=== PATIENT | male | born 1940 | race Caucasian/White ===

== ENCOUNTER 2020-06-14 06:24 | Outpatient (REF) | payer MEDICARE, SELFPAY ==
[2020-06-14 07:34] LABS: Estimated Average Glucose 85 mg/dL; Hemoglobin A1c % 4.6 %
== END 2020-06-14 06:25 | disposition home or self-care (01) ==
LOC: HO.MMNH2L 06:24
PROVIDERS: Visit Provider Family Medicine
DX: E11.29 Type 2 diabetes mellitus with other diabetic kidney complication (principal)
CPT/HCPCS: 83036

== ENCOUNTER 2020-07-28 07:11 | Outpatient (REF) | payer MEDICARE, SELFPAY ==
[2020-07-28 07:23] LABS: Hemoglobin 9.7 g/dl (14.0-18.0); Mean Corpuscular HGB Conc 33.4 g/dl (31.0-36.0); Mean Corpuscular Hemoglobin 31.8 pg (27.0-33.0); Mean Corpuscular Volume 95.1 fL (80-98); Mean Platelet Volume 9.5 fL (9.4-12.4); Platelet Count 220 X10*3/uL (160-400); Red Blood Count 3.05 X10*6/uL (4.60-5.80); Red Cell Distribution Width 13.2 % (11.0-16.0); White Blood Count 7.6 X10*3/uL (4.8-10.8)
[2020-07-28 07:23] LABS: Appearance Urine CLOUDY; Color Urine YELLOW; Glucose Urine UA NEG (NEG); Leukocyte Esterase Urine 3+ (NEG); Nitrite Urine NEG (NEG); Specific Gravity - Urine 1.015 (1.005-1.025); Urine Blood 3+ (NEG); Urine Ketones NEG (NEG); Urine Protein 2+ MG/DL (NEG-TRACE)
[2020-07-28 07:57] LABS: Bacteria Urine TRACE /LPF; WBC Urine 30-49 /HPF (0-4)
== END 2020-07-28 07:12 | disposition home or self-care (01) ==
LOC: HO.MMNH3L 07:11
PROVIDERS: Visit Provider Family Medicine
DX: N13.9 Obstructive and reflux uropathy, unspecified (principal)
CPT/HCPCS: 36415; 81001; 85027; 87086

== ENCOUNTER 2020-11-16 06:41 | Outpatient (REF) | payer SELFPAY ==
[2020-11-16 07:45] LABS: Glucose Urine UA 100 MG/DL (NEG); Leukocyte Esterase Urine 2+ (NEG); Nitrite Urine NEG (NEG); PH 8.5 (5.0-8.0); Specific Gravity - Urine 1.015 (1.005-1.025); Urine Blood 2+ (NEG); Urine Ketones NEG (NEG)
[2020-11-16 08:29] LABS: Appearance Urine HAZY; Color Urine YELLOW; Urine Protein 2+ MG/DL (NEG-TRACE)
[2020-11-16 08:43] LABS: Amorphous Sediment Urine 1+ /LPF; Bacteria Urine 1+ /LPF; Mucus Urine 1+ /LPF; WBC Urine 50-75 /HPF (0-4)
== END 2020-11-16 06:42 | disposition home or self-care (01) ==
LOC: HO.MMNH3L 06:41
PROVIDERS: Visit Provider Family Medicine
DX: N39.0 Urinary tract infection, site not specified (principal)
CPT/HCPCS: 81001; 81003; 87086

== ENCOUNTER 2020-11-18 12:45 | Outpatient (REF) | payer MEDICARE, SELFPAY ==
[2020-11-18 12:53] LABS: Basophils Percent Auto 0.3 % (0-2); Eosinophils Absolute Auto 0.1 X10*3/uL (0.0-0.4); Eosinophils Percent Auto 0.7 % (0-4); Hemoglobin 8.4 g/dl (14.0-18.0); Imm Gran Pct Auto 2.1 % (0.0-0.4); Lymphocytes Percent Auto 10.1 % (20-40); MANUAL DIFF FLAG NO; Mean Corpuscular HGB Conc 32.3 g/dl (31.0-36.0); Mean Corpuscular Hemoglobin 31.6 pg (27.0-33.0); Mean Corpuscular Volume 97.7 fL (80-98); Mean Platelet Volume 9.6 fL (9.4-12.4); Monocytes Percent Auto 10.1 % (2-11); Neutrophils Absolute Auto 7.3 X10*3/uL (2.0-8.3); Neutrophils Percent Auto 76.7 % (45-73); Platelet Count 216 X10*3/uL (160-400); Red Blood Count 2.66 X10*6/uL (4.60-5.80); Red Cell Distribution Width 13.1 % (11.0-16.0); White Blood Count 9.5 X10*3/uL (4.8-10.8)
== END 2020-11-18 12:46 | disposition home or self-care (01) ==
LOC: HO.MMNH3L 12:45
PROVIDERS: Visit Provider Family Medicine
DX: R31.9 Hematuria, unspecified (principal)
CPT/HCPCS: 36415; 85025

== ENCOUNTER 2021-01-01 21:00 | Outpatient (REF) | payer SELFPAY ==
[2021-01-02 09:09] LABS: Nitrite Urine POS (NEG); PH 7.5 (5.0-8.0); Specific Gravity - Urine 1.015 (1.005-1.025); Urine Blood 3+ (NEG)
[2021-01-02 09:12] LABS: Appearance Urine TURBID; Color Urine BROWN
[2021-01-02 09:13] LABS: Leukocyte Esterase Urine 3+ (NEG)
[2021-01-02 09:15] LABS: Amorphous Sediment Urine 2+ /LPF; Bacteria Urine 4+ /LPF; WBC Urine TNTC /HPF (0-4)
== END 2021-01-01 21:01 | disposition home or self-care (01) ==
LOC: HO.MMNH3L 21:00
PROVIDERS: Visit Provider Family Medicine
DX: R31.9 Hematuria, unspecified (principal)
CPT/HCPCS: 81001; 81003; 87086

== ENCOUNTER 2021-01-03 22:00 | Outpatient (REF) | payer MEDICARE, SELFPAY ==
[2021-01-04 05:58] LABS: Glucose Urine UA NEG (NEG); Leukocyte Esterase Urine 3+ (NEG); Nitrite Urine POS (NEG); PH 7.5 (5.0-8.0); Urine Blood 3+ (NEG); Urine Ketones NEG (NEG); Urine Protein 3+ MG/DL (NEG-TRACE)
[2021-01-04 06:01] LABS: Appearance Urine CLOUDY; Color Urine PINK
[2021-01-04 06:13] LABS: Bacteria Urine 2+ /LPF; Mucus Urine 2+ /LPF; RBC Urine 50-75 /HPF (0); Squamous Epithelial Cell Urine 1+ /LPF; WBC Urine 50-75 /HPF (0-4)
== END 2021-01-03 22:01 | disposition home or self-care (01) ==
LOC: HO.MMNH3L 22:00
PROVIDERS: Visit Provider Family Medicine
DX: R31.9 Hematuria, unspecified (principal)
CPT/HCPCS: 81001; 81003; 87086

== ENCOUNTER 2021-01-04 05:29 | Outpatient (REF) | payer MEDICARE, SELFPAY | END 2021-01-04 05:30 | disposition home or self-care (01) | LOC: HO.MMNH3L 05:29 | PROVIDERS: Visit Provider Family Medicine | DX: Z13.89 Encounter for screening for other disorder (principal) ==

== ENCOUNTER 2021-01-31 06:31 | Outpatient (REF) | payer MEDICARE, SELFPAY ==
[2021-01-31 06:41] LABS: MANUAL DIFF FLAG NO
[2021-01-31 06:46] LABS: Basophils Percent Auto 0.5 % (0-2); Eosinophils Absolute Auto 0.2 X10*3/uL (0.0-0.4); Eosinophils Percent Auto 5.5 % (0-4); Hematocrit 26.6 % (42-52); Hemoglobin 8.5 g/dl (14.0-18.0); Imm Gran Abs Auto 0.02 X10*3/uL (0.00-0.03); Imm Gran Pct Auto 0.5 % (0.0-0.4); Lymphocytes Absolute Auto 1.1 X10*3/uL (1.2-4.9); Lymphocytes Percent Auto 28.9 % (20-40); Mean Corpuscular Hemoglobin 30.5 pg (27.0-33.0); Mean Corpuscular Volume 95.3 fL (80-98); Mean Platelet Volume 9.7 fL (9.4-12.4); Monocytes Absolute Auto 0.5 X10*3/uL (0.1-1.2); Monocytes Percent Auto 13.9 % (2-11); Neutrophils Absolute Auto 1.9 X10*3/uL (2.0-8.3); Neutrophils Percent Auto 50.7 % (45-73); Platelet Count 149 X10*3/uL (160-400); Red Blood Count 2.79 X10*6/uL (4.60-5.80); Red Cell Distribution Width 15.2 % (11.0-16.0); White Blood Count 3.8 X10*3/uL (4.8-10.8)
== END 2021-01-31 06:32 | disposition home or self-care (01) ==
LOC: HO.MMNH3L 06:31
PROVIDERS: Visit Provider Family Medicine
DX: I69.811 Memory deficit following other cerebrovascular disease (principal); I12.0 Hypertensive chronic kidney disease with stage 5 chronic kidney disease or end stage renal disease; N18.6 End stage renal disease; Z99.2 Dependence on renal dialysis
CPT/HCPCS: 36415; 85025

== ENCOUNTER 2021-05-05 06:01 | Emergency (ER) | payer MEDICARE, SELFPAY ==
--- NOTE | ~2021-05-05 | CT_ITS ---
EXAMINATION: CT ABDOMEN AND PELVIS WITHOUT CONTRAST CLINICAL INFORMATION: Nausea and vomiting. COMPARISON: CT scan of the abdomen and pelvis dated 10/05/2019. TECHNIQUE: Multidetector volumetric imaging was performed from the superior aspect of the liver through the pubic symphysis. Sagittal and coronal reformatted images were obtained on the technologist workstation. This CT examination was performed using dose optimization techniques as appropriate, variously including the following: *Automated exposure control *Adjustment of mA and/or kV according to patient size (this includes techniques or standardized protocols for targeted exams where dose is matched to indication/reason for exam; i.e. extremities or head) *Use of iterative reconstruction technique DLP: 635 mGy-cm. FINDINGS: LUNG BASES: The heart is enlarged. A central venous line is seen extending into the right atrium. Dense mitral annular calcifications noted. There may be subtle aortic valvular calcifications. Moderate to severe coronary artery calcifications are noted. There is a trace right pleural effusion and a small left pleural effusion, similar to prior exam. There is associated volume loss and consolidation with air bronchograms in the entire visualized left lower lobe, progressive compared to 10/05/2019. Mild dependent atelectasis in the right lower lobe is unchanged. LIVER, GALLBLADDER, AND BILIARY TREE: The liver is normal in size, shape, and attenuation. Small scattered calcified hepatic granulomas seen. No focal hepatic lesion on noncontrast imaging. No biliary ductal dilatation is present. The gallbladder is unremarkable with no evidence of radiopaque gallstones, gallbladder wall thickening, or obvious pericholecystic inflammatory changes. PANCREAS: Difficult to separate from the adjacent bowel loops due to paucity of internal fat planes. Coarse calcifications seen in the pancreatic head. Pancreas otherwise grossly unremarkable to the extent seen on noncontrast imaging. SPLEEN: Multiple splenic calcifications are likely vascular in etiology. The anterior superior margin of the spleen, a 1 cm fluid attenuation mass is again seen, unchanged, consistent with a small splenic cyst. ADRENAL GLANDS: The right adrenal gland is normal. The left adrenal gland is abnormally enlarged and replaced by ill-defined 3 x 1.4 cm mass, similar to prior study from 10/05/2019. This mass is not adequately characterized on single phase exam. KIDNEYS AND URETERS: The kidneys are normal in size, shape, and attenuation. No hydronephrosis, hydroureter seen. Several bilateral renal calcifications are seen, most consistent with vascular calcifications. There are also several bilateral small subcentimeter sized low-attenuation masses in the kidneys, most consistent with benign cysts. No perinephric stranding. BLADDER: Completely decompressed by a Giles catheter and not adequately assessed. Bladder wall may be diffusely thickened. There is mild pericystic fat stranding and edema noted. PELVIC VISCERA: Prostate gland enlarged and heterogeneous and impresses upon the bladder base. GASTROINTESTINAL TRACT: Stomach and small bowel loops are decompressed and unremarkable. There is marked rectal distention with fecal residue seen, similar to the previous study with mild surrounding fat stranding and mild presacral edema, similar to the previous study, raising the suspicion of stercoral colitis. Moderate sigmoid colonic diverticulosis is seen with no evidence of acute diverticulitis. No bowel obstruction noted. Appendix normal. ABDOMINAL WALL: There is a tiny fat-containing umbilical hernia and a small supraumbilical midline ventral wall hernia, containing fat only, similar to prior studies. There is also a small direct fat-containing inguinal hernia seen bilaterally, right greater than left. LYMPH NODES, VASCULAR: Extensive dense atherosclerotic calcifications of the aorta iliac vessels and branch vessels seen. No significant abdominal or pelvic adenopathy is noted. OSSEOUS STRUCTURES: There is a S-shaped thoracolumbar scoliosis, diffuse osteopenia, mild superior endplate compression of the L2 and L3 vertebral bodies, and moderate degenerative disc disease at L3-4 and L5-S1. Moderate facet arthropathy is also seen throughout the mid and lower thoracic spine. CT/CT abdomen pelvis wo con IMPRESSION: 1. 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 2. Bladder poorly assessed due to complete decompression by Giles catheter. There may be diffuse bladder wall thickening and there is some very cystic fat stranding seen, suggesting an acute inflammatory response. Findings may be related to acute cystitis. Clinical correlation is requested. 3. Chronic small left pleural effusion with progressive volume loss and consolidation in the left lung base, either due to progressive atelectasis or pneumonia. 4. No significant change in trace right pleural effusion and associated dependent atelectasis in the right lower lobe. 5. Large left adrenal mass is seen, unchanged from 10/05/2019, but of uncertain etiology. Based on noncontrast imaging alone, the finding cannot be classified as an adenoma. Recommend dedicated assessment with renal CT scan with and without contrast in the nonemergent setting. 6. Extensive atherosclerotic vascular disease.
--- NOTE | ~2021-05-05 | CT_ITS ---
EXAMINATION: CT HEAD AND CT CERVICAL SPINE WITHOUT CONTRAST CLINICAL INFORMATION: Fall, pain. COMPARISON: None TECHNIQUE: 5 mm thin axial and reformatted 2 mm thin sagittal and coronal images of brain were obtained. Axial 3 mm thin and reformatted 2 mm thin sagittal and coronal images of cervical spine were obtained. DLP 1041 FINDINGS: Brain: There is a right posterior parietal lobe watershed area hypodensity consistent old encephalomalacia. There is no acute intra-axial, extra-axial bleed, mass, collection midline shift. The lateral ventricles are symmetrical in size but enlarged. There is diffuse periventricular hypodensity suggestive of chronic small vessel ischemic changes without mass effect. There is a left para midline frontal scalp hematoma. No calvarial fracture seen. The paranasal sinuses and mastoid air cells are well-aerated. Cervical spine: There is mild straightening of cervical lordosis. There is grade 1 anterolisthesis C4-C5 and grade 1 retrolisthesis C5 over C6. Rest the alignment is normal. There is loss of C3-C4, C4-C5, C5-C6 disc heights with moderate ventral spondylosis at the C4-C5 and C5-C6 disc levels. There is minimal posterior spondylosis as well. The craniovertebral junction and the C1-C2 alignment is normal. There is moderate left C2-C3, bilateral C3-C4, C4-C5 facet joint arthropathy and hypertrophy. No visible acute fracture, dislocation or subluxation seen. No visible acute fracture, dislocation or subluxation seen. There is large left pleural effusion. CT/CT cervical spine wo con IMPRESSION: Left frontal midline scalp hematoma without calvarial fracture. Mild cerebral volume loss with chronic small vessel ischemic changes in the cerebral hemispheres. Incidental finding of a large left pleural effusion.
--- NOTE | ~2021-05-05 | XR_ITS ---
EXAMINATION: XR CHEST CLINICAL INFORMATION: SOB. COMPARISON: None TECHNIQUE: Frontal view of the chest was obtained. FINDINGS: There is a left central venous catheter with its tip at the atriocaval junction. The heart size is borderline enlarged. Mild bilateral prominence vascularity is seen suggestive for interstitial edema. The lungs are expanded with left lower lobe retrocardiac complete opacification likely atelectasis, infiltrate or effusion. No gross bony abnormality. XR/XR chest 1V IMPRESSION: Cardiomegaly with bilateral interstitial edema or pneumonitis. Left lower lobe retrocardiac opacification question consolidation/atelectasis versus effusion.
--- NOTE | ~2021-05-05 | CT_ITS ---
EXAMINATION: CT HEAD AND CT CERVICAL SPINE WITHOUT CONTRAST CLINICAL INFORMATION: Fall, pain. COMPARISON: None TECHNIQUE: 5 mm thin axial and reformatted 2 mm thin sagittal and coronal images of brain were obtained. Axial 3 mm thin and reformatted 2 mm thin sagittal and coronal images of cervical spine were obtained. DLP 1041 FINDINGS: Brain: There is a right posterior parietal lobe watershed area hypodensity consistent old encephalomalacia. There is no acute intra-axial, extra-axial bleed, mass, collection midline shift. The lateral ventricles are symmetrical in size but enlarged. There is diffuse periventricular hypodensity suggestive of chronic small vessel ischemic changes without mass effect. There is a left para midline frontal scalp hematoma. No calvarial fracture seen. The paranasal sinuses and mastoid air cells are well-aerated. Cervical spine: There is mild straightening of cervical lordosis. There is grade 1 anterolisthesis C4-C5 and grade 1 retrolisthesis C5 over C6. Rest the alignment is normal. There is loss of C3-C4, C4-C5, C5-C6 disc heights with moderate ventral spondylosis at the C4-C5 and C5-C6 disc levels. There is minimal posterior spondylosis as well. The craniovertebral junction and the C1-C2 alignment is normal. There is moderate left C2-C3, bilateral C3-C4, C4-C5 facet joint arthropathy and hypertrophy. No visible acute fracture, dislocation or subluxation seen. No visible acute fracture, dislocation or subluxation seen. There is large left pleural effusion. CT/CT head/brain wo con IMPRESSION: Left frontal midline scalp hematoma without calvarial fracture. Mild cerebral volume loss with chronic small vessel ischemic changes in the cerebral hemispheres. Incidental finding of a large left pleural effusion.
[2021-05-05 06:08] VITALS: BP 145/67; PULSE 71; RESP 18; O2SAT 96; BMI 20.6
[2021-05-05 06:18] VITALS: TEMP 37
[2021-05-05 06:34] LABS: Glucose, Whole Blood 146 mg/dL (60-115)
--- NOTE | 2021-05-05 06:51 | ECG_ITS ---
Test Reason : FALL Blood Pressure : / mmHG Vent. Rate : 079 BPM Atrial Rate : 079 BPM P-R Int : 198 ms QRS Dur : 162 ms QT Int : 452 ms P-R-T Axes : 038 -32 -11 degrees QTc Int : 518 ms Normal sinus rhythm Left axis deviation Right bundle branch block Abnormal ECG No previous ECGs available Referred By: Meme Sheppard Electronically Signed By:VIK NICHOLS
--- NOTE | 2021-05-05 06:51 | ED_ITS ---
HPI - Fall General Chief Complaint: Fall Stated Complaint: FALL W/HEAD STRIKE,PAIN ON MOVEMENT Time Seen by Provider: 05/05/21 06:50 History of Present Illness HPI Narrative: 80-year-old male status post fall accidental in nature hit the front of his head. No loss of consciousness. No nausea no vomiting. No focal weakness. Patient was sitting in his wheelchair that time. There is a mechanical fall. Related Data Allergies Allergy/AdvReac Type Severity Reaction Status Date / Time No Known Allergies Allergy Unverified 04/27/20 19:41 [No Known Allergies*] Review of Systems Review of Systems: No fever no chills no chest pain or shortness breath no diaphoresis. No focal weakness Yes all other systems are reviewed and are negative [facility] Past Medical History Attestation statement: The following information was validated with the patient. Social History Social History Advance Directives: No Advance Directives Information Provided: No Physical Exam Vital Signs: Vital Signs: Last Vital Signs Temp 98.6 F 05/05/21 06:18 Pulse 67 05/05/21 07:55 Resp 17 05/05/21 07:55 BP 154/70 H 05/05/21 07:55 Pulse Ox 96 05/05/21 07:55 Body Mass Index 20.6 Appearance: Alert. Oriented X3. No acute distress. Eyes: Pupils equal, round and reactive to light. ENT: Pharynx normal. Positive contusion to the forehead positive small abrasion noted in the left frontal area there is no hemotympanum there is no CSF rhinorrhea. There is no midface tenderness there is no malocclusion noted Neck: Normal inspection. No lymph nodes noted. No crepitus CVS: Normal heart rate and rhythm. Pulses normal. Normal S1 and S2 Respiratory: No respiratory distress. Breath sounds normal. No Wheezing. No rales Abdomen: Soft and nontender. No rigidity. No distention. good BS x4 Skin: Skin warm and dry. Normal skin color. Normal skin turgor. Extremities: No lower extremity edema. Neurovascular intact to all extremities. No Lacerations. No Rash Neuro: Oriented X 3. No motor deficit. No sensory deficit. Moving all extermities. No slurred speech MDM - Fall MDM Narrative Medical decision making narrative: Patient 80-year-old male status post accidental fall at the dialysis center on a wheelchair. CT scan of the head and C-spine were both negative for fracture. Labs are ordered as patient has a hi story of end-stage renal disease is due for dialysis and did not receive his dialysis today. Patient's creatinine is 6 which is baseline. Potassium is 4.7 which is also acceptable. Patient had nausea vomiting earlier. CT scan of the abdomen showed no evidence of obstruction, abscess, perforation. It did show an adrenal mass which will require follow-up on an outpatient basis. Patient's case discussed with Nephrology. Will arrange for patient to get dialysis on Friday. As there is no emergent need for dialysis. Patient is lying flat O2 sat is normal. No distress. Patient's chest x-ray showed no acute focal infiltrate mild pleural effusion noted. Question age. Will have patient fo llow-up on an outpatient basis. Currently in stable condition. Will discharge patient back to [facility] same memory. Lab Data Attestation: I reviewed the patient's lab results. Result diagrams: 05/05/21 07:36 05/05/21 07:36 Labs: Lab Results 05/05/21 05/05/21 05/05/21 Range/Units 06:30 07:36 07:36 WBC 13.1 H (4.8-10.8) X10*3/uL RBC 2.80 L (4.60-5.80) X10*6/uL Hgb 8.7 L (14.0-18.0) g/dl Hct 26.1 L (42-52) % MCV 93.2 (80-98) fL MCH 31.1 (27.0-33.0) pg MCHC 33.3 (31.0-36.0) g/dl RDW 14.8 (11.0-16.0) % Plt Count 139 L (160-400) X10*3/uL MPV 9.5 (9.4-12.4) fL Immature Gran % (Auto) 0.6 H (0.0-0.4) % Neut % (Auto) 87.7 H (45-73) % Lymph % (Auto) 4.1 L (20-40) % [place] % (Auto) 7.5 (2-11) % Eos % (Auto) 0.0 (0-4) % Baso % (Auto) 0.1 (0-2) % Lymph # (Auto) 0.5 L (1.2-4.9) X10*3/uL [place] # (Auto) 1.0 (0.1-1.2) X10*3/uL Eos # (Auto) 0.0 (0.0-0.4) X10*3/uL Baso # (Auto) 0.0 (0.0-0.2) X10*3/uL Abs Immat Gran (auto) 0.08 H (0.00-0.03) X10*3/uL Absolute Neuts (auto) 11.5 H (2.0-8.3) X10*3/uL Absolute Nucleated RBC 0.000 (0.0-0.012) X10*3/uL Nucleated RBC % (auto) 0.0 (0.0-0.2) /100WBC Sodium 138 (135-145) mmol/L Potassium 4.7 (3.3-5.1) mmol/L Chloride 99 (96-108) mmol/L Carbon Dioxide 28 (22-29) mmol/L Anion Gap 16 (12-20) BUN 62 H (9-16) mg/dL Creatinine 6.19 H* (0.5-1.4) mg/dL Estim Creat Clear Calc 7.9 Estimated GFR 9 POC Glucose 146 H (60-115) mg/dL Random Glucose 133 H (60-115) mg/dL Calcium 9.9 (8.4-10.2) mg/dL Discharge Plan Discharge Clinical Impression: Head injury, Nausea & vomiting Patient Disposition: Home, Self-Care Instructions: Head Injury (ED), Acute Abdominal Pain (ED) Additional Instructions: A mass was found in your adrenal gland. This is very similar to the adrenal gland mass noted in 2020. The size is not changed. Close follow-up is still advised. Risk of malignancy exists. Please get dialysis on Friday. Your case was discussed with Renal. Referrals: Physician,Unknown [Primary Care Provider] - 2 days (Please get dialysis on Friday. Worsening condition return. Nausea vomiting change in condition return. Head injury precautions.)
[2021-05-05 07:41] LABS: MANUAL DIFF FLAG NO
[2021-05-05 07:50] LABS: Basophils Percent Auto 0.1 % (0-2); Hematocrit 26.1 % (42-52); Hemoglobin 8.7 g/dl (14.0-18.0); Imm Gran Abs Auto 0.08 X10*3/uL (0.00-0.03); Imm Gran Pct Auto 0.6 % (0.0-0.4); Lymphocytes Absolute Auto 0.5 X10*3/uL (1.2-4.9); Lymphocytes Percent Auto 4.1 % (20-40); Mean Corpuscular HGB Conc 33.3 g/dl (31.0-36.0); Mean Corpuscular Hemoglobin 31.1 pg (27.0-33.0); Mean Corpuscular Volume 93.2 fL (80-98); Mean Platelet Volume 9.5 fL (9.4-12.4); Monocytes Percent Auto 7.5 % (2-11); Neutrophils Absolute Auto 11.5 X10*3/uL (2.0-8.3); Neutrophils Percent Auto 87.7 % (45-73); Platelet Count 139 X10*3/uL (160-400); Red Cell Distribution Width 14.8 % (11.0-16.0); White Blood Count 13.1 X10*3/uL (4.8-10.8)
[2021-05-05 07:55] VITALS: BP 154/70; PULSE 67; RESP 17; O2SAT 96
--- NOTE | 2021-05-05 07:59 | PC.NURSE ---
Pt is groaning telling staff to take off o2 sat probe. Pt A+O x2 able to state his name and that he is in the hospital. He is otherwise not appropriate.
[2021-05-05] MEDS: Diphth,Pertus(ACell),Tet Adult 0.5 ML SYRINGE IM (08:01)
[2021-05-05 08:12] LABS: Anion Gap 16 (12-20); Blood Urea Nitrogen 62 mg/dL (9-16); Calcium 9.9 mg/dL (8.4-10.2); Carbon Dioxide 28 mmol/L (22-29); Chloride 99 mmol/L (96-108); Creatinine Clr Calc Pharmacy 7.9; Estimated Glomerular Filt Rate 9; Glucose Random 133 mg/dL (60-115); Potassium 4.7 mmol/L (3.3-5.1); Sodium 138 mmol/L (135-145)
--- NOTE | 2021-05-05 10:28 | PC.NURSE ---
Pt resisting care and fighting staff in attempt to place IV. aware. Plan to order CT w/o contrast.
--- NOTE | 2021-05-05 12:23 | PC.NURSE ---
Report called to nurse at [facility]. Pt to be discharged back with dialysis on Friday.
== END 2021-05-05 14:53 | disposition home or self-care (01) ==
PROVIDERS: Emergency Provider Emergency Medicine Emergency Medical Services
DX: S00.81XA Abrasion of other part of head, initial encounter (principal); M54.2 Cervicalgia; R10.9 Unspecified abdominal pain; N18.6 End stage renal disease; Z99.2 Dependence on renal dialysis; W01.0XXA Fall on same level from slipping, tripping and stumbling without subsequent striking against object, initial encounter; Y93.9 Activity, unspecified; Y92.9 Unspecified place or not applicable; Y99.9 Unspecified external cause status
CPT/HCPCS: 36415; 70450; 71045; 72125; 74176; 80048; 82947; 85025; 90471; 90715; 93005; 99284

== ENCOUNTER 2021-06-16 05:39 | Inpatient (IN) | payer MEDICARE, SELFPAY ==
[2021-06-16] VITALS (10 sets, daily range): BP systolic 133–184; BP diastolic 61–89; PULSE 71–113; RESP 16–20; TEMP 36.6–38.1; O2SAT 85–100; BMI 20.7
--- NOTE | ~2021-06-16 | CT_ITS ---
EXAMINATION: CT HEAD/BRAIN WITHOUT CONTRAST CLINICAL INFORMATION: AMS COMPARISON: May 05, 2021 TECHNIQUE: CT scanning from base of skull to vertex performed without IV contrast administration. This CT examination was performed using dose optimization techniques as appropriate, variously including the following: *Automated exposure control *Adjustment of mA and/or kV according to patient size (this includes techniques or standardized protocols for targeted exams where dose is matched to indication/reason for exam; i.e. extremities or head) *Use of iterative reconstruction technique DLP: 775 mGy-cm. FINDINGS: The ventricles, sulci, and cisterns appear symmetrically prominent consistent with generalized atrophy. No abnormal extra-axial fluid collection or intracranial hemorrhage is seen. No significant mass effect or midline structure shift is evident. There is again noted to be stable region of diminished density with loss of brain white matter interface about the right posterior parietal/occipital watershed region. There is a large amount of periventricular white matter low density consistent with microangiopathy. Paranasal sinuses and mastoid air cells are aerated. CT/CT cervical spine wo con IMPRESSION: No acute intracranial abnormality. 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 Findings consistent with diffuse atrophy and microangiopathy. EXAMINATION: CT OF THE CERVICAL SPINE CLINICAL INFORMATION: Neck pain COMPARISON: May 05, 2021. TECHNIQUE: Thin helical images with sagittal and coronal reformats. This CT examination was performed using dose optimization techniques as appropriate, variously including the following: *Automated exposure control *Adjustment of mA and/or kV according to patient size (this includes techniques or standardized protocols for targeted exams where dose is matched to indication/reason for exam; i.e. extremities or head) *Use of iterative reconstruction technique DOSE: DLP 356 mGy-cm FINDINGS: No abnormal prevertebral soft tissue swelling is seen. Paraspinal muscle fat planes are maintained. Carotid artery calcifications present. There is degenerative change with loss of joint space involving the left temporomandibular joint. No acute cervical spine fracture is seen. There is loss of cervical spine lordosis. There is mild anterior subluxation of C4 on C5. There is loss of disc spaces C3-T1 with prominent sclerosis and spurring seen about C5-C6 disc space level with some irregularity of adjacent end plates. There is anterior neural foraminal encroachment seen C3-C7 related to spurring of the joints of Luschka. There is facet arthropathy noted on the left C2-C5 and on the right C3-C5. IMPRESSION: No acute cervical spine fracture. Diffuse multilevel cervical spondylosis as described.
--- NOTE | ~2021-06-16 | XR_ITS ---
EXAMINATION: XR CHEST CLINICAL INFORMATION: Status post permacath COMPARISON: 06/16/2021 TECHNIQUE: Frontal view of the chest was obtained. FINDINGS: Left subclavian central venous catheter terminates near the cavoatrial junction. The lungs are well expanded. Moderate left pleural effusion persists with basilar opacity. Minimal right basilar atelectasis. No pneumothorax. The cardiomediastinal silhouette is unchanged, with a calcified aorta. XR/XR chest 1V IMPRESSION: Left-sided central venous catheter terminates near the cavoatrial junction. No pneumothorax. Similar moderate left pleural effusion with basilar airspace opacity.
--- NOTE | ~2021-06-16 | IR_ITS ---
EXAMINATION: IR TUNNELED CATHETER REMOVAL CLINICAL INFORMATION: MRSA bacteremia. Question infected permacath. COMPARISON: None TECHNIQUE/FINDINGS: Procedure and risks and benefits including bleeding and infection were discussed the patient's healthcare proxy by telephone and informed consent was obtained. The left chest permacath was prepped and draped in the usual sterile fashion. The skin and soft tissues surrounding the permacath exit site in the chest wall were anesthetized with 1% lidocaine plain. Using blunt dissection, attempt at dissecting the catheter from the surrounding soft tissues was made, however, the catheter could not be removed. Subsequently, a small incision over the catheter where the fibrous cuff could be felt was anesthetized with 1% lidocaine plain. A small incision was made. Using blunt dissection, the permacath was dissected from the soft tissues. The permacath was removed. The catheter tip was sent for culture. The incision was closed using one 3-0 absorbable interrupted suture followed by a 4-0 subcuticular suture. The patient received Versed 1 mg and fentanyl 50 mcg intravenously during the procedure. Total sedation time was 28 minutes. 1 saved fluoroscopic image. Fluoroscopy time: 0 minutes. DAP: 4 cGy-cm2. IR/IR cvc remov tunnel wo prt/truer pinion and wheel IMPRESSION: Left jugular permacath removal.
--- NOTE | ~2021-06-16 | XR_ITS ---
EXAMINATION: PORTABLE CHEST 1 VIEW CLINICAL INFORMATION: hypoxic . COMPARISON: 05/05/2021 chest x-ray and CT scan from earlier today. TECHNIQUE: Portable frontal view of the chest was obtained. FINDINGS: Lungs are hypoexpanded. There is a moderate-sized layering left pleural effusion with associated left basilar consolidation/atelectasis, grossly similar to the prior study. There is mild central vascular prominence but no overt edema. No pneumothorax. Cardiac silhouette within normal limits for size with vascular calcification in aorta. Left IJ dialysis catheter tip overlying the proximal right atrium. Degenerative changes in the shoulders. XR/XR chest 1V IMPRESSION: Stable moderate left-sided pleural effusion with associated basilar consolidation/atelectasis. Overall this appearance is similar to the prior chest x-ray and seen on the CT scan from today.
--- NOTE | ~2021-06-16 | CT_ITS ---
EXAMINATION: CT CHEST, ABDOMEN AND PELVIS WITHOUT CONTRAST CLINICAL INFORMATION: AMS. Nausea vomiting and abdominal pain. Diarrhea. COMPARISON: CT abdomen of May 05, 2021 TECHNIQUE: Multidetector volumetric imaging was performed from the thoracic inlet through the pubic symphysis without oral or IV contrast. Sagittal and coronal reformatted images were obtained on the technologist workstation. DLP: 942 mGy-cm. FINDINGS: CHEST: Lungs: There are a few sub-4 mm densities present. There is again noted to be left lower lobe consolidation with moderate-sized stable partially loculated left pleural effusion. There is some stable right base atelectasis/scarring. Mediastinum: The heart is enlarged. Left internal jugular tunneled central venous catheter is present with tip at the cavoatrial junction. No pericardial effusion. There are prominent coronary artery calcifications present. There are some aortic valve and mitral annular calcifications present. There is aortic arch calcification with question hemodynamically significant left subclavian artery origin stenosis. Evaluation of mediastinal and hilar lymph nodes is limited. There does appear to be 1.1 cm precarinal lymph node and 1 cm aortopulmonic window lymph node. Prominent arterial vascular calcified plaque is seen throughout. Pleura: Moderate partially loculated left pleural effusion. Chest Wall/Axilla: No axillary lymphadenopathy. ABDOMEN/PELVIS: Liver, Gallbladder, Biliary Tree: There are a few scattered calcified granulomas present. No focal suspicious mass or intrahepatic bile duct dilatation is seen. The gallbladder is unremarkable with no evidence of radiopaque gallstones, gallbladder wall thickening, or pericholecystic inflammatory changes. Pancreas: Unremarkable to extent seen. No definite focal mass or peripancreatic inflammatory change. Spleen: Vascular calcifications present. There are a few scattered calcified granulomas seen. Adrenal Glands: Right adrenal gland unremarkable. Left adrenal gland not well evaluated with approximately 3.5 x 1.4 cm mass density similar to previous study. Kidneys and Ureters: Bilateral calcifications are present some of which appear to be vascular in nature and others which may represent nonobstructive collecting system calculi. No hydronephrosis. Low-density lesions are seen within both kidneys likely representing cysts. Perinephric stranding is present. Bladder: Giles catheter in place. Probably thickened wall. There is some iatrogenic gas seen within the urinary bladder. There is some pericystic fat streaking. Gastrointestinal Tract: No dilated loops of large or small bowel are evident. No free air or free fluid appreciated. The rectum and rectosigmoid are again noted to be distended with stool similar to previous study evaluation of bowel is somewhat limited due to lack of oral and IV contrast and some motion artifact present. No evidence of acute diverticulitis or appendicitis. There is some fat streaking adjacent to the rectosigmoid which is unchanged. No other region of pericolonic inflammatory streaking is identified. Abdominal Wall: Small fat-containing right inguinal hernia. Lymph Nodes: No lymphadenopathy appreciated. Vascular: There is diffuse calcified arterial plaque present throughout the chest, abdomen, and pelvis. There appears to be dense calcification about the proximal renal arteries bilaterally and degree of possible stenosis cannot be determined from this study. Pelvic Viscera: Prominent prostate gland. Osseous Structures: No suspicious destructive bony lesions identified. Degenerative change of both shoulders identified. Multilevel degenerative disc disease is seen with facet arthropathy. There is scoliosis of the lumbar spine convex left. CT/CT abdomen pelvis wo con IMPRESSION: Continued left lower lobe consolidation with moderate partially loculated left pleural effusion. Cardiomegaly. Prominent arterial calcified plaque seen throughout the chest, abdomen, and pelvis with probable some degree of hemodynamically significant stenosis involving the left subclavian artery and bilateral renal arteries. No significant change in appearance of left adrenal gland mass. No evidence to suggest obstructive uropathy. No free air or free fluid. Continued marked distention of the rectum and rectosigmoid with stool. Giles catheter in urinary bladder with probable thickened wall.
--- NOTE | ~2021-06-16 | IR_ITS ---
PROCEDURE: IR INSERTION OF TUNNEL CATHETER CLINICAL INFORMATION: Renal failure. COMPARISON: None TECHNIQUE: Procedure risks and benefits including bleeding, infection and pneumothorax were discussed with the patient's healthcare proxy by telephone, his nephew, and informed consent was obtained. All elements of maximal sterile barrier technique followed including use of cap, mask, sterile gown, sterile gloves, a sterile full body drape and hand hygiene. Also followed skin preparation with 2% chlorhexidine for cutaneous antisepsis, and sterile ultrasound preparation with sterile gel and probe cover when applicable. The left neck and chest were prepped and draped in the usual sterile fashion. Using ultrasound guidance, left internal jugular vein was attempted. Ultrasound revealed significant thrombus in the left internal jugular vein. Limited venogram using Omnipaque 300 contrast, approximately 5 mL, was performed which demonstrated occlusion of the left internal jugular vein. Central access into the mediastinum could not be obtained. Subsequently, again using ultrasound guidance, access to a large collateral vein in the left more lateral neck was made. This was accessed multiple times. 0.018 wire could not be advanced centrally into the mediastinum. Finally, using ultrasound guidance and a 5-Libyan micropuncture system, left subclavian vein access was obtained. Over an 0.018 wire, a 5-Libyan dilator was positioned in the left subclavian vein. The skin and soft tissues of the left more inferior chest were anesthetized with 1% lidocaine plain. A small incision was made. A subcutaneous tunnel was made from the skin incision to the incision under the left clavicle. Using a tunneler, a 14.5-Libyan 23 cm in length Palindrome permacath was tunneled from the chest to the incision under the clavicle at the venous access site. An 0.035 guidewire was advanced through the 5-Libyan dilator into the IVC. Following serial dilatation and through a peel-away sheath, permacath was advanced centrally. Catheter tip is in the SVC. Both ports flushed well, had good blood return and were instilled with 2.1 mL heparin 1000 unit per mL solution. The incision under the left clavicle was closed using a 3-0 absorbable subcuticular suture. Chest incision was closed using a 3-0 absorbable mattress suture. Real-time ultrasound guidance was used to document vein patency and for needle entry. A formal ultrasound picture was recorded. Fluoroscopy time 7.3 minutes. DAP 1272 cGy-cm2. Anesthesia was provided by the anesthesia department. The patient received Kefzol 2 g IV during the procedure. FINDINGS: There is a left subclavian permacath with tip projecting over the SVC. IR/IR cvc insert central tunnel IMPRESSION: 14.5-Libyan 28 cm in length left subclavian Palindrome permacath placement.
--- NOTE | 2021-06-16 05:51 | ECG_ITS ---
Test Reason : WEAKNESS Blood Pressure : / mmHG Vent. Rate : 082 BPM Atrial Rate : 082 BPM P-R Int : 178 ms QRS Dur : 162 ms QT Int : 466 ms P-R-T Axes : 103 230 -29 degrees QTc Int : 544 ms Suspect limb lead reversal, interpretation assumes no reversal Sinus rhythm with Premature supraventricular complexes Indeterminate axis Right bundle branch block Abnormal ECG When compared with ECG of 05-MAY-2021 07:02, Premature supraventricular complexes are now Present T wave inversion more evident in Anterior leads Referred By: Serafin Solorzano Electronically Signed By:TANNER MOON MD
--- NOTE | 2021-06-16 05:56 | ED_ITS ---
HPI - General Adult General Chief complaint: Weakness Stated complaint: weakness Time Seen by Provider: 06/16/21 05:51 Source: EMS and old records reviewed Mode of arrival: ambulatory Limitations: no limitations History of Present Illness HPI narrative: 80-year-old male past medical history significant for anemia, d iabetes, cognitive impairment, hypertension, CKD on hemodyalisis presents to the emergency department via EMS from [facility] with concerns of diarrhea, and vomiting X1 day. According to EMS they also wanted him evaluated at the emergency department because he is scheduled to have dialysis today, however they feel as though he is unable to sit upright in a recliner for dialysis. EMS is not sure if this is patient's baseline, however, he is not answering any questions, when asked if something hurts he has no. Patient appears to be altered. No evident signs of trauma upon arrival. Associated symptoms: denies other symptoms Treatments prior to arrival: none Related Data Allergies Allergy/AdvReac Type Severity Reaction Status Date / Time No Known Allergies Allergy Unverified 04/27/20 19:41 [No Known Allergies*] Review of Systems Review of Systems: Unable to obtain review of systems due to patient's mental status. Yes Unobtainable due to mental status PMF Past Medical History Attestation statement: The following information was validated with the patient. Source: old records reviewed and nursing notes reviewed Medical History (Updated 06/16/21 @ 06:46 by TOM Meneses) Benign prostatic hyperplasia 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 Diabetes End stage renal disease Essential (primary) hypertension Metabolic encephalopathy Pneumonia Physical Exam Vital Signs: Vital Signs: Last Vital Signs Temp 100.6 F H 06/16/21 05:50 Pulse 88 06/16/21 05:50 Resp 16 06/16/21 05:50 BP 136/89 06/16/21 05:50 Pulse Ox 96 06/16/21 05:50 Body Mass Index 20.7 Appearance: Alert. Oriented X1 to person. No acute distress. ? No accessory muscle use. Contracted and laying on his left side. Strong urine odor noted on clothes, indwelling siddiqui catheter in place. Patient thin. Head: Normal external exam. Normocephalic. Atraumatic. ? Eyes: PERRLA. EOMI. Conjunctiva and sclera normal. Eyelids normal. + Bulging of left eye when compared to right. ? ENT: Pharynx normal. Uvula midline. Moist mucous membranes. ? No trismus noted.? No drooling noted.? No muffled voice noted. + torn left ear lobe with overlying dry blood Neck: ?Soft full range of motion, no JVD CVS: ?Heart regular rate and rhythm no murmurs and rubs Respiratory: ?Breath sounds are clear to auscultation bilaterally. No wheezing or stridor.? No accessory muscle use noted. Abdomen: ?Soft nontender no rebound or guarding positive bowel sounds Skin: Skin warm and dry.? Normal skin color.? Normal skin turgor. No rashes/lesions/lacerations noted. Extremities: No lower extremity edema. ? Extremities exhibit normal passive range of motion.? Extremities nontender. Neuro: Oriented X 1 to person.? No motor deficit.? No sensory deficit.? Reflexes normal. Patient unable to follow commands Course Reevaluation(s) Reevaluation #1: Sign out was given to . Labs pending, CTs Pending. Repeat trop at 0900 ordered. Time: 06:41 Medical Decision Making MDM Narrative Medical decision making narrative: 550 80 yo male pmhx DM, CKD on hemodyalisis, DM, BPH, cognitive impairment, anemia presents to the ED via EMS from [facility] where they were concerned that he was nauseous, vomiting, and had diarrhea. They also mention to EMS that they were worried because he was scheduled for dialysis today, however he has been unable to sit upright, so they were afraid that he will be able to sit upright on the recliner for dialysis. Patient is unable to answer questions, when asked if he has pain he says no. No evident signs of trauma. Upon physical examination patient is lying on the stretcher, appears to be in no distress. He is thin. His clothes have a strong smell of urine. Head normocephalic, atraumatic, no step offs or deformities. PERRL bilaterally.There is a torn left earlobe with overlying dry blood. Left eye appears to be bulging, when compared to right. Extremities are contracted, and he is laying to the left side of his body. He is alert to person. Unable to follow simple commands. No evident signs of trauma. Lungs are clear to auscultation bilaterally. S1-S2 appreciated free of murmurs. Abdomen soft nontender nondistended. No lower extremity edema. Sensory and motor intact. Full passive range of motion. Upon his arrival his skin felt warm, nurse took a rectal temperature - 100.6? F. At this time infection is suspected (0551) Plan at this time is to do a full workup, basic labs, blood cultures, lactic, COVID, EKG, trop, CK, lipase, mag, UA, CXR, CT of abdomen/pevlis, cervical spine, chest, head/brain. 1gm of Rocephen has been ordered at this time. Lab Data Result diagrams: 06/16/21 06:11 06/16/21 06:11 Labs: Lab Results 06/16/21 06/16/21 06/16/21 Range/Units 06:10 06:10 06:11 WBC 10.5 (4.8-10.8) X10*3/uL RBC 2.88 L (4.60-5.80) X10*6/uL Hgb 9.4 L (14.0-18.0) g/dl Hct 29.0 L (42.0-52.0) % MCV 100.7 H (80.0-98.0) fL MCH 32.6 (27.0-33.0) pg MCHC 32.4 (31.0-36.0) g/dl RDW 15.0 (11.0-16.0) % Plt Count 155 L (160-400) X10*3/uL MPV 9.9 (9.4-12.4) fL Immature Gran % (Auto) 0.4 (0.0-0.4) % Neut % (Auto) 88.3 H (45-73) % Lymph % (Auto) 3.1 L (20-40) % [place] % (Auto) 8.0 (2-11) % Eos % (Auto) 0.0 (0-4) % Baso % (Auto) 0.2 (0-2) % Lymph # (Auto) 0.3 L (1.2-4.9) X10*3/uL [place] # (Auto) 0.8 (0.1-1.2) X10*3/uL Eos # (Auto) 0.0 (0.0-0.4) X10*3/uL Baso # (Auto) 0.0 (0.0-0.2) X10*3/uL Abs Immat Gran (auto) 0.04 H (0.00-0.03) X10*3/uL Absolute Neuts (auto) 9.3 H (2.0-8.3) x10*3/uL Absolute Nucleated RBC 0.000 (0.0-0.012) X10*3/uL Nucleated RBC % (auto) 0.0 (0.0-0.2) /100WBC Sodium (135-145) mmol/L Potassium (3.3-5.1) mmol/L Chloride (96-108) mmol/L Carbon Dioxide (22-29) mmol/L Anion Gap (12-20) BUN (9-16) mg/dL Creatinine (0.5-1.4) mg/dL Estim Creat Clear Calc Estimated GFR POC Glucose (60-115) mg/dL Random Glucose (60-115) mg/dL Lactic Acid 1.0 (0.5-2.0) mmol/L Calcium (8.4-10.2) mg/dL Magnesium (1.6-2.6) mg/dL Total Bilirubin (0.0-1.0) mg/dL AST (5-37) U/L ALT (0-40) U/L Alkaline Phosphatase (39-117) U/L Total Creatine Kinase (38-174) U/L Troponin I High Sens 2101.6 H* (<3.5-35.0) ng/L Total Protein (6.5-8.0) g/dL Albumin (3.5-5.0) g/dL Lipase (8-78) U/L COVID-19 (SALTY) (Negative) COVID-19 Clin Com 06/16/21 06/16/21 06/16/21 Range/Units 06:11 06:11 06:19 WBC (4.8-10.8) X10*3/uL RBC (4.60-5.80) X10*6/uL Hgb (14.0-18.0) g/dl Hct (42.0-52.0) % MCV (80.0-98.0) fL MCH (27.0-33.0) pg MCHC (31.0-36.0) g/dl RDW (11.0-16.0) % Plt Count (160-400) X10*3/uL MPV (9.4-12.4) fL Immature Gran % (Auto) (0.0-0.4) % Neut % (Auto) (45-73) % Lymph % (Auto) (20-40) % [place] % (Auto) (2-11) % Eos % (Auto) (0-4) % Baso % (Auto) (0-2) % Lymph # (Auto) (1.2-4.9) X10*3/uL [place] # (Auto) (0.1-1.2) X10*3/uL Eos # (Auto) (0.0-0.4) X10*3/uL Baso # (Auto) (0.0-0.2) X10*3/uL Abs Immat Gran (auto) (0.00-0.03) X10*3/uL Absolute Neuts (auto) (2.0-8.3) x10*3/uL Absolute Nucleated RBC (0.0-0.012) X10*3/uL Nucleated RBC % (auto) (0.0-0.2) /100WBC Sodium 135 (135-145) mmol/L Potassium 4.1 (3.3-5.1) mmol/L Chloride 97 (96-108) mmol/L Carbon Dioxide 20 L (22-29) mmol/L Anion Gap 22 H (12-20) BUN 48 H (9-16) mg/dL Creatinine 5.99 H* (0.5-1.4) mg/dL Estim Creat Clear Calc 8.6 Estimated GFR 9 POC Glucose 145 H (60-115) mg/dL Random Glucose 155 H (60-115) mg/dL Lactic Acid (0.5-2.0) mmol/L Calcium 8.9 D (8.4-10.2) mg/dL Magnesium 2.2 (1.6-2.6) mg/dL Total Bilirubin 0.6 (0.0-1.0) mg/dL AST 34 (5-37) U/L ALT 14 (0-40) U/L Alkaline Phosphatase 55 (39-117) U/L Total Creatine Kinase 69 (38-174) U/L Troponin I High Sens (<3.5-35.0) ng/L Total Protein 6.8 (6.5-8.0) g/dL Albumin 3.4 L (3.5-5.0) g/dL Lipase 50 (8-78) U/L COVID-19 (SALTY) Negative (Negative) COVID-19 Clin Com See Note ECG Data Attestation: I personally reviewed and interpreted this ECG as follows: Prior ECG tracings: available for review Interpretation: Ventricular rate of 82, WI interval normal, QRS normal QT/QTC prolonged. EKG shows sinus rhythm with PVCs. And right bundle-branch block. It also shows an indeterminate access. No ST elevations or inversions. No acute ischemia. No acute changes when compared to EKG from May 05, 2021. Critical Care Time Critical Care Time Critical Care Time: No Discharge Plan Discharge Clinical Impression: Nausea & vomiting, Diarrhea, Adult failure to thrive, Elevated troponin level
[2021-06-16 06:20] LABS: MANUAL DIFF FLAG NO
[2021-06-16] MEDS: cefTRIAXone sodium 1 GM in 0.9 % Sodium Chloride 50 ML IV (06:21)
[2021-06-16] MEDS: 0.9 % Sodium Chloride 1,000 ML 999 ML IV (06:21)
[2021-06-16 06:22] LABS: Basophils Percent Auto 0.2 % (0-2); Hemoglobin 9.4 g/dl (14.0-18.0); Imm Gran Abs Auto 0.04 X10*3/uL (0.00-0.03); Imm Gran Pct Auto 0.4 % (0.0-0.4); Lymphocytes Absolute Auto 0.3 X10*3/uL (1.2-4.9); Lymphocytes Percent Auto 3.1 % (20-40); Mean Corpuscular HGB Conc 32.4 g/dl (31.0-36.0); Mean Corpuscular Hemoglobin 32.6 pg (27.0-33.0); Mean Corpuscular Volume 100.7 fL (80.0-98.0); Mean Platelet Volume 9.9 fL (9.4-12.4); Monocytes Absolute Auto 0.8 X10*3/uL (0.1-1.2); Neutrophils Absolute Auto 9.3 x10*3/uL (2.0-8.3); Neutrophils Percent Auto 88.3 % (45-73); Platelet Count 155 X10*3/uL (160-400); Red Blood Count 2.88 X10*6/uL (4.60-5.80); White Blood Count 10.5 X10*3/uL (4.8-10.8)
[2021-06-16 06:24] LABS: Glucose, Whole Blood 145 mg/dL (60-115)
--- NOTE | 2021-06-16 06:25 | PC.NURSE ---
Pt arrives by EMS from [facility]. Pt noted to be very unkempt, hair extremely dry, hair matted. Pt noted to have dried blood to left ear/neck with large dressing to left earlobe. This RN and PA removing dressing, pts left earlobe noted to be split. Bleeding controlled. Unknown if new or from fall last week. Left eye red and swollen, unknown if also r/t fall. Dialysis port to left chest poorly secured, dressing noted to be soiled and only constitution party attached to pt. This RN to change dressing. +Giles however no UO noted in drainage bag at this time. IV established, all labs including Covid swab and BCX x 2 obtained and sent. Pt off to CT at this time.
[2021-06-16 06:39] LABS: COVID-19 Test Negative (Negative)
--- NOTE | 2021-06-16 06:43 | PC.NURSE ---
EKG obtained by office technician with this nurse at bedside. EKG interpretation showing suspected arm reversal. 3 staff members at bedside confirmed correct placement of all leads. PA aware.
[2021-06-16 06:44] LABS: Alanine Aminotransferase 14 U/L (0-40); Albumin Level 3.4 g/dL (3.5-5.0); Alkaline Phosphatase 55 U/L (39-117); Anion Gap 22 (12-20); Aspartate Amino Transferase 34 U/L (5-37); Bilirubin Total 0.6 mg/dL (0.0-1.0); Blood Urea Nitrogen 48 mg/dL (9-16); Calcium 8.9 mg/dL (8.4-10.2); Carbon Dioxide 20 mmol/L (22-29); Chloride 97 mmol/L (96-108); Creatinine Clr Calc Pharmacy 8.6; Estimated Glomerular Filt Rate 9; Glucose Random 155 mg/dL (60-115); Lipase 50 U/L (8-78); Magnesium 2.2 mg/dL (1.6-2.6); Potassium 4.1 mmol/L (3.3-5.1); Sodium 135 mmol/L (135-145); Total Protein 6.8 g/dL (6.5-8.0)
[2021-06-16 07:49] LABS: Troponin-I High Sensitivity 2431.7 ng/L (<3.5-35.0)
--- NOTE | 2021-06-16 07:58 | PC.NURSE ---
Patient sleeping, awakens easily to verbal stimuli. patient oriented to self and able to state that he is in the hospital but unsure of where. Patient denies pain. Strong urine odor noted, urine sample needed. Skin pwd, resp even and non labored. dressing to left chest dialysis cath CDI.
--- NOTE | 2021-06-16 08:35 | ECG_ITS ---
Test Reason : REPEAT Blood Pressure : / mmHG Vent. Rate : 085 BPM Atrial Rate : 085 BPM P-R Int : 000 ms QRS Dur : 162 ms QT Int : 458 ms P-R-T Axes : 000 096 -16 degrees QTc Int : 545 ms Normal sinus rhythm with frequent Premature atrial complexes Nonspecific T wave abnormality Right bundle branch block Abnormal ECG When compared with ECG of 16-JUN-2021 06:03, Premature atrial complexes are now more frequent Referred By: Meme Sheppard Electronically Signed By:TANNER MOON MD
--- NOTE | 2021-06-16 08:47 | PHA.MEDREC ---
Pharmacy Consult ? Medication Reconciliation Pharmacy has completed the medication reconciliation. Per Tejas mayer. Thanks Phoebe Yen Pharm D
[2021-06-16] MEDS: 0.9 % Sodium Chloride 1,000 ML 100 ML IVCONT ×2 (13:23→23:27)
--- NOTE | 2021-06-16 13:29 | PM.IMHP ---
History of Present Illness Date of Service: 06/16/21 80-year-old male past medical history significant for anemia, diabetes, cognitive impairment, hypertension, CKD on hemodyalisis presents to the emergency department via EMS from [facility] with concerns of diarrhea, and vomiting X1 day.?Also noted lethargy. ER Course Urine with active sediment consistent with likely UTI. Given 1 g ceftriaxone for same. Troponin drawn in ER and found to be greater than 2000; discussed with cardiology... No intervention if needed trend troponin. Admitted for same Review of Systems Review of Systems: Per chart denies chest pain Denies shortness of breath Denies nausea vomiting diarrhea PMFSH 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 Diabetes End stage renal disease Essential (primary) hypertension Metabolic encephalopathy Pneumonia Social History Advance Directives: Yes Advance Directives on File: Yes Advance Directives Date on File: 06/16/21 Meds Allergies Allergy/AdvReac Type Severity Reaction Status Date / Time No Known Allergies Allergy Unverified 04/27/20 19:41 [No Known Allergies*] Active Medications: Current Medications Acetaminophen (Acetaminophen 325 Mg Tablet) 650 mg PO Q6H PRN PRN Reason: Pain, Mild (Pain Scale 1-3) Aspirin (Aspirin 81 Mg Tab.Chew) 81 mg PO DAILY [facility]A Atorvastatin Calcium (Atorvastatin Calcium 10 Mg Tablet) 10 mg PO DAILY [facility] Enoxaparin Sodium (Enoxaparin Sodium 40 Mg/0.4 Ml Syringe) 40 mg SUBCUT Q24H MARTHA Furosemide (Furosemide 40 Mg Tablet) 80 mg PO BID MARTHA; Protocol Hydralazine HCl (Hydralazine Hcl 50 Mg Tablet) 50 mg PO TID MARTHA; Protocol Sodium Chloride (Ns) 1,000 mls @ 100 mls/hr IVCONT .Q10H MARTHA Last Admin: 06/16/21 13:23 Dose: 100 mls/hr Documented by: Sodium Chloride () 1,000 mls @ 100 mls/hr IVCONT .Q10H MARTHA Ceftriaxone Sodium 1 gm/ (Sodium Chloride) 50 mls @ 100 mls/hr IV ONCE ONE Stop: 06/16/21 13:56 Insulin Human Lispro (Insulin Lispro 100 Unit/Ml 3 Ml Vial) 0 unit SUBCUT .COMPLEX [facility] Multivitamins/Vitamin C (Multivitamin Tablet) 1 tab PO DAILY [facility] Non-Formulary Medication (Ferrous Sulfate) 325 mg PO TID [facility] Pharmacy Consult (Consult Rx Perform Med Rec) 1 each MISCELLANE ONCE PRN PRN Reason: Consult order Senna (Sennosides 8.6 Mg Tablet) 8.6 mg PO DAILY [facility] Sevelamer Carbonate (Sevelamer Carbonate Tablet 800 Mg Tablet) 800 mg PO TID [facility] Sodium Chloride (0.9 % Sodium Chloride Flush 3 Ml Syringe) 3 ml IVFLUSH QSHIFT [facility] Tamsulosin HCl (Tamsulosin Hcl 0.4 Mg Capsule) 0.4 mg PO DAILY [facility] Vitamin D (Cholecalciferol (Vitamin D3) 25 Mcg Tablet) 50 mcg PO DAILY [facility] Home Medications Medication Instructions Recorded Confirmed Last Taken Type aspirin 81 mg chewable tablet 81 mg PO DAILY 06/16/21 06/16/21 Unknown History atorvastatin 10 mg tablet 1 tab PO DAILY 06/16/21 06/16/21 Unknown History cholecalciferol (vitamin D3) 25 50 mcg PO DAILY 06/16/21 06/16/21 Unknown History mcg (1,000 unit) tablet ferrous sulfate 325 mg (65 mg 325 mg PO TID 06/16/21 06/16/21 Unknown History iron) tablet furosemide 80 mg tablet 1 tab PO BID 06/16/21 06/16/21 Unknown History hydralazine 50 mg tablet 1 tab PO TID 06/16/21 06/16/21 Unknown History insulin lispro 100 unit/mL See Rx Instructions .ROUTE .COMPLEX 06/16/21 06/16/21 Unknown History subcutaneous pen (Admelog SoloStar U-100 Insulin lispro) sennosides 8.6 mg tablet (senna) 8.6 mg PO DAILY 06/16/21 06/16/21 Unknown History sevelamer carbonate 800 mg tablet 1 tab PO TID 06/16/21 06/16/21 Unknown History tamsulosin 0.4 mg capsule 1 cap PO DAILY 06/16/21 06/16/21 Unknown History vitamin B complex and vitamin C 1 cap PO DAILY 06/16/21 06/16/21 Unknown History no.20-folic acid 1 mg capsule Physical Exam Vital Signs and Narrative: Vital Signs: Last Vital Signs Temp 100.1 F 06/16/21 13:20 Pulse 81 06/16/21 13:20 Resp 16 06/16/21 13:20 BP 150/67 H 06/16/21 13:20 Pulse Ox 97 06/16/21 13:20 Body Mass Index 20.7 Const: Other: Essentially nonverbal; no acute distress HENMT: Other: Membranes dry Resp: Other: Clear to auscultation bilaterally no rales rhonchi or wheezes Cardio: Other: No S4; positive S1-S2; no S3 a singe winder gallops GI: Other: Soft nontender nondistended with normoactive bowel sounds Extrem: Other: No edema bilaterally Results Labs CBC and Chem 7: 06/16/21 06:11 06/16/21 06:11 Labs: Laboratory Results - last 24 hr 06/16/21 06/16/21 06/16/21 06:10 06:10 06:11 MCV 100.7 H MCH 32.6 MCHC 32.4 RDW 15.0 Plt Count 155 L MPV 9.9 Immature Gran % (Auto) 0.4 Neut % (Auto) 88.3 H Lymph % (Auto) 3.1 L [place] % (Auto) 8.0 Eos % (Auto) 0.0 Baso % (Auto) 0.2 Lymph # (Auto) 0.3 L [place] # (Auto) 0.8 Eos # (Auto) 0.0 Baso # (Auto) 0.0 Abs Immat Gran (auto) 0.04 H Absolute Neuts (auto) 9.3 H Absolute Nucleated RBC 0.000 Nucleated RBC % (auto) 0.0 Anion Gap Estim Creat Clear Calc Estimated GFR POC Glucose Random Glucose Lactic Acid 1.0 Calcium Magnesium Total Bilirubin AST ALT Alkaline Phosphatase Total Creatine Kinase Troponin I High Sens 2101.6 H* Total Protein Albumin Lipase COVID-19 (SALTY) COVID-19 Clin Com 06/16/21 06/16/21 06/16/21 06:11 06:11 06:19 MCV MCH MCHC RDW Plt Count MPV Immature Gran % (Auto) Neut % (Auto) Lymph % (Auto) [place] % (Auto) Eos % (Auto) Baso % (Auto) Lymph # (Auto) [place] # (Auto) Eos # (Auto) Baso # (Auto) Abs Immat Gran (auto) Absolute Neuts (auto) Absolute Nucleated RBC Nucleated RBC % (auto) Anion Gap 22 H Estim Creat Clear Calc 8.6 Estimated GFR 9 POC Glucose 145 H Random Glucose 155 H Lactic Acid Calcium 8.9 D Magnesium 2.2 Total Bilirubin 0.6 AST 34 ALT 14 Alkaline Phosphatase 55 Total Creatine Kinase 69 Troponin I High Sens Total Protein 6.8 Albumin 3.4 L Lipase 50 COVID-19 (SALTY) Negative COVID-19 Clin Com See Note 06/16/21 06/16/21 07:08 07:08 MCV MCH MCHC RDW Plt Count MPV Immature Gran % (Auto) Neut % (Auto) Lymph % (Auto) [place] % (Auto) Eos % (Auto) Baso % (Auto) Lymph # (Auto) [place] # (Auto) Eos # (Auto) Baso # (Auto) Abs Immat Gran (auto) Absolute Neuts (auto) Absolute Nucleated RBC Nucleated RBC % (auto) Anion Gap Estim Creat Clear Calc Estimated GFR POC Glucose Random Glucose Lactic Acid Calcium Magnesium Total Bilirubin AST ALT Alkaline Phosphatase Total Creatine Kinase Troponin I High Sens 2431.7 H* Cancelled Total Protein Albumin Lipase COVID-19 (SALTY) COVID-19 Clin Com Imaging Radiologist's Impressions: Impressions Abdomen/Pelvis CT 06/16/21 05:55 IMPRESSION: Continued left lower lobe consolidation with moderate partially loculated left pleural effusion. Cardiomegaly. Prominent arterial calcified plaque seen throughout the chest, abdomen, and pelvis with probable some degree of hemodynamically significant stenosis involving the left subclavian artery and bilateral renal arteries. No significant change in appearance of left adrenal gland mass. No evidence to suggest obstructive uropathy. No free air or free fluid. Continued marked distention of the rectum and rectosigmoid with stool. Giles catheter in urinary bladder with probable thickened wall. Cervical Spine CT 06/16/21 05:55 IMPRESSION: No acute intracranial abnormality. 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 Findings consistent with diffuse atrophy and microangiopathy. EXAMINATION: CT OF THE CERVICAL SPINE CLINICAL INFORMATION: Neck pain COMPARISON: May 05, 2021. TECHNIQUE: Thin helical images with sagittal and coronal reformats. This CT examination was performed using dose optimization techniques as appropriate, variously including the following: *Automated exposure control *Adjustment of mA and/or kV according to patient size (this includes techniques or standardized protocols for targeted exams where dose is matched to indication/reason for exam; i.e. extremities or head) *Use of iterative reconstruction technique DOSE: DLP 356 mGy-cm FINDINGS: No abnormal prevertebral soft tissue swelling is seen. Paraspinal muscle fat planes are maintained. Carotid artery calcifications present. There is degenerative change with loss of joint space involving the left temporomandibular joint. No acute cervical spine fracture is seen. There is loss of cervical spine lordosis. There is mild anterior subluxation of C4 on C5. There is loss of disc spaces C3-T1 with prominent sclerosis and spurring seen about C5-C6 disc space level with some irregularity of adjacent end plates. There is anterior neural foraminal encroachment seen C3-C7 related to spurring of the joints of Luschka. There is facet arthropathy noted on the left C2-C5 and on the right C3-C5. IMPRESSION: No acute cervical spine fracture. Diffuse multilevel cervical spondylosis as described. Head CT 06/16/21 05:55 IMPRESSION: No acute intracranial abnormality. 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 Findings consistent with diffuse atrophy and microangiopathy. EXAMINATION: CT OF THE CERVICAL SPINE CLINICAL INFORMATION: Neck pain COMPARISON: May 05, 2021. TECHNIQUE: Thin helical images with sagittal and coronal reformats. This CT examination was performed using dose optimization techniques as appropriate, variously including the following: *Automated exposure control *Adjustment of mA and/or kV according to patient size (this includes techniques or standardized protocols for targeted exams where dose is matched to indication/reason for exam; i.e. extremities or head) *Use of iterative reconstruction technique DOSE: DLP 356 mGy-cm FINDINGS: No abnormal prevertebral soft tissue swelling is seen. Paraspinal muscle fat planes are maintained. Carotid artery calcifications present. There is degenerative change with loss of joint space involving the left temporomandibular joint. No acute cervical spine fracture is seen. There is loss of cervical spine lordosis. There is mild anterior subluxation of C4 on C5. There is loss of disc spaces C3-T1 with prominent sclerosis and spurring seen about C5-C6 disc space level with some irregularity of adjacent end plates. There is anterior neural foraminal encroachment seen C3-C7 related to spurring of the joints of L[place]chka. There is facet arthropathy noted on the left C2-C5 and on the right C3-C5. IMPRESSION: No acute cervical spine fracture. Diffuse multilevel cervical spondylosis as described. Chest CT 06/16/21 06:08 IMPRESSION: Continued left lower lobe consolidation with moderate partially loculated left pleural effusion. Cardiomegaly. Prominent arterial calcified plaque seen throughout the chest, abdomen, and pelvis with probable some degree of hemodynamically significant stenosis involving the left subclavian artery and bilateral renal arteries. No significant change in appearance of left adrenal gland mass. No evidence to suggest obstructive uropathy. No free air or free fluid. Continued marked distention of the rectum and rectosigmoid with stool. Giles catheter in urinary bladder with probable thickened wall. Assessment and Plan (1) Left lower lobe pulmonary infiltrate: Status: Acute 80-year-old male from local SNF who is DNR DNI presents to ER with fatigue and mental status changes. CT scans done in the ER include; brain, cervical spine, chest, abdomen and pelvis. No acute findings stay of persistent left lower lobe infiltrate with effusion. Urine did show active sediment however this is a hemodialysis patient and is unclear to the significance of same. High sensitivity troponins were drawn and found to be greater than 2000 on 2 separate occasions. Discussed with Cardiology; will trend, however no intervention is indicated after talking with proxy (nephjuliane Wong). Inform proxy that I will discuss this case with Nephrology, and if they feel patient needs dialysis will dialyze and giving antibiotic after dialysis. Cardiology is not needed as there will be no intervention despite elevated troponins. 1. Persistent left lower lobe infiltrate Given dose of ceftriaxone at 06/15 in the ER. Ordered additional ceftriaxone dose after hemodialysis if indicated. If hemodialysis is not indicated, patient will be return to SNF on oral therapies. Patient's oxygen saturation remained stable on room air 2. Hypertension Will continue patient's Lasix, hydralazine as per outpatient dosing Avoid titration unless absolutely necessary 3. Elevated troponin After discussion with nephew (proxy) no intervention is indicated. Will not trend troponins as they will likely stay elevated in the backdrop of ESRD 4. Hyperlipidemia Will continue statin and outpatient dosing 5. Disposition Discussed with proxy. Goal is to return patient to his normal living setting where he is accustomed to the faces and the surroundings. Hopefully return in a.m. DNR DNI/Lovenox Quality Stroke Does the patient have a stroke diagnosis?: No VTE Prior VTE?: No VTE Risk Level:: Medical - moderate - high VTE Device Contraindication: Treatment Not Indicated VTE Drug Contraindication: N/A - Med Ordered
[2021-06-16 13:42] LABS: Appearance Urine CLOUDY; Color Urine YELLOW; Glucose Urine UA NEG (NEG); Leukocyte Esterase Urine 3+ (NEG); Nitrite Urine POS (NEG); PH 8.5 (5.0-8.0); Specific Gravity - Urine 1.015 (1.005-1.025); UACC Culture Trigger YES; Urine Blood 2+ (NEG); Urine Ketones NEG (NEG)
[2021-06-16 13:44] LABS: Urine Protein 2+ MG/DL (NEG-TRACE)
--- NOTE | 2021-06-16 13:44 | PM.CNNEP ---
History of Present Illness Reason for Consult Consult date: 06/16/21 Chief Complaint Chief complaint: weakness PMFSH Past Medical History 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 Diabetes End stage renal disease Essential (primary) hypertension Metabolic encephalopathy Pneumonia Social History Social History Advance Directives: Yes Advance Directives on File: Yes Advance Directives Date on File: 06/16/21 Meds Allergies Allergy/AdvReac Type Severity Reaction Status Date / Time No Known Allergies Allergy Unverified 04/27/20 19:41 [No Known Allergies*] Active Medications: Current Medications Acetaminophen (Acetaminophen 325 Mg Tablet) 650 mg PO Q6H PRN PRN Reason: Pain, Mild (Pain Scale 1-3) Aspirin (Aspirin 81 Mg Tab.Chew) 81 mg PO DAILY [facility] Atorvastatin Calcium (Atorvastatin Calcium 10 Mg Tablet) 10 mg PO DAILY [facility] Enoxaparin Sodium (Enoxaparin Sodium 40 Mg/0.4 Ml Syringe) 40 mg SUBCUT Q24H [facility] Furosemide (Furosemide 40 Mg Tablet) 80 mg PO BID MARTHA; Protocol Hydralazine HCl (Hydralazine Hcl 50 Mg Tablet) 50 mg PO TID MARTHA; Protocol Sodium Chloride (Ns) 1,000 mls @ 100 mls/hr IVCONT .Q10H [facility] Last Admin: 06/16/21 13:23 Dose: 100 mls/hr Documented by: Ceftriaxone Sodium 1 gm/ (Sodium Chloride) 50 mls @ 100 mls/hr IV ONCE ONE Stop: 06/16/21 13:56 Insulin Human Lispro (Insulin Lispro 100 Unit/Ml 3 Ml Vial) 0 unit SUBCUT .COMPLEX [facility] Multivitamins/Vitamin C (Multivitamin Tablet) 1 tab PO DAILY [facility] Non-Formulary Medication (Ferrous Sulfate) 325 mg PO TID [facility] Pharmacy Consult (Consult Rx Perform Med Rec) 1 each MISCELLANE ONCE PRN PRN Reason: Consult order Senna (Sennosides 8.6 Mg Tablet) 8.6 mg PO DAILY [facility] Sevelamer Carbonate (Sevelamer Carbonate Tablet 800 Mg Tablet) 800 mg PO TID [facility] Sodium Chloride (0.9 % Sodium Chloride Flush 3 Ml Syringe) 3 ml IVFLUSH QSHIFT [facility] Tamsulosin HCl (Tamsulosin Hcl 0.4 Mg Capsule) 0.4 mg PO DAILY [facility] Vitamin D (Cholecalciferol (Vitamin D3) 25 Mcg Tablet) 50 mcg PO DAILY [facility] Home Medications Medication Instructions Recorded Confirmed Last Taken Type aspirin 81 mg chewable tablet 81 mg PO DAILY 06/16/21 06/16/21 Unknown History atorvastatin 10 mg tablet 1 tab PO DAILY 06/16/21 06/16/21 Unknown History cholecalciferol (vitamin D3) 25 50 mcg PO DAILY 06/16/21 06/16/21 Unknown History mcg (1,000 unit) tablet ferrous sulfate 325 mg (65 mg 325 mg PO TID 06/16/21 06/16/21 Unknown History iron) tablet furosemide 80 mg tablet 1 tab PO BID 06/16/21 06/16/21 Unknown History hydralazine 50 mg tablet 1 tab PO TID 06/16/21 06/16/21 Unknown History insulin lispro 100 unit/mL See Rx Instructions .ROUTE .COMPLEX 06/16/21 06/16/21 Unknown [facility] Insulin lispro) sennosides 8.6 mg tablet (senna) 8.6 mg PO DAILY 06/16/21 06/16/21 Unknown History sevelamer carbonate 800 mg tablet 1 tab PO TID 06/16/21 06/16/21 Unknown History tamsulosin 0.4 mg capsule 1 cap PO DAILY 06/16/21 06/16/21 Unknown History vitamin B complex and vitamin C 1 cap PO DAILY 06/16/21 06/16/21 Unknown History no.20-folic acid 1 mg capsule Physical Exam Vital Signs: Last Vital Signs Temp 100.1 F 06/16/21 13:20 Pulse 81 06/16/21 13:20 Resp 16 06/16/21 13:20 BP 150/67 H 06/16/21 13:20 Pulse Ox 97 06/16/21 13:20 Body Mass Index 20.7 oral moist mcuosa lungs decreased BSs both bases s1s2 distant left chest permcath abd soft +BSs ext no edema Results Lab Results Result Diagrams: 06/16/21 06:11 06/16/21 06:11 Lab results: Chemistry 06/16/21 06:11 Sodium 135 Potassium 4.1 Carbon Dioxide 20 L BUN 48 H Creatinine 5.99 H* Calcium 8.9 D Hematology 06/16/21 06:11 WBC 10.5 Hgb 9.4 L Plt Count 155 L Assessment and Plan (1) 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
[2021-06-16 13:51] LABS: Amorphous Sediment Urine 2+ /LPF; Bacteria Urine 3+ /LPF; Mucus Urine 4+ /LPF; Squamous Epithelial Cell Urine 1+ /LPF; Triple Phosphate Crystal Urine 3+ /LPF; UACC CULT YES; WBC Urine TNTC /HPF (0-4)
[2021-06-16] MEDS: Atorvastatin Calcium 10 MG TABLET PO (14:23)
[2021-06-16] MEDS: Sennosides 8.6 MG TABLET PO (14:23)
[2021-06-16] MEDS: Furosemide 40 MG TABLET 80 MG PO ×2 (14:23→20:46)
[2021-06-16] MEDS: Multivitamin TABLET 1 TAB PO (14:23)
[2021-06-16] MEDS: Cholecalciferol (Vitamin D3) 25 MCG TABLET 50 MCG PO (14:23)
[2021-06-16] MEDS: Tamsulosin HCL 0.4 MG CAPSULE PO (14:23)
[2021-06-16] MEDS: Aspirin 81 MG TAB.CHEW PO (14:23)
--- NOTE | 2021-06-16 19:10 | PM.EVENT ---
Event Note Date of Service: 06/16/21 Event Note: pt blood cultures grew gram positive cocci. added one dose vanc. pt on dilaysis.
[2021-06-16] MEDS: Sevelamer Carbonate Tablet 800 MG TABLET PO (20:45)
[2021-06-16] MEDS: hydrALAZINE HCl 50 MG TABLET PO (20:45)
[2021-06-16] MEDS: ondansetron HCL 4 MG/2 ML VIAL IVPUSH (20:46)
[2021-06-16] MEDS: Ferrous Sulfate 324 MG TABLET.DR PO (21:26)
[2021-06-16] MEDS: vancomycin HCL 1,000 MG in 0.9 % Sodium Chloride 250 ML 270 MG IV (21:27)
[2021-06-16 21:36] LABS: Glucose, Whole Blood 163 mg/dL (60-115)
[2021-06-16] MEDS: 0.9 % Sodium Chloride Flush 3 ML SYRINGE IVFLUSH (23:27)
[2021-06-17] VITALS (7 sets, daily range): BP systolic 118–160; BP diastolic 56–84; PULSE 66–91; RESP 16–18; TEMP 36–37; O2SAT 92–100
--- NOTE | 2021-06-17 01:32 | CONS_ITS ---
DATE OF SERVICE: REASON FOR CONSULTATION: Evaluation of weakness. The patient has history of ESRD. HISTORY OF PRESENT ILLNESS: Mr. Rivera is a very pleasant 80-year-old gentleman who has a longstanding history of ESRD secondary to hypertensive nephropathy and ischemic nephropathy who is on intermittent hemodialysis at the [facility]. He was brought in this morning after an episode of increased vomiting. According to the staff and the records, he was having diarrhea overnight. He was due for his dialysis treatment this morning, however, he was unable to sit upright in a recliner for dialysis, was sent to the emergency room, EMS brought him in, the patient was altered, at that time, his rectal temperature was 100.6. An EKG showed a ventricular rate of 82 per minute as well as sinus rhythm with PVCs. The COVID test in the Emergency Room was negative. His potassium was 4.1, lactate of 1.0, [place] [address], and an elevated troponin level, hence the reason for further evaluation and admission. PAST MEDICAL HISTORY: ESRD as mentioned above. Hypertensive disease. Type 2 diabetes mellitus. Hyperphosphatemia. Benign prostatic hypertrophy on chronic Giles catheter and tamsulosin. OUTPATIENT MEDICATIONS: Aspirin, atorvastatin, B complex, vitamin D, iron, hydralazine, insulin, sevelamer, tamsulosin, and furosemide. ALLERGIES: NO KNOWN DRUG ALLERGIES. SOCIAL HISTORY: [facility] resident. No history of smoking cigarettes. No alcohol intake. No illicit drugs. FAMILY HISTORY: Noncontributory. REVIEW OF SYSTEMS: The patient denies any symptoms at the present time of my interview. Denies chest pain or shortness of breath. Denies headache, visual changes, hallucinations, cough, hemoptysis, hematemesis, or bright red blood per rectum. Rest of the 10-point review of systems negative. LABORATORY DATA: As mentioned above, potassium of 4.1, albumin of 3.4, bicarbonate of 20, and glucose 155 mg/dL. Lactate 1.0. Troponin 2100 followed by 2400 on the 2nd troponin. Normal LFTs. White count 59224 and hemoglobin 9.4. Rest of the labs as above. IMPRESSION: Mr. Rivera is a very pleasant 80-year-old gentleman with known medical history of end-stage renal disease who has been admitted to the hospital for evaluation of failure to thrive, weakness, fatigue, diarrhea, and elevated troponins with evidence of trend up. Several imaging studies performed today including CT of the chest, abdomen, and pelvis shows a left lower lobe consolidation with loculated left pleural effusion, cardiomegaly, calcified plaque throughout the arterial tree, chest, abdomen, and pelvis, significant stenosis involving the left subclavian artery as well as bilateral renal arteries. The left adrenal gland mass unchanged. No evidence to suggest obstructive uropathy. No evidence of free air. Giles catheter with decompressed thickened wall urinary bladder is noted. Mr. Rivera is a pleasant 80-year-old gentleman who at the present time is admitted to the hospital for evaluation of end-stage renal disease in association with nausea, vomiting, diarrhea, elevated cardiac parameters, and CT findings consistent with pneumonia. The patient will be receiving antibiotics as per protocol. His potassium is well controlled. Presently, he is able to maintain oxygen saturation on room air. Able to speak in full sentences. Fortunately, no evidence of volume overload or CHF at the present time. However, he does have pneumonia based on the imaging. ESRD, we will plan for dialysis treatment today via left-sided chest PermCath. We will gently remove fluids, do a 3-hour treatment as per his protocol. Follow Medicine recommendations regarding antibiotics, intermittent hemo, renally dosed. Continue with his outpatient medications as long as his vital signs are stable and able to take p.o. With the permission, we will follow during hospital stay. Best regards, MD AMAYA Crook/DANNI / [phone]
[2021-06-17] MEDS: cefTRIAXone sodium 1 GM in 0.9 % Sodium Chloride 50 ML IV (05:28)
[2021-06-17] MEDS: Heparin Sodium,Porcine 5,000 UNIT/ML VIAL 5000 UNIT SUBCUT ×2 (05:28→16:20)
[2021-06-17 05:40] LABS: MANUAL DIFF FLAG NO
[2021-06-17 05:50] LABS: Basophils Percent Auto 0.3 % (0-2); Hematocrit 26.4 % (42.0-52.0); Hemoglobin 8.3 g/dl (14.0-18.0); Imm Gran Abs Auto 0.03 X10*3/uL (0.00-0.03); Imm Gran Pct Auto 0.4 % (0.0-0.4); Lymphocytes Absolute Auto 0.5 X10*3/uL (1.2-4.9); Mean Corpuscular HGB Conc 31.4 g/dl (31.0-36.0); Mean Corpuscular Hemoglobin 32.2 pg (27.0-33.0); Mean Corpuscular Volume 102.3 fL (80.0-98.0); Mean Platelet Volume 10.5 fL (9.4-12.4); Monocytes Absolute Auto 0.7 X10*3/uL (0.1-1.2); Neutrophils Absolute Auto 5.8 x10*3/uL (2.0-8.3); Neutrophils Percent Auto 82.3 % (45-73); Platelet Count 129 X10*3/uL (160-400); Red Blood Count 2.58 X10*6/uL (4.60-5.80); Red Cell Distribution Width 14.9 % (11.0-16.0)
[2021-06-17 06:21] LABS: Alanine Aminotransferase 13 U/L (0-40); Albumin Level 2.9 g/dL (3.5-5.0); Alkaline Phosphatase 45 U/L (39-117); Anion Gap 14 (12-20); Aspartate Amino Transferase 29 U/L (5-37); Bilirubin Total 0.5 mg/dL (0.0-1.0); Blood Urea Nitrogen 26 mg/dL (9-16); Calcium 7.4 mg/dL (8.4-10.2); Carbon Dioxide 23 mmol/L (22-29); Chloride 105 mmol/L (96-108); Creatinine Clr Calc Pharmacy 14.1; Estimated Glomerular Filt Rate 16; Glucose Fasting 111 mg/dL (60-99); Potassium 3.5 mmol/L (3.3-5.1); Sodium 138 mmol/L (135-145); Total Protein 5.7 g/dL (6.5-8.0)
[2021-06-17 07:28] LABS: Glucose, Whole Blood 105 mg/dL (60-115)
[2021-06-17] MEDS: Cholecalciferol (Vitamin D3) 25 MCG TABLET 50 MCG PO (08:59)
[2021-06-17] MEDS: Sennosides 8.6 MG TABLET PO (09:00)
[2021-06-17] MEDS: Sevelamer Carbonate Tablet 800 MG TABLET PO ×3 (09:00→21:05)
[2021-06-17] MEDS: Multivitamin TABLET 1 TAB PO (09:00)
[2021-06-17] MEDS: Ferrous Sulfate 324 MG TABLET.DR PO ×3 (09:00→21:05)
[2021-06-17] MEDS: Atorvastatin Calcium 10 MG TABLET PO (09:00)
[2021-06-17] MEDS: Tamsulosin HCL 0.4 MG CAPSULE PO (09:00)
[2021-06-17] MEDS: Furosemide 40 MG TABLET 80 MG PO ×2 (09:00→21:05)
[2021-06-17] MEDS: Aspirin 81 MG TAB.CHEW PO (09:00)
[2021-06-17] MEDS: 0.9 % Sodium Chloride 1,000 ML 100 ML IVCONT ×2 (09:01→21:01)
[2021-06-17 12:05] LABS: Glucose, Whole Blood 135 mg/dL (60-115)
--- NOTE | 2021-06-17 13:20 | MHC.CM.PN ---
John Wong; patient is a LT resident of [facility], HCP requesting that patient return when ready for D/C. CM to follow.
--- NOTE | 2021-06-17 13:47 | MHC.CM.PN ---
Received notification that MD intends for patient to return to today. Called Marvin to update him on plan; Marvin in agreement.
--- NOTE | 2021-06-17 14:09 | PM.DS ---
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: Status: Acute (2) Left lower lobe pulmonary infiltrate: Status: Acute DS: Summary Time Spent with Patient Time attestation: Total time spent providing and/or coordinating discharge services: Physical Exam Vital Signs: Vital Signs: Last Vital Signs Temp 97.1 F 06/17/21 11:44 Pulse 75 06/17/21 11:44 Resp 18 06/17/21 11:44 BP 126/58 L 06/17/21 11:44 Pulse Ox 95 06/17/21 11:44 Body Mass Index 20.7 DS: Data Data Completed and Pending Labs on day of discharge: Laboratory Results - last 24 hr 06/16/21 06/17/21 06/17/21 21:31 05:32 05:32 WBC 7.0 RBC 2.58 L Hgb 8.3 L Hct 26.4 L MCV 102.3 H MCH 32.2 MCHC 31.4 RDW 14.9 Plt Count 129 L MPV 10.5 Immature Gran % (Auto) 0.4 Neut % (Auto) 82.3 H Lymph % (Auto) 7.0 L [place] % (Auto) 10.0 Eos % (Auto) 0.0 Baso % (Auto) 0.3 Lymph # (Auto) 0.5 L [place] # (Auto) 0.7 Eos # (Auto) 0.0 Baso # (Auto) 0.0 Abs Immat Gran (auto) 0.03 Absolute Neuts (auto) 5.8 Absolute Nucleated RBC 0.000 Nucleated RBC % (auto) 0.0 Sodium 138 Potassium 3.5 Chloride 105 Carbon Dioxide 23 Anion Gap 14 BUN 26 H Creatinine 3.69 H Estim Creat Clear Calc 14.1 Estimated GFR 16 POC Glucose 163 H Fasting Glucose 111 H Calcium 7.4 L D Total Bilirubin 0.5 AST 29 ALT 13 Alkaline Phosphatase 45 Total Protein 5.7 L Albumin 2.9 L 06/17/21 06/17/21 07:24 11:47 WBC RBC Hgb Hct MCV MCH MCHC RDW Plt Count MPV Immature Gran % (Auto) Neut % (Auto) Lymph % (Auto) [place] % (Auto) Eos % (Auto) Baso % (Auto) Lymph # (Auto) [place] # (Auto) Eos # (Auto) Baso # (Auto) Abs Immat Gran (auto) Absolute Neuts (auto) Absolute Nucleated RBC Nucleated RBC % (auto) Sodium Potassium Chloride Carbon Dioxide Anion Gap BUN Creatinine Estim Creat Clear Calc Estimated GFR POC Glucose 105 135 H Fasting Glucose Calcium Total Bilirubin AST ALT Alkaline Phosphatase Total Protein Albumin Preliminary micro results at discharge 06/16/21 06:10 Blood Culture - Preliminary Blood - Venous Staphylococcus aureus 06/16/21 06:10 Blood Culture - Preliminary Blood - Venous Staphylococcus aureus Discharge Plan Discharge Patient Disposition: Xfer Inpatient Rehab Fac Discharge Diagnosis: Left lower lobe infiltrate Referrals: Ruy Casey MD [Primary Care Provider] - 1 Week Discharge Medications: New doxycycline hyclate 100 mg capsule 100 mg PO BID 7 Days Qty: 14 RF: 0 Continued atorvastatin 10 mg tablet 1 tab PO DAILY RF: 0 tamsulosin 0.4 mg capsule 1 cap PO DAILY RF: 0 furosemide 80 mg tablet 1 tab PO BID RF: 0 hydralazine 50 mg tablet 1 tab PO TID RF: 0 insulin lispro [Admelog SoloStar U-100 Insulin] 100 unit/mL insulin pen See Rx Instructions .ROUTE .COMPLEX RF: 0 sevelamer carbonate 800 mg tablet 1 tab PO TID RF: 0 sennosides [senna] 8.6 mg Tablet 8.6 mg PO DAILY RF: 0 ferrous sulfate 325 mg (65 mg iron) Tablet 325 mg PO TID RF: 0 aspirin 81 mg Tablet,Chewable 81 mg PO DAILY RF: 0 B complex with C 20-folic acid 1 mg Capsule 1 cap PO DAILY RF: 0 cholecalciferol (vitamin D3) 25 mcg (1,000 unit) Tablet 50 mcg PO DAILY RF: 0 Discharge Orders: Discharge Order (Routine); Ordered 06/17/21 Ordered By: Neptali Aguilar Diet: advance to usual diet Activity on Discharge: As tolerated Stand Alone Forms: Patient Portal Discharge page Care Plan Goals: As ordered Health Concerns: Follow-up with HD as per Renal Plan of Treatment: As per SNF Assessment: Stable
--- NOTE | 2021-06-17 14:15 | HO.PM.IMPN ---
Subjective Subjective Date of Service: 06/17/21 Interval History: Minimal verbalization. No acute events overnight Review of Systems This through staff denies chest pain Denies shortness of breath Denies nausea vomiting diarrhea Physical Exam Vital Signs: Vital Signs: Last Vital Signs Temp 97.1 F 06/17/21 11:44 Pulse 75 06/17/21 11:44 Resp 18 06/17/21 11:44 BP 126/58 L 06/17/21 11:44 Pulse Ox 95 06/17/21 11:44 Body Mass Index 20.7 Const: Other: No acute distress HENMT: Other: Membranes moist Resp: Other: Clear to auscultation bilaterally no rales rhonchi or wheezes Cardio: Other: No S4; positive S1-S2; no S3 murmur shoulder gallops GI: Other: Soft nontender nondistended normoactive bowel sounds Extrem: Other: No edema bilaterally Objective Data Active Medications Acetaminophen (Acetaminophen 325 Mg Tablet) 650 mg PO Q6H PRN PRN Reason: Pain, Mild (Pain Scale 1-3) Aspirin (Aspirin 81 Mg Tab.Chew) 81 mg PO DAILY [facility] Last Admin: 06/17/21 09:00 Dose: 81 mg Documented by: SHERMAN Atorvastatin Calcium (Atorvastatin Calcium 10 Mg Tablet) 10 mg PO DAILY [facility] Last Admin: 06/17/21 09:00 Dose: 10 mg Documented by: SHERMAN Ferrous Sulfate (Ferrous Sulfate 324 Mg Tablet.Dr) 324 mg PO TID [facility] Last Admin: 06/17/21 09:00 Dose: 324 mg Documented by: SHERMAN Furosemide (Furosemide 40 Mg Tablet) 80 mg PO BID [facility]; Protocol Last Admin: 06/17/21 09:00 Dose: 80 mg Documented by: SHERMAN Heparin Sodium (Porcine) (Heparin Sodium,Porcine 5,000 Unit/Ml Vial) 5,000 unit SUBCUT Q12H [facility] Last Admin: 06/17/21 05:28 Dose: 5,000 unit Documented by: DONYA Hydralazine HCl (Hydralazine Hcl 50 Mg Tablet) 50 mg PO TID [facility]; Protocol Last Admin: 06/17/21 09:05 Dose: Not Given Documented by: SHERMAN Non-Admin Reason: Decreased Blood Pressure Sodium Chloride (Ns) 1,000 mls @ 100 mls/hr IVCONT .Q10H [facility] Last Admin: 06/17/21 09:01 Dose: 100 mls/hr Documented by: SHERMAN Insulin Human Lispro (Insulin Lispro 100 Unit/Ml 3 Ml Vial) 0 unit SUBCUT QIDACHS [facility]; Protocol Last Admin: 06/17/21 12:22 Dose: Not Given Documented by: SHERMAN Non-Admin Reason: No Insulin Coverage Multivitamins/Vitamin C (Multivitamin Tablet) 1 tab PO DAILY [facility] Last Admin: 06/17/21 09:00 Dose: 1 tab Documented by: SHERMAN Ondansetron HCl (Ondansetron Hcl 4 Mg/2 Ml Vial) 4 mg IVPUSH Q8H PRN PRN Reason: Nausea Last Admin: 06/16/21 20:46 Dose: 4 mg Documented by: DONYA Pharmacy Consult (Consult Rx Perform Med Rec) 1 each MISCELLANE ONCE PRN PRN Reason: Consult order Pharmacy Consult (Consult Rx Vancomycin Dosing) 1 each MISCELLANE DAILY PRN PRN Reason: Consult order Senna (Sennosides 8.6 Mg Tablet) 8.6 mg PO DAILY [facility] Last Admin: 06/17/21 09:00 Dose: 8.6 mg Documented by: SHERMAN Sevelamer Carbonate (Sevelamer Carbonate Tablet 800 Mg Tablet) 800 mg PO TID [facility] Last Admin: 06/17/21 09:00 Dose: 800 mg Documented by: SHERMAN Sodium Chloride (0.9 % Sodium Chloride Flush 3 Ml Syringe) [facility] Last Admin: 06/17/21 09:05 Dose: Not Given Documented by: SHERMAN Non-Admin Reason: IV Running Tamsulosin HCl (Tamsulosin Hcl 0.4 Mg Capsule) 0.4 mg PO DAILY [facility] Last Admin: 06/17/21 09:00 Dose: 0.4 mg Documented by: SHERMAN Vitamin D (Cholecalciferol (Vitamin D3) 25 Mcg Tablet) 50 mcg PO DAILY [facility] Last Admin: 06/17/21 08:59 Dose: 50 mcg Documented by: SHERMAN Labs CBC & Chem 7: 06/17/21 05:32 06/17/21 05:32 Labs: Laboratory Results - last 24 hr 06/16/21 06/17/21 06/17/21 21:31 05:32 05:32 MCV 102.3 H MCH 32.2 MCHC 31.4 RDW 14.9 Plt Count 129 L MPV 10.5 Immature Gran % (Auto) 0.4 Neut % (Auto) 82.3 H Lymph % (Auto) 7.0 L [place] % (Auto) 10.0 Eos % (Auto) 0.0 Baso % (Auto) 0.3 Lymph # (Auto) 0.5 L [place] # (Auto) 0.7 Eos # (Auto) 0.0 Baso # (Auto) 0.0 Abs Immat Gran (auto) 0.03 Absolute Neuts (auto) 5.8 Absolute Nucleated RBC 0.000 Nucleated RBC % (auto) 0.0 Anion Gap 14 Estim Creat Clear Calc 14.1 Estimated GFR 16 POC Glucose 163 H Fasting Glucose 111 H Calcium 7.4 L D Total Bilirubin 0.5 AST 29 ALT 13 Alkaline Phosphatase 45 Total Protein 5.7 L Albumin 2.9 L 06/17/21 06/17/21 07:24 11:47 MCV MCH MCHC RDW Plt Count MPV Immature Gran % (Auto) Neut % (Auto) Lymph % (Auto) [place] % (Auto) Eos % (Auto) Baso % (Auto) Lymph # (Auto) [place] # (Auto) Eos # (Auto) Baso # (Auto) Abs Immat Gran (auto) Absolute Neuts (auto) Absolute Nucleated RBC Nucleated RBC % (auto) Anion Gap Estim Creat Clear Calc Estimated GFR POC Glucose 105 135 H Fasting Glucose Calcium Total Bilirubin AST ALT Alkaline Phosphatase Total Protein Albumin Microbiology Microbiology Results: Microbiology 06/16/21 06:10 Blood Culture - Preliminary Blood - Venous Staphylococcus aureus 06/16/21 Unknown Urine Culture - Final Urine Catheterized - Giles Catheter 06/16/21 06:10 Blood Culture - Preliminary Blood - Venous Staphylococcus aureus Assessment and Plan (1) Staphylococcus aureus bacteremia: Status: Acute Assessment and Plan: 80-year-old male from local SNF who is DNR DNI presents to ER with fatigue and mental status changes. CT scans done in the ER include; brain, cervical spine, chest, abdomen and pelvis. No acute findings stay of persistent left lower lobe infiltrate with effusion. Urine did show active sediment however this is a hemodialysis patient and is unclear to the significance of same. High sensitivity troponins were drawn and found to be greater than 2000 on 2 separate occasions. Discussed with Cardiology; will trend, however no intervention is indicated after talking with proxy (nephew Marvin). Inform proxy that I will discuss this case with Nephrology, and if they feel patient needs dialysis will dialyze and giving antibiotic after dialysis. Cardiology is not needed as there will be no intervention despite elevated troponins. 1. Persistent left lower lobe infiltrate/staph aureus bacteremia by blood culture Given dose of vancomycin overnight; sensitivities pending. Will ask ID to see for duration and antibiotic choice. Once consultation complete and sensitivities are posted is likely patient can be discharged to receive antibiotics post dialysis. Urine culture greater than 100,000 colonies mixed ann. 2. Hypertension Will continue patient's Lasix, hydralazine as per outpatient dosing Avoid titration unless absolutely necessary 3. Elevated troponin After discussion with nephew (proxy) no intervention is indicated. Will not trend troponins as they will likely stay elevated in the backdrop of ESRD 4. Hyperlipidemia Will continue statin and outpatient dosing 5. Disposition Discussed with proxy. Goal is to return patient to his normal living setting where he is accustomed to the faces and the surroundings. DNR DNI/Justine Quality Stroke Does the patient have a stroke diagnosis?: No VTE Prior VTE?: No VTE Risk Level:: Medical - moderate - high VTE Device Contraindication: Treatment Not Indicated VTE Drug Contraindication: N/A - Med Ordered
--- NOTE | 2021-06-17 14:57 | MHC.CM.PN ---
Notified by MD patient will be staying overnight. MD indicated he intends on informing Steven. CALDWELL to follow.
[2021-06-17] MEDS: hydrALAZINE HCl 50 MG TABLET PO ×2 (16:20→21:05)
[2021-06-17 16:29] LABS: Glucose, Whole Blood 129 mg/dL (60-115)
[2021-06-17 20:15] LABS: Glucose, Whole Blood 137 mg/dL (60-115)
[2021-06-17] MEDS: 0.9 % Sodium Chloride Flush 3 ML SYRINGE IVFLUSH (21:05)
[2021-06-18] VITALS (7 sets, daily range): BP systolic 134–195; BP diastolic 65–89; PULSE 79–100; RESP 14–18; TEMP 36.2–36.8; O2SAT 92–95; BMI 20.7
[2021-06-18] MEDS: Heparin Sodium,Porcine 5,000 UNIT/ML VIAL 5000 UNIT SUBCUT ×2 (03:55→16:16)
[2021-06-18] MEDS: 0.9 % Sodium Chloride 1,000 ML 100 ML IVCONT ×2 (05:19→16:12)
[2021-06-18 06:09] LABS: MANUAL DIFF FLAG NO
[2021-06-18 06:14] LABS: Basophils Percent Auto 0.4 % (0-2); Eosinophils Percent Auto 0.8 % (0-4); Hematocrit 24.9 % (42.0-52.0); Hemoglobin 7.7 g/dl (14.0-18.0); Imm Gran Abs Auto 0.02 X10*3/uL (0.00-0.03); Imm Gran Pct Auto 0.4 % (0.0-0.4); Lymphocytes Absolute Auto 0.5 X10*3/uL (1.2-4.9); Lymphocytes Percent Auto 8.7 % (20-40); Mean Corpuscular HGB Conc 30.9 g/dl (31.0-36.0); Mean Corpuscular Volume 103.3 fL (80.0-98.0); Mean Platelet Volume 9.8 fL (9.4-12.4); Monocytes Absolute Auto 0.7 X10*3/uL (0.1-1.2); Monocytes Percent Auto 12.5 % (2-11); Neutrophils Absolute Auto 4.1 x10*3/uL (2.0-8.3); Neutrophils Percent Auto 77.2 % (45-73); Platelet Count 116 X10*3/uL (160-400); Red Blood Count 2.41 X10*6/uL (4.60-5.80); White Blood Count 5.3 X10*3/uL (4.8-10.8)
[2021-06-18 07:26] LABS: Glucose, Whole Blood 122 mg/dL (60-115)
[2021-06-18] MEDS: Ferrous Sulfate 324 MG TABLET.DR PO ×2 (07:51→20:41)
[2021-06-18] MEDS: Multivitamin TABLET 1 TAB PO (07:51)
[2021-06-18] MEDS: hydrALAZINE HCl 50 MG TABLET PO ×3 (07:51→20:41)
[2021-06-18] MEDS: Aspirin 81 MG TAB.CHEW PO (07:51)
[2021-06-18] MEDS: Tamsulosin HCL 0.4 MG CAPSULE PO (07:51)
[2021-06-18] MEDS: Sennosides 8.6 MG TABLET PO (07:51)
[2021-06-18] MEDS: Atorvastatin Calcium 10 MG TABLET PO (07:52)
[2021-06-18] MEDS: Cholecalciferol (Vitamin D3) 25 MCG TABLET 50 MCG PO (07:52)
[2021-06-18] MEDS: Sevelamer Carbonate Tablet 800 MG TABLET PO ×2 (07:52→20:41)
[2021-06-18] MEDS: Furosemide 40 MG TABLET 80 MG PO ×2 (07:54→20:41)
[2021-06-18 08:10] LABS: Alanine Aminotransferase 19 U/L (0-40); Albumin Level 2.6 g/dL (3.5-5.0); Alkaline Phosphatase 44 U/L (39-117); Anion Gap 13 (12-20); Aspartate Amino Transferase 32 U/L (5-37); Bilirubin Total 0.5 mg/dL (0.0-1.0); Blood Urea Nitrogen 40 mg/dL (9-16); Carbon Dioxide 20 mmol/L (22-29); Chloride 111 mmol/L (96-108); Creatinine Clr Calc Pharmacy 11.5; Estimated Glomerular Filt Rate 13; Glucose Fasting 121 mg/dL (60-99); Potassium 3.5 mmol/L (3.3-5.1); Sodium 140 mmol/L (135-145); Total Protein 5.1 g/dL (6.5-8.0)
[2021-06-18 08:42] LABS: Iron 20 mcg/dL (45-160); Percent Iron Saturation 18 % (15-50); Total Iron Binding Capacity 112 mcg/dL (228-428); Unsaturated Iron Binding 92 ug/dL
[2021-06-18 09:15] LABS: Folate > 20.0 ng/mL (> or = 4.0); Vitamin B12 1160 pg/mL (200-900)
[2021-06-18 09:20] LABS: Lactate Dehydrogenase 169 U/L (118-273)
[2021-06-18 09:43] LABS: Ferritin 4357 ng/mL (20-250)
--- NOTE | 2021-06-18 10:01 | MHC.CLN ---
Addendum entered by Penny Morton RD 06/18/21 10:04: CLINICAL NUTRITION ASSESSMENT COMPLETED. PATIENT WITH DX ADULT FAILURE TO THRIVE. CONTINUE TO FOLLOW. Original Note: NUTRITION CONSULT NUTRITION CONSULT FOR CHRONIC LEFT EAR WOUND. LEFT EAR WITH CHRONIC SCABBED AREA. DIET MODIFIED FOR HEMODIALYSIS NEEDS: 2 GRAM SODIUM, LOW PHOSPHOROUS, LOW POTASSIUM. NO ADDITIONAL NUTRITION INTERVENTIONS AT THIS TIME.
--- NOTE | 2021-06-18 10:47 | PC.NURSE ---
Skin/wound assessment completed today. Patient has a laceration to left ear, steri strips in place covered with Woundres gel and bandaid.
--- NOTE | 2021-06-18 11:20 | MHC.CM.PN ---
CURRENT PLAN IS FOR A RETURN TO [facility] THE Friday06/20/21 [facility] AWARE.
[2021-06-18 11:56] LABS: Glucose, Whole Blood 177 mg/dL (60-115)
[2021-06-18 11:57] LABS: Immature Retic Fraction 8.7 % (2.3-13.4); Retic HGB Equivalent 27.6 pg (30.0-35.0)
--- NOTE | 2021-06-18 12:23 | MHC.CM.PN ---
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 plan plan continue po diuretiv bid,, hemo dialysis patient, check final blood culture sensativities. discharge plan return back to [facility] where he lives (LONGTERM RESIDENT) TRANSPORTATION [facility]
--- NOTE | 2021-06-18 13:00 | CA_ITS ---
Transthoracic Echocardiogram Patient (Last, First, Middle): Osmani Rivera, Gender: Male Date of : 1940 Age: 80 Procedure Date: 06/18/2021 Procedure Type: Transthoracic Echocardiogram Location: S3E Height: 175.26 cm Weight: 63.5 kg BSA: 1.78 m2 Heart Rate: bpm BP: 170 / 84 mmHg Service Station Helper: Referring MD: Zoe Atkinson MD Symptoms: mrsa kiko;teremia Study Quality: Fair ECG Rhythm: Sinus Conclusions: - The left ventricular systolic function is moderately decreased. The calculated ejection fraction is 30% by biplane method. - The basal inferior segment is akinetic. - There is mild calcification of the aortic valve. - There is moderate mitral annular calcification. There is mild mitral valve regurgitation. Findings Left Ventricle Normal left ventricular cavity size. There is moderately increased left ventricular wall thickness. The left ventricular systolic function is moderately decreased. The calculated ejection fraction is 30% by biplane method. There is moderate global hypokinesis. E/E prime ratio is between 8 and 15 consistent with indeterminate filling pressures. Evidence suggests grade I (mild) diastolic dysfunction. Wall Motion Rest Echo Findings The basal inferior segment is akinetic. Right Ventricle Mildly increased right ventricular cavity size. There is normal right ventricular systolic function. Atria The left atrium is mildly dilated. The right atrium is normal in size. Aortic Valve There is mild calcification of the aortic valve. There is no aortic valve stenosis. The mean gradient is 4 mmHg. There is no aortic valve regurgitation. Mitral Valve There is moderate mitral annular calcification. There is mild mitral valve regurgitation. There is no mitral valve stenosis. Pulmonic Valve The pulmonic valve was not well visualized. Tricuspid Valve Normal tricuspid valve structure. There is no tricuspid valve regurgitation. Tricuspid regurgitation envelope is inadequate for calculation of right ventricular systolic pressure. Great Vessels The aortic annulus and asc aorta are normal in size. Small plaque is seen in the sino tubular ridge. Venous The inferior vena cava is mildly dilated and collapses less than 50% with inspiration. Pericardium/Pleural There is no evidence of pericardial effusion. There is a moderate left sided pleural effusion. Prior Study Comparison No prior study available for comparison. Measurements 2D Linear Measurements IVSd: 1.88 0.6-0.9/0.6-1.0 cm LVIDd: 4.82 3.9-5.3/4.2-5.9 cm LVIDd Index: 2.71 2.4-3.2/2.2-3.1 cm/m2 LVIDs: 3.57 2.0-3.6 cm LVPWd: 1.59 0.7-1.1 cm Ao Root: 3.50 2.1-3.5 cm LA Diam: 4.50 2.7-3.8/3.0-4.0 cm LAIDs Index: 2.53 1.5-2.3 cm/m2 LV Mass: 476.05 67-162/88-224 g LV Mass Index: 267.45 43-95/49-115 g/m2 LVOT Diam: 2.30 3.0+(-)1.3 cm 2D Systolic Function EF 4C: 36.10 >55% EF 2C: 25.90 >55% EF BiP: 30.40 >55% Mitral Valve MV VTI: 0.27 MV Pk Jaquan: 0.95 MV Mn Jaquan: 0.59 MV Pk Grad: 4.00 MV Mn Grad: 2.00 MV Pk E: 0.62 MV PK A: 0.79 MV Decel Time: 159.00 E/A: 0.80 E'Lateral: 6.09 E'Medial: 4.90 E/E' Med: 12.70 E/E' Lat: 10.20 PHT: 46.00 MVA PHT: 4.78 MVA Continuity: 2.24 Decel [place]: 3.92 Aortic Valve AoV Pk Jaquan: 1.36 AoV Mn Jaquan: 0.89 AoV VTI: 0.30 AoV Pk Grad: 7.00 Aov Mn Grad: 4.00 [place] Cont.VTI: 2.05 LVOT LVOT Pk Jaquan: 0.69 LVOT Mn Jaquan: 0.50 LVOT VTI: 0.15 LVOT Pk Grad: 2.00 LVOT Mn Grad: 1.00 LVOT Diam: 2.30 LVOT Area: 4.15 Diastolic Function MV Pk E: 0.62 MV Pk A: 0.79 E/A: 0.80 E'Medial: 4.90 E/E' Med: 12.70 E' Laterial: 6.09 E/E' Lat: 10.20 Right Ventricle TAPSE (mm): 21.00 TVS' Jaquan: 18.00 Tricuspid Valve RA Press: 15.00 Great Vessels Aorta Ao Root-2D: 3.50 2.0-3.7 cm Ao Asc: 3.70 2.1-3.4 cm Pulmonary Valve PV Pk Jaquan: 0.69 Peak PV Grad: 2.00 Updated in Other Vendor System with Status of Final Christopher Hernandez MD electronically signed on 06/18/2021 4:56:03 PM with status of Final
--- NOTE | 2021-06-18 13:25 | P.CNID_ITS ---
History of Present Illness Data of Consult Service Date: 06/18/21 Requesting physician: Neptali Aguilar Primary Care Provider: Ruy Casey MD HPI Reason for consult: bacteremia,MRSA He presents from local SNF with vomiting and lethargy that day. 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 Diabetes End stage renal disease Essential (primary) hypertension Metabolic encephalopathy Pneumonia Family History Family history: reviewed and not pertinent Social History Social History Currently Displaying Signs/Symptoms of Drug Intoxication Withdrawal: No Advance Directives: Yes Advance Directives on File: Yes Advance Directives Date on File: 06/16/21 Do you have thoughts of harming others: None Do you have a plan to hurt others: No Plan Current occupational status: disabled Meds Allergies Allergy/AdvReac Type Severity Reaction Status Date / Time No Known Allergies Allergy Unverified 04/27/20 19:41 [No Known Allergies*] Active Medications: Current Medications Acetaminophen (Acetaminophen 325 Mg Tablet) 650 mg PO Q6H PRN PRN Reason: Pain, Mild (Pain Scale 1-3) Aspirin (Aspirin 81 Mg Tab.Chew) 81 mg PO DAILY [facility] Last Admin: 06/18/21 07:51 Dose: 81 mg Documented by: Atorvastatin Calcium (Atorvastatin Calcium 10 Mg Tablet) 10 mg PO DAILY [facility] Last Admin: 06/18/21 07:52 Dose: 10 mg Documented by: Ferrous Sulfate (Ferrous Sulfate 324 Mg Tablet.) 324 mg PO TID [facility] Last Admin: 06/18/21 07:51 Dose: 324 mg Documented by: Furosemide (Furosemide 40 Mg Tablet) 80 mg PO BID [facility]; Protocol Last Admin: 06/18/21 07:54 Dose: 80 mg Documented by: Heparin Sodium (Porcine) (Heparin Sodium,Porcine 5,000 Unit/Ml Vial) 5,000 unit SUBCUT Q12H [facility] Last Admin: 06/18/21 03:55 Dose: 5,000 unit Documented by: Hydralazine HCl (Hydralazine Hcl 50 Mg Tablet) 50 mg PO TID [facility]; Protocol Last Admin: 06/18/21 07:51 Dose: 50 mg Documented by: Sodium Chloride (Ns) 1,000 mls @ 100 mls/hr IVCONT .Q10H [facility] Last Admin: 06/18/21 05:19 Dose: 100 mls/hr Documented by: Insulin Human Lispro (Insulin Lispro 100 Unit/Ml 3 Ml Vial) 0 unit SUBCUT QIDACHS [facility]; Protocol Last Admin: 06/18/21 12:11 Dose: Not Given Documented by: Multivitamins/Vitamin C (Multivitamin Tablet) 1 tab PO DAILY [facility] Last Admin: 06/18/21 07:51 Dose: 1 tab Documented by: Ondansetron HCl (Ondansetron Hcl 4 Mg/2 Ml Vial) 4 mg IVPUSH Q8H PRN PRN Reason: Nausea Last Admin: 06/16/21 20:46 Dose: 4 mg Documented by: Pharmacy Consult (Consult Rx Perform Med Rec) 1 each MISCELLANE ONCE PRN PRN Reason: Consult order Pharmacy Consult (Consult Rx Vancomycin Dosing) 1 each MISCELLANE DAILY PRN PRN Reason: Consult order Pharmacy Consult (Consult Rx Vancomycin Dosing) 1 each MISCELLANE DAILY PRN PRN Reason: Consult order Senna (Sennosides 8.6 Mg Tablet) 8.6 mg PO DAILY [facility] Last Admin: 06/18/21 07:51 Dose: 8.6 mg Documented by: Sevelamer Carbonate (Sevelamer Carbonate Tablet 800 Mg Tablet) 800 mg PO TID [facility] Last Admin: 06/18/21 07:52 Dose: 800 mg Documented by: Sodium Chloride (0.9 % Sodium Chloride Flush 3 Ml Syringe) 3 ml IVFLUSH QSHIFT [facility] Last Admin: 06/18/21 07:49 Dose: Not Given Documented by: Tamsulosin HCl (Tamsulosin Hcl 0.4 Mg Capsule) 0.4 mg PO DAILY [facility] Last Admin: 06/18/21 07:51 Dose: 0.4 mg Documented by: Vitamin D (Cholecalciferol (Vitamin D3) 25 Mcg Tablet) 50 mcg PO DAILY [facility] Last Admin: 06/18/21 07:52 Dose: 50 mcg Documented by: Home Medications Medication Instructions Recorded Confirmed Last Taken Type aspirin 81 mg chewable tablet 81 mg PO DAILY 06/16/21 06/16/21 Unknown History atorvastatin 10 mg tablet 1 tab PO DAILY 06/16/21 06/16/21 Unknown History cholecalciferol (vitamin D3) 25 50 mcg PO DAILY 06/16/21 06/16/21 Unknown History mcg (1,000 unit) tablet ferrous sulfate 325 mg (65 mg 325 mg PO TID 06/16/21 06/16/21 Unknown History iron) tablet furosemide 80 mg tablet 1 tab PO BID 06/16/21 06/16/21 Unknown History hydralazine 50 mg tablet 1 tab PO TID 06/16/21 06/16/21 Unknown History insulin lispro 100 unit/mL See Rx Instructions .ROUTE .COMPLEX 06/16/21 06/16/21 Unknown History subcutaneous pen (Admelog SoloStar U-100 Insulin lispro) sennosides 8.6 mg tablet (senna) 8.6 mg PO DAILY 06/16/21 06/16/21 Unknown History sevelamer carbonate 800 mg tablet 1 tab PO TID 06/16/21 06/16/21 Unknown History tamsulosin 0.4 mg capsule 1 cap PO DAILY 06/16/21 06/16/21 Unknown History vitamin B complex and vitamin C 1 cap PO DAILY 06/16/21 06/16/21 Unknown History no.20-folic acid 1 mg capsule Physical Exam Vital Signs: Vital Signs: Last Vital Signs Temp 98.3 F 06/18/21 11:44 Pulse 83 06/18/21 11:44 Resp 18 06/18/21 11:44 BP 170/84 H 06/18/21 11:44 Pulse Ox 94 06/18/21 11:44 Body Mass Index 20.7 Const: General: cooperative Eyes: General: appearance normal, both eyes and all related structures Resp: Effort & Inspection: normal respiratory effort Cardio: Rate: regular rate Rhythm: regular rhythm GI: Palpation (GI): Soft to palpation and nontender : General: Yes no CVA tenderness Back/Spine/Pelvis: Back: no CVA tenderness Thoracic/Lumbar Spine: thoracic and lumbar spine normal to inspection Skin: Other: left chest wall permacath Extrem: General: Yes normal to inspection Results Labs CBC & Chem 7: 06/18/21 05:53 06/18/21 05:53 Labs: Short CBC 06/18/21 Range/Units 05:53 WBC 5.3 (4.8-10.8) X10*3/uL Hgb 7.7 L (14.0-18.0) g/dl Hct 24.9 L (42.0-52.0) % Plt Count 116 L (160-400) X10*3/uL BMP 06/18/21 05:53 Sodium 140 Potassium 3.5 Chloride 111 H Carbon Dioxide 20 L BUN 40 H D Creatinine 4.49 H* Calcium 7.0 L Liver Function 06/18/21 Range/Units 05:53 Total Bilirubin 0.5 (0.0-1.0) mg/dL AST 32 (5-37) U/L ALT 19 (0-40) U/L Alkaline Phosphatase 44 (39-117) U/L Albumin 2.6 L (3.5-5.0) g/dL Microbiology Microbiology Results: Microbiology 06/18/21 08:45 Blood - Venous Blood Culture - Final 06/18/21 08:45 Blood - Venous Blood Culture - Final 06/16/21 06:10 Blood - Venous Blood Culture - Final Methicillin Res Staph Aureus 06/16/21 06:10 Blood - Venous Blood Culture - Final Methicillin Res Staph Aureus 06/16/21 Unknown Urine Catheterized - Giles Catheter Urine Culture - Final Assessment and Plan (1) Staphylococcus aureus bacteremia: Status: Acute He has no obvious sources There could be concern over port infection or endocarditis He has no skin infection seen (2) 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 Remove chest wall catheter if able 4 weeks IV Vancomycin Check nares for MRSA?lung source
--- NOTE | 2021-06-18 14:29 | P.PNIM_ITS ---
Subjective Subjective Date of Service: 06/18/21 Interval History: awake but minimally verbal and as such, unable to obtain a reliable ROS attempted Permacath removal did not succeed today; will need conscious sedation + cutdown Review of Systems Review of Systems: Yes Unobtainable due to mental status Physical Exam Vital Signs: Vital Signs: Last Vital Signs Temp 98.3 F 06/18/21 11:44 Pulse 83 06/18/21 11:44 Resp 18 06/18/21 11:44 BP 170/84 H 06/18/21 11:44 Pulse Ox 94 06/18/21 11:44 Body Mass Index 20.7 Gen: in no acute distress HEENT: sclera anicteric, moist mucus membranes Neck: supple, LIJ Permacath Lungs: clear to auscultation bilaterally Heart: regular rate and rhythm, no murmurs Abd: soft, non-tender, non-distended Ext: no edema Skin: warm/well-perfused Neuro: disoriented Psych: impaired insight Objective Data Active Medications Acetaminophen (Acetaminophen 325 Mg Tablet) 650 mg PO Q6H PRN PRN Reason: Pain, Mild (Pain Scale 1-3) Aspirin (Aspirin 81 Mg Tab.Chew) 81 mg PO DAILY [facility] Last Admin: 06/18/21 07:51 Dose: 81 mg Documented by: CONRADO Atorvastatin Calcium (Atorvastatin Calcium 10 Mg Tablet) 10 mg PO DAILY [facility] Last Admin: 06/18/21 07:52 Dose: 10 mg Documented by: CONRADO Ferrous Sulfate (Ferrous Sulfate 324 Mg Tablet.) 324 mg PO TID [facility] Last Admin: 06/18/21 14:13 Dose: Not Given Documented by: CONRADO Non-Admin Reason: off unit Furosemide (Furosemide 40 Mg Tablet) 80 mg PO BID [facility]; Protocol Last Admin: 06/18/21 07:54 Dose: 80 mg Documented by: CONRADO Heparin Sodium (Porcine) (Heparin Sodium,Porcine 5,000 Unit/Ml Vial) 5,000 unit SUBCUT Q12H [facility] Last Admin: 06/18/21 03:55 Dose: 5,000 unit Documented by: VIKTOR Hydralazine HCl (Hydralazine Hcl 50 Mg Tablet) 50 mg PO TID [facility]; Protocol Last Admin: 06/18/21 07:51 Dose: 50 mg Documented by: CONRADO Sodium Chloride (Ns) 1,000 mls @ 100 mls/hr IVCONT .Q10H [facility] Last Admin: 06/18/21 05:19 Dose: 100 mls/hr Documented by: VIKTOR Insulin Human Lispro (Insulin Lispro 100 Unit/Ml 3 Ml Vial) 0 unit SUBCUT QIDACHS [facility]; Protocol Last Admin: 06/18/21 12:11 Dose: Not Given Documented by: CONRADO Non-Admin Reason: Patient Refused Multivitamins/Vitamin C (Multivitamin Tablet) 1 tab PO DAILY [facility] Last Admin: 06/18/21 07:51 Dose: 1 tab Documented by: CONRADO Ondansetron HCl (Ondansetron Hcl 4 Mg/2 Ml Vial) 4 mg IVPUSH Q8H PRN PRN Reason: Nausea Last Admin: 06/16/21 20:46 Dose: 4 mg Documented by: DONYA Pharmacy Consult (Consult Rx Perform Med Rec) 1 each MISCELLANE ONCE PRN PRN Reason: Consult order Pharmacy Consult (Consult Rx Vancomycin Dosing) 1 each MISCELLANE DAILY PRN PRN Reason: Consult order Pharmacy Consult (Consult Rx Vancomycin Dosing) 1 each MISCELLANE DAILY PRN PRN Reason: Consult order Senna (Sennosides 8.6 Mg Tablet) 8.6 mg PO DAILY [facility] Last Admin: 06/18/21 07:51 Dose: 8.6 mg Documented by: CONRADO Sevelamer Carbonate (Sevelamer Carbonate Tablet 800 Mg Tablet) 800 mg PO TID [facility] Last Admin: 06/18/21 14:14 Dose: Not Given Documented by: CONRADO Non-Admin Reason: off unit Sodium Chloride (0.9 % Sodium Chloride Flush 3 Ml Syringe) 3 ml IVFLUSH QSHIFT [facility] Last Admin: 06/18/21 07:49 Dose: Not Given Documented by: CONRADO Non-Admin Reason: IV Running Tamsulosin HCl (Tamsulosin Hcl 0.4 Mg Capsule) 0.4 mg PO DAILY [facility] Last Admin: 06/18/21 07:51 Dose: 0.4 mg Documented by: CONRADO Vitamin D (Cholecalciferol (Vitamin D3) 25 Mcg Tablet) 50 mcg PO DAILY [facility] Last Admin: 06/18/21 07:52 Dose: 50 mcg Documented by: HO.VENL Labs CBC & Chem 7: 06/18/21 05:53 06/18/21 05:53 Labs: Laboratory Results - last 24 hr 06/17/21 06/17/21 06/18/21 16:25 20:11 05:53 MCV 103.3 H MCH 32.0 MCHC 30.9 L RDW 15.0 Plt Count 116 L MPV 9.8 Immature Gran % (Auto) 0.4 Neut % (Auto) 77.2 H Lymph % (Auto) 8.7 L [place] % (Auto) 12.5 H Eos % (Auto) 0.8 Baso % (Auto) 0.4 Lymph # (Auto) 0.5 L [place] # (Auto) 0.7 Eos # (Auto) 0.0 Baso # (Auto) 0.0 Abs Immat Gran (auto) 0.02 Absolute Neuts (auto) 4.1 Absolute Nucleated RBC 0.000 Nucleated RBC % (auto) 0.0 Absolute Retic 0.050 Percent Retic 2.0 H Immature Retic Fraction 8.7 Retic Hgb Equivalent 27.6 L Anion Gap Estim Creat Clear Calc Estimated GFR POC Glucose 129 H 137 H Fasting Glucose Calcium Iron TIBC % Saturation Unsat Iron Binding Ferritin Total Bilirubin AST ALT Alkaline Phosphatase Lactate Dehydrogenase Total Protein Albumin Vitamin B12 Folate 06/18/21 06/18/21 06/18/21 05:53 05:53 07:21 MCV MCH MCHC RDW Plt Count MPV Immature Gran % (Auto) Neut % (Auto) Lymph % (Auto) [place] % (Auto) Eos % (Auto) Baso % (Auto) Lymph # (Auto) [place] # (Auto) Eos # (Auto) Baso # (Auto) Abs Immat Gran (auto) Absolute Neuts (auto) Absolute Nucleated RBC Nucleated RBC % (auto) Absolute Retic Percent Retic Immature Retic Fraction Retic Hgb Equivalent Anion Gap 13 Estim Creat Clear Calc 11.5 Estimated GFR 13 POC Glucose 122 H Fasting Glucose 121 H Calcium 7.0 L Iron 20 L TIBC 112 L % Saturation 18 Unsat Iron Binding 92 Ferritin 4357 H Total Bilirubin 0.5 AST 32 ALT 19 Alkaline Phosphatase 44 Lactate Dehydrogenase 169 Total Protein 5.1 L Albumin 2.6 L Vitamin B12 1160 H Folate > 20.0 06/18/21 11:50 MCV MCH MCHC RDW Plt Count MPV Immature Gran % (Auto) Neut % (Auto) Lymph % (Auto) [place] % (Auto) Eos % (Auto) Baso % (Auto) Lymph # (Auto) [place] # (Auto) Eos # (Auto) Baso # (Auto) Abs Immat Gran (auto) Absolute Neuts (auto) Absolute Nucleated RBC Nucleated RBC % (auto) Absolute Retic Percent Retic Immature Retic Fraction Retic Hgb Equivalent Anion Gap Estim Creat Clear Calc Estimated GFR POC Glucose 177 H Fasting Glucose Calcium Iron TIBC % Saturation Unsat Iron Binding Ferritin Total Bilirubin AST ALT Alkaline Phosphatase Lactate Dehydrogenase Total Protein Albumin Vitamin B12 Folate Microbiology Microbiology Results: Microbiology 06/18/21 08:45 Blood Culture - Final Blood - Venous 06/18/21 08:45 Blood Culture - Final Blood - Venous 06/16/21 06:10 Blood Culture - Final Blood - Venous Methicillin Res Staph Aureus 06/16/21 06:10 Blood Culture - Final Blood - Venous Methicillin Res Staph Aureus Assessment and Plan (1) Staphylococcus aureus bacteremia: Status: Acute Assessment and Plan: hospital d#3 80yo M SNF resident with cognitive impairment , ESRD on HD presented with fatigue and altered mental status found to have MRSA bacteremia + pneumonia # MRSA bacteremia/PNA - vancomycin d#3 to dose after HD; consult Pharmacology. total duration 28d after clear culture- will check surveillance BCx today - NPO for Permacath removal tomorrow - check nasal MRSA swab # ESRD on HD - will need new Permacath once bloodstream cleared - continue phos binder # troponin elevation - due to ESRD; regardless, no intervention per discussion with HCP by Dr Aguilar # HTN - continue furosemide + hydralazine # anemia of ESRD - epo- discuss with Nephrology # HLD - statin # DM2 - correction-dose lispro # VTE ppx - UFH # dispo - eventual return to [facility] Quality Stroke Does the patient have a stroke diagnosis?: No VTE Prior VTE?: No VTE Risk Level:: Medical - moderate - high VTE Device Contraindication: Treatment Not Indicated VTE Drug Contraindication: N/A - Med Ordered
[2021-06-18 16:01] LABS: Glucose, Whole Blood 162 mg/dL (60-115)
[2021-06-18] MEDS: Insulin Lispro 100 UNIT/ML 3 ML VIAL SUBCUT (17:02)
[2021-06-18 20:27] LABS: Glucose, Whole Blood 79 mg/dL (60-115)
[2021-06-18 20:30] LABS: Vancomycin Random 14.8 mcg/mL (15-20)
[2021-06-19] VITALS (10 sets, daily range): BP systolic 126–168; BP diastolic 31–93; PULSE 60–79; RESP 16–18; TEMP 36.2–37; O2SAT 95–98
[2021-06-19] MEDS: 0.9 % Sodium Chloride 1,000 ML 100 ML IVCONT (01:49)
[2021-06-19] MEDS: Heparin Sodium,Porcine 5,000 UNIT/ML VIAL 5000 UNIT SUBCUT ×2 (05:34→16:20)
[2021-06-19 05:48] LABS: MANUAL DIFF FLAG NO
[2021-06-19 06:04] LABS: Basophils Percent Auto 0.4 % (0-2); Eosinophils Absolute Auto 0.1 X10*3/uL (0.0-0.4); Eosinophils Percent Auto 1.8 % (0-4); Hematocrit 25.3 % (42.0-52.0); Hemoglobin 8.1 g/dl (14.0-18.0); Imm Gran Abs Auto 0.02 X10*3/uL (0.00-0.03); Imm Gran Pct Auto 0.4 % (0.0-0.4); Lymphocytes Absolute Auto 0.6 X10*3/uL (1.2-4.9); Lymphocytes Percent Auto 12.2 % (20-40); Mean Platelet Volume 10.2 fL (9.4-12.4); Monocytes Absolute Auto 0.7 X10*3/uL (0.1-1.2); Monocytes Percent Auto 13.4 % (2-11); Neutrophils Absolute Auto 3.5 x10*3/uL (2.0-8.3); Neutrophils Percent Auto 71.8 % (45-73); Platelet Count 136 X10*3/uL (160-400); Red Blood Count 2.53 X10*6/uL (4.60-5.80); Red Cell Distribution Width 14.9 % (11.0-16.0); White Blood Count 4.9 X10*3/uL (4.8-10.8)
[2021-06-19 06:06] LABS: Prothrombin Time 11.3 SEC (9.9-13.0)
[2021-06-19 06:09] LABS: Partial Thromboplastin Time 33.2 SEC (24.1-38.0)
[2021-06-19 08:24] LABS: Glucose, Whole Blood 86 mg/dL (60-115)
[2021-06-19 08:30] LABS: Vancomycin Random 12.3 mcg/mL (15-20)
[2021-06-19 08:37] LABS: Alanine Aminotransferase 30 U/L (0-40); Albumin Level 2.8 g/dL (3.5-5.0); Alkaline Phosphatase 57 U/L (39-117); Anion Gap 14 (12-20); Aspartate Amino Transferase 37 U/L (5-37); Bilirubin Total 0.4 mg/dL (0.0-1.0); Blood Urea Nitrogen 53 mg/dL (9-16); Calcium 7.5 mg/dL (8.4-10.2); Carbon Dioxide 18 mmol/L (22-29); Chloride 109 mmol/L (96-108); Creatinine Clr Calc Pharmacy 9.3; Estimated Glomerular Filt Rate 10; Glucose Fasting 84 mg/dL (60-99); Potassium 3.9 mmol/L (3.3-5.1); Sodium 137 mmol/L (135-145); Total Protein 5.4 g/dL (6.5-8.0)
[2021-06-19 10:59] LABS: Glucose, Whole Blood 76 mg/dL (60-115)
--- NOTE | 2021-06-19 11:04 | W.PM.DNNEP ---
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 tolerated well. if PC removed, will need daily labs to assess daily need for HD (2) Staphylococcus aureus bacteremia: Status: Acute Assessment and Plan: ?source control to have Permcath removed, TTE not conclusive for vegetation, consider TYRONE, antibx as per ID guidance, will need new temporary line at some point to continue HD Time Spent With Patient Time: Total time spent is greater than 50% in coordination of care (as documented) at patient's floor/unit and/or counseling patient: Procedures Date of Service Date of Service: 06/19/21
--- NOTE | 2021-06-19 11:15 | MHC.CM.PN ---
Port to be removed and replaced Friday06/22/21 Earliest return to [facility] is Friday. Facility updated in [facility]
[2021-06-19 12:46] LABS: MRSA Nasal PCR POSITIVE (Negative); SA Nasal PCR POSITIVE (Negative)
--- NOTE | 2021-06-19 13:07 | HO.RADPN ---
RADIOLOGY Narrative Narrative: Left jugular dialysis catheter removed. Tip sent for culture.
[2021-06-19 14:06] LABS: Glucose, Whole Blood 79 mg/dL (60-115)
[2021-06-19] MEDS: hydrALAZINE HCl 50 MG TABLET PO ×2 (14:15→20:08)
[2021-06-19] MEDS: Ferrous Sulfate 324 MG TABLET.DR PO ×2 (14:16→20:09)
[2021-06-19] MEDS: Sevelamer Carbonate Tablet 800 MG TABLET PO ×2 (14:16→20:08)
--- NOTE | 2021-06-19 14:39 | HO.PM.IMPN ---
Subjective Subjective Date of Service: 06/19/21 Interval History: No complaints. Undergoing HD this am then will get Permacath removed due to MRSA bacteremia. BCx from 06/18/21 positive Review of Systems Review of Systems: Yes Unobtainable due to mental status Physical Exam Vital Signs: Vital Signs: Last Vital Signs Temp 98.6 F 06/19/21 13:59 Pulse 69 06/19/21 13:59 Resp 16 06/19/21 13:59 BP 145/82 H 06/19/21 14:15 Pulse Ox 96 06/19/21 13:59 Body Mass Index 20.7 Gen: in no acute distress HEENT: sclera anicteric, moist mucus membranes Neck: supple, LIJ Permacath Lungs: clear to auscultation bilaterally Heart: regular rate and rhythm, no murmurs Abd: soft, non-tender, non-distended Ext: no edema Skin: warm/well-perfused Neuro: disoriented Psych: impaired insight Objective Data Active Medications Acetaminophen (Acetaminophen 325 Mg Tablet) 650 mg PO Q6H PRN PRN Reason: Pain, Mild (Pain Scale 1-3) Aspirin (Aspirin 81 Mg Tab.Chew) 81 mg PO DAILY [facility] Last Admin: 06/19/21 10:37 Dose: Not Given Documented by: PHU Non-Admin Reason: Off unit: Dialysis Atorvastatin Calcium (Atorvastatin Calcium 10 Mg Tablet) 10 mg PO DAILY [facility] Last Admin: 06/19/21 10:37 Dose: Not Given Documented by: PHU Non-Admin Reason: Off unit: Dialysis Ferrous Sulfate (Ferrous Sulfate 324 Mg Tablet.) 324 mg PO TID [facility] Last Admin: 06/19/21 14:16 Dose: 324 mg Documented by: GASPER Furosemide (Furosemide 40 Mg Tablet) 80 mg PO BID [facility]; Protocol Last Admin: 06/19/21 10:38 Dose: Not Given Documented by: PHU Non-Admin Reason: Off unit: Dialysis Heparin Sodium (Porcine) (Heparin Sodium,Porcine 5,000 Unit/Ml Vial) 5,000 unit SUBCUT Q12H [facility] Last Admin: 06/19/21 05:34 Dose: 5,000 unit Documented by: BUNNY Hydralazine HCl (Hydralazine Hcl 50 Mg Tablet) 50 mg PO TID [facility]; Protocol Last Admin: 06/19/21 14:15 Dose: 50 mg Documented by: GASPER Vancomycin HCl 1,000 mg/ (Sodium Chloride) 270 mls @ 270 mls/hr IV TUTHSA@[id number] [facility] Insulin Human Lispro (Insulin Lispro 100 Unit/Ml 3 Ml Vial) 0 unit SUBCUT QIDACHS [facility]; Protocol Last Admin: 06/19/21 13:58 Dose: Not Given Documented by: PHU Non-Admin Reason: No Insulin Coverage Multivitamins/Vitamin C (Multivitamin Tablet) 1 tab PO DAILY [facility] Last Admin: 06/19/21 10:38 Dose: Not Given Documented by: PHU Non-Admin Reason: Off unit: Dialysis Ondansetron HCl (Ondansetron Hcl 4 Mg/2 Ml Vial) 4 mg IVPUSH Q8H PRN PRN Reason: Nausea Last Admin: 06/16/21 20:46 Dose: 4 mg Documented by: DONYA Pharmacy Consult (Consult Rx Perform Med Rec) 1 each MISCELLANE ONCE PRN PRN Reason: Consult order Pharmacy Consult (Consult Rx Vancomycin Dosing) 1 each MISCELLANE DAILY PRN PRN Reason: Consult order Pharmacy Consult (Consult Rx Vancomycin Dosing) 1 each MISCELLANE DAILY PRN PRN Reason: Consult order Senna (Sennosides 8.6 Mg Tablet) 8.6 mg PO DAILY [facility] Last Admin: 06/19/21 10:38 Dose: Not Given Documented by: PHU Non-Admin Reason: Off unit: Dialysis Sevelamer Carbonate (Sevelamer Carbonate Tablet 800 Mg Tablet) 800 mg PO TID [facility] Last Admin: 06/19/21 14:16 Dose: 800 mg Documented by: GASPER Sodium Chloride (0.9 % Sodium Chloride Flush 3 Ml Syringe) 3 ml IVFLUSH QSHIFT [facility] Last Admin: 06/19/21 14:34 Dose: Not Given Documented by: PHU Non-Admin Reason: IV Running Tamsulosin HCl (Tamsulosin Hcl 0.4 Mg Capsule) 0.4 mg PO DAILY [facility] Last Admin: 06/19/21 10:39 Dose: Not Given Documented by: PHU Non-Admin Reason: Off unit: Dialysis Vitamin D (Cholecalciferol (Vitamin D3) 25 Mcg Tablet) 50 mcg PO DAILY [facility] Last Admin: 06/19/21 10:38 Dose: Not Given Documented by: PHU Non-Admin Reason: Off unit: Dialysis Labs CBC & Chem 7: 06/19/21 05:24 06/19/21 05:24 Labs: Laboratory Results - last 24 hr 06/18/21 06/18/21 06/18/21 15:54 19:49 20:23 MCV MCH MCHC RDW Plt Count MPV Immature Gran % (Auto) Neut % (Auto) Lymph % (Auto) [place] % (Auto) Eos % (Auto) Baso % (Auto) Lymph # (Auto) [place] # (Auto) Eos # (Auto) Baso # (Auto) Abs Immat Gran (auto) Absolute Neuts (auto) Absolute Nucleated RBC Nucleated RBC % (auto) PT INR APTT Anion Gap Estim Creat Clear Calc Estimated GFR POC Glucose 162 H 79 Fasting Glucose Calcium Total Bilirubin AST ALT Alkaline Phosphatase Total Protein Albumin Nasal Screen MRSA (PCR) Nasal S. aureus Screen Nasal MRSA/S.aureus Interp Random Vancomycin 14.8 L 06/19/21 06/19/21 06/19/21 05:24 05:24 05:24 MCV 100.0 H MCH 32.0 MCHC 32.0 RDW 14.9 Plt Count 136 L MPV 10.2 Immature Gran % (Auto) 0.4 Neut % (Auto) 71.8 Lymph % (Auto) 12.2 L [place] % (Auto) 13.4 H Eos % (Auto) 1.8 Baso % (Auto) 0.4 Lymph # (Auto) 0.6 L [place] # (Auto) 0.7 Eos # (Auto) 0.1 Baso # (Auto) 0.0 Abs Immat Gran (auto) 0.02 Absolute Neuts (auto) 3.5 Absolute Nucleated RBC 0.000 Nucleated RBC % (auto) 0.0 PT 11.3 INR 1.0 APTT 33.2 Anion Gap 14 Estim Creat Clear Calc 9.3 Estimated GFR 10 POC Glucose Fasting Glucose 84 Calcium 7.5 L D Total Bilirubin 0.4 AST 37 ALT 30 Alkaline Phosphatase 57 D Total Protein 5.4 L Albumin 2.8 L Nasal Screen MRSA (PCR) Nasal S. aureus Screen Nasal MRSA/S.aureus Interp Random Vancomycin 06/19/21 06/19/21 06/19/21 07:28 08:19 10:29 MCV MCH MCHC RDW Plt Count MPV Immature Gran % (Auto) Neut % (Auto) Lymph % (Auto) [place] % (Auto) Eos % (Auto) Baso % (Auto) Lymph # (Auto) [place] # (Auto) Eos # (Auto) Baso # (Auto) Abs Immat Gran (auto) Absolute Neuts (auto) Absolute Nucleated RBC Nucleated RBC % (auto) PT INR APTT Anion Gap Estim Creat Clear Calc Estimated GFR POC Glucose 86 Fasting Glucose Calcium Total Bilirubin AST ALT Alkaline Phosphatase Total Protein Albumin Nasal Screen MRSA (PCR) POSITIVE A Nasal S. aureus Screen POSITIVE A Nasal MRSA/S.aureus Interp SEE NOTE Random Vancomycin 12.3 L 06/19/21 06/19/21 10:49 13:57 MCV MCH MCHC RDW Plt Count MPV Immature Gran % (Auto) Neut % (Auto) Lymph % (Auto) [place] % (Auto) Eos % (Auto) Baso % (Auto) Lymph # (Auto) [place] # (Auto) Eos # (Auto) Baso # (Auto) Abs Immat Gran (auto) Absolute Neuts (auto) Absolute Nucleated RBC Nucleated RBC % (auto) PT INR APTT Anion Gap Estim Creat Clear Calc Estimated GFR POC Glucose 76 79 Fasting Glucose Calcium Total Bilirubin AST ALT Alkaline Phosphatase Total Protein Albumin Nasal Screen MRSA (PCR) Nasal S. aureus Screen Nasal MRSA/S.aureus Interp Random Vancomycin Microbiology Microbiology Results: Microbiology 06/18/21 08:45 Blood Culture - Preliminary Blood - Central Line Prelim: GPC Gram Stain only 06/18/21 08:30 Blood Culture - Preliminary Blood - Central Line Prelim: GPC Gram Stain only 06/18/21 08:45 Blood Culture - Final Blood - Venous 06/18/21 08:45 Blood Culture - Final Blood - Venous Assessment and Plan (1) Staphylococcus aureus bacteremia: Status: Acute Assessment and Plan: hospital d#4 80yo M SNF resident with cognitive impairment , ESRD on HD presented with fatigue and altered mental status found to have MRSA bacteremia + pneumonia # MRSA bacteremia/PNA - vancomycin d#4 to dose after HD. total duration 28d after clear culture- will check surveillance BCx tomorrow - Permacath removal today # ESRD on HD - will need new Permacath once bloodstream cleared- earliest would be 06/22/21 - continue phos binder # troponin elevation - due to ESRD; regardless, no intervention per discussion with HCP by Dr Aguilar # HTN - continue furosemide + hydralazine # anemia of ESRD - epo- discuss with Nephrology # HLD - statin # DM2 - correction-dose lispro # VTE ppx - UFH # dispo - eventual return to [facility] for LTC; earliest would be 06/25 Quality Stroke Does the patient have a stroke diagnosis?: No VTE Prior VTE?: No VTE Risk Level:: Medical - moderate - high VTE Device Contraindication: Treatment Not Indicated VTE Drug Contraindication: N/A - Med Ordered
[2021-06-19] MEDS: vancomycin HCL 1,000 MG in 0.9 % Sodium Chloride 250 ML 270 MG IV (16:19)
[2021-06-19 17:06] LABS: Glucose, Whole Blood 81 mg/dL (60-115)
[2021-06-19 20:05] LABS: Haptoglobin 190 mg/dL (43-212)
[2021-06-19] MEDS: Furosemide 40 MG TABLET 80 MG PO (20:08)
[2021-06-19] MEDS: 0.9 % Sodium Chloride Flush 3 ML SYRINGE IVFLUSH (20:14)
[2021-06-19 22:15] LABS: Glucose, Whole Blood 93 mg/dL (60-115)
[2021-06-20] MEDS: Heparin Sodium,Porcine 5,000 UNIT/ML VIAL 5000 UNIT SUBCUT ×2 (03:51→15:52)
[2021-06-20 03:53] VITALS: BP 159/85; PULSE 73; RESP 18; TEMP 36.5; O2SAT 92
[2021-06-20 07:27] VITALS: BP 159/80; PULSE 71; RESP 20; TEMP 36.8; O2SAT 99
[2021-06-20 07:33] LABS: Glucose, Whole Blood 79 mg/dL (60-115)
[2021-06-20] MEDS: Atorvastatin Calcium 10 MG TABLET PO (08:01)
[2021-06-20] MEDS: Ferrous Sulfate 324 MG TABLET.DR PO ×3 (08:01→19:58)
[2021-06-20] MEDS: Tamsulosin HCL 0.4 MG CAPSULE PO (08:01)
[2021-06-20] MEDS: Sennosides 8.6 MG TABLET PO (08:01)
[2021-06-20] MEDS: Aspirin 81 MG TAB.CHEW PO (08:01)
[2021-06-20] MEDS: hydrALAZINE HCl 50 MG TABLET PO ×3 (08:01→19:57)
[2021-06-20] MEDS: Furosemide 40 MG TABLET 80 MG PO ×2 (08:01→19:57)
[2021-06-20] MEDS: Sevelamer Carbonate Tablet 800 MG TABLET PO ×3 (08:01→19:57)
[2021-06-20] MEDS: Cholecalciferol (Vitamin D3) 25 MCG TABLET 50 MCG PO (08:01)
[2021-06-20] MEDS: Multivitamin TABLET 1 TAB PO (08:02)
[2021-06-20] MEDS: 0.9 % Sodium Chloride Flush 3 ML SYRINGE IVFLUSH ×3 (08:02→19:58)
[2021-06-20 11:47] LABS: Glucose, Whole Blood 112 mg/dL (60-115)
--- NOTE | 2021-06-20 11:49 | MHC.CLN ---
NUTRITION CONSULT CONSULT DUE TO ERICKA=15 ON 06/19. PRIOR ERICKA ON 06/19=18 AND 19. ERICKA 0N 06/20=18. PATIENT WITH LEFT EAR LACERATION. NO PRESSURE INJURIES. INTAKE PER DOCUMENTATION=50-75%. RECEIVING HEMODIALYSIS. DIET=2 GRAM SODIUM, LOW POTASSIUM, LOW PHOSPHOROUS FOR DIALYSIS NEEDS. POC GLUCOSE WITHIN NORMAL LIMITS 06/18-06/20. RECOMMEND ADDING ENSURE CLEAR BID TO PROVIDE 480 KCALS, 16 GRAMS PROTEIN.
[2021-06-20 12:00] VITALS: BP 126/65; PULSE 73; RESP 16; TEMP 37.3; O2SAT 99
--- NOTE | 2021-06-20 14:29 | HO.PM.IMPN ---
Subjective Subjective Date of Service: 06/20/21 Interval History: Dialyzed yesterday, then catheter removed No complaints Review of Systems Review of Systems: Yes Unobtainable due to mental status Physical Exam Vital Signs: Vital Signs: Last Vital Signs Temp 99.1 F 06/20/21 12:00 Pulse 73 06/20/21 12:00 Resp 16 06/20/21 12:00 BP 126/65 06/20/21 12:00 Pulse Ox 99 06/20/21 12:00 Body Mass Index 20.7 Gen: in no acute distress HEENT: sclera anicteric, moist mucus membranes Neck: supple, LIJ Permacath removal site with dry ressing Lungs: clear to auscultation bilaterally Heart: regular rate and rhythm, no murmurs Abd: soft, non-tender, non-distended Ext: no edema Skin: warm/well-perfused Neuro: disoriented Psych: impaired insight Objective Data Active Medications Acetaminophen (Acetaminophen 325 Mg Tablet) 650 mg PO Q6H PRN PRN Reason: Pain, Mild (Pain Scale 1-3) Aspirin (Aspirin 81 Mg Tab.Chew) 81 mg PO DAILY [facility] Last Admin: 06/20/21 08:01 Dose: 81 mg Documented by: PHU Atorvastatin Calcium (Atorvastatin Calcium 10 Mg Tablet) 10 mg PO DAILY [facility] Last Admin: 06/20/21 08:01 Dose: 10 mg Documented by: PHU Ferrous Sulfate (Ferrous Sulfate 324 Mg Tablet.) 324 mg PO TID [facility] Last Admin: 06/20/21 08:01 Dose: 324 mg Documented by: PHU Furosemide (Furosemide 40 Mg Tablet) 80 mg PO BID [facility]; Protocol Last Admin: 06/20/21 08:01 Dose: 80 mg Documented by: PHU Heparin Sodium (Porcine) (Heparin Sodium,Porcine 5,000 Unit/Ml Vial) 5,000 unit SUBCUT Q12H [facility] Last Admin: 06/20/21 03:51 Dose: 5,000 unit Documented by: ELIGIO Hydralazine HCl (Hydralazine Hcl 50 Mg Tablet) 50 mg PO TID [facility]; Protocol Last Admin: 06/20/21 08:01 Dose: 50 mg Documented by: PHU Vancomycin HCl 1,000 mg/ (Sodium Chloride) 270 mls @ 270 mls/hr IV TUTHSA@1645 [facility] Last Infusion: 06/19/21 17:29 Dose: 0 mls/hr Documented by: PHU Insulin Human Lispro (Insulin Lispro 100 Unit/Ml 3 Ml Vial) 0 unit SUBCUT QIDACHS [facility]; Protocol Last Admin: 06/20/21 12:04 Dose: Not Given Documented by: PHU Non-Admin Reason: No Insulin Coverage Multivitamins/Vitamin C (Multivitamin Tablet) 1 tab PO DAILY [facility] Last Admin: 06/20/21 08:02 Dose: 1 tab Documented by: PHU Ondansetron HCl (Ondansetron Hcl 4 Mg/2 Ml Vial) 4 mg IVPUSH Q8H PRN PRN Reason: Nausea Last Admin: 06/16/21 20:46 Dose: 4 mg Documented by: DONYA Pharmacy Consult (Consult Rx Perform Med Rec) 1 each MISCELLANE ONCE PRN PRN Reason: Consult order Pharmacy Consult (Consult Rx Vancomycin Dosing) 1 each MISCELLANE DAILY PRN PRN Reason: Consult order Pharmacy Consult (Consult Rx Vancomycin Dosing) 1 each MISCELLANE DAILY PRN PRN Reason: Consult order Senna (Sennosides 8.6 Mg Tablet) 8.6 mg PO DAILY [facility] Last Admin: 06/20/21 08:01 Dose: 8.6 mg Documented by: PHU Sevelamer Carbonate (Sevelamer Carbonate Tablet 800 Mg Tablet) 800 mg PO TID [facility] Last Admin: 06/20/21 08:01 Dose: 800 mg Documented by: PHU Sodium Chloride (0.9 % Sodium Chloride Flush 3 Ml Syringe) [facility] Last Admin: 06/20/21 08:02 Dose: 3 ml Documented by: PHU Tamsulosin HCl (Tamsulosin Hcl 0.4 Mg Capsule) 0.4 mg PO DAILY [facility] Last Admin: 06/20/21 08:01 Dose: 0.4 mg Documented by: PHU Vitamin D (Cholecalciferol (Vitamin D3) 25 Mcg Tablet) 50 mcg PO DAILY [facility] Last Admin: 06/20/21 08:01 Dose: 50 mcg Documented by: PHU Labs CBC & Chem 7: 06/19/21 05:24 06/19/21 05:24 Labs: Laboratory Results - last 24 hr 1106/19/21 06/19/21 08:45 16:58 22:10 Haptoglobin 190 POC Glucose 81 93 06/20/21 06/20/21 07:25 11:36 Haptoglobin POC Glucose 79 112 Microbiology Microbiology Results: Microbiology 06/18/21 08:30 Blood Culture - Preliminary Blood - Central Line Staphylococcus aureus 06/18/21 08:45 Blood Culture - Preliminary Blood - Central Line Staphylococcus aureus 06/19/21 12:20 Catheter Tip Culture - Preliminary Catheter Tip - Other Staphylococcus aureus Assessment and Plan (1) Staphylococcus aureus bacteremia: Status: Acute Assessment and Plan: hospital d#5 80yo M SNF resident with cognitive impairment , ESRD on HD presented with fatigue and altered mental status found to have MRSA bacteremia + pneumonia # MRSA bacteremia/PNA - vancomycin d#5 to dose after HD. total duration 28d after clear culture. initial BCx positive 06/16 [venous], 2/2 BCx from Permacath positive 06/18, also cath tip positive 06/19. f/u surveillance culture drawn today # ESRD on HD - will need new Permacath once bloodstream cleared- earliest would be 06/22/21 - continue phos binder [sevelamer] # troponin elevation - due to ESRD; regardless, no intervention per discussion with HCP by Dr Aguilar # HTN - continue furosemide + hydralazine # anemia of ESRD - epo- discuss with Nephrology # HLD - statin # DM2 - correction-dose lispro # VTE ppx - UFH # dispo - eventual return to [facility] for LTC; earliest would be 06/25 Quality Stroke Does the patient have a stroke diagnosis?: No VTE Prior VTE?: No VTE Risk Level:: Medical - moderate - high VTE Device Contraindication: Treatment Not Indicated VTE Drug Contraindication: N/A - Med Ordered
[2021-06-20 15:50] VITALS: BP 149/71; PULSE 77; RESP 16; TEMP 36.6; O2SAT 98
[2021-06-20 16:07] LABS: Glucose, Whole Blood 130 mg/dL (60-115)
[2021-06-20 19:54] VITALS: BP 156/84; PULSE 81; RESP 16; TEMP 36.6; O2SAT 100
[2021-06-20 21:08] LABS: Glucose, Whole Blood 132 mg/dL (60-115)
[2021-06-21] VITALS (9 sets, daily range): BP systolic 151–194; BP diastolic 72–88; PULSE 65–81; RESP 16–18; TEMP 36.1–36.9; O2SAT 95–100
[2021-06-21] MEDS: Heparin Sodium,Porcine 5,000 UNIT/ML VIAL 5000 UNIT SUBCUT ×2 (03:51→14:17)
[2021-06-21 08:08] LABS: Glucose, Whole Blood 106 mg/dL (60-115)
[2021-06-21] MEDS: Sevelamer Carbonate Tablet 800 MG TABLET PO ×3 (09:14→21:56)
[2021-06-21] MEDS: Furosemide 40 MG TABLET 80 MG PO ×2 (09:14→21:56)
[2021-06-21] MEDS: Cholecalciferol (Vitamin D3) 25 MCG TABLET 50 MCG PO (09:14)
[2021-06-21] MEDS: Atorvastatin Calcium 10 MG TABLET PO (09:14)
[2021-06-21] MEDS: Tamsulosin HCL 0.4 MG CAPSULE PO (09:15)
[2021-06-21] MEDS: Aspirin 81 MG TAB.CHEW PO (09:15)
[2021-06-21] MEDS: Sennosides 8.6 MG TABLET PO (09:15)
[2021-06-21] MEDS: Ferrous Sulfate 324 MG TABLET.DR PO ×3 (09:15→21:56)
[2021-06-21] MEDS: Multivitamin TABLET 1 TAB PO (09:15)
[2021-06-21] MEDS: hydrALAZINE HCl 50 MG TABLET PO ×3 (09:16→21:56)
[2021-06-21] MEDS: 0.9 % Sodium Chloride Flush 3 ML SYRINGE IVFLUSH ×2 (09:16→17:03)
--- NOTE | 2021-06-21 11:29 | HO.PM.IMPN ---
Subjective Subjective Date of Service: 06/21/21 Interval History: No new events; awaiting BCx clearance Review of Systems Review of Systems: Yes all other systems are reviewed and are negative Physical Exam Vital Signs: Vital Signs: Last Vital Signs Temp 97.6 F 06/21/21 08:00 Pulse 72 06/21/21 08:00 Resp 18 06/21/21 08:00 BP 167/81 H 06/21/21 08:00 Pulse Ox 100 06/21/21 08:00 Body Mass Index 20.7 Gen: in no acute distress HEENT: sclera anicteric, moist mucus membranes Neck: supple Lungs: clear to auscultation bilaterally Heart: regular rate and rhythm, no murmurs Abd: soft, non-tender, non-distended Ext: no edema Skin: warm/well-perfused Neuro: disoriented Psych: impaired insight Objective Data Active Medications Acetaminophen (Acetaminophen 325 Mg Tablet) 650 mg PO Q6H PRN PRN Reason: Pain, Mild (Pain Scale 1-3) Aspirin (Aspirin 81 Mg Tab.Chew) 81 mg PO DAILY [facility] Last Admin: 06/21/21 09:15 Dose: 81 mg Documented by: GASPER Atorvastatin Calcium (Atorvastatin Calcium 10 Mg Tablet) 10 mg PO DAILY [facility] Last Admin: 06/21/21 09:14 Dose: 10 mg Documented by: GASEPR Ferrous Sulfate (Ferrous Sulfate 324 Mg Tablet.Dr) 324 mg PO TID [facility] Last Admin: 06/21/21 09:15 Dose: 324 mg Documented by: GASPER Furosemide (Furosemide 40 Mg Tablet) 80 mg PO BID [facility]; Protocol Last Admin: 06/21/21 09:14 Dose: 80 mg Documented by: GASPER Heparin Sodium (Porcine) (Heparin Sodium,Porcine 5,000 Unit/Ml Vial) 5,000 unit SUBCUT Q12H [facility] Last Admin: 06/21/21 03:51 Dose: 5,000 unit Documented by: ELIGIO Hydralazine HCl (Hydralazine Hcl 50 Mg Tablet) 50 mg PO TID [facility]; Protocol Last Admin: 06/21/21 09:16 Dose: 50 mg Documented by: GASPER Vancomycin HCl 1,000 mg/ (Sodium Chloride) 270 mls @ 270 mls/hr IV [id number] [facility] Last Infusion: 06/19/21 17:29 Dose: 0 mls/hr Documented by: PHU Insulin Human Lispro (Insulin Lispro 100 Unit/Ml 3 Ml Vial) 0 unit SUBCUT QIDACHS [facility]; Protocol Last Admin: 06/21/21 08:02 Dose: Not Given Documented by: GASPER Non-Admin Reason: No Insulin Coverage Multivitamins/Vitamin C (Multivitamin Tablet) 1 tab PO DAILY [facility] Last Admin: 06/21/21 09:15 Dose: 1 tab Documented by: GASPER Ondansetron HCl (Ondansetron Hcl 4 Mg/2 Ml Vial) 4 mg IVPUSH Q8H PRN PRN Reason: Nausea Last Admin: 06/16/21 20:46 Dose: 4 mg Documented by: DONYA Pharmacy Consult (Consult Rx Perform Med Rec) 1 each MISCELLANE ONCE PRN PRN Reason: Consult order Pharmacy Consult (Consult Rx Vancomycin Dosing) 1 each MISCELLANE DAILY PRN PRN Reason: Consult order Pharmacy Consult (Consult Rx Vancomycin Dosing) 1 each MISCELLANE DAILY PRN PRN Reason: Consult order Senna (Sennosides 8.6 Mg Tablet) 8.6 mg PO DAILY [facility] Last Admin: 06/21/21 09:15 Dose: 8.6 mg Documented by: GASPER Sevelamer Carbonate (Sevelamer Carbonate Tablet 800 Mg Tablet) 800 mg PO TID [facility] Last Admin: 06/21/21 09:14 Dose: 800 mg Documented by: GASPER Sodium Chloride (0.9 % Sodium Chloride Flush 3 Ml Syringe) 3 ml IVFLUSH QSHIFT [facility] Last Admin: 06/21/21 09:16 Dose: 3 ml Documented by: GASPER Tamsulosin HCl (Tamsulosin Hcl 0.4 Mg Capsule) 0.4 mg PO DAILY [facility] Last Admin: 06/21/21 09:15 Dose: 0.4 mg Documented by: GASPER Vitamin D (Cholecalciferol (Vitamin D3) 25 Mcg Tablet) 50 mcg PO DAILY [facility] Last Admin: 06/21/21 09:14 Dose: 50 mcg Documented by: GASPER Labs CBC & Chem 7: 06/19/21 05:24 06/19/21 05:24 Labs: Laboratory Results - last 24 hr 11/05/3106/20/21 06/20/21 11:36 15:49 19:53 POC Glucose 112 130 H 132 H 06/21/21 07:31 POC Glucose 106 Microbiology Microbiology Results: Microbiology 06/20/21 08:25 Blood Culture - Preliminary Blood - Venous No growth after 24 hours. 06/20/21 08:25 Blood Culture - Preliminary Blood - Venous No growth after 24 hours. 06/19/21 12:20 Catheter Tip Culture - Final Catheter Tip - Other Methicillin Res Staph Aureus 06/18/21 08:45 Blood Culture - Final Blood - Central Line Methicillin Res Staph Aureus 06/18/21 08:30 Blood Culture - Final Blood - Central Line Methicillin Res Staph Aureus Assessment and Plan (1) Staphylococcus aureus bacteremia: Status: Acute Assessment and Plan: hospital d#6 80yo M SNF resident with cognitive impairment , ESRD on HD presented with fatigue and altered mental status found to have MRSA bacteremia + pneumonia # MRSA bacteremia/PNA - vancomycin d#6 to dose after HD. total duration 28d after clear culture. initial BCx positive 06/16 [venous], 2/2 BCx from Permacath positive 06/18, also cath tip positive 06/19. f/u surveillance culture drawn 06/20/21 and if clear, place Permacath tomorrow # ESRD on HD - will need new Permacath tomorrow - check BMP given HD on hold until 06/23 - continue phos binder [sevelamer] # troponin elevation - due to ESRD; regardless, no intervention per discussion with HCP by Dr Aguilar # HTN - continue furosemide + hydralazine # anemia of ESRD - epo- discuss with Nephrology # HLD - statin # DM2 - correction-dose lispro # VTE ppx - UFH # dispo - eventual return to [facility] for LTC; earliest would be 06/25 Quality Stroke Does the patient have a stroke diagnosis?: No VTE Prior VTE?: No VTE Risk Level:: Medical - moderate - high VTE Device Contraindication: Treatment Not Indicated VTE Drug Contraindication: N/A - Med Ordered
[2021-06-21 11:30] LABS: Glucose, Whole Blood 140 mg/dL (60-115)
[2021-06-21 13:15] LABS: Anion Gap 14 (12-20); Blood Urea Nitrogen 47 mg/dL (9-16); Carbon Dioxide 22 mmol/L (22-29); Chloride 105 mmol/L (96-108); Creatinine Clr Calc Pharmacy 9.6; Estimated Glomerular Filt Rate 10; Glucose Random 151 mg/dL (60-115); Potassium 5.1 mmol/L (3.3-5.1); Sodium 136 mmol/L (135-145)
--- NOTE | 2021-06-21 13:27 | P.PNNP_ITS ---
Subjective Subjective Date of Service: 06/21/21 Principal diagnosis: no complaints this AM, siddiqui catheter draning clear yellow urine Interval history: No new events; awaiting BCx clearance Physical Exam Vital Signs: Vital Signs: Last Vital Signs Temp 97.6 F 06/21/21 11:45 Pulse 65 06/21/21 11:45 Resp 18 06/21/21 11:45 BP 154/72 H 06/21/21 11:45 Pulse Ox 98 06/21/21 11:45 Body Mass Index 20.7 oral moist mucosa lungs decreased BSs on bases s1s2 abd soft nt +Bss ext no edema Objective Data Labs CBC & Chem 7: 06/19/21 05:24 06/21/21 12:05 Labs: Laboratory Results - last 24 hr 06/20/21 06/20/21 06/21/21 15:49 19:53 07:31 Sodium Potassium Chloride Carbon Dioxide Anion Gap BUN Creatinine Estim Creat Clear Calc Estimated GFR POC Glucose 130 H 132 H 106 Random Glucose Calcium 06/21/21 06/21/21 11:16 12:05 Sodium 136 Potassium 5.1 D Chloride 105 Carbon Dioxide 22 Anion Gap 14 BUN 47 H Creatinine 5.38 H* Estim Creat Clear Calc 9.6 Estimated GFR 10 POC Glucose 140 H Random Glucose 151 H Calcium 8.0 L D Microbiology Microbiology Results: Microbiology 06/20/21 08:25 Blood - Venous Blood Culture - Preliminary No growth after 24 hours. 06/20/21 08:25 Blood - Venous Blood Culture - Preliminary No growth after 24 hours. 06/19/21 12:20 Catheter Tip - Other Catheter Tip Culture - Final Methicillin Res Staph Aureus 06/18/21 08:45 Blood - Central Line Blood Culture - Final Methicillin Res Staph Aureus 06/18/21 08:30 Blood - Central Line Blood Culture - Final Methicillin Res Staph Aureus 06/18/21 08:45 Blood - Venous Blood Culture - Final 06/18/21 08:45 Blood - Venous Blood Culture - Final 06/16/21 06:10 Blood - Venous Blood Culture - Final Methicillin Res Staph Aureus 06/16/21 06:10 Blood - Venous Blood Culture - Final Methicillin Res Staph Aureus 06/16/21 Unknown Urine Catheterized - Siddiqui Catheter Urine Culture - Final Procedures Date of Service Date of Service: 06/21/21 Assessment & Plan Assessment and plan (1) Staphylococcus aureus bacteremia: Status: Acute Assessment and Plan: on 4 week Vancomycin antbx therapy to inform [facility] dialysis center to [facility] until 07/20/21 (2) 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: Status: Acute Assessment and Plan: HD on hold due to no access, as a result of MRSA bacteremia, permcath possibly the source, awaiting neg BCXs from 06/20 if NEG will have new Permcath placed tomorrow friday, and plan for HD on friday, Monitor daily lytes, if K>5.5 may give Lokelma 10 g PO X1 (3) Anemia in chronic kidney disease (CKD): Status: Acute Assessment and Plan: OK to give Procrit [id number] unis SQ today X 1 dose, resume as outpt at [facility] Time Spent With Patient Time: Total time spent is greater than 50% in coordination of care (as documented) at patient's floor/unit and/or counseling patient: Progress Note: Quality Stroke Does the patient have a stroke diagnosis?: No
--- NOTE | 2021-06-21 14:03 | MHC.CM.PN ---
NO DIALYSIS TODAY PERMA CATH FRIDAY. SHAHZAD LARA UPDATED. CURRENT PLAN IS RETURN TO SNF FRIDAY THE [facility]
[2021-06-21 16:44] LABS: Glucose, Whole Blood 146 mg/dL (60-115)
[2021-06-21 20:35] LABS: Glucose, Whole Blood 127 mg/dL (60-115)
[2021-06-22] VITALS (12 sets, daily range): BP systolic 123–169; BP diastolic 56–85; PULSE 65–104; RESP 10–18; TEMP 36.1–36.6; O2SAT 94–100
[2021-06-22] MEDS: 0.9 % Sodium Chloride Flush 3 ML SYRINGE IVFLUSH ×3 (02:15→18:17)
[2021-06-22] MEDS: Heparin Sodium,Porcine 5,000 UNIT/ML VIAL 5000 UNIT SUBCUT ×2 (04:01→18:16)
[2021-06-22 07:43] LABS: Glucose, Whole Blood 79 mg/dL (60-115)
[2021-06-22 11:39] LABS: Glucose, Whole Blood 82 mg/dL (60-115)
--- NOTE | 2021-06-22 11:53 | HO.PM.IMPN ---
Subjective Subjective Date of Service: 06/22/21 Interval History: No new complaints. NPO for tunnel cath placement today; BCx cleared Review of Systems Review of Systems: Yes all other systems are reviewed and are negative Physical Exam Vital Signs: Vital Signs: Last Vital Signs Temp 97.8 F 06/22/21 11:16 Pulse 65 06/22/21 11:16 Resp 18 06/22/21 11:16 BP 139/84 06/22/21 11:16 Pulse Ox 98 06/22/21 11:16 Body Mass Index 20.7 Gen: in no acute distress HEENT: sclera anicteric, moist mucus membranes Neck: supple Lungs: clear to auscultation bilaterally Heart: regular rate and rhythm, no murmurs Abd: soft, non-tender, non-distended Ext: no edema Skin: warm/well-perfused Neuro: disoriented Psych: impaired insight Objective Data Active Medications Acetaminophen (Acetaminophen 325 Mg Tablet) 650 mg PO Q6H PRN PRN Reason: Pain, Mild (Pain Scale 1-3) Aspirin (Aspirin 81 Mg Tab.Chew) 81 mg PO DAILY [facility] Last Admin: 06/22/21 07:26 Dose: Not Given Documented by: CONRADO Non-Admin Reason: NPO Atorvastatin Calcium (Atorvastatin Calcium 10 Mg Tablet) 10 mg PO DAILY [facility] Last Admin: 06/22/21 07:26 Dose: Not Given Documented by: CONRADO Non-Admin Reason: NPO Ferrous Sulfate (Ferrous Sulfate 324 Mg Tablet.Dr) 324 mg PO TID [facility] Last Admin: 06/22/21 07:26 Dose: Not Given Documented by: CONRADO Non-Admin Reason: NPO Furosemide (Furosemide 40 Mg Tablet) 80 mg PO BID [facility]; Protocol Last Admin: 06/22/21 07:26 Dose: Not Given Documented by: CONRADO Non-Admin Reason: NPO Heparin Sodium (Porcine) (Heparin Sodium,Porcine 5,000 Unit/Ml Vial) 5,000 unit SUBCUT Q12H [facility] Last Admin: 06/22/21 04:01 Dose: 5,000 unit Documented by: VIKTOR Hydralazine HCl (Hydralazine Hcl 25 Mg Tablet) 75 mg PO TID [facility]; Protocol Last Admin: 06/22/21 08:59 Dose: Not Given Documented by: CONRADO Non-Admin Reason: NPO Vancomycin HCl 1,000 mg/ (Sodium Chloride) 270 mls @ 270 mls/hr IV TUTHSA@1645 [facility] Last Infusion: 06/19/21 17:29 Dose: 0 mls/hr Documented by: PHU Insulin Human Lispro (Insulin Lispro 100 Unit/Ml 3 Ml Vial) 0 unit SUBCUT QIDACHS [facility]; Protocol Last Admin: 06/22/21 11:28 Dose: Not Given Documented by: CONRADO Non-Admin Reason: No Insulin Coverage Multivitamins/Vitamin C (Multivitamin Tablet) 1 tab PO DAILY [facility] Last Admin: 06/22/21 07:28 Dose: Not Given Documented by: CONRADO Non-Admin Reason: NPO Ondansetron HCl (Ondansetron Hcl 4 Mg/2 Ml Vial) 4 mg IVPUSH Q8H PRN PRN Reason: Nausea Last Admin: 06/16/21 20:46 Dose: 4 mg Documented by: DONYA Pharmacy Consult (Consult Rx Perform Med Rec) 1 each MISCELLANE ONCE PRN PRN Reason: Consult order Pharmacy Consult (Consult Rx Vancomycin Dosing) 1 each MISCELLANE DAILY PRN PRN Reason: Consult order Pharmacy Consult (Consult Rx Vancomycin Dosing) 1 each MISCELLANE DAILY PRN PRN Reason: Consult order Senna (Sennosides 8.6 Mg Tablet) 8.6 mg PO DAILY [facility] Last Admin: 06/22/21 07:28 Dose: Not Given Documented by: CONRADO Non-Admin Reason: NPO Sevelamer Carbonate (Sevelamer Carbonate Tablet 800 Mg Tablet) 800 mg PO TID [facility] Last Admin: 06/22/21 07:28 Dose: Not Given Documented by: CONRADO Non-Admin Reason: NPO Sodium Chloride (0.9 % Sodium Chloride Flush 3 Ml Syringe) 3 ml IVFLUSH QSHIFT [facility] Last Admin: 06/22/21 07:25 Dose: 3 ml Documented by: CONRADO Tamsulosin HCl (Tamsulosin Hcl 0.4 Mg Capsule) 0.4 mg PO DAILY [facility] Last Admin: 06/22/21 07:28 Dose: Not Given Documented by: CONRADO Non-Admin Reason: NPO Vitamin D (Cholecalciferol (Vitamin D3) 25 Mcg Tablet) 50 mcg PO DAILY [facility] Last Admin: 06/22/21 07:26 Dose: Not Given Documented by: CONRADO Non-Admin Reason: NPO Labs CBC & Chem 7: 06/19/21 05:24 06/21/21 12:05 Labs: Laboratory Results - last 24 hr 06/21/21 06/21/21 06/21/21 12:05 15:35 20:15 Anion Gap 14 Estim Creat Clear Calc 9.6 Estimated GFR 10 POC Glucose 146 H 127 H Random Glucose 151 H Calcium 8.0 L D 06/22/21 06/22/21 07:08 11:24 Anion Gap Estim Creat Clear Calc Estimated GFR POC Glucose 79 82 Random Glucose Calcium Microbiology Microbiology Results: Microbiology 06/20/21 08:25 Blood Culture - Preliminary Blood - Venous No growth after 48 hours. 06/20/21 08:25 Blood Culture - Preliminary Blood - Venous No growth after 48 hours. 06/19/21 12:20 Catheter Tip Culture - Final Catheter Tip - Other Methicillin Res Staph Aureus 06/18/21 08:45 Blood Culture - Final Blood - Central Line Methicillin Res Staph Aureus 06/18/21 08:30 Blood Culture - Final Blood - Central Line Methicillin Res Staph Aureus Assessment and Plan (1) Staphylococcus aureus bacteremia: Status: Acute Assessment and Plan: hospital d#7 80yo M long-term SNF resident with cognitive impairment , ESRD on HD presented with fatigue and altered mental status found to have MRSA bacteremia + pneumonia # MRSA bacteremia/PNA - vancomycin after each HD session. initial BCx positive 06/16 [venous], 2/2 BCx from Permacath positive 06/18, also cath tip positive 06/19. BCx from 06/20/21 clear so today is d#11/05 of vancomycin # ESRD on HD - new Permacath today; HD tomorrow - continue phos binder [sevelamer] - check BMP in am # troponin elevation - due to ESRD; regardless, no intervention per discussion with HCP by Dr Aguilar # HTN - continue furosemide + hydralazine # anemia of ESRD - epo- discuss with Nephrology # HLD - statin # DM2 - correction-dose lispro # VTE ppx - UFH # dispo - return to [facility] for LTC tomrrow after HD Quality Stroke Does the patient have a stroke diagnosis?: No VTE Prior VTE?: No VTE Risk Level:: Medical - moderate - high VTE Device Contraindication: Treatment Not Indicated VTE Drug Contraindication: N/A - Med Ordered
--- NOTE | 2021-06-22 13:54 | MHC.CLN ---
F/U PATIENT NPO FOR PERMACATH PLACEMENT TODAY. WILL HAVE HD TOMORROW. RECOMMEND CONTINUE DIET WHEN ABLE: 2 GRAM SODIUM, LOW PHOSPHOROUS, LOW POTASSIUM.
--- NOTE | 2021-06-22 14:26 | HO.ANESPROP2 ---
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 (Acute) Left lower lobe pulmonary infiltrate (Acute) Nausea & vomiting (Acute) Diarrhea (Acute) Adult failure to thrive (Acute) Elevated troponin level (Acute) Past Medical History 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 Diabetes End stage renal disease Essential (primary) hypertension Metabolic encephalopathy Pneumonia Social History Social History Patient Tobacco Use Status: Former Tobacco user Tobacco use type: Cigarette Smoked in Last 30 Days: No Use of substances other than those prescribed or required for medical reasons: No Currently Displaying Signs/Symptoms of Drug Intoxication Withdrawal: No Are you DNR?: Yes Advance Directives: Yes Advance Directives on File: Yes Advance Directives Date on File: 06/16/21 Do you have thoughts of harming others: None Do you have a plan to hurt others: No Plan Current occupational status: disabled Meds Allergies Allergy/AdvReac Type Severity Reaction Status Date / Time No Known Allergies Allergy Verified 06/22/21 14:22 [No Known Allergies*] Active Medications: Current Medications Acetaminophen (Acetaminophen 325 Mg Tablet) 650 mg PO Q6H PRN PRN Reason: Pain, Mild (Pain Scale 1-3) Aspirin (Aspirin 81 Mg Tab.Chew) 81 mg PO DAILY [facility] Last Admin: 06/22/21 07:26 Dose: Not Given Documented by: Atorvastatin Calcium (Atorvastatin Calcium 10 Mg Tablet) 10 mg PO DAILY [facility] Last Admin: 06/22/21 07:26 Dose: Not Given Documented by: Ferrous Sulfate (Ferrous Sulfate 324 Mg Tablet.Dr) 324 mg PO TID [facility] Last Admin: 06/22/21 13:17 Dose: Not Given Documented by: Furosemide (Furosemide 40 Mg Tablet) 80 mg PO BID [facility]; Protocol Last Admin: 06/22/21 07:26 Dose: Not Given Documented by: Heparin Sodium (Porcine) (Heparin Sodium,Porcine 5,000 Unit/Ml Vial) 5,000 unit SUBCUT Q12H [facility] Last Admin: 06/22/21 04:01 Dose: 5,000 unit Documented by: Hydralazine HCl (Hydralazine Hcl 25 Mg Tablet) 75 mg PO TID [facility]; Protocol Last Admin: 06/22/21 13:17 Dose: Not Given Documented by: Vancomycin HCl 1,000 mg/ (Sodium Chloride) 270 mls @ 270 mls/hr IV [id number] [facility] Last Infusion: 06/19/21 17:29 Dose: Infused Documented by: Insulin Human Lispro (Insulin Lispro 100 Unit/Ml 3 Ml Vial) 0 unit SUBCUT QIDACHS [facility]; Protocol Last Admin: 06/22/21 11:28 Dose: Not Given Documented by: Multivitamins/Vitamin C (Multivitamin Tablet) 1 tab PO DAILY [facility] Last Admin: 06/22/21 07:28 Dose: Not Given Documented by: Ondansetron HCl (Ondansetron Hcl 4 Mg/2 Ml Vial) 4 mg IVPUSH Q8H PRN PRN Reason: Nausea Last Admin: 06/16/21 20:46 Dose: 4 mg Documented by: Pharmacy Consult (Consult Rx Perform Med Rec) 1 each MISCELLANE ONCE PRN PRN Reason: Consult order Pharmacy Consult (Consult Rx Vancomycin Dosing) 1 each MISCELLANE DAILY PRN PRN Reason: Consult order Pharmacy Consult (Consult Rx Vancomycin Dosing) 1 each MISCELLANE DAILY PRN PRN Reason: Consult order Senna (Sennosides 8.6 Mg Tablet) 8.6 mg PO DAILY [facility] Last Admin: 06/22/21 07:28 Dose: Not Given Documented by: Sevelamer Carbonate (Sevelamer Carbonate Tablet 800 Mg Tablet) 800 mg PO TID [facility] Last Admin: 06/22/21 13:17 Dose: Not Given Documented by: Sodium Chloride (0.9 % Sodium Chloride Flush 3 Ml Syringe) [facility] Last Admin: 06/22/21 07:25 Dose: 3 ml Documented by: Tamsulosin HCl (Tamsulosin Hcl 0.4 Mg Capsule) 0.4 mg PO DAILY [facility] Last Admin: 06/22/21 07:28 Dose: Not Given Documented by: Vitamin D (Cholecalciferol (Vitamin D3) 25 Mcg Tablet) 50 mcg PO DAILY [facility] Last Admin: 06/22/21 07:26 Dose: Not Given Documented by: Home Medications Medication Instructions Recorded Confirmed Last Taken Type aspirin 81 mg chewable tablet 81 mg PO DAILY 06/16/21 06/16/21 Unknown History atorvastatin 10 mg tablet 1 tab PO DAILY 06/16/21 06/16/21 Unknown History cholecalciferol (vitamin D3) 25 50 mcg PO DAILY 06/16/21 06/16/21 Unknown History mcg (1,000 unit) tablet ferrous sulfate 325 mg (65 mg 325 mg PO TID 06/16/21 06/16/21 Unknown History iron) tablet furosemide 80 mg tablet 1 tab PO BID 06/16/21 06/16/21 Unknown History hydralazine 50 mg tablet 1 tab PO TID 06/16/21 06/16/21 Unknown History insulin lispro 100 unit/mL See Rx Instructions .ROUTE .COMPLEX 06/16/21 06/16/21 Unknown History subcutaneous pen (Admelog SoloStar U-100 Insulin lispro) sennosides 8.6 mg tablet (senna) 8.6 mg PO DAILY 06/16/21 06/16/21 Unknown History sevelamer carbonate 800 mg tablet 1 tab PO TID 06/16/21 06/16/21 Unknown History tamsulosin 0.4 mg capsule 1 cap PO DAILY 06/16/21 06/16/21 Unknown History vitamin B complex and vitamin C 1 cap PO DAILY 06/16/21 06/16/21 Unknown History no.20-folic acid 1 mg capsule Exam Exam Date and Time: June 22, 2021 1426 Height,Weight and Vital Signs: Height 5 ft 9 in Weight 63.503 kg Last Vital Signs Temp 97.8 F 06/22/21 11:16 Pulse 65 06/22/21 11:16 Resp 18 06/22/21 11:16 BP 139/84 06/22/21 11:16 Pulse Ox 98 06/22/21 11:16 Pertinent Lab Results Pertinent Lab Results: Laboratory Tests 06/16/21 06/16/21 06/16/21 06:10 06:10 06:11 WBC 10.5 RBC 2.88 L Hgb 9.4 L Hct 29.0 L MCV 100.7 H MCH 32.6 MCHC 32.4 RDW 15.0 Plt Count 155 L MPV 9.9 Immature Gran % (Auto) 0.4 Neut % (Auto) 88.3 H Lymph % (Auto) 3.1 L [place] % (Auto) 8.0 Eos % (Auto) 0.0 Baso % (Auto) 0.2 Lymph # (Auto) 0.3 L [place] # (Auto) 0.8 Eos # (Auto) 0.0 Baso # (Auto) 0.0 Abs Immat Gran (auto) 0.04 H Absolute Neuts (auto) 9.3 H Absolute Nucleated RBC 0.000 Nucleated RBC % (auto) 0.0 Absolute Retic Percent Retic Immature Retic Fraction Retic Hgb Equivalent Haptoglobin PT INR APTT Sodium Potassium Chloride Carbon Dioxide Anion Gap BUN Creatinine Estim Creat Clear Calc Estimated GFR POC Glucose Random Glucose Fasting Glucose Lactic Acid 1.0 Calcium Magnesium Iron TIBC % Saturation Unsat Iron Binding Ferritin Total Bilirubin AST ALT Alkaline Phosphatase Lactate Dehydrogenase Total Creatine Kinase Troponin I High Sens 2101.6 H* Total Protein Albumin Lipase Vitamin B12 Folate Urine Color Urine Appearance Urine pH Ur Specific [place] Urine Protein Urine Glucose (UA) Urine Ketones Urine Blood Urine Nitrite Ur Leukocyte Esterase Urine RBC Urine WBC Ur Squamous Epith Cells Triple Phos Crystals Amorphous Sediment Urine Bacteria Urine Mucus Nasal Screen MRSA (PCR) Nasal S. aureus Screen Nasal MRSA/S.aureus Interp Random Vancomycin COVID-19 ([facility]) COVID-19 Clin Com 06/16/21 06/16/21 06/16/21 06:11 06:11 06:19 WBC RBC Hgb Hct MCV MCH MCHC RDW Plt Count MPV Immature Gran % (Auto) Neut % (Auto) Lymph % (Auto) [place] % (Auto) Eos % (Auto) Baso % (Auto) Lymph # (Auto) [place] # (Auto) Eos # (Auto) Baso # (Auto) Abs Immat Gran (auto) Absolute Neuts (auto) Absolute Nucleated RBC Nucleated RBC % (auto) Absolute Retic Percent Retic Immature Retic Fraction Retic Hgb Equivalent Haptoglobin PT INR APTT Sodium 135 Potassium 4.1 Chloride 97 Carbon Dioxide 20 L Anion Gap 22 H BUN 48 H Creatinine 5.99 H* Estim Creat Clear Calc 8.6 Estimated GFR 9 POC Glucose 145 H Random Glucose 155 H Fasting Glucose Lactic Acid Calcium 8.9 D Magnesium 2.2 Iron TIBC % Saturation Unsat Iron Binding Ferritin Total Bilirubin 0.6 AST 34 ALT 14 Alkaline Phosphatase 55 Lactate Dehydrogenase Total Creatine Kinase 69 Troponin I High Sens Total Protein 6.8 Albumin 3.4 L Lipase 50 Vitamin B12 Folate Urine Color Urine Appearance Urine pH Ur Specific [place] Urine Protein Urine Glucose (UA) Urine Ketones Urine Blood Urine Nitrite Ur Leukocyte Esterase Urine RBC Urine WBC Ur Squamous Epith Cells Triple Phos Crystals Amorphous Sediment Urine Bacteria Urine Mucus Nasal Screen MRSA (PCR) Nasal S. aureus Screen Nasal MRSA/S.aureus Interp Random Vancomycin COVID-19 (SALTY) Negative COVID-19 Clin Com See Note 06/16/21 06/16/21 06/16/21 07:08 07:08 13:33 WBC RBC Hgb Hct MCV MCH MCHC RDW Plt Count MPV Immature Gran % (Auto) Neut % (Auto) Lymph % (Auto) [place] % (Auto) Eos % (Auto) Baso % (Auto) Lymph # (Auto) [place] # (Auto) Eos # (Auto) Baso # (Auto) Abs Immat Gran (auto) Absolute Neuts (auto) Absolute Nucleated RBC Nucleated RBC % (auto) Absolute Retic Percent Retic Immature Retic Fraction Retic Hgb Equivalent Haptoglobin PT INR APTT Sodium Potassium Chloride Carbon Dioxide Anion Gap BUN Creatinine Estim Creat Clear Calc Estimated GFR POC Glucose Random Glucose Fasting Glucose Lactic Acid Calcium Magnesium Iron TIBC % Saturation Unsat Iron Binding Ferritin Total Bilirubin AST ALT Alkaline Phosphatase Lactate Dehydrogenase Total Creatine Kinase Troponin I High Sens 2431.7 H* Cancelled Total Protein Albumin Lipase Vitamin B12 Folate Urine Color YELLOW Urine Appearance CLOUDY Urine pH 8.5 H Ur Specific [place] 1.015 Urine Protein 2+ H Urine Glucose (UA) NEG Urine Ketones NEG Urine Blood 2+ H Urine Nitrite POS H Ur Leukocyte Esterase 3+ H Urine RBC 15-29 H Urine WBC TNTC H Ur Squamous Epith Cells 1+ Triple Phos Crystals 3+ Amorphous Sediment 2+ Urine Bacteria 3+ Urine Mucus 4+ Nasal Screen MRSA (PCR) Nasal S. aureus Screen Nasal MRSA/S.aureus Interp Random Vancomycin COVID-19 (SALTY) COVID-19 Clin Com 06/16/21 06/17/21 06/17/21 21:31 05:32 05:32 WBC 7.0 RBC 2.58 L Hgb 8.3 L Hct 26.4 L MCV 102.3 H MCH 32.2 MCHC 31.4 RDW 14.9 Plt Count 129 L MPV 10.5 Immature Gran % (Auto) 0.4 Neut % (Auto) 82.3 H Lymph % (Auto) 7.0 L [place] % (Auto) 10.0 Eos % (Auto) 0.0 Baso % (Auto) 0.3 Lymph # (Auto) 0.5 L [place] # (Auto) 0.7 Eos # (Auto) 0.0 Baso # (Auto) 0.0 Abs Immat Gran (auto) 0.03 Absolute Neuts (auto) 5.8 Absolute Nucleated RBC 0.000 Nucleated RBC % (auto) 0.0 Absolute Retic Percent Retic Immature Retic Fraction Retic Hgb Equivalent Haptoglobin PT INR APTT Sodium 138 Potassium 3.5 Chloride 105 Carbon Dioxide 23 Anion Gap 14 BUN 26 H Creatinine 3.69 H Estim Creat Clear Calc 14.1 Estimated GFR 16 POC Glucose 163 H Random Glucose Fasting Glucose 111 H Lactic Acid Calcium 7.4 L D Magnesium Iron TIBC % Saturation Unsat Iron Binding Ferritin Total Bilirubin 0.5 AST 29 ALT 13 Alkaline Phosphatase 45 Lactate Dehydrogenase Total Creatine Kinase Troponin I High Sens Total Protein 5.7 L Albumin 2.9 L Lipase Vitamin B12 Folate Urine Color Urine Appearance Urine pH Ur Specific [place] Urine Protein Urine Glucose (UA) Urine Ketones Urine Blood Urine Nitrite Ur Leukocyte Esterase Urine RBC Urine WBC Ur Squamous Epith Cells Triple Phos Crystals Amorphous Sediment Urine Bacteria Urine Mucus Nasal Screen MRSA (PCR) Nasal S. aureus Screen Nasal MRSA/S.aureus Interp Random Vancomycin COVID-19 (SALTY) COVID-19 Clin Com 06/17/21 06/17/21 06/17/21 07:24 11:47 16:25 WBC RBC Hgb Hct MCV MCH MCHC RDW Plt Count MPV Immature Gran % (Auto) Neut % (Auto) Lymph % (Auto) [place] % (Auto) Eos % (Auto) Baso % (Auto) Lymph # (Auto) [place] # (Auto) Eos # (Auto) Baso # (Auto) Abs Immat Gran (auto) Absolute Neuts (auto) Absolute Nucleated RBC Nucleated RBC % (auto) Absolute Retic Percent Retic Immature Retic Fraction Retic Hgb Equivalent Haptoglobin PT INR APTT Sodium Potassium Chloride Carbon Dioxide Anion Gap BUN Creatinine Estim Creat Clear Calc Estimated GFR POC Glucose 105 135 H 129 H Random Glucose Fasting Glucose Lactic Acid Calcium Magnesium Iron TIBC % Saturation Unsat Iron Binding Ferritin Total Bilirubin AST ALT Alkaline Phosphatase Lactate Dehydrogenase Total Creatine Kinase Troponin I High Sens Total Protein Albumin Lipase Vitamin B12 Folate Urine Color Urine Appearance Urine pH Ur Specific [place] Urine Protein Urine Glucose (UA) Urine Ketones Urine Blood Urine Nitrite Ur Leukocyte Esterase Urine RBC Urine WBC Ur Squamous Epith Cells Triple Phos Crystals Amorphous Sediment Urine Bacteria Urine Mucus Nasal Screen MRSA (PCR) Nasal S. aureus Screen Nasal MRSA/S.aureus Interp Random Vancomycin COVID-19 (SALTY) COVID-19 Clin Com 06/17/21 06/18/21 06/18/21 20:11 05:53 05:53 WBC 5.3 RBC 2.41 L Hgb 7.7 L Hct 24.9 L MCV 103.3 H MCH 32.0 MCHC 30.9 L RDW 15.0 Plt Count 116 L MPV 9.8 Immature Gran % (Auto) 0.4 Neut % (Auto) 77.2 H Lymph % (Auto) 8.7 L [place] % (Auto) 12.5 H Eos % (Auto) 0.8 Baso % (Auto) 0.4 Lymph # (Auto) 0.5 L [place] # (Auto) 0.7 Eos # (Auto) 0.0 Baso # (Auto) 0.0 Abs Immat Gran (auto) 0.02 Absolute Neuts (auto) 4.1 Absolute Nucleated RBC 0.000 Nucleated RBC % (auto) 0.0 Absolute Retic 0.050 Percent Retic 2.0 H Immature Retic Fraction 8.7 Retic Hgb Equivalent 27.6 L Haptoglobin PT INR APTT Sodium 140 Potassium 3.5 Chloride 111 H Carbon Dioxide 20 L Anion Gap 13 BUN 40 H D Creatinine 4.49 H* Estim Creat Clear Calc 11.5 Estimated GFR 13 POC Glucose 137 H Random Glucose Fasting Glucose 121 H Lactic Acid Calcium 7.0 L Magnesium Iron 20 L TIBC 112 L % Saturation 18 Unsat Iron Binding 92 Ferritin 4357 H Total Bilirubin 0.5 AST 32 ALT 19 Alkaline Phosphatase 44 Lactate Dehydrogenase 169 Total Creatine Kinase Troponin I High Sens Total Protein 5.1 L Albumin 2.6 L Lipase Vitamin B12 Folate Urine Color Urine Appearance Urine pH Ur Specific [place] Urine Protein Urine Glucose (UA) Urine Ketones Urine Blood Urine Nitrite Ur Leukocyte Esterase Urine RBC Urine WBC Ur Squamous Epith Cells Triple Phos Crystals Amorphous Sediment Urine Bacteria Urine Mucus Nasal Screen MRSA (PCR) Nasal S. aureus Screen Nasal MRSA/S.aureus Interp Random Vancomycin COVID-19 ([facility]ALTY) COVID-19 Clin Com 06/18/21 06/18/21 06/18/21 05:53 07:21 08:45 WBC RBC Hgb Hct MCV MCH MCHC RDW Plt Count MPV Immature Gran % (Auto) Neut % (Auto) Lymph % (Auto) [place] % (Auto) Eos % (Auto) Baso % (Auto) Lymph # (Auto) [place] # (Auto) Eos # (Auto) Baso # (Auto) Abs Immat Gran (auto) Absolute Neuts (auto) Absolute Nucleated RBC Nucleated RBC % (auto) Absolute Retic Percent Retic Immature Retic Fraction Retic Hgb Equivalent Haptoglobin 190 PT INR APTT Sodium Potassium Chloride Carbon Dioxide Anion Gap BUN Creatinine Estim Creat Clear Calc Estimated GFR POC Glucose 122 H Random Glucose Fasting Glucose Lactic Acid Calcium Magnesium Iron TIBC % Saturation Unsat Iron Binding Ferritin Total Bilirubin AST ALT Alkaline Phosphatase Lactate Dehydrogenase Total Creatine Kinase Troponin I High Sens Total Protein Albumin Lipase Vitamin B12 1160 H Folate > 20.0 Urine Color Urine Appearance Urine pH Ur Specific [place] Urine Protein Urine Glucose (UA) Urine Ketones Urine Blood Urine Nitrite Ur Leukocyte Esterase Urine RBC Urine WBC Ur Squamous Epith Cells Triple Phos Crystals Amorphous Sediment Urine Bacteria Urine Mucus Nasal Screen MRSA (PCR) Nasal S. aureus Screen Nasal MRSA/S.aureus Interp Random Vancomycin COVID-19 (SALTY) COVID-19 Clin Com 06/18/21 06/18/21 06/18/21 11:50 15:54 19:49 WBC RBC Hgb Hct MCV MCH MCHC RDW Plt Count MPV Immature Gran % (Auto) Neut % (Auto) Lymph % (Auto) [place] % (Auto) Eos % (Auto) Baso % (Auto) Lymph # (Auto) [place] # (Auto) Eos # (Auto) Baso # (Auto) Abs Immat Gran (auto) Absolute Neuts (auto) Absolute Nucleated RBC Nucleated RBC % (auto) Absolute Retic Percent Retic Immature Retic Fraction Retic Hgb Equivalent Haptoglobin PT INR APTT Sodium Potassium Chloride Carbon Dioxide Anion Gap BUN Creatinine Estim Creat Clear Calc Estimated GFR POC Glucose 177 H 162 H Random Glucose Fasting Glucose Lactic Acid Calcium Magnesium Iron TIBC % Saturation Unsat Iron Binding Ferritin Total Bilirubin AST ALT Alkaline Phosphatase Lactate Dehydrogenase Total Creatine Kinase Troponin I High Sens Total Protein Albumin Lipase Vitamin B12 Folate Urine Color Urine Appearance Urine pH Ur Specific [place] Urine Protein Urine Glucose (UA) Urine Ketones Urine Blood Urine Nitrite Ur Leukocyte Esterase Urine RBC Urine WBC Ur Squamous Epith Cells Triple Phos Crystals Amorphous Sediment Urine Bacteria Urine Mucus Nasal Screen MRSA (PCR) Nasal S. aureus Screen Nasal MRSA/S.aureus Interp Random Vancomycin 14.8 L COVID-19 ([facility]ALTY) COVID-19 Clin Com 06/18/21 06/19/21 06/19/21 20:23 05:24 05:24 WBC 4.9 RBC 2.53 L Hgb 8.1 L Hct 25.3 L MCV 100.0 H MCH 32.0 MCHC 32.0 RDW 14.9 Plt Count 136 L MPV 10.2 Immature Gran % (Auto) 0.4 Neut % (Auto) 71.8 Lymph % (Auto) 12.2 L [place] % (Auto) 13.4 H Eos % (Auto) 1.8 Baso % (Auto) 0.4 Lymph # (Auto) 0.6 L [place] # (Auto) 0.7 Eos # (Auto) 0.1 Baso # (Auto) 0.0 Abs Immat Gran (auto) 0.02 Absolute Neuts (auto) 3.5 Absolute Nucleated RBC 0.000 Nucleated RBC % (auto) 0.0 Absolute Retic Percent Retic Immature Retic Fraction Retic Hgb Equivalent Haptoglobin PT 11.3 INR 1.0 APTT 33.2 Sodium Potassium Chloride Carbon Dioxide Anion Gap BUN Creatinine Estim Creat Clear Calc Estimated GFR POC Glucose 79 Random Glucose Fasting Glucose Lactic Acid Calcium Magnesium Iron TIBC % Saturation Unsat Iron Binding Ferritin Total Bilirubin AST ALT Alkaline Phosphatase Lactate Dehydrogenase Total Creatine Kinase Troponin I High Sens Total Protein Albumin Lipase Vitamin B12 Folate Urine Color Urine Appearance Urine pH Ur Specific [place] Urine Protein Urine Glucose (UA) Urine Ketones Urine Blood Urine Nitrite Ur Leukocyte Esterase Urine RBC Urine WBC Ur Squamous Epith Cells Triple Phos Crystals Amorphous Sediment Urine Bacteria Urine Mucus Nasal Screen MRSA (PCR) Nasal S. aureus Screen Nasal MRSA/S.aureus Interp Random Vancomycin COVID-19 (SALTY) COVID-19 Clin Com 06/19/21 06/19/21 06/19/21 05:24 07:28 08:19 WBC RBC Hgb Hct MCV MCH MCHC RDW Plt Count MPV Immature Gran % (Auto) Neut % (Auto) Lymph % (Auto) [place] % (Auto) Eos % (Auto) Baso % (Auto) Lymph # (Auto) [place] # (Auto) Eos # (Auto) Baso # (Auto) Abs Immat Gran (auto) Absolute Neuts (auto) Absolute Nucleated RBC Nucleated RBC % (auto) Absolute Retic Percent Retic Immature Retic Fraction Retic Hgb Equivalent Haptoglobin PT INR APTT Sodium 137 Potassium 3.9 Chloride 109 H Carbon Dioxide 18 L Anion Gap 14 BUN 53 H Creatinine 5.56 H* Estim Creat Clear Calc 9.3 Estimated GFR 10 POC Glucose 86 Random Glucose Fasting Glucose 84 Lactic Acid Calcium 7.5 L D Magnesium Iron TIBC % Saturation Unsat Iron Binding Ferritin Total Bilirubin 0.4 AST 37 ALT 30 Alkaline Phosphatase 57 D Lactate Dehydrogenase Total Creatine Kinase Troponin I High Sens Total Protein 5.4 L Albumin 2.8 L Lipase Vitamin B12 Folate Urine Color Urine Appearance Urine pH Ur Specific [place] Urine Protein Urine Glucose (UA) Urine Ketones Urine Blood Urine Nitrite Ur Leukocyte Esterase Urine RBC Urine WBC Ur Squamous Epith Cells Triple Phos Crystals Amorphous Sediment Urine Bacteria Urine Mucus Nasal Screen MRSA (PCR) Nasal S. aureus Screen Nasal MRSA/S.aureus Interp Random Vancomycin 12.3 L COVID-19 (SALTY) COVID-19 [place] Com 06/19/21 06/19/21 06/19/21 10:29 10:49 13:57 WBC RBC Hgb Hct MCV MCH MCHC RDW Plt Count MPV Immature Gran % (Auto) Neut % (Auto) Lymph % (Auto) [place] % (Auto) Eos % (Auto) Baso % (Auto) Lymph # (Auto) [place] # (Auto) Eos # (Auto) Baso # (Auto) Abs Immat Gran (auto) Absolute Neuts (auto) Absolute Nucleated RBC Nucleated RBC % (auto) Absolute Retic Percent Retic Immature Retic Fraction Retic Hgb Equivalent Haptoglobin PT INR APTT Sodium Potassium Chloride Carbon Dioxide Anion Gap BUN Creatinine Estim Creat Clear Calc Estimated GFR POC Glucose 76 79 Random Glucose Fasting Glucose Lactic Acid Calcium Magnesium Iron TIBC % Saturation Unsat Iron Binding Ferritin Total Bilirubin AST ALT Alkaline Phosphatase Lactate Dehydrogenase Total Creatine Kinase Troponin I High Sens Total Protein Albumin Lipase Vitamin B12 Folate Urine Color Urine Appearance Urine pH Ur Specific [place] Urine Protein Urine Glucose (UA) Urine Ketones Urine Blood Urine Nitrite Ur Leukocyte Esterase Urine RBC Urine WBC Ur Squamous Epith Cells Triple Phos Crystals Amorphous Sediment Urine Bacteria Urine Mucus Nasal Screen MRSA (PCR) POSITIVE A Nasal S. aureus Screen POSITIVE A Nasal MRSA/S.aureus Interp SEE NOTE Random Vancomycin COVID-19 (SALTY) COVID-19 Clin Com 06/19/21 06/19/21 06/20/21 16:58 22:10 07:25 WBC RBC Hgb Hct MCV MCH MCHC RDW Plt Count MPV Immature Gran % (Auto) Neut % (Auto) Lymph % (Auto) [place] % (Auto) Eos % (Auto) Baso % (Auto) Lymph # (Auto) [place] # (Auto) Eos # (Auto) Baso # (Auto) Abs Immat Gran (auto) Absolute Neuts (auto) Absolute Nucleated RBC Nucleated RBC % (auto) Absolute Retic Percent Retic Immature Retic Fraction Retic Hgb Equivalent Haptoglobin PT INR APTT Sodium Potassium Chloride Carbon Dioxide Anion Gap BUN Creatinine Estim Creat Clear Calc Estimated GFR POC Glucose 81 93 79 Random Glucose Fasting Glucose Lactic Acid Calcium Magnesium Iron TIBC % Saturation Unsat Iron Binding Ferritin Total Bilirubin AST ALT Alkaline Phosphatase Lactate Dehydrogenase Total Creatine Kinase Troponin I High Sens Total Protein Albumin Lipase Vitamin B12 Folate Urine Color Urine Appearance Urine pH Ur Specific [place] Urine Protein Urine Glucose (UA) Urine Ketones Urine Blood Urine Nitrite Ur Leukocyte Esterase Urine RBC Urine WBC Ur Squamous Epith Cells Triple Phos Crystals Amorphous Sediment Urine Bacteria Urine Mucus Nasal Screen MRSA (PCR) Nasal S. aureus Screen Nasal MRSA/S.aureus Interp Random Vancomycin COVID-19 (SALTY) COVID-19 [place] Com 06/20/21 06/20/21 06/20/21 11:36 15:49 19:53 WBC RBC Hgb Hct MCV MCH MCHC RDW Plt Count MPV Immature Gran % (Auto) Neut % (Auto) Lymph % (Auto) [place] % (Auto) Eos % (Auto) Baso % (Auto) Lymph # (Auto) [place] # (Auto) Eos # (Auto) Baso # (Auto) Abs Immat Gran (auto) Absolute Neuts (auto) Absolute Nucleated RBC Nucleated RBC % (auto) Absolute Retic Percent Retic Immature Retic Fraction Retic Hgb Equivalent Haptoglobin PT INR APTT Sodium Potassium Chloride Carbon Dioxide Anion Gap BUN Creatinine Estim Creat Clear Calc Estimated GFR POC Glucose 112 130 H 132 H Random Glucose Fasting Glucose Lactic Acid Calcium Magnesium Iron TIBC % Saturation Unsat Iron Binding Ferritin Total Bilirubin AST ALT Alkaline Phosphatase Lactate Dehydrogenase Total Creatine Kinase Troponin I High Sens Total Protein Albumin Lipase Vitamin B12 Folate Urine Color Urine Appearance Urine pH Ur Specific [place] Urine Protein Urine Glucose (UA) Urine Ketones Urine Blood Urine Nitrite Ur Leukocyte Esterase Urine RBC Urine WBC Ur Squamous Epith Cells Triple Phos Crystals Amorphous Sediment Urine Bacteria Urine Mucus Nasal Screen MRSA (PCR) Nasal S. aureus Screen Nasal MRSA/S.aureus Interp Random Vancomycin COVID-19 (SALTY) COVID-19 [place] Com 11/07/0106/21/21 06/21/21 07:31 11:16 12:05 WBC RBC Hgb Hct MCV MCH MCHC RDW Plt Count MPV Immature Gran % (Auto) Neut % (Auto) Lymph % (Auto) [place] % (Auto) Eos % (Auto) Baso % (Auto) Lymph # (Auto) [place] # (Auto) Eos # (Auto) Baso # (Auto) Abs Immat Gran (auto) Absolute Neuts (auto) Absolute Nucleated RBC Nucleated RBC % (auto) Absolute Retic Percent Retic Immature Retic Fraction Retic Hgb Equivalent Haptoglobin PT INR APTT Sodium 136 Potassium 5.1 D Chloride 105 Carbon Dioxide 22 Anion Gap 14 BUN 47 H Creatinine 5.38 H* Estim Creat Clear Calc 9.6 Estimated GFR 10 POC Glucose 106 140 H Random Glucose 151 H Fasting Glucose Lactic Acid Calcium 8.0 L D Magnesium Iron TIBC % Saturation Unsat Iron Binding Ferritin Total Bilirubin AST ALT Alkaline Phosphatase Lactate Dehydrogenase Total Creatine Kinase Troponin I High Sens Total Protein Albumin Lipase Vitamin B12 Folate Urine Color Urine Appearance Urine pH Ur Specific [place] Urine Protein Urine Glucose (UA) Urine Ketones Urine Blood Urine Nitrite Ur Leukocyte Esterase Urine RBC Urine WBC Ur Squamous Epith Cells Triple Phos Crystals Amorphous Sediment Urine Bacteria Urine Mucus Nasal Screen MRSA (PCR) Nasal S. aureus Screen Nasal MRSA/S.aureus Interp Random Vancomycin COVID-19 (SALTY) COVID-19 Clin Com 06/21/21 06/21/21 06/22/21 15:35 20:15 07:08 WBC RBC Hgb Hct MCV MCH MCHC RDW Plt Count MPV Immature Gran % (Auto) Neut % (Auto) Lymph % (Auto) [place] % (Auto) Eos % (Auto) Baso % (Auto) Lymph # (Auto) [place] # (Auto) Eos # (Auto) Baso # (Auto) Abs Immat Gran (auto) Absolute Neuts (auto) Absolute Nucleated RBC Nucleated RBC % (auto) Absolute Retic Percent Retic Immature Retic Fraction Retic Hgb Equivalent Haptoglobin PT INR APTT Sodium Potassium Chloride Carbon Dioxide Anion Gap BUN Creatinine Estim Creat Clear Calc Estimated GFR POC Glucose 146 H 127 H 79 Random Glucose Fasting Glucose Lactic Acid Calcium Magnesium Iron TIBC % Saturation Unsat Iron Binding Ferritin Total Bilirubin AST ALT Alkaline Phosphatase Lactate Dehydrogenase Total Creatine Kinase Troponin I High Sens Total Protein Albumin Lipase Vitamin B12 Folate Urine Color Urine Appearance Urine pH Ur Specific [place] Urine Protein Urine Glucose (UA) Urine Ketones Urine Blood Urine Nitrite Ur Leukocyte Esterase Urine RBC Urine WBC Ur Squamous Epith Cells Triple Phos Crystals Amorphous Sediment Urine Bacteria Urine Mucus Nasal Screen MRSA (PCR) Nasal S. aureus Screen Nasal MRSA/S.aureus Interp Random Vancomycin COVID-19 (SALTY) COVID-19 Clin Com 06/22/21 11:24 WBC RBC Hgb Hct MCV MCH MCHC RDW Plt Count MPV Immature Gran % (Auto) Neut % (Auto) Lymph % (Auto) [place] % (Auto) Eos % (Auto) Baso % (Auto) Lymph # (Auto) [place] # (Auto) Eos # (Auto) Baso # (Auto) Abs Immat Gran (auto) Absolute Neuts (auto) Absolute Nucleated RBC Nucleated RBC % (auto) Absolute Retic Percent Retic Immature Retic Fraction Retic Hgb Equivalent Haptoglobin PT INR APTT Sodium Potassium Chloride Carbon Dioxide Anion Gap BUN Creatinine Estim Creat Clear Calc Estimated GFR POC Glucose 82 Random Glucose Fasting Glucose Lactic Acid Calcium Magnesium Iron TIBC % Saturation Unsat Iron Binding Ferritin Total Bilirubin AST ALT Alkaline Phosphatase Lactate Dehydrogenase Total Creatine Kinase Troponin I High Sens Total Protein Albumin Lipase Vitamin B12 Folate Urine Color Urine Appearance Urine pH Ur Specific [place] Urine Protein Urine Glucose (UA) Urine Ketones Urine Blood Urine Nitrite Ur Leukocyte Esterase Urine RBC Urine WBC Ur Squamous Epith Cells Triple Phos Crystals Amorphous Sediment Urine Bacteria Urine Mucus Nasal Screen MRSA (PCR) Nasal S. aureus Screen Nasal MRSA/S.aureus Interp Random Vancomycin COVID-19 (SALTY) COVID-19 Clin Com Airway Mallampati Class: II TM Dist: >3cm Neck ROM: Full
[2021-06-22] MEDS: iohexoL 300 MG/ML 50 ML INFUS..BTL PR (16:57)
[2021-06-22] MEDS: Lidocaine HCl 1 % MPF 5 ML VIAL SUBCUT (16:58)
--- NOTE | 2021-06-22 18:06 | HO.RADPN ---
RADIOLOGY Narrative Narrative: Left subclavian 14.5 fr 28 cm length palindrome permacath placed. tip in svc.
[2021-06-22] MEDS: Lactated Ringers 1,000 ML 100 ML IVCONT (18:16)
[2021-06-22 18:28] LABS: Glucose, Whole Blood 159 mg/dL (60-115)
[2021-06-22] MEDS: hydrALAZINE HCl 25 MG TABLET 75 MG PO (20:43)
[2021-06-22] MEDS: Furosemide 40 MG TABLET 80 MG PO (20:43)
[2021-06-22] MEDS: Ferrous Sulfate 324 MG TABLET.DR PO (20:43)
[2021-06-22 20:44] LABS: Glucose, Whole Blood 127 mg/dL (60-115)
[2021-06-22] MEDS: Sevelamer Carbonate Tablet 800 MG TABLET PO (22:20)
[2021-06-23] MEDS: Lactated Ringers 1,000 ML 100 ML IVCONT (02:45)
[2021-06-23 04:00] VITALS: BP 157/74; PULSE 76; RESP 16; TEMP 36.8; O2SAT 100
--- NOTE | 2021-06-23 07:21 | PC.NURSE ---
pt refused labs in am, and new dialysis port had some bleeding over night dsg was reinforced with tegaderm and no more bleeding after that report given to am RN
[2021-06-23] MEDS: Sennosides 8.6 MG TABLET PO (07:45)
[2021-06-23] MEDS: Sevelamer Carbonate Tablet 800 MG TABLET PO ×2 (07:45→15:51)
[2021-06-23] MEDS: Atorvastatin Calcium 10 MG TABLET PO (07:45)
[2021-06-23] MEDS: Ferrous Sulfate 324 MG TABLET.DR PO ×2 (07:46→15:51)
[2021-06-23] MEDS: Cholecalciferol (Vitamin D3) 25 MCG TABLET 50 MCG PO (07:46)
[2021-06-23 07:47] VITALS: BP 157/70; PULSE 72; RESP 16; TEMP 36.8; O2SAT 99
[2021-06-23] MEDS: Aspirin 81 MG TAB.CHEW PO (07:47)
[2021-06-23] MEDS: 0.9 % Sodium Chloride Flush 3 ML SYRINGE IVFLUSH ×2 (07:47→15:54)
[2021-06-23] MEDS: Tamsulosin HCL 0.4 MG CAPSULE PO (07:47)
[2021-06-23 07:48] VITALS: BP 157/70; PULSE 72
[2021-06-23] MEDS: hydrALAZINE HCl 25 MG TABLET 75 MG PO ×2 (07:48→15:51)
[2021-06-23] MEDS: Furosemide 40 MG TABLET 80 MG PO (07:49)
[2021-06-23] MEDS: Multivitamin TABLET 1 TAB PO (08:03)
[2021-06-23 08:44] LABS: Glucose, Whole Blood 109 mg/dL (60-115)
--- NOTE | 2021-06-23 10:02 | PM.DS ---
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 ER Course Urine with active sediment consistent with likely UTI.? Given 1 g ceftriaxone for same.? Troponin drawn in ER and found to be greater than 2000; discussed with cardiology...? No intervention if needed trend troponin. Admitted for same This 7 year old male long-term SNF resident with cognitive impairment and ESRD on HD presented with fatigue and altered mental status and was found to have MRSA bacteremia + pneumonia # MRSA bacteremia/PNA - Venous blood cultures from 06/16/21 were positive for MRSA. Blood cultures from the Permacath from 06/18 were positive, along with the catheter tip, which was removed on 06/19/21. Blood cultures cleared on 06/20/21. A new Permacath was placed 06/22/21. Plan is for 28 days of vancomycin to be given with dialysis. - Not hypoxic and no respiratory symptoms. # toxic/metabolic encephalopathy - Mental status returned to baseline once infection was diagnosed and treated appropriately. # troponin elevation - Due to ESRD; regardless, no intervention per discussion with Cardiology and the patient's healthcare proxy. # anemia of ESRD - Given one dose of erythropoeitin, to continue at dialysis. Time Spent with Patient Time attestation: Total time spent providing and/or coordinating discharge services: Discharge coordination time: Greater than 30 minutes Quality: Stroke Does the patient have a stroke diagnosis?: No Physical Exam Vital Signs: Vital Signs: Last Vital Signs Temp 98.2 F 06/23/21 07:47 Pulse 72 06/23/21 07:48 Resp 16 06/23/21 07:47 BP 157/70 H 06/23/21 07:48 Pulse Ox 99 06/23/21 07:47 Body Mass Index 20.7 Gen: in no acute distress HEENT: sclera anicteric, moist mucus membranes Neck: supple, L subclavian tunneled HD catheter Lungs: clear to auscultation bilaterally Heart: regular rate and rhythm, no murmurs Abd: soft, non-tender, non-distended Ext: no edema Skin: warm/well-perfused Neuro: disoriented Psych: impaired insight DS: Data Data Completed and Pending Completed studies during hospitalization [Text1]: Laboratory Results WBC 4.9 X10*3/uL (4.8-10.8) 06/19/21 05:24 RBC 2.53 X10*6/uL (4.60-5.80) L 06/19/21 05:24 Hgb 8.1 g/dl (14.0-18.0) L 06/19/21 05:24 Hct 25.3 % (42.0-52.0) L 06/19/21 05:24 MCV 100.0 fL (80.0-98.0) H 06/19/21 05:24 MCH 32.0 pg (27.0-33.0) 06/19/21 05:24 MCHC 32.0 g/dl (31.0-36.0) 06/19/21 05:24 RDW 14.9 % (11.0-16.0) 06/19/21 05:24 Plt Count 136 X10*3/uL (160-400) L 06/19/21 05:24 MPV 10.2 fL (9.4-12.4) 06/19/21 05:24 Immature Gran % (Auto) 0.4 % (0.0-0.4) 06/19/21 05:24 Neut % (Auto) 71.8 % (45-73) 06/19/21 05:24 Lymph % (Auto) 12.2 % (20-40) L 06/19/21 05:24 [place] % (Auto) 13.4 % (2-11) H 06/19/21 05:24 Eos % (Auto) 1.8 % (0-4) 06/19/21 05:24 Baso % (Auto) 0.4 % (0-2) 06/19/21 05:24 Lymph # (Auto) 0.6 X10*3/uL (1.2-4.9) L 06/19/21 05:24 [place] # (Auto) 0.7 X10*3/uL (0.1-1.2) 06/19/21 05:24 Eos # (Auto) 0.1 X10*3/uL (0.0-0.4) 06/19/21 05:24 Baso # (Auto) 0.0 X10*3/uL (0.0-0.2) 06/19/21 05:24 Abs Immat Gran (auto) 0.02 X10*3/uL (0.00-0.03) 06/19/21 05:24 Absolute Neuts (auto) 3.5 x10*3/uL (2.0-8.3) 06/19/21 05:24 Absolute Nucleated RBC 0.000 X10*3/uL (0.0-0.012) 06/19/21 05:24 Nucleated RBC % (auto) 0.0 /100WBC (0.0-0.2) 06/19/21 05:24 Absolute Retic 0.050 X10*6/uL (0.026-0.095) 06/18/21 05:53 Percent Retic 2.0 % (0.5-1.8) H 06/18/21 05:53 Immature Retic Fraction 8.7 % (2.3-13.4) 06/18/21 05:53 Retic Hgb Equivalent 27.6 pg (30.0-35.0) L 06/18/21 05:53 Haptoglobin 190 mg/dL (43-212) 06/18/21 08:45 PT 11.3 SEC (9.9-13.0) 06/19/21 05:24 INR 1.0 (0.9-1.1) 06/19/21 05:24 APTT 33.2 SEC (24.1-38.0) 06/19/21 05:24 Sodium 136 mmol/L (135-145) 06/21/21 12:05 Potassium 5.1 mmol/L (3.3-5.1) D 06/21/21 12:05 Chloride 105 mmol/L (96-108) 06/21/21 12:05 Carbon Dioxide 22 mmol/L (22-29) 06/21/21 12:05 Anion Gap 14 (12-20) 06/21/21 12:05 BUN 47 mg/dL (9-16) H 06/21/21 12:05 Creatinine 5.38 mg/dL (0.5-1.4) H* 06/21/21 12:05 Estim Creat Clear Calc 9.6 06/21/21 12:05 Estimated GFR 10 06/21/21 12:05 POC Glucose 109 mg/dL (60-115) 06/23/21 07:51 Random Glucose 151 mg/dL (60-115) H 06/21/21 12:05 Fasting Glucose 84 mg/dL (60-99) 06/19/21 05:24 Lactic Acid 1.0 mmol/L (0.5-2.0) 06/16/21 06:10 Calcium 8.0 mg/dL (8.4-10.2) L D 06/21/21 12:05 Magnesium 2.2 mg/dL (1.6-2.6) 06/16/21 06:11 Iron 20 mcg/dL (45-160) L 06/18/21 05:53 TIBC 112 mcg/dL (228-428) L 06/18/21 05:53 % Saturation 18 % (15-50) 06/18/21 05:53 Unsat Iron Binding 92 ug/dL 06/18/21 05:53 Ferritin 4357 ng/mL (20-250) H 06/18/21 05:53 Total Bilirubin 0.4 mg/dL (0.0-1.0) 06/19/21 05:24 AST 37 U/L (5-37) 06/19/21 05:24 ALT 30 U/L (0-40) 06/19/21 05:24 Alkaline Phosphatase 57 U/L (39-117) D 06/19/21 05:24 Lactate Dehydrogenase 169 U/L (118-273) 06/18/21 05:53 Total Creatine Kinase 69 U/L (38-174) 06/16/21 06:11 Troponin I High Sens 2431.7 ng/L (<3.5-35.0) H* 06/16/21 07:08 Troponin I High Sens Cancelled 06/16/21 07:08 Total Protein 5.4 g/dL (6.5-8.0) L 06/19/21 05:24 Albumin 2.8 g/dL (3.5-5.0) L 06/19/21 05:24 Lipase 50 U/L (8-78) 06/16/21 06:11 Vitamin B12 1160 pg/mL (200-900) H 06/18/21 05:53 Folate > 20.0 ng/mL (> or = 4.0) 06/18/21 05:53 Urine Color YELLOW 06/16/21 13:33 Urine Appearance CLOUDY 06/16/21 13:33 Urine pH 8.5 (5.0-8.0) H 06/16/21 13:33 Ur Specific [place] 1.015 (1.005-1.025) 06/16/21 13:33 Urine Protein 2+ MG/DL (NEG-TRACE) H 06/16/21 13:33 Urine Glucose (UA) NEG MG/DL (NEG) 06/16/21 13:33 Urine Ketones NEG MG/DL (NEG) 06/16/21 13:33 Urine Blood 2+ (NEG) H 06/16/21 13:33 Urine Nitrite POS (NEG) H 06/16/21 13:33 Ur Leukocyte Esterase 3+ (NEG) H 06/16/21 13:33 Urine RBC 15-29 /HPF (0) H 06/16/21 13:33 Urine WBC TNTC /HPF (0-4) H 06/16/21 13:33 Ur Squamous Epith Cells 1+ /LPF 06/16/21 13:33 Triple Phos Crystals 3+ /LPF 06/16/21 13:33 Amorphous Sediment 2+ /LPF 06/16/21 13:33 Urine Bacteria 3+ /LPF 06/16/21 13:33 Urine Mucus 4+ /LPF 06/16/21 13:33 Nasal Screen MRSA (PCR) POSITIVE (Negative) A 06/19/21 10:29 Nasal S. aureus Screen POSITIVE (Negative) A 06/19/21 10:29 Nasal MRSA/S.aureus Interp SEE NOTE 11/09/21 10:29 Random Vancomycin 12.3 mcg/mL (15-20) L 06/19/21 07:28 COVID-19 (SALTY) Negative (Negative) 06/16/21 06:11 COVID-19 Clin Com See Note 06/16/21 06:11 Impressions Abdomen/Pelvis CT 06/16/21 05:55 IMPRESSION: Continued left lower lobe consolidation with moderate partially loculated left pleural effusion. Cardiomegaly. Prominent arterial calcified plaque seen throughout the chest, abdomen, and pelvis with probable some degree of hemodynamically significant stenosis involving the left subclavian artery and bilateral renal arteries. No significant change in appearance of left adrenal gland mass. No evidence to suggest obstructive uropathy. No free air or free fluid. Continued marked distention of the rectum and rectosigmoid with stool. Giles catheter in urinary bladder with probable thickened wall. Cervical Spine CT 06/16/21 05:55 IMPRESSION: No acute intracranial abnormality. 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 Findings consistent with diffuse atrophy and microangiopathy. EXAMINATION: CT OF THE CERVICAL SPINE CLINICAL INFORMATION: Neck pain COMPARISON: May 05, 2021. TECHNIQUE: Thin helical images with sagittal and coronal reformats. This CT examination was performed using dose optimization techniques as appropriate, variously including the following: *Automated exposure control *Adjustment of mA and/or kV according to patient size (this includes techniques or standardized protocols for targeted exams where dose is matched to indication/reason for exam; i.e. extremities or head) *Use of iterative reconstruction technique DOSE: DLP 356 mGy-cm FINDINGS: No abnormal prevertebral soft tissue swelling is seen. Paraspinal muscle fat planes are maintained. Carotid artery calcifications present. There is degenerative change with loss of joint space involving the left temporomandibular joint. No acute cervical spine fracture is seen. There is loss of cervical spine lordosis. There is mild anterior subluxation of C4 on C5. There is loss of disc spaces C3-T1 with prominent sclerosis and spurring seen about C5-C6 disc space level with some irregularity of adjacent end plates. There is anterior neural foraminal encroachment seen C3-C7 related to spurring of the joints of [place]. There is facet arthropathy noted on the left C2-C5 and on the right C3-C5. IMPRESSION: No acute cervical spine fracture. Diffuse multilevel cervical spondylosis as described. Head CT 06/16/21 05:55 IMPRESSION: No acute intracranial abnormality. 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 Findings consistent with diffuse atrophy and microangiopathy. EXAMINATION: CT OF THE CERVICAL SPINE CLINICAL INFORMATION: Neck pain COMPARISON: May 05, 2021. TECHNIQUE: Thin helical images with sagittal and coronal reformats. This CT examination was performed using dose optimization techniques as appropriate, variously including the following: *Automated exposure control *Adjustment of mA and/or kV according to patient size (this includes techniques or standardized protocols for targeted exams where dose is matched to indication/reason for exam; i.e. extremities or head) *Use of iterative reconstruction technique DOSE: DLP 356 mGy-cm FINDINGS: No abnormal prevertebral soft tissue swelling is seen. Paraspinal muscle fat planes are maintained. Carotid artery calcifications present. There is degenerative change with loss of joint space involving the left temporomandibular joint. No acute cervical spine fracture is seen. There is loss of cervical spine lordosis. There is mild anterior subluxation of C4 on C5. There is loss of disc spaces C3-T1 with prominent sclerosis and spurring seen about C5-C6 disc space level with some irregularity of adjacent end plates. There is anterior neural foraminal encroachment seen C3-C7 related to spurring of the joints of [place]. There is facet arthropathy noted on the left C2-C5 and on the right C3-C5. IMPRESSION: No acute cervical spine fracture. Diffuse multilevel cervical spondylosis as described. Chest CT 06/16/21 06:08 IMPRESSION: Continued left lower lobe consolidation with moderate partially loculated left pleural effusion. Cardiomegaly. Prominent arterial calcified plaque seen throughout the chest, abdomen, and pelvis with probable some degree of hemodynamically significant stenosis involving the left subclavian artery and bilateral renal arteries. No significant change in appearance of left adrenal gland mass. No evidence to suggest obstructive uropathy. No free air or free fluid. Continued marked distention of the rectum and rectosigmoid with stool. Giles catheter in urinary bladder with probable thickened wall. Tunnelled Catheter Removal 06/19/21 12:46 IMPRESSION: Left jugular permacath removal. Chest X-Ray 06/22/21 18:40 IMPRESSION: Left-sided central venous catheter terminates near the cavoatrial junction. No pneumothorax. Similar moderate left pleural effusion with basilar airspace opacity. TTE 06/18/21 - The left ventricular systolic function is moderately decreased. The calculated ejection fraction is 30% by biplane method. ? ? ? - The basal inferior segment is akinetic.? - There is mild calcification of the aortic valve. ? - There is moderate mitral annular calcification.? There is mild mitral valve regurgitation.? Discharge Plan Discharge Patient Disposition: er Inpatient Rehab Fac Discharge Diagnosis: Left lower lobe infiltrate Referrals: Bashir Melvin MD [Physician] - 1 Week Liliam Kuo MD [Physician] - 1 Week Ruy Casey MD [Primary Care Provider] - 1 Week Discharge Medications: New hydralazine 25 mg Tablet 75 mg PO TID Qty: 135 RF: 0 vancomycin HCl in water 100 mg/mL solution 1 g IV .TuThSa at dialysis Qty: 125 RF: 0 Continued atorvastatin 10 mg tablet 1 tab PO DAILY RF: 0 tamsulosin 0.4 mg capsule 1 cap PO DAILY RF: 0 furosemide 80 mg tablet 1 tab PO BID RF: 0 insulin lispro [Admelog SoloStar U-100 Insulin] 100 unit/mL insulin pen See Rx Instructions .ROUTE .COMPLEX RF: 0 sevelamer carbonate 800 mg tablet 1 tab PO TID RF: 0 sennosides [senna] 8.6 mg Tablet 8.6 mg PO DAILY RF: 0 ferrous sulfate 325 mg (65 mg iron) Tablet 325 mg PO TID RF: 0 aspirin 81 mg Tablet,Chewable 81 mg PO DAILY RF: 0 B complex with C 20-folic acid 1 mg Capsule 1 cap PO DAILY RF: 0 cholecalciferol (vitamin D3) 25 mcg (1,000 unit) Tablet 50 mcg PO DAILY RF: 0 Discontinued hydralazine 50 mg tablet 1 tab PO TID RF: 0 Discharge Orders: Discharge Order (Routine); Ordered 06/23/21 Ordered By: Zoe Atkinson Diet: advance to usual diet Activity on Discharge: As tolerated Stand Alone Forms: Patient Portal Discharge page Care Plan Goals: Cure of MRSA infection Health Concerns: MRSA bacteremia Plan of Treatment: Vancomycin 1 gram with dialysis TuThSa for 4 weeks beginning 06/20/21 Assessment: See Discharge Summary Patient Instructions: MRSA (Methicillin-Resistant Staphylococcus Aureus) (DC)
[2021-06-23 12:55] LABS: COVID-19 Test Negative (Negative)
--- NOTE | 2021-06-23 13:08 | MHC.CM.PN ---
PATIENT'S NEPHEW, RENUKA ([phone]) AWARE OF TRANSPORT BACK TO [facility] SCHEDULED FOR 1600 TODAY. IMM 06/22 IN CHART.
[2021-06-23 15:51] VITALS: BP 157/70; PULSE 72
[2021-06-23] MEDS: Heparin Sodium,Porcine 5,000 UNIT/ML VIAL 5000 UNIT SUBCUT (15:53)
[2021-06-23 16:00] VITALS: BP 172/76; PULSE 76; RESP 16; TEMP 36.7; O2SAT 100
[2021-06-23] MEDS: vancomycin HCL 1,000 MG in 0.9 % Sodium Chloride 250 ML 270 MG IV (16:10)
--- NOTE | 2021-07-12 07:44 | P.CDIR_ITS ---
Documented by User: Vivian Hua RN 07/12/21 07:48 Retrospective Query PHYSICIAN'S DOCUMENTATION REQUEST Date of Query: 07/12/21744 Patient Name: Osmani Rivera Admit Date: 06/16/21 Dear Doctor, A review of the medical record indicates additional documentation may be needed. Please review below and update the documentation accordingly. Risk Factors/Clinical Indicators/Treatments Per Progress Note 06/20/21: MRSA bacteremia/PNA - vancomycin d#5 to dose after HD.? tota l duration 28d after clear culture.? initial BCx positive 06/16 [venous], 2/2 BCx from Permacath positive 06/18, also cath tip positive 06/19. Please clarify the relationship between these conditions: * Yes, bacteremia is related to / associated with / due to the catheter * No, bacteremia is not related to / associated with / due to the catheter * Unable to determine Use of terms such as suspected, likely, concern for, or probable (associated with a specific diagnosis that is being evaluated, monitored, or treated as if it exists) are acceptable and can be coded in the inpatient setting, when documented at the time of discharge. Thank you, Vivian Hua RN Extension: [phone] Please use your independent medical judgment in providing your response. THIS QUERY IS PART OF THE PERMANENT MEDICAL RECORD Documented by User: Zoe Atkinson MD 07/13/21 07:15 Retrospective Query Provider Response: Other (Catheter-associated bacteremia)
== END 2021-06-23 17:38 | DRG 252 ==
LOC: HO.ED 09:22 → HO.EDOVER 13:52 → HO.S3 16:44
PROVIDERS: Physician Assistant; Radiology Diagnostic Radiology; Admitting Provider Hospitalist; Emergency Provider Emergency Medicine Emergency Medical Services; PCP Family Medicine; Visit Provider Family Medicine
PROC: 05PY03Z Removal of Infusion Device from Upper Vein, Open Approach (ICD-10-PCS; principal; 2021-06-19 09:30)
PROC: 0JH63XZ Insertion of Tunneled Vascular Access Device into Chest Subcutaneous Tissue and Fascia, Percutaneous Approach (ICD-10-PCS; principal; 2021-06-22 14:30)
DX: T80.211A Bloodstream infection due to central venous catheter, initial encounter (principal); N18.6 End stage renal disease; G92.8 Other toxic encephalopathy; I12.0 Hypertensive chronic kidney disease with stage 5 chronic kidney disease or end stage renal disease; R78.81 Bacteremia; G31.84 Mild cognitive impairment of uncertain or unknown etiology; E78.5 Hyperlipidemia, unspecified; E09.22 Drug or chemical induced diabetes mellitus with diabetic chronic kidney disease; D63.1 Anemia in chronic kidney disease; Z99.2 Dependence on renal dialysis; B95.62 Methicillin resistant Staphylococcus aureus infection as the cause of diseases classified elsewhere; Z20.822 Contact with and (suspected) exposure to COVID-19; Z87.891 Personal history of nicotine dependence; Z79.4 Long term (current) use of insulin; Z79.82 Long term (current) use of aspirin; Z79.899 Other long term (current) drug therapy; Z66 Do not resuscitate
CPT/HCPCS: 36415; 36558; 36589; 70450; 71045; 71250; 72125; 74176; 80048; 80053; 80202; 81001; 82550; 82607; 82728; 82746; 82947; 83010; 83540; 83605; 83615; 83690; 83735; 84484; 85025; 85027; 85045; 85610; 85730; 87040; 87071; 87077; 87086; 87147; 87186; 87205; 87635; 87640; 87641; 90999; 93005; 93306; 96365; 99152; 99153; 99284; 99285; J0696; J0885; J2405; J3370; Q9967

== ENCOUNTER 2021-06-24 10:10 | Emergency (ER) | payer MEDICARE, SELFPAY ==
--- NOTE | ~2021-06-24 | XR_ITS ---
EXAMINATION: XR CHEST CLINICAL INFORMATION: Check PermCath placement COMPARISON: Chest x-ray 06/22/2021 TECHNIQUE: Frontal view of the chest was obtained. FINDINGS: Left-sided tunneled hemodialysis catheter is noted with tip terminating within the distal SVC. Cardiac enlargement again demonstrated. Small to moderate left-sided pleural effusion is unchanged. Subtle opacity of the right lung base is nonspecific but suspected to represent atelectasis. No pneumothorax. Vascular calcifications. XR/XR chest 1V IMPRESSION: Left-sided tunneled hemodialysis catheter in expected position.
[2021-06-24 10:14] VITALS: BP 150/80; PULSE 77; O2SAT 99
[2021-06-24 10:34] VITALS: BP 157/77; PULSE 72; RESP 18; TEMP 37.2; O2SAT 98; BMI 22.9
--- NOTE | 2021-06-24 10:35 | ED_ITS ---
HPI - General Adult General Chief complaint: Wound/Laceration Stated complaint: bleeding Time Seen by Provider: 06/24/21 10:18 Source: patient and EMS Mode of arrival: EMS History of Present Illness HPI narrative: 80-year-old male with a past medical history of anemia, diabetes, cognitive impairment, HTN, CKD on HD (//Fri), discharged from our facility yesterday for Staph aureus bacteremia and toxic metabolic encephalopathy s/p new PermCath placement on 06/22 presenting to the ED with bleeding from PermCath site. Patient currently on IV Vancomycin with dialysis for MRSA bacteremia. Last received dialysis yesterday. Denies CP, SOB History limited secondary to patient's baseline cognitive impairment. Patient on 81mg ASA, no other anticoagulation Related Data Home Medications Medication Instructions Recorded Confirmed aspirin 81 mg chewable tablet 81 mg PO DAILY 06/16/21 06/16/21 atorvastatin 10 mg tablet 1 tab PO DAILY 06/16/21 06/16/21 cholecalciferol (vitamin D3) 25 50 mcg PO DAILY 06/16/21 06/16/21 mcg (1,000 unit) tablet ferrous sulfate 325 mg (65 mg 325 mg PO TID 06/16/21 06/16/21 iron) tablet furosemide 80 mg tablet 1 tab PO BID 06/16/21 06/16/21 insulin lispro 100 unit/mL See Rx Instructions .ROUTE .COMPLEX 06/16/21 06/16/21 subcutaneous pen (Admelog SoloStar U-100 Insulin lispro) sennosides 8.6 mg tablet (senna) 8.6 mg PO DAILY 06/16/21 06/16/21 sevelamer carbonate 800 mg tablet 1 tab PO TID 06/16/21 06/16/21 tamsulosin 0.4 mg capsule 1 cap PO DAILY 06/16/21 06/16/21 vitamin B complex and vitamin C 1 cap PO DAILY 06/16/21 06/16/21 no.20-folic acid 1 mg capsule Previous Rx's Medication Instructions Recorded hydralazine 25 mg tablet 75 mg PO TID #135 tab 06/23/21 vancomycin HCl 100 mg/mL in 1 g IV .TuThSa at dialysis #125 ml 06/23/21 sterile water intravenous solution Allergies Allergy/AdvReac Type Severity Reaction Status Date / Time No Known Allergies Allergy Verified 06/22/21 14:22 [No Known Allergies*] Review of Systems Review of Systems: Constitutional: No Weight loss, No Fever, No Chills Cardiovascular: No Chest Pain, No SOB, No Edema Respiratory: No Cough, No Dyspnea Gastrointestinal: No Vomiting, No Abdominal pain Musculoskeletal: No joint pain, No Myalgias, No Joint Swelling Skin: + Skin Lesions, No rash Neuro: No Weakness ROS limited secondary to patient's baseline cognitive impairment Yes all other systems are reviewed and are negative [facility] Past Medical History Attestation statement: The following information was validated with the patient. 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 Diabetes End stage renal disease Essential (primary) hypertension Metabolic encephalopathy Pneumonia Social History Social History Patient Tobacco Use Status: Former Tobacco user Tobacco use type: Cigarette Advance Directives: Yes Advance Directives on File: Yes Advance Directives Date on File: 06/16/21 Current occupational status: disabled Physical Exam Vital Signs: Vital Signs: Last Vital Signs Temp 98.9 F 06/24/21 10:34 Pulse 72 06/24/21 10:34 Resp 18 06/24/21 10:34 BP 157/77 H 06/24/21 10:34 Pulse Ox 98 06/24/21 10:34 Body Mass Index 22.9 Const: General: cooperative, healthy appearing and no acute distress Orientation/consciousness: patient oriented x3 Limitations: no limitations HENMT: Head: Yes normal to inspection Ears: hearing grossly normal bilaterally General nose exam: Normal external nose present Face and sinus: Yes normal facial exam Eyes: General: appearance normal, both eyes and all related structures EOM: EOMs intact bilaterally Neck: Neck: Yes normal visual inspection and Yes no meningeal signs Chest: Other: PermCath site noted to left anterior chest wall with large blood clot over site, no evidence of active bleeding. No cellulitis/warmth, fluctuance or induration. Resp: Effort & Inspection: normal respiratory effort, no respiratory distress, no stridor and not tachypneic Auscultation: clear to auscultation bilaterally Cardio: Rate: regular rate Heart sounds: S1 normal heart sound present and S2 normal heart sound present GI: Inspection: Yes normal to inspection Palpation (GI): Soft to palpation, nontender, no guarding and not rigid Skin: Rashes: no rashes Wounds: no wounds Neuro: General: patient oriented x3 and no meningeal signs Gait exam (Neuro): Normal gait present Extrem: General: Yes normal to inspection and Yes no pedal edema Course Course Course Narrative: XR chest 1V IMPRESSION: Left-sided tunneled hemodialysis catheter in expected position. ? >> still no active bleeding since dressing has been changed. Plan to DC patient back to [facility] Medical Decision Making [facility] Narrative Medical decision making narrative: 80-year-old male with a past medical history of anemia, diabetes, cognitive impairment, HTN, CKD on HD (//Fri), discharged from our facility yesterday for Staph aureus bacteremia and toxic m etabolic encephalopathy s/p new PermCath placement on 06/22 presenting to the ED with bleeding from PermCath site. On exam vital signs stable, no tachycardia or hypotension, patient nontoxic appearing, clotted blood noted over PermCath, no active bleeding, low concern for anemia. Site cleaned with new dressing placed. No evidence of infection/cellulitis or drainage Will obtain CXR to ensure proper catheter placement then plan to DC patient back to facility Discharge Plan Discharge Clinical Impression: Bleeding at insertion site Patient Disposition: Home, Self-Care Instructions: Postoperative Bleeding (ED) Additional Instructions: Your x-ray confirms her catheter is in the correct location Please continue home prescribed medications and continue getting dialysis as scheduled If area begins to bleed again please return to the ED Prescriptions: No Action atorvastatin 10 mg tablet 1 tab PO DAILY RF: 0 tamsulosin 0.4 mg capsule 1 cap PO DAILY RF: 0 furosemide 80 mg tablet 1 tab PO BID RF: 0 insulin lispro [Admelog SoloStar U-100 Insulin] 100 unit/mL insulin pen See Rx Instructions .ROUTE .COMPLEX RF: 0 sevelamer carbonate 800 mg tablet 1 tab PO TID RF: 0 sennosides [senna] 8.6 mg Tablet 8.6 mg PO DAILY RF: 0 ferrous sulfate 325 mg (65 mg iron) Tablet 325 mg PO TID RF: 0 aspirin 81 mg Tablet,Chewable 81 mg PO DAILY RF: 0 B complex with C 20-folic acid 1 mg Capsule 1 cap PO DAILY RF: 0 cholecalciferol (vitamin D3) 25 mcg (1,000 unit) Tablet 50 mcg PO DAILY RF: 0 hydralazine 25 mg Tablet 75 mg PO TID Qty: 135 RF: 0 vancomycin HCl in water 100 mg/mL solution 1 g IV .TuThSa at dialysis Qty: 125 RF: 0 Referrals: Ruy Casey MD [Primary Care Provider] - 2 days
--- NOTE | 2021-06-24 10:36 | PC.NURSE ---
Dressing changed and dried and clotted blood removed from the insertion site. No active bleeding noted a this time.
== END 2021-06-24 12:40 | disposition home or self-care (01) ==
PROVIDERS: Emergency Provider Emergency Medicine; PCP Family Medicine
DX: L76.22 Postprocedural hemorrhage of skin and subcutaneous tissue following other procedure (principal); Y84.9 Medical procedure, unspecified as the cause of abnormal reaction of the patient, or of later complication, without mention of misadventure at the time of the procedure; Y92.9 Unspecified place or not applicable; R78.81 Bacteremia; B95.61 Methicillin susceptible Staphylococcus aureus infection as the cause of diseases classified elsewhere; I12.0 Hypertensive chronic kidney disease with stage 5 chronic kidney disease or end stage renal disease; N18.6 End stage renal disease; E11.22 Type 2 diabetes mellitus with diabetic chronic kidney disease; Z99.2 Dependence on renal dialysis
CPT/HCPCS: 71045; 99283; 99284

== ENCOUNTER 2021-07-28 05:23 | Emergency (ER) | payer MEDICARE, SELFPAY ==
--- NOTE | ~2021-07-28 | XR_ITS ---
EXAMINATION: XR CHEST CLINICAL INFORMATION: Left subclavian venous access evaluation. COMPARISON: Chest 06/24/2021 TECHNIQUE: Frontal view of the chest was obtained. FINDINGS: The lungs are well-expanded with patchy opacity left lung base suggestive consolidation. In addition there is bilateral patchy linear interstitial prominence likely venous congestion or edema. There is a left subclavian venous temporary dialysis catheter with its tip in the right atrium. Heart size is enlarged. No gross bony abnormality. XR/XR chest 1V IMPRESSION: New temporary dialysis catheter tip is in the right atrium and aortocaval region. There is left lower lobe retrocardiac consolidation. There is increased interstitial/vascular markings likely venous congestion or edema. The heart size is enlarged.
[2021-07-28 05:30] VITALS: BP 168/76; PULSE 68; RESP 16; TEMP 36.4; O2SAT 97
[2021-07-28 05:37] VITALS: RESP 16
--- NOTE | 2021-07-28 07:02 | ED.GENADULT ---
HPI - General Adult General Chief complaint: General Medical Stated complaint: BLEEDING DIALYSIS PORT Time Seen by Provider: 07/28/21 07:00 Source: patient, EMS and RN notes reviewed Mode of arrival: EMS Limitations: no limitations and other (Chronic cognitive impairment.) History of Present Illness HPI narrative: 80-year-old male past medical history significant for anemia, diabetes, cognitive impairment, hypertension, CKD on hemodialysis, patient lives in [facility], patient came in for evaluation of bleeding around the left subclavian venous accesses used for dialysis. Related Data Home Medications Medication Instructions Recorded Confirmed aspirin 81 mg chewable tablet 81 mg PO DAILY 06/16/21 06/16/21 atorvastatin 10 mg tablet 1 tab PO DAILY 06/16/21 06/16/21 cholecalciferol (vitamin D3) 25 50 mcg PO DAILY 06/16/21 06/16/21 mcg (1,000 unit) tablet ferrous sulfate 325 mg (65 mg 325 mg PO TID 06/16/21 06/16/21 iron) tablet furosemide 80 mg tablet 1 tab PO BID 06/16/21 06/16/21 insulin lispro 100 unit/mL See Rx Instructions .ROUTE .COMPLEX 06/16/21 06/16/21 subcutaneous pen (Admelog SoloStar U-100 Insulin lispro) sennosides 8.6 mg tablet (senna) 8.6 mg PO DAILY 06/16/21 06/16/21 sevelamer carbonate 800 mg tablet 1 tab PO TID 06/16/21 06/16/21 tamsulosin 0.4 mg capsule 1 cap PO DAILY 06/16/21 06/16/21 vitamin B complex and vitamin C 1 cap PO DAILY 06/16/21 06/16/21 no.20-folic acid 1 mg capsule Previous Rx's Medication Instructions Recorded hydralazine 25 mg tablet 75 mg PO TID #135 tab 06/23/21 vancomycin HCl 100 mg/mL in 1 g IV .TuThSa at dialysis #125 ml 06/23/21 sterile water intravenous solution azithromycin 250 mg tablet See Rx Instructions .ROUTE 07/28/21 (Zithromax Z-Norman) .COMPLEX #6 tab Allergies Allergy/AdvReac Type Severity Reaction Status Date / Time No Known Allergies Allergy Verified 06/22/21 14:22 [No Known Allergies*] Review of Systems Review of Systems: Yes Unobtainable due to mental condition PMFSH Past Medical History Medical History Anemia in chronic kidney disease (CKD) Benign prostatic hyperplasia 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 Diabetes End stage renal disease 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 Essential (primary) hypertension Left lower lobe pulmonary infiltrate Metabolic encephalopathy Pneumonia Social History Social History Alcohol intake: never Patient Tobacco Use Status: Former Tobacco user Tobacco use type: Cigarette Advance Directives: Yes Advance Directives on File: Yes Advance Directives Date on File: 06/16/21 Current occupational status: disabled Physical Exam Vital Signs: Vital Signs: Last Vital Signs Temp 98.9 F 07/28/21 07:41 Pulse 69 07/28/21 07:41 Resp 16 07/28/21 07:41 BP 185/94 H 07/28/21 07:41 Pulse Ox 95 07/28/21 07:41 BMI result Body Mass Index 20.0 Vital signs have been reviewed as appeared to be correct. Blood pressure normal. Heart rate normal. Respiration rate normal. Temperature normal. Oxygen saturation normal. Appearance: Alert. Oriented X3. No acute distress. Head: Normal external exam. Normocephalic. Atraumatic. No [place] signs noted. No raccoon eyes noted Eyes: PERRLA. EOMI. Conjunctiva and sclera normal. Eyelids normal. ENT: TM's Normal. Pharynx normal. Uvula midline. Moist mucous membranes. No trismus noted. No drooling noted. No muffled voice noted. Neck: Normal inspection. Neck supple. FROM. No adenopathy. Thyroid Normal. No meningeal signs. No neck mass noted. CVS: Normal heart rate and rhythm. Heart sound normal. No murmurs noted. Pulses normal throughout. Respiratory: No respiratory distress. Left subclavian venous access is intact, no active bleeding, with dry blood around the catheter with no blood clot. Painless inspiration. Breath sounds normal. No wheezes/rales/rhonchi noted. Chest nontender. No accessory muscle usage noted or decreased air movement noted. Abdomen: Soft and nontender. Bowel sounds normal in all 4 quadrants. No distention noted. No organomegaly noted. No visible injury noted. Back: No CVA tenderness. Full range of motion noted. Skin: Skin warm and dry. Normal skin color. Normal skin turgor. No rashes/lesions/lacerations noted. Extremities: No lower extremity edema. Extremities exhibit normal range of motion. Extremities nontender. Neuro: Oriented X 3. Cranial nerve exam: II-XII are grossly intact No motor deficit. No sensory deficit. Reflexes normal. Course Course Course Narrative: Assessment and plan. 80-year-old male came in with a temporally subclavian venous catheter for dialysis, with a concern of blood around the catheter, patient was observed in the emergency department for 5 hours with no active bleeding and dry dressing, chest x-ray showed possible retrocardiac consultation [facility] Z-Norman. Patient hemodynamically stable and no active bleeding at this point, normal H&H, no coagulopathy. Medical Decision Making Lab Data Lab results reviewed: Yes I reviewed the patient's lab results. Result diagrams: 07/28/21 08:09 Labs: Lab Results 07/28/21 07/28/21 Range/Units 08:09 08:09 WBC 5.4 (4.8-10.8) X10*3/uL RBC 3.87 L D (4.60-5.80) X10*6/uL Hgb 11.8 L D (14.0-18.0) g/dl Hct 36.5 L D (42.0-52.0) % MCV 94.3 (80.0-98.0) fL MCH 30.5 (27.0-33.0) pg MCHC 32.3 (31.0-36.0) g/dl RDW 15.9 (11.0-16.0) % Plt Count 150 L D (160-400) X10*3/uL MPV 10.0 (9.4-12.4) fL Immature Gran % (Auto) 0.2 (0.0-0.4) % Neut % (Auto) 74.8 H (45-73) % Lymph % (Auto) 10.6 L (20-40) % Swain % (Auto) 8.8 (2-11) % Eos % (Auto) 5.0 H (0-4) % Baso % (Auto) 0.6 (0-2) % Lymph # (Auto) 0.6 L (1.2-4.9) X10*3/uL Swain # (Auto) 0.5 (0.1-1.2) X10*3/uL Eos # (Auto) 0.3 (0.0-0.4) X10*3/uL Baso # (Auto) 0.0 (0.0-0.2) X10*3/uL Abs Immat Gran (auto) 0.01 (0.00-0.03) X10*3/uL Absolute Neuts (auto) 4.0 (2.0-8.3) x10*3/uL Absolute Nucleated RBC 0.000 (0.0-0.012) X10*3/uL Nucleated RBC % (auto) 0.0 (0.0-0.2) /100WBC PT 11.3 (9.9-13.0) SEC INR 1.0 (0.9-1.1) APTT 40.2 H D (24.1-38.0) SEC Imaging Data Chest x-ray: Attestation: I personally reviewed and interpreted this imaging study as follows: Radiologist's impression: New temporary dialysis catheter tip is in the right atrium and aortocaval region. There is left lower lobe retrocardiac consolidation. There is increased interstitial/vascular markings likely venous congestion or edema. ? Discharge Plan Discharge Clinical Impression: Pneumonia, Complication associated with dialysis catheter Patient Disposition: Xfer SNF Transfer Details: [facility] Instructions: Pneumonia (ED) Prescriptions: New azithromycin [Zithromax Z-Norman] 250 mg tablet See Rx Instructions .ROUTE .COMPLEX Qty: 6 RF: 0 No Action atorvastatin 10 mg tablet 1 tab PO DAILY RF: 0 tamsulosin 0.4 mg capsule 1 cap PO DAILY RF: 0 furosemide 80 mg tablet 1 tab PO BID RF: 0 insulin lispro [Admelog SoloStar U-100 Insulin] 100 unit/mL insulin pen See Rx Instructions .ROUTE .COMPLEX RF: 0 sevelamer carbonate 800 mg tablet 1 tab PO TID RF: 0 sennosides [senna] 8.6 mg Tablet 8.6 mg PO DAILY RF: 0 ferrous sulfate 325 mg (65 mg iron) Tablet 325 mg PO TID RF: 0 aspirin 81 mg Tablet,Chewable 81 mg PO DAILY RF: 0 B complex with C 20-folic acid 1 mg Capsule 1 cap PO DAILY RF: 0 cholecalciferol (vitamin D3) 25 mcg (1,000 unit) Tablet 50 mcg PO DAILY RF: 0 hydralazine 25 mg Tablet 75 mg PO TID Qty: 135 RF: 0 vancomycin HCl in water 100 mg/mL solution 1 g IV .TuThSa at dialysis Qty: 125 RF: 0 Referrals: Ruy Casey MD [Primary Care Provider] - 2 days
[2021-07-28 07:41] VITALS: BP 185/94; PULSE 69; RESP 16; TEMP 37.2; O2SAT 95
[2021-07-28] MEDS: levoFLOXacin 750 MG TABLET PO (08:11)
[2021-07-28] MEDS: Amoxicillin 500 MG CAPSULE PO (08:11)
[2021-07-28 08:14] LABS: Basophils Percent Auto 0.6 % (0-2); Eosinophils Absolute Auto 0.3 X10*3/uL (0.0-0.4); Hematocrit 36.5 % (42.0-52.0); Hemoglobin 11.8 g/dl (14.0-18.0); Imm Gran Abs Auto 0.01 X10*3/uL (0.00-0.03); Imm Gran Pct Auto 0.2 % (0.0-0.4); Lymphocytes Absolute Auto 0.6 X10*3/uL (1.2-4.9); Lymphocytes Percent Auto 10.6 % (20-40); MANUAL DIFF FLAG NO; Mean Corpuscular HGB Conc 32.3 g/dl (31.0-36.0); Mean Corpuscular Hemoglobin 30.5 pg (27.0-33.0); Mean Corpuscular Volume 94.3 fL (80.0-98.0); Monocytes Absolute Auto 0.5 X10*3/uL (0.1-1.2); Monocytes Percent Auto 8.8 % (2-11); Neutrophils Percent Auto 74.8 % (45-73); Platelet Count 150 X10*3/uL (160-400); Red Blood Count 3.87 X10*6/uL (4.60-5.80); Red Cell Distribution Width 15.9 % (11.0-16.0); White Blood Count 5.4 X10*3/uL (4.8-10.8)
[2021-07-28 08:33] LABS: Prothrombin Time 11.3 SEC (9.9-13.0)
[2021-07-28 08:36] LABS: Partial Thromboplastin Time 40.2 SEC (24.1-38.0)
--- NOTE | 2021-07-28 08:53 | PC.NURSE ---
Pt alert but confused, needs frequent reminders. Left chest permacath site cleaned and dressed, area is bruised/red with dried blood and sl edematous. New dsg applied. Clamps closed on caths. Pt given food and PO abx, tolerated well. awaits lab results and transfer back to [facility]
--- NOTE | 2021-07-28 10:26 | PC.NURSE ---
report to arminda hermosillo
== END 2021-07-28 12:32 | disposition skilled nursing facility (03) ==
PROVIDERS: Emergency Provider Emergency Medicine; PCP Family Medicine
DX: T82.838A Hemorrhage due to vascular prosthetic devices, implants and grafts, initial encounter (principal); Y84.8 Other medical procedures as the cause of abnormal reaction of the patient, or of later complication, without mention of misadventure at the time of the procedure; Y92.9 Unspecified place or not applicable; J18.9 Pneumonia, unspecified organism; I12.0 Hypertensive chronic kidney disease with stage 5 chronic kidney disease or end stage renal disease; E11.22 Type 2 diabetes mellitus with diabetic chronic kidney disease; N18.6 End stage renal disease; Z99.2 Dependence on renal dialysis
CPT/HCPCS: 36415; 71045; 85025; 85610; 85730; 99283; 99284

== ENCOUNTER 2021-09-17 07:16 | Outpatient (REF) | payer MEDICARE, SELFPAY ==
[2021-09-17 07:34] LABS: Appearance Urine HAZY; Color Urine YELLOW; Glucose Urine UA NEG (NEG); Leukocyte Esterase Urine 3+ (NEG); Nitrite Urine NEG (NEG); UACC Culture Trigger YES; Urine Blood 3+ (NEG); Urine Ketones NEG (NEG); Urine Protein 2+ MG/DL (NEG-TRACE)
[2021-09-17 07:52] LABS: Amorphous Sediment Urine 3+ /LPF; WBC Clumps Urine NOTED
[2021-09-17 07:53] LABS: WBC Urine 30-49 /HPF (0-4)
[2021-09-17 07:54] LABS: Bacteria Urine 1+ /LPF
== END 2021-09-17 07:17 | disposition home or self-care (01) ==
LOC: HO.MMNH3L 07:16
PROVIDERS: Visit Provider Family Medicine
DX: R31.9 Hematuria, unspecified (principal)
CPT/HCPCS: 81001; 87086

== ENCOUNTER 2021-09-27 02:32 | Inpatient (IN) | payer MEDICARE, SELFPAY ==
[2021-09-27] VITALS (18 sets, daily range): BP systolic 82–181; BP diastolic 47–96; PULSE 71–124; RESP 18–28; TEMP 36.4–39.6; O2SAT 90–100; BMI 19.8
--- NOTE | ~2021-09-27 | IR_ITS ---
PROCEDURE: ULTRASOUND AND FLUOROSCOPY-GUIDED PLACEMENT OF TEMPORARY DIALYSIS CATHETER/PERMA-CATH CLINICAL INFORMATION: Needs stat dialysis. Elevated bun, creatinine and GFR. COMPARISON: None TECHNIQUE: Following explaining the placement of the temporary dialysis catheter procedure, benefits and risks from the patient's daughter by phone, a phone consent was obtained. All elements of maximal sterile barrier technique was followed including use of cap, mask, sterile gown, sterile gloves, a sterile full body drape and hand hygiene. Also followed was skin preparation with 2% chlorhexidine for cutaneous antisepsis, and sterile ultrasound preparation with sterile gel and probe cover when applicable. Initially, the right neck was imaged on ultrasound, however the jugular vein abruptly narrowed just at the level of the clavicle. No left jugular vein was seen. Preliminary ultrasound was obtained through the right groin and the right common femoral vein was identified. The area was marked on the skin. The right groin was then cleaned and draped in the usual sterile manner with 2% chlorhexidine solution. Under ultrasound guidance, the right common femoral vein was identified and the skin was infiltrated with 1% lidocaine. A single-wall needle was then advanced into the right common femoral vein under ultrasound guidance. After observing venous return, a thin guidewire was advanced and placed in the IVC and the needle withdrawn. The tract was dilated with 5, 7 and 10-Anguillan dilators. Subsequently, a 12-Anguillan 20 cm long Mahurkar dialysis catheter was inserted over the guidewire and the guidewire removed. The catheter was anchored to the skin with two 3-0 nylon nonabsorbable sutures. A sterile dressing was applied post procedure. Both catheter ports were flushed with saline followed by heparin. FINDINGS: On preliminary ultrasound imaging through the neck, the right jugular vein terminated at the right clavicle. The left jugular vein was not visualized at all. The right common femoral vein is deep to the calcified right common femoral artery. There was placement of a 12-Anguillan 20 cm long dialysis catheter with its tip at the common iliac/IVC junction. IR/IR cvc remove tunnel w prt/history faculty member IMPRESSION: Successful ultrasound and fluoroscopy-guided placement of a right femoral temporary dialysis catheter. The catheter is ready for use. Recommend evaluation of the right and left jugular and brachiocephalic veins for patency for evaluation and future intervention. Fluoroscopy time: 0.8 minutes. Dose area product: 177 cGy/cm2
--- NOTE | ~2021-09-27 | CT_ITS ---
EXAMINATION CT CHEST, ABDOMEN AND PELVIS WITHOUT CONTRAST CLINICAL INFORMATION: Fever and cough. Abdominal discomfort. COMPARISON: 06/16/2021 TECHNIQUE: Multidetector volumetric CT imaging of the chest, abdomen and pelvis was obtained without use of intravenous contrast. Coronal and sagittal reformats were reviewed. This CT examination was performed using dose optimization techniques as appropriate, variously including the following: *Automated exposure control *Adjustment of mA and/or kV according to patient size (this includes techniques or standardized protocols for targeted exams where dose is matched to indication/reason for exam; i.e. extremities or head) *Use of iterative reconstruction technique DLP: 1125 mGy-cm. FINDINGS: CHEST LUNGS/PLEURA: Stable small chronic left pleural effusion with accompanying pleural thickening and likely round atelectasis within the left lower lobe. Slight increase in size of a small right pleural effusion and accompanying atelectasis. Mild emphysema suspected. MEDIASTINUM/LEIGH: Marked cardiomegaly. No pericardial effusion. Triple vessel coronary calcifications. No mediastinal, hilar or supraclavicular lymphadenopathy by size criteria. CHEST WALL/AXILLA: Unremarkable. ABDOMEN/PELVIS HEPATOBILIARY: Liver normal in size, contour and morphology. Calcified granuloma, right lobe liver. No suspicious lesions. No intra or extrahepatic biliary dilation. Gallbladder unremarkable. PANCREAS: Unremarkable. SPLEEN: Unremarkable. ADRENAL GLANDS: Stable asymmetric thickening of the left adrenal gland. Right adrenal gland normal. KIDNEYS, URETERS AND BLADDER: Mild bilateral renal cortical atrophy. No hydronephrosis. There are couple stable cyst emanating from the lower pole right kidney which are benign and require no further follow-up. There is a 3 mm cortical calcification within the left kidney. Bilateral renal vascular calcifications. No hydronephrosis. Ureters normal in course and caliber. Bladder collapsed around a Giles catheter. GASTROINTESTINAL TRACT: Sigmoid colonic diverticulosis. No evidence of diverticulitis. Large amount of stool within the rectum. No significant perirectal fat stranding to suggest stercoral colitis PELVIC VISCERA: Unremarkable. LYMPH NODES: No lymphadenopathy. PERITONEUM/BODY WALL: Unremarkable. VASCULAR STRUCTURES: Aorta markedly atherosclerotic. Ectasia of the bilateral common iliac arteries. No aortic aneurysm. OSSEOUS STRUCTURES No acute or suspicious osseous abnormalities. CT/CT abdomen pelvis wo con IMPRESSION: * No acute findings within the chest, abdomen and pelvis. * Stable chronic bilateral pleural effusions, larger on the left with associated round atelectasis. * Marked cardiomegaly and triple vessel coronary calcifications. * Stable distended rectum containing a large amount of stool without evidence of stercoral colitis. * Stable chronic bladder wall thickening, with Giles catheter in place.
--- NOTE | ~2021-09-27 | CT_ITS ---
EXAMINATION: CT CHEST WITH CONTRAST CLINICAL INFORMATION: Jugular vein thrombosis. COMPARISON: 10/06/2021, 09/27/2021 as well as 06/16/2021. TECHNIQUE: Multidetector volumetric CT imaging of the chest was obtained after the administration of 65 mL of Omnipaque 350 intravenous contrast without immediate adverse reactions. Axial MIP volume rendering provided. Sagittal and coronal reformatted images were obtained. This CT examination was performed using dose optimization techniques as appropriate, variously including the following: *Automated exposure control *Adjustment of mA and/or kV according to patient size (this includes techniques or standardized protocols for targeted exams where dose is matched to indication/reason for exam; i.e. extremities or head) *Use of iterative reconstruction technique DLP: 154 mGy-cm FINDINGS: LUNGS: Central airways are patent. There is some narrowing of left lower lobe bronchus with persistent left lower lobe disease and effusion with elevation of the left hemidiaphragm. There are calcified granulomas seen bilaterally. MEDIASTINUM: There is a 1.6 x 1.1 cm left thyroid nodule present. Nonenlarged mediastinal and hilar lymph nodes are seen.. Carotid artery calcifications are seen bilaterally. There is calcified plaque within the aortic arch most prominent involving the takeoff of the left subclavian artery as well as within the proximal left subclavian artery. I cannot tell what degree of narrowing there may be and if it is hemodynamically significant or not. No thoracic aortic aneurysm. The heart is enlarged. Prominent coronary artery calcifications are seen. There is also calcification seen involving the aortic arch and mitral annulus. Limited venous evaluation demonstrates occlusion of the left jugular vein with question narrowing of the left subclavian vein which is not well opacified. The left innominate vein is narrowed over a long segment including at its junction with the superior vena cava. There appears to be a segmental occlusion of the right internal jugular vein which drains by small collateral veins. The more inferior internal jugular vein is patent however the right innominate vein is narrowed. The right subclavian vein is patent but again drains into the region of narrowing of the right innominate vein. The superior vena cava is patent. PLEURA: There is a small right pleural effusion. There is a moderate loculated left pleural effusion. AXILLA: No lymphadenopathy. UPPER ABDOMEN: There appear to be left hepatic cysts and splenic cysts with question wedge-shaped low-density lesion within the spleen which may be related to splenic infarct. Multiple low-density lesions are seen within the kidneys bilaterally which are small and have arterial calcified plaque present as well as cortical thinning. The adrenal glands are prominent bilaterally. The gallbladder is distended with what appears to be some gallbladder wall thickening and pericholecystic fluid. Acute cholecystitis is not excluded. OSSEOUS STRUCTURES: No suspicious destructive bony lesions identified. Degenerative changes of both shoulders noted right greater than left. Multilevel degenerative disc disease is seen. CT/CT chest w con IMPRESSION: Moderate loculated left pleural effusion with basilar disease and chronic elevation of the left hemidiaphragm. Small right pleural effusion. Venous abnormalities of the chest and neck as described. A 1.6 cm left thyroid nodule. Old granulomatous disease. Hepatic and splenic cysts with question splenic infarct. Thick walled distended gallbladder with some pericholecystic fluid. Clinically correlate for possible acute cholecystitis. Chronic elevation of the left hemidiaphragm. Fleischner guidelines were followed.
--- NOTE | ~2021-09-27 | IR_ITS ---
EXAMINATION: REMOVAL OF RIGHT FEMORAL TEMPORARY DIALYSIS CATHETER CLINICAL INFORMATION: Presence of MRSA. Needs removal of catheter chronic kidney disease. COMPARISON: None TECHNIQUE: The right groin was exposed. Both anchoring sutures were identified and excised and the whole catheter was removed. Pressure was held for at least 10 minutes with complete hemostasis was achieved. Sterile dressing applied postprocedure. Patient on procedure well. IR/IR cvc remov tunnel wo prt/customer support associate FINDINGS/IMPRESSION: Following discussion with instrument engineer and patient's history of MRSA the catheter was removed without any complications.
--- NOTE | ~2021-09-27 | IR_ITS ---
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 COMPARISON: CT scan of same day. TECHNIQUE: Ultrasound of fluoroscopically-guided placement of right groin PermCath. All elements of maximal sterile barrier technique followed including use of cap, mask, sterile gown, sterile gloves, a sterile full body drape and hand hygiene. Also followed skin preparation with 2% chlorhexidine for cutaneous antisepsis, and sterile ultrasound preparation with sterile gel and probe cover when applicable. FINDINGS: Using sterile technique and ultrasound guidance, the right femoral vein was punctured with guidewire advanced into the inferior vena cava. Over the guidewire, a 5-Maltese dilator was then placed and through that a 0.035 inch guidewire was positioned within the inferior vena cava. A short subcutaneous tunnel was then made from the upper thigh to the femoral vein puncture site. The 16.6-Maltese dialysis catheter was then placed through a peel-away sheath after fascial dilatation with its tip within the central aspect of the right iliac vein. Both ports aspirate and flush freely and 1.9 mL of 5021 mL units of heparin was instilled in each port. The catheter was sutured in place with an antimicrobial disc at the skin entry site. The common femoral vein puncture site was closed with tissue adhesive. Patient tolerated the procedure without difficulty. FLUOROSCOPY TIME: 0.2 minutes. DAP: 17 cGy centimeters squared. CATHETER LENGTH: 23 cm. IR/IR cvc insert non tunnel IMPRESSION: Placement of right groin dialysis catheter due to lack of good IV access within the upper extremities.
--- NOTE | ~2021-09-27 | IR_ITS ---
EXAMINATION: IR COMMON FEMORAL VEIN DIALYSIS CATHETER CHECK, RIGHT CLINICAL INFORMATION: Inability to do dialysis due to poor flow and cavitation. COMPARISON: 10/10/2021 TECHNIQUE: Aspirating and flushing of dialysis catheter. FINDINGS: The indwelling catheter is in place and aspirates and flushes freely with the patient's leg being straight. The catheter was re-heparinized and I spoke with the dialysis center about performing dialysis with the patient's leg being straight and not bent at all at the groin due to pinching of the catheter. The dialysis catheter was not changed out at this time. IR/IR cva device check w fluoro IMPRESSION: Right common femoral vein dialysis catheter widely patent as described above. Repeat attempt at dialysis with patient's right leg straight to be performed.
--- NOTE | ~2021-09-27 | IR_ITS ---
PROCEDURE: ULTRASOUND AND FLUOROSCOPY-GUIDED PLACEMENT OF TEMPORARY DIALYSIS CATHETER/PERMA-CATH CLINICAL INFORMATION: Needs stat dialysis. Elevated bun, creatinine and GFR. COMPARISON: None TECHNIQUE: Following explaining the placement of the temporary dialysis catheter procedure, benefits and risks from the patient's daughter by phone, a phone consent was obtained. All elements of maximal sterile barrier technique was followed including use of cap, mask, sterile gown, sterile gloves, a sterile full body drape and hand hygiene. Also followed was skin preparation with 2% chlorhexidine for cutaneous antisepsis, and sterile ultrasound preparation with sterile gel and probe cover when applicable. Initially, the right neck was imaged on ultrasound, however the jugular vein abruptly narrowed just at the level of the clavicle. No left jugular vein was seen. Preliminary ultrasound was obtained through the right groin and the right common femoral vein was identified. The area was marked on the skin. The right groin was then cleaned and draped in the usual sterile manner with 2% chlorhexidine solution. Under ultrasound guidance, the right common femoral vein was identified and the skin was infiltrated with 1% lidocaine. A single-wall needle was then advanced into the right common femoral vein under ultrasound guidance. After observing venous return, a thin guidewire was advanced and placed in the IVC and the needle withdrawn. The tract was dilated with 5, 7 and 10-Grenadian dilators. Subsequently, a 12-Grenadian 20 cm long Mahurkar dialysis catheter was inserted over the guidewire and the guidewire removed. The catheter was anchored to the skin with two 3-0 nylon nonabsorbable sutures. A sterile dressing was applied post procedure. Both catheter ports were flushed with saline followed by heparin. FINDINGS: On preliminary ultrasound imaging through the neck, the right jugular vein terminated at the right clavicle. The left jugular vein was not visualized at all. The right common femoral vein is deep to the calcified right common femoral artery. There was placement of a 12-Grenadian 20 cm long dialysis catheter with its tip at the common iliac/IVC junction. IR/IR cvc insert central tunnel IMPRESSION: Successful ultrasound and fluoroscopy-guided placement of a right femoral temporary dialysis catheter. The catheter is ready for use. Recommend evaluation of the right and left jugular and brachiocephalic veins for patency for evaluation and future intervention. Fluoroscopy time: 0.8 minutes. Dose area product: 177 cGy/cm2
--- NOTE | ~2021-09-27 | US_ITS ---
EXAMINATION: ULTRASOUND NECK CLINICAL INFORMATION: For hemodialysis access. COMPARISON: None TECHNIQUE: Limited ultrasound imaging through both jugular veins and subclavian veins are performed. FINDINGS: Imaging of left jugular vein reveals moderate clot within the left distal jugular vein. The right jugular vein is normal caliber in the midneck. It significantly narrows into two small branches with one of the smaller branches curves around the left common carotid artery in the upper chest/lower neck. Both subclavian veins appear patent. The SVC is not well visualized and difficult to assess. US/US hemodialysis access IMPRESSION: Left jugular vein has a moderate-sized acute clot in the distal segment. There is abrupt narrowing of right jugular vein in the neck and branching into two vessels. Both subclavian veins appear patent. However the patency of SVC is not known.
--- NOTE | ~2021-09-27 | XR_ITS ---
EXAMINATION: XR CHEST CLINICAL INFORMATION: Cough COMPARISON: 07/28/2021 TECHNIQUE: Frontal view of the chest was obtained. FINDINGS: Left subclavian hemodialysis catheter stably positioned within the right atrium. Moderate left pleural effusion and accompanying atelectasis redemonstrated. Improved aeration at the right lung base. Normal heart size and pulmonary vascularity. No pneumothorax. Severe bilateral glenohumeral arthrosis. XR/XR chest 1V IMPRESSION: Stable small moderate left pleural effusion and accompanying atelectasis. Improved aeration at the right lung base.
--- NOTE | 2021-09-27 02:36 | ECG_ITS ---
Test Reason : WEAKNESS Blood Pressure : / mmHG Vent. Rate : 111 BPM Atrial Rate : 000 BPM P-R Int : 000 ms QRS Dur : 158 ms QT Int : 418 ms P-R-T Axes : 000 107 009 degrees QTc Int : 568 ms Possible Multifocal atrial tachycardia Right bundle branch block Abnormal ECG When compared with ECG of 16-JUN-2021 08:52, Multifocal atrial tachycardia has replaced Sinus rhythm Referred By: Analilia Kerr Electronically Signed By:SOLIS SILVA MD
--- NOTE | 2021-09-27 02:56 | ED.GENADULT ---
HPI - General Adult General Chief complaint: Weakness Stated complaint: confused Time Seen by Provider: 09/27/21 02:36 Source: EMS and other Mode of arrival: EMS History of Present Illness HPI narrative: 80-year-old male, DNR/DNI, from [facility] arrives via EMS with reports that he has appeared to be more weak than usual for the last 2 days and staff reportedly states that patient has a left pleural effusion and is on hemodialysis (Friday, , Friday). Patient does have an underlying history of dementia but appears to be more confused than usual and was noted to have a fever. Related Data Home Medications Medication Instructions Recorded Confirmed aspirin 81 mg chewable tablet 81 mg PO DAILY 06/16/21 06/16/21 atorvastatin 10 mg tablet 1 tab PO DAILY 06/16/21 06/16/21 cholecalciferol (vitamin D3) 25 50 mcg PO DAILY 06/16/21 06/16/21 mcg (1,000 unit) tablet ferrous sulfate 325 mg (65 mg 325 mg PO TID 06/16/21 06/16/21 iron) tablet furosemide 80 mg tablet 1 tab PO BID 06/16/21 06/16/21 insulin lispro 100 unit/mL See Rx Instructions .ROUTE .COMPLEX 06/16/21 06/16/21 subcutaneous pen (Admelog SoloStar U-100 Insulin lispro) sennosides 8.6 mg tablet (senna) 8.6 mg PO DAILY 06/16/21 06/16/21 sevelamer carbonate 800 mg tablet 1 tab PO TID 06/16/21 06/16/21 tamsulosin 0.4 mg capsule 1 cap PO DAILY 06/16/21 06/16/21 vitamin B complex and vitamin C 1 cap PO DAILY 06/16/21 06/16/21 no.20-folic acid 1 mg capsule Previous Rx's Medication Instructions Recorded hydralazine 25 mg tablet 75 mg PO TID #135 tab 06/23/21 vancomycin HCl 100 mg/mL in 1 g IV .TuThSa at dialysis #125 ml 06/23/21 sterile water intravenous solution azithromycin 250 mg tablet See Rx Instructions .ROUTE 07/28/21 (Zithromax Z-Norman) .COMPLEX #6 tab Allergies Allergy/AdvReac Type Severity Reaction Status Date / Time No Known Allergies Allergy Verified 11/12/21 14:22 [No Known Allergies*] Review of Systems Review of Systems: Yes Unobtainable due to mental condition [facility] Past Medical History Source: nursing notes reviewed Medical History Anemia in chronic kidney disease (CKD) Benign prostatic hyperplasia 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 Diabetes End stage renal disease 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 Essential (primary) hypertension Left lower lobe pulmonary infiltrate Metabolic encephalopathy Pneumonia Social History Social History Alcohol intake: never Patient Tobacco Use Status: Former Tobacco user Tobacco use type: Cigarette Advance Directives: Yes Advance Directives on File: Yes Advance Directives Date on File: 06/16/21 Current occupational status: disabled Physical Exam ED Vital Signs: Vital Signs - 24 hr 09/27/21 02:46 09/27/21 03:05 09/27/21 03:13 Temperature 102.4 F H Pulse Rate 104 H 102 H 107 H Respiratory Rate 18 24 H 24 H Blood Pressure 138/81 160/96 H 151/79 H Pulse Oximetry 95 98 09/27/21 03:44 09/27/21 04:22 09/27/21 04:36 Temperature 101.0 F H Pulse Rate 97 98 88 Respiratory Rate 24 H 22 H 22 H Blood Pressure 139/76 128/74 135/68 Pulse Oximetry 98 100 100 09/27/21 05:45 09/27/21 06:04 Temperature 101.0 F H Pulse Rate 116 H 109 H Respiratory Rate 28 H 24 H Blood Pressure 158/93 H 166/92 H Pulse Oximetry 96 98 BMI result Body Mass Index 19.8 VITAL SIGNS: Reviewed. GENERAL: Cachectic, chronically ill, in mild distress. HEAD: Normocephalic/atraumatic EYES: PERRLA, EOMI EARS: Ext canals without abnormality, TMs non-bulging and non-erythematous, rib but noted skin breakdown over the a left pinnae with mild serosanguineous discharge NOSE: Nares patent bilateral OROPHARYNX: no oral lesions noted, posterior pharynx clear and non-erythematous, dry mucosa NECK: Supple, no adenopathy LUNGS: Normal breath sounds. No adventitious sounds or accessory muscle use. SpO2<95> on 2 L nasal cannula; CHEST WALL: No deformities, or catheter noted at left anterior chest without surrounding erythema or induration. CARDIOVASCULAR: Regular rate and rhythm without noted murmurs, no JVD or lower extremity edema. ABDOMEN: Soft, non-tender, non-distended with bowel sounds. MUSCULOSKELETAL: No deformities, or effusions, contracted EXTREMITIES: No cyanosis, clubbing or edema. SKIN: Inspection of the skin reveals no rashes NEUROLOGIC: Alert and contracted Course Course Course Narrative: 80-year-old male with history and clinical presentation concerning for infection as urine appears cloudy, bleeding. Review of all investigations with noted anemia, however unclear if this is secondary to patient's underlying ESRD, and also noted urine has wbc's present or but may be secondary to colonization. He is noted to be febrile. Patient received empiric antibiotics, will receive 1 L of IV fluids for clinical evidence of dehydration. The patient noted to be guaiac positive. This case was discussed with inpatient hospitalist who accepts admission. Medical Decision Making Lab Data Result diagrams: 09/27/21 03:00 09/27/21 03:00 Labs: Lab Results 09/27/21 09/27/21 09/27/21 Range/Units 03:00 03:00 03:00 WBC 6.5 (4.8-10.8) X10*3/uL RBC 2.59 L D (4.60-5.80) X10*6/uL Hgb 8.0 L D (14.0-18.0) g/dl Hct 24.8 L D (42.0-52.0) % MCV 95.8 (80.0-98.0) fL MCH 30.9 (27.0-33.0) pg MCHC 32.3 (31.0-36.0) g/dl RDW 17.1 H (11.0-16.0) % Plt Count 144 L (160-400) X10*3/uL MPV 9.5 (9.4-12.4) fL Immature Gran % (Auto) 0.3 (0.0-0.4) % Neut % (Auto) 91.7 H (45-73) % Lymph % (Auto) 3.5 L (20-40) % Pierce % (Auto) 4.3 (2-11) % Eos % (Auto) 0.0 (0-4) % Baso % (Auto) 0.2 (0-2) % Lymph # (Auto) 0.2 L (1.2-4.9) X10*3/uL Pierce # (Auto) 0.3 (0.1-1.2) X10*3/uL Eos # (Auto) 0.0 (0.0-0.4) X10*3/uL Baso # (Auto) 0.0 (0.0-0.2) X10*3/uL Abs Immat Gran (auto) 0.02 (0.00-0.03) X10*3/uL Absolute Neuts (auto) 6.0 (2.0-8.3) x10*3/uL Absolute Nucleated RBC 0.000 (0.0-0.012) X10*3/uL Nucleated RBC % (auto) 0.0 (0.0-0.2) /100WBC Smear Tech's Comments VERIFIED PT 12.9 (9.9-13.0) SEC INR 1.1 (0.9-1.1) Sodium 141 (135-145) mmol/L Potassium 4.5 (3.3-5.1) mmol/L Chloride 101 (96-108) mmol/L Carbon Dioxide 24 (22-29) mmol/L Anion Gap 21 H (12-20) BUN 53 H (9-16) mg/dL Creatinine 5.95 H* (0.5-1.4) mg/dL Estim Creat Clear Calc 8.1 Estimated GFR 9 Random Glucose 187 H D (60-115) mg/dL Lactic Acid (0.5-2.0) mmol/L Calcium 9.1 D (8.4-10.2) mg/dL Total Bilirubin 0.6 (0.0-1.0) mg/dL AST 22 (5-37) U/L ALT 12 (0-40) U/L Alkaline Phosphatase 57 (39-117) U/L Total Protein 7.0 D (6.5-8.0) g/dL Albumin 3.5 D (3.5-5.0) g/dL Urine Color Urine Appearance Urine pH (5.0-8.0) Ur Specific [place] (1.005-1.025) Urine Protein (NEG-TRACE) MG/DL Urine Glucose (UA) (NEG) MG/DL Urine Ketones (NEG) MG/DL Urine Blood (NEG) Urine Nitrite (NEG) Ur Leukocyte Esterase (NEG) Urine RBC (0) /HPF Urine WBC (0-4) /HPF Ur Squamous Epith Cells /LPF Ur Renal Epithelial Cell /LPF Urine Bacteria /LPF Urine Mucus /LPF Stool Occult Blood (NEGATIVE) COVID-19 (SALTY) (Negative) COVID-19 Clin Com Influenza Type A (PCR) (Negative) Influenza Type B (PCR) (Negative) RSV RNA Qual (PCR) (Negative) SARS-CoV-2 RNA (RT-PCR) (Negative) 09/27/21 09/27/21 09/27/21 Range/Units 03:00 03:00 03:01 WBC (4.8-10.8) X10*3/uL RBC (4.60-5.80) X10*6/uL Hgb (14.0-18.0) g/dl Hct (42.0-52.0) % MCV (80.0-98.0) fL MCH (27.0-33.0) pg MCHC (31.0-36.0) g/dl RDW (11.0-16.0) % Plt Count (160-400) X10*3/uL MPV (9.4-12.4) fL Immature Gran % (Auto) (0.0-0.4) % Neut % (Auto) (45-73) % Lymph % (Auto) (20-40) % Pierce % (Auto) (2-11) % Eos % (Auto) (0-4) % Baso % (Auto) (0-2) % Lymph # (Auto) (1.2-4.9) X10*3/uL Pierce # (Auto) (0.1-1.2) X10*3/uL Eos # (Auto) (0.0-0.4) X10*3/uL Baso # (Auto) (0.0-0.2) X10*3/uL Abs Immat Gran (auto) (0.00-0.03) X10*3/uL Absolute Neuts (auto) (2.0-8.3) x10*3/uL Absolute Nucleated RBC (0.0-0.012) X10*3/uL Nucleated RBC % (auto) (0.0-0.2) /100WBC Smear Tech's Comments PT (9.9-13.0) SEC INR (0.9-1.1) Sodium (135-145) mmol/L Potassium (3.3-5.1) mmol/L Chloride (96-108) mmol/L Carbon Dioxide (22-29) mmol/L Anion Gap (12-20) BUN (9-16) mg/dL Creatinine (0.5-1.4) mg/dL Estim Creat Clear Calc Estimated GFR Random Glucose (60-115) mg/dL Lactic Acid 2.0 (0.5-2.0) mmol/L Calcium (8.4-10.2) mg/dL Total Bilirubin (0.0-1.0) mg/dL AST (5-37) U/L ALT (0-40) U/L Alkaline Phosphatase (39-117) U/L Total Protein (6.5-8.0) g/dL Albumin (3.5-5.0) g/dL Urine Color YELLOW Urine Appearance CLOUDY Urine pH 8.0 (5.0-8.0) Ur Specific [place] 1.020 (1.005-1.025) Urine Protein 3+ H (NEG-TRACE) MG/DL Urine Glucose (UA) 250 H (NEG) MG/DL Urine Ketones 5 (NEG) MG/DL Urine Blood 2+ H (NEG) Urine Nitrite NEG (NEG) Ur Leukocyte Esterase 2+ H (NEG) Urine RBC 10-14 H (0) /HPF Urine WBC 10-14 H (0-4) /HPF Ur Squamous Epith Cells TRACE /LPF Ur Renal Epithelial Cell TRACE /LPF Urine Bacteria 2+ /LPF Urine Mucus TRACE /LPF Stool Occult Blood (NEGATIVE) COVID-19 (SALTY) Invalid (Negative) COVID-19 Clin Com See Note Influenza Type A (PCR) (Negative) Influenza Type B (PCR) (Negative) RSV RNA Qual (PCR) (Negative) SARS-CoV-2 RNA (RT-PCR) (Negative) 09/27/21 09/27/21 Range/Units 03:40 04:23 WBC (4.8-10.8) X10*3/uL RBC (4.60-5.80) X10*6/uL Hgb (14.0-18.0) g/dl Hct (42.0-52.0) % MCV (80.0-98.0) fL MCH (27.0-33.0) pg MCHC (31.0-36.0) g/dl RDW (11.0-16.0) % Plt Count (160-400) X10*3/uL MPV (9.4-12.4) fL Immature Gran % (Auto) (0.0-0.4) % Neut % (Auto) (45-73) % Lymph % (Auto) (20-40) % Pierce % (Auto) (2-11) % Eos % (Auto) (0-4) % Baso % (Auto) (0-2) % Lymph # (Auto) (1.2-4.9) X10*3/uL Pierce # (Auto) (0.1-1.2) X10*3/uL Eos # (Auto) (0.0-0.4) X10*3/uL Baso # (Auto) (0.0-0.2) X10*3/uL Abs Immat Gran (auto) (0.00-0.03) X10*3/uL Absolute Neuts (auto) (2.0-8.3) x10*3/uL Absolute Nucleated RBC (0.0-0.012) X10*3/uL Nucleated RBC % (auto) (0.0-0.2) /100WBC Smear Tech's Comments PT (9.9-13.0) SEC INR (0.9-1.1) Sodium (135-145) mmol/L Potassium (3.3-5.1) mmol/L Chloride (96-108) mmol/L Carbon Dioxide (22-29) mmol/L Anion Gap (12-20) BUN (9-16) mg/dL Creatinine (0.5-1.4) mg/dL Estim Creat Clear Calc Estimated GFR Random Glucose (60-115) mg/dL Lactic Acid (0.5-2.0) mmol/L Calcium (8.4-10.2) mg/dL Total Bilirubin (0.0-1.0) mg/dL AST (5-37) U/L ALT (0-40) U/L Alkaline Phosphatase (39-117) U/L Total Protein (6.5-8.0) g/dL Albumin (3.5-5.0) g/dL Urine Color Urine Appearance Urine pH (5.0-8.0) Ur Specific [place] (1.005-1.025) Urine Protein (NEG-TRACE) MG/DL Urine Glucose (UA) (NEG) MG/DL Urine Ketones (NEG) MG/DL Urine Blood (NEG) Urine Nitrite (NEG) Ur Leukocyte Esterase (NEG) Urine RBC (0) /HPF Urine WBC (0-4) /HPF Ur Squamous Epith Cells /LPF Ur Renal Epithelial Cell /LPF Urine Bacteria /LPF Urine Mucus /LPF Stool Occult Blood POSITIVE (NEGATIVE) COVID-19 (SALTY) (Negative) COVID-19 Clin Com Influenza Type A (PCR) NEGATIVE (Negative) Influenza Type B (PCR) NEGATIVE (Negative) RSV RNA Qual (PCR) NEGATIVE (Negative) SARS-CoV-2 RNA (RT-PCR) NEGATIVE (Negative) ECG Data Attestation: I personally reviewed and interpreted this ECG as follows: Prior ECG tracings: available for review Interpretation: Atrial fibrillation with RVR, HR-111, RBBB, no STEMI Critical Care Time Critical Care Time Critical Care Time: Yes Total Critical Care Time: 30 Attestation: I personally attest to this time spent taking care of the patient. Discharge Plan Discharge Clinical Impression: Anemia, Sepsis, Dehydration, Pleural effusion, left, Hypoxia, Atrial fibrillation with RVR Patient Disposition: Admitted As Inpatient
[2021-09-27 03:06] LABS: Basophils Percent Auto 0.2 % (0-2); Hematocrit 24.8 % (42.0-52.0); Imm Gran Abs Auto 0.02 X10*3/uL (0.00-0.03); Imm Gran Pct Auto 0.3 % (0.0-0.4); Lymphocytes Absolute Auto 0.2 X10*3/uL (1.2-4.9); Lymphocytes Percent Auto 3.5 % (20-40); MANUAL DIFF FLAG SCAN; Mean Corpuscular HGB Conc 32.3 g/dl (31.0-36.0); Mean Corpuscular Hemoglobin 30.9 pg (27.0-33.0); Mean Corpuscular Volume 95.8 fL (80.0-98.0); Mean Platelet Volume 9.5 fL (9.4-12.4); Monocytes Absolute Auto 0.3 X10*3/uL (0.1-1.2); Monocytes Percent Auto 4.3 % (2-11); Neutrophils Percent Auto 91.7 % (45-73); Platelet Count 144 X10*3/uL (160-400); Red Blood Count 2.59 X10*6/uL (4.60-5.80); Red Cell Distribution Width 17.1 % (11.0-16.0); SCAN SMEAR FLAG 1; White Blood Count 6.5 X10*3/uL (4.8-10.8)
[2021-09-27] MEDS: cefTRIAXone sodium 1 GM in 0.9 % Sodium Chloride 50 ML IV (03:06)
[2021-09-27] MEDS: Acetaminophen Supp 650 MG SUPP.RECT PR ×2 (03:06→09:10)
[2021-09-27 03:11] LABS: Appearance Urine CLOUDY; Color Urine YELLOW; Glucose Urine UA 250 MG/DL (NEG); Leukocyte Esterase Urine 2+ (NEG); Nitrite Urine NEG (NEG); UACC Culture Trigger YES; Urine Blood 2+ (NEG); Urine Ketones 5 MG/DL (NEG); Urine Protein 3+ MG/DL (NEG-TRACE)
[2021-09-27 03:12] LABS: INTERNATIONAL NORM RATIO 1.1 (0.9-1.1); Prothrombin Time 12.9 SEC (9.9-13.0)
[2021-09-27 03:16] LABS: Bacteria Urine 2+ /LPF; Mucus Urine TRACE /LPF; Renal Epithelial Cells Urine TRACE /LPF; Squamous Epithelial Cell Urine TRACE /LPF
--- NOTE | 2021-09-27 03:22 | PC.NURSE ---
This RN assumed care of patient upon arrival. Patient being sent by [facility] for increased weakness x 2 days, hx of dementia but appears more confused. Patient incontinent of dark green stool, was changed into [facility]. Patient has Chest Permacath to be used only for HD (Friday, , Friday). Patient has fever of 102.4, medicated per OCT. 20G IV inserted into the right forearm, patient tolerated. Lactic 2, Creat. 5.95, Dr. Kerr made aware. CXR being obtained. Will continue to monitor
[2021-09-27 03:25] LABS: SLIDE REVIEW VERIFIED
[2021-09-27 03:26] LABS: Alanine Aminotransferase 12 U/L (0-40); Albumin Level 3.5 g/dL (3.5-5.0); Alkaline Phosphatase 57 U/L (39-117); Anion Gap 21 (12-20); Aspartate Amino Transferase 22 U/L (5-37); Bilirubin Total 0.6 mg/dL (0.0-1.0); Blood Urea Nitrogen 53 mg/dL (9-16); Calcium 9.1 mg/dL (8.4-10.2); Carbon Dioxide 24 mmol/L (22-29); Chloride 101 mmol/L (96-108); Creatinine Clr Calc Pharmacy 8.1; Estimated Glomerular Filt Rate 9; Glucose Random 187 mg/dL (60-115); Potassium 4.5 mmol/L (3.3-5.1); Sodium 141 mmol/L (135-145)
[2021-09-27 03:35] LABS: COVID-19 Test Invalid (Negative); IDNOW Serial# 9DD0AD1C
[2021-09-27 04:25] LABS: Influenza A PCR NEGATIVE (Negative); Influenza B PCR NEGATIVE (Negative); Resp Syncy Virus RNA Qual PCR NEGATIVE (Negative); SARS COV2 PCR INHOUSE NEGATIVE (Negative)
[2021-09-27 04:28] LABS: OBS Int Ctl Valid YES; OBS1 POSITIVE (NEGATIVE)
[2021-09-27] MEDS: 0.9 % Sodium Chloride 1,000 ML 999 ML IV (05:18)
--- NOTE | 2021-09-27 08:54 | PHA.MEDREC ---
MED REC COMPLETE, NO ISSUES Pharmacy Consult ? Medication Reconciliation Pharmacy has completed the medication reconciliation.
--- NOTE | 2021-09-27 09:05 | PC.NURSE ---
pt started to vomit, arousable only to painful stimuli, pale, respirations very anywhere from 24-28, sating at 89-90% on 2l, increased to 4l via nasal cannual, rectal temp of 103.3, Tylenol given, small amount of tarry appearance stool, poc 212
[2021-09-27] MEDS: ondansetron HCL 4 MG/2 ML VIAL IVPUSH (09:07)
[2021-09-27] MEDS: Pantoprazole Sodium 40 MG/10 ML VIAL IVPUSH ×2 (09:18→16:12)
[2021-09-27] MEDS: Octreotide Acetate 500 MCG in 0.9 % Sodium Chloride 500 ML 50.1 MCG IVCONT (09:35)
[2021-09-27 09:47] LABS: Glucose, Whole Blood 212 mg/dL (60-115)
--- NOTE | 2021-09-27 10:42 | PHA.PROG ---
Admission Date/Time: Indication: SEPSIS Weight in k.967 kg Adjusted body weight in Kg: [place] body weight in Kg: Obesity Dosing Indication % IBW: Serum Creatinine - Last 168 Hours 09/27/21 03:00 Creatinine 5.95 H* Estimated CrCl and GFR - Last 168 Hours 09/27/21 03:00 Estim Creat Clear Calc 8.1 Estimated GFR 9 Vancomycin Loading Dose: 1000 Current Vancomycin Dosing Regimen:DOSE BY LEVEL, DIALYSIS PT Vancomycin Monitoring using AUC goal of 400 - 600 range with trough as surrogate marker: Date and Time for next Vancomycin Level to be drawn: Pharmacist Comments on Vancomycin Plan: Vancomycin dosing will take advantage of [employer] as a clinical decision support tool that uses Bayesian modeling to calculate individual patient's pharmacokinetic parameters and forecast the patient's drug concentration time course with the target goal AUC 24 range of 400 - 600 mg/L/hr.
--- NOTE | 2021-09-27 10:54 | PM.IMHP ---
History of Present Illness Date of Service: 09/27/21 Chief Complaint: lethargy and low grade fevers at [facility] This is an 80 yo M with a PMH of Dementia, ESRD on HD TTHS, Prior MRSA bacteremia secondary to infected dialysis catheter (in Jun 2021), HTN, Anemia of CKD, DM, HLD who is sent from [facility] ([facility] resident there) for changes in mental status and low grade fevers. The patient, who is typically alert, but disoriented able to follow basic commands, appears to have becoming increasingly lethargic at the [facility]. A Chest XR was checked which showed a plueral effusion and he had a low grade temp of 99.6. For these reasons, he was brought to [facility] ED. Currently, the patient is minimally alert and not able to provide any history. Upon arrival to the ED, he was noted to have multiple fevers, with a TMax of 103.3. His CBC did not show any leukocytosis and his Chest/Abd/Pelvis CT was negative for any acute findings. He has been tachypenic, tachycardic and hypoxic with oxygen saturation dropping to 90% while on 2L. He has been given 1L IVF, IV Rocephin, Multiple rounds of TN tylenol. Cultures have been drawn and now he will be admitted for further treatment. While in the ED, the patient had an episode of black tarry stools. He has vomitus, which per the RN, was yellowish in color without any coffee grounds or blood. He was subsequently given IV PPI and started on octreotide infusion. There are no reports of any variceal disease in his chart. 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 Essential (primary) hypertension Left lower lobe pulmonary infiltrate Metabolic encephalopathy Pneumonia Pertinent family history: Unable to assess FH and PSH due to patients mental status, not available in records from [facility] Social History Alcohol intake: unknown Patient Tobacco Use Status: Former Tobacco user Tobacco use type: Cigarette Use of substances other than those prescribed or required for medical reasons: Unable to respond Advance Directives: Yes Advance Directives on File: Yes Advance Directives Date on File: 06/16/21 Current occupational status: disabled Meds Allergies Allergy/AdvReac Type Severity Reaction Status Date / Time No Known Allergies Allergy Verified 06/22/21 14:22 [No Known Allergies*] Active Medications: Current Medications Acetaminophen (Acetaminophen Supp 650 Mg Supp.Rect) 650 mg TN Q6H PRN PRN Reason: Fever Octreotide Acetate 500 mcg/ (Sodium Chloride) 501 mls @ 50.1 mls/hr IVCONT .Q10H [facility] Last Admin: 09/27/21 09:35 Dose: 50 mcg/hr, 50.1 mls/hr Documented by: Vancomycin HCl 1,000 mg/ (Sodium Chloride) 270 mls @ 270 mls/hr IV ONCE ONE Stop: 09/27/21 11:04 Vancomycin HCl 750 mg/ Sodium (Chloride) 265 mls @ 265 mls/hr IV TUTHSA@1645 [facility] Ondansetron HCl (Ondansetron Hcl 4 Mg/2 Ml Vial) 4 mg IVPUSH Q8H PRN PRN Reason: Nausea and Vomiting Pantoprazole Sodium (Pantoprazole Sodium 40 Mg/10 Ml Vial) 40 mg IVPUSH BID@0630,1630 [facility] Pharmacy Consult (Consult Rx Perform Med Rec) 1 each MISCELLANE ONCE PRN PRN Reason: Consult order Pharmacy Consult (Consult Rx Vancomycin Dosing) 1 each MISCELLANE DAILY PRN PRN Reason: Consult order Sodium Chloride (0.9 % Sodium Chloride Flush 3 Ml Syringe) 3 ml IVFLUSH QSHIFT [facility] Home Medications Medication Instructions Recorded Confirmed Last Taken Type aspirin 81 mg chewable tablet 81 mg PO DAILY 06/16/21 09/27/21 Unknown History atorvastatin 10 mg tablet 1 tab PO DAILY 06/16/21 09/27/21 Unknown History cholecalciferol (vitamin D3) 25 50 mcg PO DAILY 06/16/21 09/27/21 Unknown History mcg (1,000 unit) tablet ferrous sulfate 325 mg (65 mg 325 mg PO TID 06/16/21 09/27/21 Unknown History iron) tablet furosemide 80 mg tablet 1 tab PO BID 06/16/21 09/27/21 Unknown History insulin lispro 100 unit/mL See Rx Instructions .ROUTE .COMPLEX 06/16/21 09/27/21 Unknown History subcutaneous pen (Admelog SoloStar U-100 Insulin lispro) sennosides 8.6 mg tablet (senna) 8.6 mg PO DAILY 06/16/21 09/27/21 Unknown History sevelamer carbonate 800 mg tablet 1 tab PO TID 06/16/21 09/27/21 Unknown History tamsulosin 0.4 mg capsule 1 cap PO DAILY@1730 06/16/21 09/27/21 Unknown History vitamin B complex and vitamin C 1 cap PO DAILY 06/16/21 09/27/21 Unknown History no.20-folic acid 1 mg capsule acetaminophen 325 mg tablet 650 mg PO Q6H PRN 09/27/21 09/27/21 Unknown History bisacodyl 10 mg rectal suppository 10 mg TN DAILY PRN 09/27/21 09/27/21 Unknown History d-mannose 500 mg capsule 1,000 mg PO DAILY 09/27/21 09/27/21 Unknown History docusate sodium 100 mg capsule 100 mg PO BID PRN 09/27/21 09/27/21 Unknown History Physical Exam Vital Signs and Narrative: Vital Signs: Last Vital Signs Temp 103.3 F H 09/27/21 09:10 Pulse 116 H 09/27/21 09:41 Resp 28 H 09/27/21 09:41 BP 159/65 H 09/27/21 09:41 Pulse Ox 95 09/27/21 09:41 Oxygen Flow Rate 2 09/27/21 02:46 BMI result Body Mass Index 19.8 Const: Other: Constitutional - Awake and responds to verbal stimuli by eye movement otherwise non-verbal, ill appearing Eyes - PERRLA, EOMI Cardiovascular - S1S2, tachycardric on the monitor, Rates in the 110s Respiratory - mild tachypnea around 24-26; dim breath sounds; no accessory muscle usage Gastrointestinal - NT / ND; +BS; No rebound or guarding - No CVA tenderness Extremities - muscle wasting of the b/l LE Skin - appears pale, L upper chest dialysis cath without any surrounding erythema or drainage Neurological - awake but not alert, EOMI, unable to assess for motor function; ? contracted LE b/l Results Labs CBC and Chem 7: 09/27/21 11:10 09/27/21 03:00 Labs: Laboratory Results - last 24 hr 09/27/21 09/27/21 09/27/21 03:00 03:00 03:00 MCV 95.8 MCH 30.9 MCHC 32.3 RDW 17.1 H Plt Count 144 L MPV 9.5 Immature Gran % (Auto) 0.3 Neut % (Auto) 91.7 H Lymph % (Auto) 3.5 L [place] % (Auto) 4.3 Eos % (Auto) 0.0 Baso % (Auto) 0.2 Lymph # (Auto) 0.2 L [place] # (Auto) 0.3 Eos # (Auto) 0.0 Baso # (Auto) 0.0 Abs Immat Gran (auto) 0.02 Absolute Neuts (auto) 6.0 Absolute Nucleated RBC 0.000 Nucleated RBC % (auto) 0.0 Smear Tech's Comments VERIFIED PT 12.9 INR 1.1 Anion Gap 21 H Estim Creat Clear Calc 8.1 Estimated GFR 9 POC Glucose Random Glucose 187 H D Lactic Acid Calcium 9.1 D Total Bilirubin 0.6 AST 22 ALT 12 Alkaline Phosphatase 57 Total Protein 7.0 D Albumin 3.5 D Urine Color Urine Appearance Urine pH Ur Specific [place] Urine Protein Urine Glucose (UA) Urine Ketones Urine Blood Urine Nitrite Ur Leukocyte Esterase Urine RBC Urine WBC Ur Squamous Epith Cells Ur Renal Epithelial Cell Urine Bacteria Urine Mucus Stool Occult Blood COVID-19 ([facility]) COVID-19 Clin Com Influenza Type A (PCR) Influenza Type B (PCR) RSV RNA Qual (PCR) SARS-CoV-2 RNA (RT-PCR) 09/27/21 09/27/21 09/27/21 03:00 03:00 03:01 MCV MCH MCHC RDW Plt Count MPV Immature Gran % (Auto) Neut % (Auto) Lymph % (Auto) [place] % (Auto) Eos % (Auto) Baso % (Auto) Lymph # (Auto) [place] # (Auto) Eos # (Auto) Baso # (Auto) Abs Immat Gran (auto) Absolute Neuts (auto) Absolute Nucleated RBC Nucleated RBC % (auto) Smear Tech's Comments PT INR Anion Gap Estim Creat Clear Calc Estimated GFR POC Glucose Random Glucose Lactic Acid 2.0 Calcium Total Bilirubin AST ALT Alkaline Phosphatase Total Protein Albumin Urine Color YELLOW Urine Appearance CLOUDY Urine pH 8.0 Ur Specific [place] 1.020 Urine Protein 3+ H Urine Glucose (UA) 250 H Urine Ketones 5 Urine Blood 2+ H Urine Nitrite NEG Ur Leukocyte Esterase 2+ H Urine RBC 10-14 H Urine WBC 10-14 H Ur Squamous Epith Cells TRACE Ur Renal Epithelial Cell TRACE Urine Bacteria 2+ Urine Mucus TRACE Stool Occult Blood COVID-19 ([facility]) Invalid COVID-19 Clin Com See Note Influenza Type A (PCR) Influenza Type B (PCR) RSV RNA Qual (PCR) SARS-CoV-2 RNA (RT-PCR) 09/27/21 09/27/21 09/27/21 03:40 04:23 09:25 MCV MCH MCHC RDW Plt Count MPV Immature Gran % (Auto) Neut % (Auto) Lymph % (Auto) [place] % (Auto) Eos % (Auto) Baso % (Auto) Lymph # (Auto) [place] # (Auto) Eos # (Auto) Baso # (Auto) Abs Immat Gran (auto) Absolute Neuts (auto) Absolute Nucleated RBC Nucleated RBC % (auto) Smear Tech's Comments PT INR Anion Gap Estim Creat Clear Calc Estimated GFR POC Glucose 212 H Random Glucose Lactic Acid Calcium Total Bilirubin AST ALT Alkaline Phosphatase Total Protein Albumin Urine Color Urine Appearance Urine pH Ur Specific [place] Urine Protein Urine Glucose (UA) Urine Ketones Urine Blood Urine Nitrite Ur Leukocyte Esterase Urine RBC Urine WBC Ur Squamous Epith Cells Ur Renal Epithelial Cell Urine Bacteria Urine Mucus Stool Occult Blood POSITIVE COVID-19 ([facility]) COVID-19 Clin Com Influenza Type A (PCR) NEGATIVE Influenza Type B (PCR) NEGATIVE RSV RNA Qual (PCR) NEGATIVE SARS-CoV-2 RNA (RT-PCR) NEGATIVE Imaging Radiologist's Impressions: Impressions Chest X-Ray 09/27/21 03:34 IMPRESSION: Stable small moderate left pleural effusion and accompanying atelectasis. Improved aeration at the right lung base. Abdomen/Pelvis CT 09/27/21 05:40 IMPRESSION: * No acute findings within the chest, abdomen and pelvis. * Stable chronic bilateral pleural effusions, larger on the left with associated round atelectasis. * Marked cardiomegaly and triple vessel coronary calcifications. * Stable distended rectum containing a large amount of stool without evidence of stercoral colitis. * Stable chronic bladder wall thickening, with Giles catheter in place. Chest CT 09/27/21 05:40 IMPRESSION: * No acute findings within the chest, abdomen and pelvis. * Stable chronic bilateral pleural effusions, larger on the left with associated round atelectasis. * Marked cardiomegaly and triple vessel coronary calcifications. * Stable distended rectum containing a large amount of stool without evidence of stercoral colitis. * Stable chronic bladder wall thickening, with Giles catheter in place. Assessment and Plan (1) Sepsis: Status: Acute Plan This is an 80 yo M with a PMH of Dementia, ESRD on HD TTHS, Prior MRSA bacteremia secondary to infected dialysis catheter (in Jun 2021), HTN, Anemia of CKD, DM, HLD who is sent from [facility] ([facility] resident there) for changes in mental status and low grade fevers. He also is found to have possible GI bleed while in the ED. He will be admitted for Sepsis and suspected Gastrointestinal bleed. 1. Sepsis, source not known at this time causing toxic/metabolic encephalopathy Has prior MRSA bacteremia due to infected dialysis catheter. Cultures have been drawn, will draw another set from the dialysis catheter. UA also with pyuria / bacteria. 1 dose of IV vancomcyin now; further dosing post dialysis; addendum: initial blood cx already positive - 2/2 for GPC. Will hold gram neg coverage and use Vancomcyin alone No severe features -- his SCr is related to ESRD and not Severe sepsis 2. Acute Respiratory Failure with hypoxia Saturations dropped to 90% while on oxygen; further more he is have tahcypnea with shallow breathing No evidnece of pneumonia on Chest imaging ? related to ESRD -- is due to dialysis today; 3. ESRD on HD T, TH, S Nephrology consulted, likely needs dialysis today 4. Melanotic stools, suspected lower GI bleed, acute blood loss anemia trend h/h -- decreased from 04/03 to 7.2/22.8 -- will transfuse 1 unit prbc and continue further trending of h/h IV PPI and GI consult NPO low dose IVF with D5-1/2 NS 5. Dementia without behavioral disturbances continue baseline meds once no longer NPO 6. HTN hold PO meds 7. DM hold meds gentle IVF POC q6h 8. Chronic combined systolic/diastolic CHF lasix on hold remove volume during dialysis DNR/DNI per [facility] form sent from [facility] DVT pptx, Mechanical due to possible GI bleed Called both HCPs listed on [facility] records -- went unanswered Quality Stroke Does the patient have a stroke diagnosis?: No VTE Prior VTE?: No VTE Risk Level:: Medical - moderate - high VTE Device Contraindication: N/A - Device Ordered VTE Drug Contraindication: Treatment Not Indicated
[2021-09-27 11:18] LABS: Hematocrit 22.8 % (42.0-52.0); Hemoglobin 7.2 g/dl (14.0-18.0); Mean Corpuscular HGB Conc 31.6 g/dl (31.0-36.0); Mean Corpuscular Hemoglobin 30.9 pg (27.0-33.0); Mean Corpuscular Volume 97.9 fL (80.0-98.0); Platelet Count 120 X10*3/uL (160-400); Red Blood Count 2.33 X10*6/uL (4.60-5.80); Red Cell Distribution Width 17.3 % (11.0-16.0); White Blood Count 6.7 X10*3/uL (4.8-10.8)
[2021-09-27] MEDS: vancomycin HCL 1,000 MG in 0.9 % Sodium Chloride 250 ML 270 MG IV (11:25)
--- NOTE | 2021-09-27 11:33 | PC.NURSE ---
pt appears better, fever down to 101.3, hr 90 ns, more alert and will attempt to answer some questions, siddiqui in place but almost no out put at this time, maybe 50cc
--- NOTE | 2021-09-27 11:55 | PC.NURSE ---
octreotide stopped per tere, pt going to dialysis at this time
--- NOTE | 2021-09-27 13:44 | P.CNGI_ITS ---
History of Present Illness Data of Consult Service Date: 09/27/21 Requesting physician: Carlos Alexander Primary Care Provider: Unknown Physician HPI Reason for consult: GI Bleed 80 YM seen at [facility] this am with fever and weakness: 80-year-old male, DNR/DNI, from [facility] arrives via EMS with reports that he has appeared to be more weak than usual for the last 2 days and staff reportedly states that patient has a left pleural effusion and is on hemodialysis (Friday, , Friday).? Patient does have an underlying history of dementia but appears to be more confused than usual and was noted to have a fever . Upon arrival to the ED, he was noted to have multiple fevers, with a TMax of 103.3. His CBC did not show any leukocytosis and his Chest/Abd/Pelvis CT was negative for any acute findings. He has been tachypenic, tachycardic and hypoxic with oxygen saturation dropping to 90% while on 2L. He has been given 1L IVF, IV Rocephin, Multiple rounds of AR tylenol. Cultures have been drawn and now he will be admitted for further treatment. While in the ED, the patient had an episode of black tarry stools. He has vomitus, which per the RN, was yellowish in color without any coffee grounds or blood. He was subsequently given IV PPI and started on octreotide infusion. There are no reports of any variceal disease in his chart. ? Pt was transfused 1 unit PRBC during HD - repeat H&H is pending. Patient reported by nursing staff to have a small bowel movement containing some dark blood without active bleeding. Difficult to obtain a hx from the patient since he is able to answer a few questions. 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 Essential (primary) hypertension Left lower lobe pulmonary infiltrate Metabolic encephalopathy Pneumonia Social History Social History Household Members: Other Housing: Retirement Unable to assess alcohol history related to: Unable to respond Alcohol intake: unknown Patient Tobacco Use Status: Former Tobacco user Tobacco use type: Cigarette Advance Directives Date on File: 06/16/21 Current occupational status: disabled Meds Allergies Allergy/AdvReac Type Severity Reaction Status Date / Time No Known Allergies Allergy Verified 06/22/21 14:22 [No Known Allergies*] Active Medications: Current Medications Acetaminophen (Acetaminophen Supp 650 Mg Supp.Rect) 650 mg AR Q6H PRN PRN Reason: Fever Vancomycin HCl 750 mg/ Sodium (Chloride) 265 mls @ 265 mls/hr IV TUTHSA@1645 [facility] Dextrose/Sodium Chloride (D51/2ns) 1,000 mls @ 50 mls/hr IVCONT .Q20H [facility] Ondansetron HCl (Ondansetron Hcl 4 Mg/2 Ml Vial) 4 mg IVPUSH Q8H PRN PRN Reason: Nausea and Vomiting Pantoprazole Sodium (Pantoprazole Sodium 40 Mg/10 Ml Vial) 40 mg IVPUSH BID@0630,1630 [facility] Pharmacy Consult (Consult Rx Perform Med Rec) 1 each MISCELLANE ONCE PRN PRN Reason: Consult order Pharmacy Consult (Consult Rx Vancomycin Dosing) 1 each MISCELLANE DAILY PRN PRN Reason: Consult order Sodium Chloride (0.9 % Sodium Chloride Flush 3 Ml Syringe) 3 ml IVFLUSH QSHIFT [facility] Home Medications Medication Instructions Recorded Confirmed Last Taken Type aspirin 81 mg chewable tablet 81 mg PO DAILY 06/16/21 09/27/21 Unknown History atorvastatin 10 mg tablet 1 tab PO DAILY 06/16/21 09/27/21 Unknown History cholecalciferol (vitamin D3) 25 50 mcg PO DAILY 06/16/21 09/27/21 Unknown History mcg (1,000 unit) tablet ferrous sulfate 325 mg (65 mg 325 mg PO TID 06/16/21 09/27/21 Unknown History iron) tablet furosemide 80 mg tablet 1 tab PO BID 06/16/21 09/27/21 Unknown History insulin lispro 100 unit/mL See Rx Instructions .ROUTE .COMPLEX 06/16/21 09/27/21 Unknown History subcutaneous pen (Admelog SoloStar U-100 Insulin lispro) sennosides 8.6 mg tablet (senna) 8.6 mg PO DAILY 06/16/21 09/27/21 Unknown History sevelamer carbonate 800 mg tablet 1 tab PO TID 06/16/21 09/27/21 Unknown History tamsulosin 0.4 mg capsule 1 cap PO DAILY@1730 06/16/21 09/27/21 Unknown History vitamin B complex and vitamin C 1 cap PO DAILY 06/16/21 09/27/21 Unknown History no.20-folic acid 1 mg capsule acetaminophen 325 mg tablet 650 mg PO Q6H PRN 09/27/21 09/27/21 Unknown History bisacodyl 10 mg rectal suppository 10 mg AR DAILY PRN 09/27/21 09/27/21 Unknown History d-mannose 500 mg capsule 1,000 mg PO DAILY 09/27/21 09/27/21 Unknown History docusate sodium 100 mg capsule 100 mg PO BID PRN 09/27/21 09/27/21 Unknown History Physical Exam Vital Signs: Vital Signs: Last Vital Signs Temp 101.3 F H 09/27/21 11:29 Pulse 95 09/27/21 11:29 Resp 22 H 09/27/21 11:29 BP 159/75 H 09/27/21 11:29 Pulse Ox 96 09/27/21 11:29 Oxygen Flow Rate 2 09/27/21 02:46 BMI result Body Mass Index 19.8 Const: General: no acute distress and ill appearing (Chronically ill- appearing) Nutritional Appearance: underweight Orientation/consciousness: patient oriented x3 Limitations: no limitations HENMT: Head: Yes normal to inspection Ears: hearing grossly normal bilaterally Mouth: Normal oral and palatal mucosa present Eyes: Sclerae: sclerae normal Pupils: Equal, round and reactive pupils present Neck: Neck: Yes normal visual inspection Chest: Chest palpation & inspection: normal inspection of the chest Resp: Effort & Inspection: tachypneic Auscultation: diminished lung sounds (Bilaterally) Cardio: Palpation: normal PMI Rate: regular rate Rhythm: regular rhythm Heart sounds: S1 normal heart sound present, S2 normal heart sound present and no murmurs GI: Palpation (GI): Soft to palpation, nontender and No hepatosplenomegaly present Auscultation: normal bowel sounds Rectal Exam - Male: Yes deferred Skin: General skin exam: no rashes or lesions noted Neuro: General: patient oriented x3, gait normal and moves all extremities Cranial nerves: Yes Equal, round and reactive pupils present Psych: Appearance: grossly normal Mental Status: mental status grossly normal Results Labs CBC & Chem 7: 10/01/21 09:07 10/01/21 09:07 Labs: Short CBC 09/27/21 09/27/21 Range/Units 03:00 11:10 WBC 6.5 6.7 (4.8-10.8) X10*3/uL Hgb 8.0 L D 7.2 L (14.0-18.0) g/dl Hct 24.8 L D 22.8 L (42.0-52.0) % Plt Count 144 L 120 L (160-400) X10*3/uL BMP 09/27/21 03:00 Sodium 141 Potassium 4.5 Chloride 101 Carbon Dioxide 24 BUN 53 H Creatinine 5.95 H* Calcium 9.1 D Liver Function 09/27/21 Range/Units 03:00 Total Bilirubin 0.6 (0.0-1.0) mg/dL AST 22 (5-37) U/L ALT 12 (0-40) U/L Alkaline Phosphatase 57 (39-117) U/L Albumin 3.5 D (3.5-5.0) g/dL Urine 09/27/21 Range/Units 03:00 Urine Color YELLOW Urine Appearance CLOUDY Urine pH 8.0 (5.0-8.0) Ur Specific [place] 1.020 (1.005-1.025) Urine Protein 3+ H (NEG-TRACE) MG/DL Urine Glucose (UA) 250 H (NEG) MG/DL Microbiology Microbiology Results: Microbiology 09/27/21 03:00 Blood - Venous Blood Culture - Preliminary Prelim: GPC Gram Stain only Assessment and Plan (1) End stage renal disease: Status: Acute (2) Anemia: Status: Acute (3) Melena: Status: Acute Plan 80 yo M with Dementia, ESRD on HD TTHS, Prior MRSA bacteremia secondary to i nfected dialysis catheter (in Jun 2021), HTN, Anemia of CKD, DM, HLD transferred from [facility] (LTC resident there) for changes in mental status and low grade fevers and possible GI bleed while in the ED. Pt was admitted for Sepsis and suspected Gastrointestinal bleed and transfused 1 unit PRBC during HD - repeat H&H is pending. Patient reported by nursing staff to have a small bowel movement containing some dark blood without active bleeding. Unclear if patient has an upper versus lower GI source of bleeding. Pt is high risk for anesthesia given sepsis, multiple comorbidities and dementia Pt has chronic thrombocytopenia of unclear etiology. Liver did not appear to be cirrhotic on Abd CT scan. RECOMMENDATIONS: 1. Agree with IV PPI and monitor H & H Q 12 hrly x 1 and then once daily if s table 2. Transfuse prn for H & H less than 23%. 3. Can re-evaluate for endoscopic intervention once his fevers subside. Procedures Date of Service Date of Service: 09/27/21
[2021-09-27 14:38] LABS: Glucose, Whole Blood 148 mg/dL (60-115)
--- NOTE | 2021-09-27 15:52 | P.CONNP_ITS ---
History of Present Illness Reason for Consult Consult date: 09/27/21 Reason for consult: ESRD care admitted with failure to thrive from long-term. Chief Complaint Chief complaint: Lethargy, low grade temp History of Present Illness Narrative: Pleasant 80-year-old gentleman with known medical history of ESRD on intermittent hemodialysis 3 times a week prior history of MRSA sepsis pleural effusion who was sent in from dialysis center for fever and failure to thrive. Admitted for evaluation of potential sepsis given IV vancomycin in the emergency room due for dialysis today. Patient is a poor historian nonverbal, all history obtained from medical record. 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 Essential (primary) hypertension Left lower lobe pulmonary infiltrate Metabolic encephalopathy Pneumonia Social History Social History Household Members: Other Housing: [facility] Unable to assess alcohol history related to: Unable to respond Alcohol intake: unknown Patient Tobacco Use Status: Former Tobacco user Tobacco use type: Cigarette Use of substances other than those prescribed or required for medical reasons: No Currently Displaying Signs/Symptoms of Drug Intoxication Withdrawal: No Advance Directives: Yes Advance Directives on File: Yes Advance Directives Date on File: 06/16/21 Do you have thoughts of harming others: None Do you have a plan to hurt others: No Plan Recently lost weight without trying: Unsure Nutrition Risks: On aspiration precautions Poor oral hygiene: Yes Current occupational status: disabled Meds Allergies Allergy/AdvReac Type Severity Reaction Status Date / Time No Known Allergies Allergy Verified 06/22/21 14:22 [No Known Allergies*] Active Medications: Current Medications Acetaminophen (Acetaminophen Supp 650 Mg Supp.Rect) 650 mg CO Q6H PRN PRN Reason: Fever Vancomycin HCl 750 mg/ Sodium (Chloride) 265 mls @ 265 mls/hr IV [id number] MARTHA Dextrose/Sodium Chloride (D51/2ns) 1,000 mls @ 50 mls/hr IVCONT .Q20H MARTHA Ondansetron HCl (Ondansetron Hcl 4 Mg/2 Ml Vial) 4 mg IVPUSH Q8H PRN PRN Reason: Nausea and Vomiting Pantoprazole Sodium (Pantoprazole Sodium 40 Mg/10 Ml Vial) 40 mg IVPUSH BID@0630,1630 [facility] [place] Pharmacy Consult (Consult Rx Perform Med Rec) 1 each MISCELLANE ONCE PRN PRN Reason: Consult order Pharmacy Consult (Consult Rx Vancomycin Dosing) 1 each MISCELLANE DAILY PRN PRN Reason: Consult order Sodium Chloride (0.9 % Sodium Chloride Flush 3 Ml Syringe) 3 ml IVFLUSH QSHIFT [facility] [place] Home Medications Medication Instructions Recorded Confirmed Last Taken Type aspirin 81 mg chewable tablet 81 mg PO DAILY 06/16/21 09/27/21 Unknown History atorvastatin 10 mg tablet 1 tab PO DAILY 06/16/21 09/27/21 Unknown History cholecalciferol (vitamin D3) 25 50 mcg PO DAILY 06/16/21 09/27/21 Unknown History mcg (1,000 unit) tablet ferrous sulfate 325 mg (65 mg 325 mg PO TID 06/16/21 09/27/21 Unknown History iron) tablet furosemide 80 mg tablet 1 tab PO BID 06/16/21 09/27/21 Unknown History insulin lispro 100 unit/mL See Rx Instructions .ROUTE .COMPLEX 06/16/21 09/27/21 Unknown History subcutaneous pen (Admelog SoloStar U-100 Insulin lispro) sennosides 8.6 mg tablet (senna) 8.6 mg PO DAILY 06/16/21 09/27/21 Unknown History sevelamer carbonate 800 mg tablet 1 tab PO TID 06/16/21 09/27/21 Unknown History tamsulosin 0.4 mg capsule 1 cap PO DAILY@1730 06/16/21 09/27/21 Unknown History vitamin B complex and vitamin C 1 cap PO DAILY 06/16/21 09/27/21 Unknown History no.20-folic acid 1 mg capsule acetaminophen 325 mg tablet 650 mg PO Q6H PRN 09/27/21 09/27/21 Unknown History bisacodyl 10 mg rectal suppository 10 mg CO DAILY PRN 09/27/21 09/27/21 Unknown History d-mannose 500 mg capsule 1,000 mg PO DAILY 09/27/21 09/27/21 Unknown History docusate sodium 100 mg capsule 100 mg PO BID PRN 09/27/21 09/27/21 Unknown History Physical Exam Vital Signs: Last Vital Signs Temp 97.5 F 09/27/21 14:27 Pulse 74 09/27/21 14:27 Resp 20 09/27/21 14:27 BP 111/47 L 09/27/21 14:27 Pulse Ox 96 09/27/21 11:29 Oxygen Flow Rate 2 09/27/21 02:46 BMI result Body Mass Index 19.8 Lethargic but arousable, Oral dry mucosa. S1-S2 no cardiac murmurs noted. Left chest PermCath, malodorous smell noted on exit site. Decreased breath sounds in both bases both lungs. Abdomen soft benign nontender. Extremities no edema. Neurology nonfocal able to follow 4 extremities opens eyes to calling his name. Results Lab Results Result Diagrams: 09/27/21 11:10 09/27/21 03:00 Lab results: Chemistry 09/27/21 03:00 Sodium 141 Potassium 4.5 Carbon Dioxide 24 BUN 53 H Creatinine 5.95 H* Calcium 9.1 D Hematology 09/27/21 09/27/21 03:00 11:10 WBC 6.5 6.7 Hgb 8.0 L D 7.2 L Plt Count 144 L 120 L Urinalysis 09/27/21 03:00 Urine Color YELLOW Urine Appearance CLOUDY Urine pH 8.0 Ur Specific Cascade 1.020 Urine Protein 3+ H Urine Glucose (UA) 250 H Urine Ketones 5 Urine Blood 2+ H Urine Nitrite NEG Ur Leukocyte Esterase 2+ H Urine RBC 10-14 H Urine WBC 10-14 H Ur Squamous Epith Cells TRACE Assessment and Plan (1) End stage renal disease: Status: Acute (2) Sepsis: Status: Acute (3) Anemia: Status: Acute (4) Staphylococcus aureus bacteremia: Status: Acute (5) Adult failure to thrive: Status: Acute Plan Patient known to have previous history of sepsis secondary to MRSA. I suspect PermCath could be the source, at the present time he is getting blood cultures from both PermCath and peripheral, with have a low threshold to remove permacath over the weekend resume PermCath placement on Friday or Friday before next dialysis. We can hold off on dialysis on Friday. History of MRSA bacteremia, if persistently bacteremic consider removal of permacath and reinsertion once blood cultures negative early next week, continue with IV antibiotic vancomycin postdialysis which I completely agree, if persistently bacteremic consider transthoracic echo rule out cardiac see ding/endocarditis versus other seeding areas such as bone, consider ID consult. Regarding ESRD he is receiving dialysis today of his previous regular regimen, as mentioned above we can hold off on dialysis Friday remove dialysis catheter today or tomorrow and reinsert on Friday or Friday blood cultures are negative. Orders for dialysis in place. Tolerating dialysis treatment well today. Anemia consider blood transfusion 1 unit to keep hemoglobin above 7.5. Resume his outpatient medications, define goals of care with HCP. Renal team will continue to follow. Thank you for consultation. Procedures Date of Service Date of Service: 09/27/21
[2021-09-27] MEDS: Dextrose 5 % and 0.45 % NaCl 1,000 ML 50 ML IVCONT (16:12)
[2021-09-27] MEDS: vancomycin HCL 750 MG in 0.9 % Sodium Chloride 250 ML 265 MG IV (16:12)
[2021-09-27] MEDS: 0.9 % Sodium Chloride Flush 3 ML SYRINGE IVFLUSH ×2 (16:12→21:27)
[2021-09-27 16:18] LABS: Glucose, Whole Blood 127 mg/dL (60-115)
[2021-09-27 19:23] LABS: Hematocrit 26.9 % (42.0-52.0); Hemoglobin 8.6 g/dl (14.0-18.0)
[2021-09-27 20:01] LABS: Glucose, Whole Blood 193 mg/dL (60-115)
[2021-09-28 01:16] LABS: Glucose, Whole Blood 150 mg/dL (60-115)
[2021-09-28 04:00] VITALS: BP 140/73; PULSE 86; RESP 18; TEMP 37.4; O2SAT 94
[2021-09-28] MEDS: Pantoprazole Sodium 40 MG/10 ML VIAL IVPUSH ×2 (05:42→15:47)
[2021-09-28 07:31] LABS: Glucose, Whole Blood 162 mg/dL (60-115)
[2021-09-28 08:00] VITALS: BP 122/71; PULSE 83; RESP 20; TEMP 37.3; O2SAT 96
[2021-09-28] MEDS: Dextrose 5 % and 0.45 % NaCl 1,000 ML 50 ML IVCONT (09:11)
[2021-09-28] MEDS: 0.9 % Sodium Chloride Flush 3 ML SYRINGE IVFLUSH ×3 (09:15→20:00)
--- NOTE | 2021-09-28 09:34 | PM.PNNEP ---
Subjective Subjective Date of Service: 09/28/21 Principal diagnosis: no complaints this AM had HAD yesterday Physical Exam Vital Signs: Vital Signs: Last Vital Signs Temp 99.2 F 09/28/21 08:00 Pulse 83 09/28/21 08:00 Resp 20 09/28/21 08:00 BP 122/71 09/28/21 08:00 Pulse Ox 96 09/28/21 08:00 Oxygen Flow Rate 2 09/27/21 02:46 BMI result Body Mass Index 19.8 oral moist mucosa left chest permcath lungs clear s1s2 abd soft +BSs ext no edema Objective Data Labs CBC & Chem 7: 09/27/21 19:16 09/27/21 03:00 Labs: Laboratory Results - last 24 hr 09/27/21 09/27/21 09/27/21 09:25 11:10 11:10 WBC 6.7 RBC 2.33 L Hgb 7.2 L Hct 22.8 L MCV 97.9 MCH 30.9 MCHC 31.6 RDW 17.3 H Plt Count 120 L MPV 9.0 L Absolute Nucleated RBC 0.000 Nucleated RBC % (auto) 0.0 POC Glucose 212 H Blood Type A Positive Antibody Screen NEGATIVE Crossmatch See Detail 09/27/21 09/27/21 09/27/21 14:22 16:06 19:16 WBC RBC Hgb 8.6 L Hct 26.9 L MCV MCH MCHC RDW Plt Count MPV Absolute Nucleated RBC Nucleated RBC % (auto) POC Glucose 148 H 127 H Blood Type Antibody Screen Crossmatch 09/27/21 09/28/21 09/28/21 19:36 01:12 07:12 WBC RBC Hgb Hct MCV MCH MCHC RDW Plt Count MPV Absolute Nucleated RBC Nucleated RBC % (auto) POC Glucose 193 H 150 H 162 H Blood Type Antibody Screen Crossmatch Microbiology Microbiology Results: Microbiology 09/27/21 03:00 Blood - Venous Blood Culture - Preliminary Staphylococcus aureus 09/27/21 03:00 Blood - Venous Blood Culture - Preliminary Staphylococcus aureus 09/27/21 13:02 Blood - Subclavian Blood Culture - Preliminary Prelim: GPC Gram Stain only 09/27/21 13:02 Blood - Subclavian Blood Culture - Preliminary Prelim: GPC Gram Stain only Procedures Date of Service Date of Service: 09/28/21 Assessment & Plan Assessment and plan (1) End stage renal disease: Status: Acute (2) Staphylococcus aureus bacteremia: Status: Acute (3) Anemia in ESRD (end-stage renal disease): Status: Acute Plan ESRD Permcath cath +BCXs for GPCs, peripheral BCXs staph aureus bacteremia likely permcath source euvolemic today HTN stable Recs ID consult IV VAncomycin as per Med and ID if ID agrees Permcath as source pls pull Permcath plan to stay off HD until early next week when BCXs neg will re insert permcath monitor lytes low K diet meds reivewed. Time Spent With Patient Time: Total time spent is greater than 50% in coordination of care (as documented) at patient's floor/unit and/or counseling patient: Progress Note: Quality Stroke Does the patient have a stroke diagnosis?: No
--- NOTE | 2021-09-28 10:24 | PC.NURSE ---
Skin assessment completed. Patient has a laceration to left ear draining yellow fluid. Xeroform applied covered with small Tegaderm.
--- NOTE | 2021-09-28 10:50 | HE.PHANOTE ---
VANCOMYCIN ADDENDUM: Patient is refusing all labs. At this time we can not accurately monitor the vancomycin. I have put the vancomycin order on hold until 09/30 @ 0900. I scheduled another trough for post dialysis at 1800 on 09/29. We will reevaluate after the trough on 09/29 if the patient doesn't refuse.
[2021-09-28 11:06] LABS: Glucose, Whole Blood 161 mg/dL (60-115)
[2021-09-28 11:28] LABS: Hematocrit 27.7 % (42.0-52.0); Hemoglobin 8.9 g/dl (14.0-18.0); Mean Corpuscular HGB Conc 32.1 g/dl (31.0-36.0); Mean Corpuscular Hemoglobin 31.1 pg (27.0-33.0); Mean Corpuscular Volume 96.9 fL (80.0-98.0); Mean Platelet Volume 10.2 fL (9.4-12.4); Platelet Count 117 X10*3/uL (160-400); Red Blood Count 2.86 X10*6/uL (4.60-5.80); Red Cell Distribution Width 16.9 % (11.0-16.0)
[2021-09-28 11:30] VITALS: BP 146/70; PULSE 89; RESP 20; TEMP 36.9; O2SAT 91
[2021-09-28 11:50] LABS: Anion Gap 16 (12-20); Blood Urea Nitrogen 46 mg/dL (9-16); Calcium 8.1 mg/dL (8.4-10.2); Carbon Dioxide 22 mmol/L (22-29); Chloride 101 mmol/L (96-108); Creatinine Clr Calc Pharmacy 10.4; Estimated Glomerular Filt Rate 12; Glucose Random 170 mg/dL (60-115); Potassium 4.4 mmol/L (3.3-5.1); Sodium 135 mmol/L (135-145)
[2021-09-28 12:09] LABS: Vancomycin Random 26.4 mcg/mL (15-20)
--- NOTE | 2021-09-28 12:39 | MHC.CM.PN ---
Addendum entered by Radha Styles 09/28/21 12:43: BLOOD Cultures + HD T TH SAT, Permacath removed. HD on hold over weekend. Plan is to insert line once cultures clear. Original Note: imm 09/28/21 VIA PHONE TO JORDAN CASTANO. HE VERBALIZED UNDERSTANDING OF MEDICARE RIGHTS. HIS PHONE WAS NOT WORKING YESTERDAY, HE APOLOGIZED FOR MISSING CALLS FROM THE MD. DP RETURN TO [facility] VIA BLS.
[2021-09-28 15:51] LABS: Glucose, Whole Blood 160 mg/dL (60-115)
--- NOTE | 2021-09-28 16:10 | P.PNIM_ITS ---
Subjective Subjective Date of Service: 09/28/21 Interval History: seen and examined this morning pleasantly confused, offers no complaints denies pain or feeling short of breath Review of Systems Review of Systems: Yes all other systems are reviewed and are negative Constitutional Constitutional: Denies chills and Denies fever(s) Cardiovascular Cardiovascular: Denies dyspnea Respiratory Respiratory: Denies cough and Denies dyspnea Physical Exam Vital Signs: Vital Signs: Last Vital Signs Temp 98.5 F 09/28/21 11:30 Pulse 89 09/28/21 11:30 Resp 20 09/28/21 11:30 BP 146/70 H 09/28/21 11:30 Pulse Ox 91 L 09/28/21 11:30 Oxygen Flow Rate 2 09/27/21 02:46 BMI result Body Mass Index 19.8 Const: General: cooperative, comfortable, no acute distress, alert and awake Nutritional Appearance: thin Chest: Other: permacath present left side Resp: Effort & Inspection: normal respiratory effort and able to speak in com plete sentences Cardio: Rate: regular rate Heart sounds: S1 normal heart sound present and S2 normal heart sound present GI: Inspection: No distended Palpation (GI): Soft to palpation and nontender : Other: siddiqiu draining yellow urine Extrem: Other: no leg edema Objective Data Active Medications Acetaminophen (Acetaminophen Supp 650 Mg Supp.Rect) 650 mg [place] Q6H PRN PRN Reason: Fever Vancomycin HCl 750 mg/ Sodium (Chloride) 265 mls @ 265 mls/hr IV TUTHSA@1645 [facility] Last Infusion: 09/27/21 17:13 Dose: 0 mls/hr Documented by: CHI Dextrose/Sodium Chloride (D51/2ns) 1,000 mls @ 50 mls/hr IVCONT .Q20H [facility] Last Admin: 09/28/21 09:11 Dose: 50 mls/hr Documented by: MELVI Ondansetron HCl (Ondansetron Hcl 4 Mg/2 Ml Vial) 4 mg IVPUSH Q8H PRN PRN Reason: Nausea and Vomiting Pantoprazole Sodium (Pantoprazole Sodium 40 Mg/10 Ml Vial) 40 mg IVPUSH BID@063 0,1630 [facility] Last Admin: 09/28/21 15:47 Dose: 40 mg Documented by: OREN Pharmacy Consult (Consult Rx Perform Med Rec) 1 each MISCELLANE ONCE PRN PRN Reason: Consult order Pharmacy Consult (Consult Rx Vancomycin Dosing) 1 each MISCELLANE DAILY PRN PRN Reason: Consult order Sodium Chloride (0.9 % Sodium Chloride Flush 3 Ml Syringe) 3 ml IVFLUSH QSHIFT [facility] Last Admin: 09/28/21 15:47 Dose: 3 ml Documented by: OREN Labs CBC & Chem 7: 09/28/21 11:16 09/28/21 11:16 Labs: Laboratory Results - last 24 hr 09/27/21 09/27/21 09/27/21 11:10 16:06 19:36 MCV MCH MCHC RDW Plt Count MPV Absolute Nucleated RBC Nucleated RBC % (auto) Anion Gap Estim Creat Clear Calc Estimated GFR POC Glucose 127 H 193 H Random Glucose Calcium Random Vancomycin Crossmatch See Detail 09/28/21 09/28/21 09/28/21 01:12 07:12 10:54 MCV MCH MCHC RDW Plt Count MPV Absolute Nucleated RBC Nucleated RBC % (auto) Anion Gap Estim Creat Clear Calc Estimated GFR POC Glucose 150 H 162 H 161 H Random Glucose Calcium Random Vancomycin Crossmatch 09/28/21 09/28/21 09/28/21 11:16 11:16 11:16 MCV 96.9 MCH 31.1 MCHC 32.1 RDW 16.9 H Plt Count 117 L MPV 10.2 Absolute Nucleated RBC 0.000 Nucleated RBC % (auto) 0.0 Anion Gap 16 Estim Creat Clear Calc 10.4 Estimated GFR 12 POC Glucose Random Glucose 170 H Calcium 8.1 L D Random Vancomycin Cancelled Crossmatch 09/28/21 09/28/21 11:16 15:41 MCV MCH MCHC RDW Plt Count MPV Absolute Nucleated RBC Nucleated RBC % (auto) Anion Gap Estim Creat Clear Calc Estimated GFR POC Glucose 160 H Random Glucose Calcium Random Vancomycin 26.4 H* Crossmatch Microbiology Microbiology Results: Microbiology 09/27/21 00:00 Urine Culture - Preliminary Urine Catheterized - Siddiqui Catheter Culture in progress. 09/27/21 03:00 Blood Culture - Preliminary Blood - Venous Staphylococcus aureus 09/27/21 03:00 Blood Culture - Preliminary Blood - Venous Staphylococcus aureus 09/27/21 13:02 Blood Culture - Preliminary Blood - Subclavian Prelim: GPC Gram Stain only 09/27/21 13:02 Blood Culture - Preliminary Blood - Subclavian Prelim: GPC Gram Stain only Assessment and Plan (1) End stage renal disease: Status: Acute (2) Sepsis: Status: Acute (3) Bacteremia: Status: Acute Plan This is an 80 yo M with a PMH of Dementia, ESRD on HD TTHS, Prior MRSA bacteremia secondary to infected dialysis catheter (in Jun 2021), HTN, Anemia of CKD, DM, HLD who is sent from [facility] (LTC resident there) for changes in mental status and low grade fevers. He also is found to have possible GI bleed while in the ED. He will be admitted for Sepsis and suspected Gastrointestinal bleed. Sepsis secondary bacteremia, blood cultures growing GPC Has prior MRSA bacteremia due to infected dialysis catheter. growing GPC from HD catheter again UA also with pyuria / bacteria - urine culture pending continue IV vancomycin No severe features -- his SCr is related to ESRD and not Severe sepsis ID consult pending toxic/metabolic encephalopathy secondary to bacteremia improving Acute Respiratory Failure with hypoxia Improved folllowing HD. Currently saturating on room air. No evidence of pneumonia on Chest imaging ESRD on HD T, , S last HD 09/27/21 HD cath growing GPC, will need to be removed nephrology following, aware, can skip weekend HD and resume when able to replace HD catheter next week can place temporary dialysis catheter if necessary Melanotic stools, suspected lower GI bleed, acute blood loss anemia trend h/h -- decreased from 8/24 to 7.2/22.8 on adission. s/p 1 unit prbc 09/27 IV PPI Seen by GI recommend conservative management for now. 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 bird Quality Stroke Does the patient have a stroke diagnosis?: No VTE Prior VTE?: No VTE Risk Level:: Medical - moderate - high VTE Device Contraindication: N/A - Device Ordered VTE Drug Contraindication: Treatment Not Indicated
[2021-09-28] MEDS: Lidocaine HCl 1 % MPF 5 ML VIAL 10 ML INFILTRATI (17:01)
--- NOTE | 2021-09-28 17:18 | PC.NURSE ---
pt returned from IR dialysis cath removed from left chedstaustin
[2021-09-28 19:25] VITALS: BP 112/67; PULSE 67; RESP 18; TEMP 37.1; O2SAT 98
[2021-09-28 19:46] LABS: Glucose, Whole Blood 167 mg/dL (60-115)
[2021-09-28] MEDS: Sevelamer Carbonate Tablet 800 MG TABLET PO (19:59)
[2021-09-28] MEDS: Insulin Lispro 100 UNIT/ML 3 ML VIAL SUBCUT (19:59)
[2021-09-28] MEDS: Ferrous Sulfate 324 MG TABLET.DR PO (20:00)
[2021-09-28 23:27] VITALS: BP 101/53; PULSE 80; RESP 17; TEMP 36.7; O2SAT 93
[2021-09-29 03:13] VITALS: BP 127/71; PULSE 85; RESP 19; TEMP 36.9; O2SAT 96
[2021-09-29] MEDS: Dextrose 5 % and 0.45 % NaCl 1,000 ML 50 ML IVCONT (04:47)
[2021-09-29] MEDS: Pantoprazole Sodium 40 MG/10 ML VIAL IVPUSH ×2 (06:22→17:10)
[2021-09-29 07:58] VITALS: BP 100/43; PULSE 99; RESP 19; TEMP 38.2; O2SAT 92
[2021-09-29 08:19] LABS: Glucose, Whole Blood 170 mg/dL (60-115)
[2021-09-29] MEDS: Insulin Lispro 100 UNIT/ML 3 ML VIAL SUBCUT ×4 (08:30→21:22)
[2021-09-29] MEDS: 0.9 % Sodium Chloride Flush 3 ML SYRINGE IVFLUSH (08:31)
[2021-09-29] MEDS: Atorvastatin Calcium 10 MG TABLET PO (08:31)
[2021-09-29] MEDS: Sevelamer Carbonate Tablet 800 MG TABLET PO ×3 (08:31→21:22)
[2021-09-29] MEDS: Ferrous Sulfate 324 MG TABLET.DR PO ×3 (08:31→21:22)
[2021-09-29] MEDS: Sennosides 8.6 MG TABLET PO (08:31)
[2021-09-29 11:20] VITALS: BP 105/57; PULSE 78; RESP 19; TEMP 37.1; O2SAT 95
[2021-09-29 11:59] LABS: Glucose, Whole Blood 158 mg/dL (60-115)
--- NOTE | 2021-09-29 12:06 | P.CNID_ITS ---
History of Present Illness Data of Consult Service Date: 09/29/21 Requesting physician: Hui Merino Primary Care Provider: Unknown Physician HPI Reason for consult: bacteremia,MRSA He has weakness and fatigue and pleural effusion. He has MRSA blood. 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 Essential (primary) hypertension Left lower lobe pulmonary infiltrate Metabolic encephalopathy Pneumonia Family History Family history: reviewed and not pertinent Social History Social History Household Members: Other Housing: Intermediate Unable to assess alcohol history related to: Unable to respond Alcohol intake: unknown Patient Tobacco Use Status: Former Tobacco user Tobacco use type: Cigarette Advance Directives: Yes Advance Directives on File: Yes Advance Directives Date on File: 06/16/21 Current occupational status: disabled Meds Allergies Allergy/AdvReac Type Severity Reaction Status Date / Time No Known Allergies Allergy Verified 06/22/21 14:22 [No Known Allergies*] Active Medications: Current Medications Acetaminophen (Acetaminophen Supp 650 Mg Supp.Rect) 650 mg ND Q6H PRN PRN Reason: Fever Atorvastatin Calcium (Atorvastatin Calcium 10 Mg Tablet) 10 mg PO DAILY [facility] Last Admin: 09/29/21 08:31 Dose: 10 mg Documented by: Dextrose (Dextrose 50 % 25 Gm/50 Ml Syringe) 25 gm IVPUSH Q15M PRN; Protocol PRN Reason: per Hypoglycemia Standing Ord. Ferrous Sulfate (Ferrous Sulfate 324 Mg Tablet.) 324 mg PO TID [facility] Last Admin: 09/29/21 08:31 Dose: 324 mg Documented by: Glucose (Glucose Gel 15 Gm Gel..Gram.) 15 gm PO Q15M PRN; Protocol PRN Reason: per Hypoglycemia Standing Ord. Vancomycin HCl 750 mg/ Sodium (Chloride) 265 mls @ 265 mls/hr IV TUTHSA@1645 [facility] Last Infusion: 09/27/21 17:13 Dose: Infused Documented by: Dextrose/Sodium Chloride (D51/2ns) 1,000 mls @ 50 mls/hr IVCONT .Q20H [facility] Last Admin: 09/29/21 04:47 Dose: 50 mls/hr Documented by: Insulin Human Lispro (Insulin Lispro 100 Unit/Ml 3 Ml Vial) 0 unit SUBCUT QIDACHS [facility]; Protocol Last Admin: 09/29/21 08:30 Dose: 2 unit Documented by: Ondansetron HCl (Ondansetron Hcl 4 Mg/2 Ml Vial) 4 mg IVPUSH Q8H PRN PRN Reason: Nausea and Vomiting Pantoprazole Sodium (Pantoprazole Sodium 40 Mg/10 Ml Vial) 40 mg IVPUSH BID@0630,1630 [facility] Last Admin: 09/29/21 06:22 Dose: 40 mg Documented by: Pharmacy Consult (Consult Rx Perform Med Rec) 1 each MISCELLANE ONCE PRN PRN Reason: Consult order Pharmacy Consult (Consult Rx Vancomycin Dosing) 1 each MISCELLANE DAILY PRN PRN Reason: Consult order Senna (Sennosides 8.6 Mg Tablet) 8.6 mg PO DAILY [facility] Last Admin: 09/29/21 08:31 Dose: 8.6 mg Documented by: Sevelamer Carbonate (Sevelamer Carbonate Tablet 800 Mg Tablet) 800 mg PO TID [facility] Last Admin: 09/29/21 08:31 Dose: 800 mg Documented by: Sodium Chloride (0.9 % Sodium Chloride Flush 3 Ml Syringe) 3 ml IVFLUSH QSHIFT [facility] Last Admin: 09/29/21 08:31 Dose: 3 ml Documented by: Home Medications Medication Instructions Recorded Confirmed Last Taken Type aspirin 81 mg chewable tablet 81 mg PO DAILY 06/16/21 09/27/21 Unknown History atorvastatin 10 mg tablet 1 tab PO DAILY 06/16/21 09/27/21 Unknown History cholecalciferol (vitamin D3) 25 50 mcg PO DAILY 06/16/21 09/27/21 Unknown History mcg (1,000 unit) tablet ferrous sulfate 325 mg (65 mg 325 mg PO TID 06/16/21 09/27/21 Unknown History iron) tablet furosemide 80 mg tablet 1 tab PO BID 06/16/21 09/27/21 Unknown History insulin lispro 100 unit/mL See Rx Instructions .ROUTE .COMPLEX 06/16/21 09/27/21 Unknown History subcutaneous pen (Admelog SoloStar U-100 Insulin lispro) sennosides 8.6 mg tablet (senna) 8.6 mg PO DAILY 06/16/21 09/27/21 Unknown History sevelamer carbonate 800 mg tablet 1 tab PO TID 06/16/21 09/27/21 Unknown History tamsulosin 0.4 mg capsule 1 cap PO DAILY@1730 06/16/21 09/27/21 Unknown History vitamin B complex and vitamin C 1 cap PO DAILY 06/16/21 09/27/21 Unknown History no.20-folic acid 1 mg capsule acetaminophen 325 mg tablet 650 mg PO Q6H PRN 09/27/21 09/27/21 Unknown History bisacodyl 10 mg rectal suppository 10 mg ND DAILY PRN 09/27/21 09/27/21 Unknown History d-mannose 500 mg capsule 1,000 mg PO DAILY 09/27/21 09/27/21 Unknown History docusate sodium 100 mg capsule 100 mg PO BID PRN 09/27/21 09/27/21 Unknown History Physical Exam Vital Signs: Vital Signs: Last Vital Signs Temp 98.7 F 09/29/21 11:20 Pulse 78 09/29/21 11:20 Resp 19 09/29/21 11:20 BP 105/57 L 09/29/21 11:20 Pulse Ox 95 09/29/21 11:20 Oxygen Flow Rate 2 09/27/21 02:46 BMI result Body Mass Index 19.8 Const: General: cooperative HENMT: Head: Yes normal to inspection Mouth: Normal oral and palatal mucosa present Resp: Effort & Inspection: normal respiratory effort Cardio: Rate: regular rate Rhythm: regular rhythm GI: Palpation (GI): Soft to palpation and nontender Skin: General skin exam: no rashes or lesions noted Results Labs CBC & Chem 7: 10/13/21 06:14 10/13/21 06:14 Microbiology Microbiology Results: Microbiology 09/27/21 00:00 Urine Catheterized - Giles Catheter Urine Culture - Prel iminary Culture in progress. 09/28/21 13:06 Blood - Venous Blood Culture - Preliminary Prelim: GPC Gram Stain only 09/28/21 13:06 Blood - Venous Blood Culture - Preliminary Prelim: GPC Gram Stain only 09/27/21 13:02 Blood - Subclavian Blood Culture - Final Methicillin Res Staph Aureus 09/27/21 13:02 Blood - Subclavian Blood Culture - Final Methicillin Res Staph Aureus 09/27/21 03:00 Blood - Venous Blood Culture - Final Methicillin Res Staph Aureus 09/27/21 03:00 Blood - Venous Blood Culture - Final Methicillin Res Staph Aureus Assessment and Plan (1) Bacteremia: Status: Acute He has persistent MRSA. He has concern over slow resolution of bacteremia Plan Would change to Daptomycin probable four to six weeks.
--- NOTE | 2021-09-29 14:15 | HO.PM.IMPN ---
Subjective Subjective Date of Service: 09/29/21 Review of Systems Seen and examined this morning pleasantly confused, offers no complaints denies pain or feeling short of breath Physical Exam Vital Signs: Vital Signs: Last Vital Signs Temp 98.7 F 09/29/21 11:20 Pulse 78 09/29/21 11:20 Resp 19 09/29/21 11:20 BP 105/57 L 09/29/21 11:20 Pulse Ox 95 09/29/21 11:20 Oxygen Flow Rate 2 09/27/21 02:46 BMI result Body Mass Index 19.8 Appearing in no acute distress lung sounds are clear to auscultation heart regular rate rhythm, clear S1, S2 positive bowel sounds, abdomen is soft, nontender neuro patient is alert x3, no focal deficits Objective Data Active Medications Acetaminophen (Acetaminophen Supp 650 Mg Supp.Rect) 650 mg [place] Q6H PRN PRN Reason: Fever Atorvastatin Calcium (Atorvastatin Calcium 10 Mg Tablet) 10 mg PO DAILY [facility] Last Admin: 09/29/21 08:31 Dose: 10 mg Documented by: SHAWN Dextrose (Dextrose 50 % 25 Gm/50 Ml Syringe) 25 gm IVPUSH Q15M PRN; Protocol PRN Reason: per Hypoglycemia Standing Ord. Ferrous Sulfate (Ferrous Sulfate 324 Mg Tablet.Dr) 324 mg PO TID [facility] Last Admin: 09/29/21 08:31 Dose: 324 mg Documented by: SHAWN Glucose (Glucose Gel 15 Gm Gel..Gram.) 15 gm PO Q15M PRN; Protocol PRN Reason: per Hypoglycemia Standing Ord. Vancomycin HCl 750 mg/ Sodium (Chloride) 265 mls @ 265 mls/hr IV TUTHSA@1645 [facility] Last Infusion: 09/27/21 17:13 Dose: 0 mls/hr Documented by: CHI Dextrose/Sodium Chloride (D51/2ns) 1,000 mls @ 50 mls/hr IVCONT .Q20H [facility] Last Admin: 09/29/21 04:47 Dose: 50 mls/hr Documented by: SHAILESH Insulin Human Lispro (Insulin Lispro 100 Unit/Ml 3 Ml Vial) 0 unit SUBCUT QIDACHS [facility]; Protocol Last Admin: 09/29/21 12:23 Dose: 2 unit Documented by: SHAWN Ondansetron HCl (Ondansetron Hcl 4 Mg/2 Ml Vial) 4 mg IVPUSH Q8H PRN PRN Reason: Nausea and Vomiting Pantoprazole Sodium (Pantoprazole Sodium 40 Mg/10 Ml Vial) 40 mg IVPUSH BID@0630,1630 [facility] Last Admin: 09/29/21 06:22 Dose: 40 mg Documented by: SHAILESH Pharmacy Consult (Consult Rx Perform Med Rec) 1 each MISCELLANE ONCE PRN PRN Reason: Consult order Pharmacy Consult (Consult Rx Vancomycin Dosing) 1 each MISCELLANE DAILY PRN PRN Reason: Consult order Senna (Sennosides 8.6 Mg Tablet) 8.6 mg PO DAILY [facility] Last Admin: 09/29/21 08:31 Dose: 8.6 mg Documented by: SHAWN Sevelamer Carbonate (Sevelamer Carbonate Tablet 800 Mg Tablet) 800 mg PO TID [facility] Last Admin: 09/29/21 08:31 Dose: 800 mg Documented by: SHAWN Sodium Chloride (0.9 % Sodium Chloride Flush 3 Ml Syringe) 3 ml IVFLUSH QSHIFT [facility] Last Admin: 09/29/21 08:31 Dose: 3 ml Documented by: SHAWN Labs CBC & Chem 7: 09/28/21 11:16 09/28/21 11:16 Labs: Laboratory Results - last 24 hr 09/28/21 09/28/21 09/29/21 15:41 19:27 08:01 POC Glucose 160 H 167 H 170 H 09/29/21 11:25 POC Glucose 158 H Microbiology Microbiology Results: Microbiology 09/27/21 00:00 Urine Culture - Final Urine Catheterized - Giles Catheter 09/28/21 13:06 Blood Culture - Preliminary Blood - Venous Prelim: GPC Gram Stain only 09/28/21 13:06 Blood Culture - Preliminary Blood - Venous Prelim: GPC Gram Stain only 09/27/21 13:02 Blood Culture - Final Blood - Subclavian Methicillin Res Staph Aureus 09/27/21 13:02 Blood Culture - Final Blood - Subclavian Methicillin Res Staph Aureus 09/27/21 03:00 Blood Culture - Final Blood - Venous Methicillin Res Staph Aureus 09/27/21 03:00 Blood Culture - Final Blood - Venous Methicillin Res Staph Aureus Assessment and Plan (1) End stage renal disease: Status: Acute (2) Sepsis: Status: Acute (3) Bacteremia: Status: Acute Plan This is an 80 yo M with a PMH of Dementia, ESRD on HD TTHS, Prior MRSA bacteremia secondary to infected dialysis catheter (in Jun 2021), HTN, Anemia of CKD, DM, HLD who is sent from [facility] (LTC resident there) for changes in mental status and low grade fevers. He also is found to have possible GI bleed while in the ED. He will be admitted for Sepsis and suspected Gastrointestinal bleed. Sepsis secondary bacteremia, blood cultures growing GPC Has prior MRSA bacteremia due to infected dialysis catheter. growing GPC from HD catheter again, follow repeat cx UA also with pyuria / bacteria - urine culture mixed continue IV vancomycin No severe features -- his SCr is related to ESRD and not Severe sepsis ID consult rec starting daptomycin 4-6 weeks toxic/metabolic encephalopathy secondary to bacteremia improving Acute Respiratory Failure with hypoxia Improved folllowing HD. Currently saturating on room air. No evidence of pneumonia on Chest imaging ESRD on HD T, , S last HD 09/27/21 HD cath growing GPC, order for removal and reinsertion once cx are negative nephrology following, aware, can skip weekend HD and resume when able to replace HD catheter next week can place temporary dialysis catheter if necessary Melanotic stools, suspected lower GI bleed, acute blood loss anemia trend h/h -- decreased from 8/24 to 7.2/22.8 on adission. s/p 1 unit prbc 09/27 IV PPI Seen by GI recommend conservative management for now. 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 DVT pptx, Mechanical due to possible GI bleed Called both HCPs listed on [facility] records -- went unanswered Attending:Dr. Freeman Quality Stroke Does the patient have a stroke diagnosis?: No VTE Prior VTE?: No VTE Risk Level:: Medical - moderate - high VTE Device Contraindication: N/A - Device Ordered VTE Drug Contraindication: Treatment Not Indicated
[2021-09-29 16:00] VITALS: BP 94/57; PULSE 36; TEMP 35.9; O2SAT 99
[2021-09-29 17:21] LABS: Glucose, Whole Blood 158 mg/dL (60-115)
[2021-09-29 19:53] VITALS: BP 128/59; PULSE 70; RESP 18; TEMP 35.8; O2SAT 96
--- NOTE | 2021-09-29 19:53 | HE.PHANOTE ---
RE: Daptomycin In the setting of patient's ESRD and refusing labs, I discussed changing vanco to daptomycin. ID already approved medication. Will enter at 6mg/kg q48 hours starting tomorrow (per provider) and will discuss changing to three times weekly post hemodialysis dosin mg/kg on 48-hour interdialytic days; increase dose by 50% after dialysis on the 72-hour interdialytic day (350mg on TUT, and 500mg on SA) on friday. Thanks Phoebe Yen
[2021-09-29 20:40] LABS: Glucose, Whole Blood 152 mg/dL (60-115)
[2021-09-29 23:54] VITALS: BP 110/61; PULSE 71; RESP 18; TEMP 35.9; O2SAT 97
[2021-09-30] MEDS: Dextrose 5 % and 0.45 % NaCl 1,000 ML 50 ML IVCONT (00:03)
[2021-09-30 03:52] VITALS: BP 123/64; PULSE 80; RESP 18; TEMP 35.7; O2SAT 99
[2021-09-30] MEDS: Pantoprazole Sodium 40 MG/10 ML VIAL IVPUSH (05:43)
[2021-09-30 07:30] VITALS: BP 125/65; PULSE 72; RESP 17; TEMP 36.2; O2SAT 100
[2021-09-30 08:05] LABS: Glucose, Whole Blood 141 mg/dL (60-115)
[2021-09-30] MEDS: Atorvastatin Calcium 10 MG TABLET PO (10:12)
[2021-09-30] MEDS: Sevelamer Carbonate Tablet 800 MG TABLET PO ×3 (10:12→20:15)
[2021-09-30] MEDS: Sennosides 8.6 MG TABLET PO (10:12)
[2021-09-30] MEDS: Ferrous Sulfate 324 MG TABLET.DR PO ×3 (10:12→20:15)
[2021-09-30 10:38] LABS: Hematocrit 29.7 % (42.0-52.0); Hemoglobin 9.5 g/dl (14.0-18.0); Mean Corpuscular Hemoglobin 31.8 pg (27.0-33.0); Mean Corpuscular Volume 99.3 fL (80.0-98.0); Mean Platelet Volume 13.1 fL (9.4-12.4); Red Blood Count 2.99 X10*6/uL (4.60-5.80); Red Cell Distribution Width 17.3 % (11.0-16.0); White Blood Count 6.7 X10*3/uL (4.8-10.8)
[2021-09-30 10:48] LABS: Anion Gap 20 (12-20); Blood Urea Nitrogen 75 mg/dL (9-16); Calcium 7.8 mg/dL (8.4-10.2); Carbon Dioxide 13 mmol/L (22-29); Chloride 100 mmol/L (96-108); Creatinine Clr Calc Pharmacy 7.5; Estimated Glomerular Filt Rate 8; Glucose Random 238 mg/dL (60-115); Potassium 4.3 mmol/L (3.3-5.1); Sodium 129 mmol/L (135-145)
[2021-09-30 11:04] LABS: Platelet Count 96 X10*3/uL (160-400)
[2021-09-30 11:36] LABS: Glucose, Whole Blood 186 mg/dL (60-115)
[2021-09-30 11:39] VITALS: BP 128/62; PULSE 80; RESP 17; TEMP 36.5; O2SAT 100
[2021-09-30] MEDS: Insulin Lispro 100 UNIT/ML 3 ML VIAL SUBCUT ×3 (12:19→20:14)
--- NOTE | 2021-09-30 13:53 | P.PNIM_ITS ---
Subjective Subjective Date of Service: 09/30/21 Review of Systems Follow up sepsis, bacteremia pleasantly confused, offers no complaints denies pain or feeling short of breath Physical Exam Vital Signs: Vital Signs: Last Vital Signs Temp 97.7 F 09/30/21 11:39 Pulse 80 09/30/21 11:39 Resp 17 09/30/21 11:39 BP 128/62 09/30/21 11:39 Pulse Ox 100 09/30/21 11:39 Oxygen Flow Rate 2 09/27/21 02:46 BMI result Body Mass Index 19.8 Appearing in no acute distress lung sounds are clear to auscultation heart regular rate rhythm, clear S1, S2 positive bowel sounds, abdomen is soft, nontender neuro patient is alert x3, no focal deficits Objective Data Active Medications Acetaminophen (Acetaminophen Supp 650 Mg Supp.Rect) 650 mg MI Q6H PRN PRN Reason: Fever Atorvastatin Calcium (Atorvastatin Calcium 10 Mg Tablet) 10 mg PO DAILY [facility] Last Admin: 09/30/21 10:12 Dose: 10 mg Documented by: SHAWN Dextrose (Dextrose 50 % 25 Gm/50 Ml Syringe) 25 gm IVPUSH Q15M PRN; Protocol PRN Reason: per Hypoglycemia Standing Ord. Ferrous Sulfate (Ferrous Sulfate 324 Mg Tablet.Dr) 324 mg PO TID [facility] Last Admin: 09/30/21 10:12 Dose: 324 mg Documented by: SHAWN Glucose (Glucose Gel 15 Gm Gel..Gram.) 15 gm PO Q15M PRN; Protocol PRN Reason: per Hypoglycemia Standing Ord. Daptomycin 350 mg/ Sodium (Chloride) 57 mls @ 100 mls/hr IV Q48H [facility] Insulin Human Lispro (Insulin Lispro 100 Unit/Ml 3 Ml Vial) 0 unit SUBCUT QIDACHS [facility]; Protocol Last Admin: 09/30/21 12:19 Dose: 2 unit Documented by: SHAWN Ondansetron HCl (Ondansetron Hcl 4 Mg/2 Ml Vial) 4 mg IVPUSH Q8H PRN PRN Reason: Nausea and Vomiting Pantoprazole Sodium (Pantoprazole Sodium 40 Mg/10 Ml Vial) 40 mg IVPUSH BID@0630,1630 [facility] Last Admin: 09/30/21 05:43 Dose: 40 mg Documented by: SHAILESH Pharmacy Consult (Consult Rx Perform Med Rec) 1 each MISCELLANE ONCE PRN PRN Reason: Consult order Pharmacy Consult (Consult Rx Vancomycin Dosing) 1 each MISCELLANE DAILY PRN PRN Reason: Consult order Senna (Sennosides 8.6 Mg Tablet) 8.6 mg PO DAILY [facility] Last Admin: 09/30/21 10:12 Dose: 8.6 mg Documented by: SHAWN Sevelamer Carbonate (Sevelamer Carbonate Tablet 800 Mg Tablet) 800 mg PO TID [facility] Last Admin: 09/30/21 10:12 Dose: 800 mg Documented by: SHAWN Sodium Chloride (0.9 % Sodium Chloride Flush 3 Ml Syringe) 3 ml IVFLUSH QSHIFT [facility] Last Admin: 09/30/21 08:13 Dose: Not Given Documented by: SHAWN Non-Admin Reason: IV Running Labs CBC & Chem 7: 09/30/21 10:17 09/30/21 10:17 Labs: Laboratory Results - last 24 hr 09/29/21 09/29/21 09/30/21 17:01 20:36 07:37 MCV MCH MCHC RDW Plt Count MPV Absolute Nucleated RBC Nucleated RBC % (auto) Anion Gap Estim Creat Clear Calc Estimated GFR POC Glucose 158 H 152 H 141 H Random Glucose Calcium Random Vancomycin 09/30/21 09/30/21 09/30/21 10:17 10:17 10:17 MCV 99.3 H MCH 31.8 MCHC 32.0 RDW 17.3 H Plt Count 96 L MPV 13.1 H Absolute Nucleated RBC 0.000 Nucleated RBC % (auto) 0.0 Anion Gap 20 Estim Creat Clear Calc 7.5 Estimated GFR 8 POC Glucose Random Glucose 238 H D Calcium 7.8 L Random Vancomycin 21.0 H 09/30/21 11:31 MCV MCH MCHC RDW Plt Count MPV Absolute Nucleated RBC Nucleated RBC % (auto) Anion Gap Estim Creat Clear Calc Estimated GFR POC Glucose 186 H Random Glucose Calcium Random Vancomycin Microbiology Microbiology Results: Microbiology 09/28/21 13:06 Blood Culture - Final Blood - Venous Methicillin Res Staph Aureus 09/28/21 13:06 Blood Culture - Final Blood - Venous Methicillin Res Staph Aureus 09/27/21 00:00 Urine Culture - Final Urine Catheterized - Giles Catheter 09/27/21 13:02 Blood Culture - Final Blood - Subclavian Methicillin Res Staph Aureus 09/27/21 13:02 Blood Culture - Final Blood - Subclavian Methicillin Res Staph Aureus Assessment and Plan (1) End stage renal disease: Status: Acute (2) Sepsis: Status: Acute (3) Bacteremia: Status: Acute Plan This is an 80 yo M with a PMH of Dementia, ESRD on HD TTHS, Prior MRSA bacteremia secondary to infected dialysis catheter (in Jun 2021), HTN, Anemia of CKD, DM, HLD who is sent from [facility] (LTC resident there) for changes in mental status and low grade fevers. He also is found to have possible GI bleed while in the ED. He will be admitted for Sepsis and suspected Gastrointestinal bleed. Sepsis secondary to MRSA bacteremia Secondary to infected dialysis catheter, initially treated with vancomycin UA also with pyuria / bacteria - urine culture mixed ID consult rec starting daptomycin 4-6 weeks toxic/metabolic encephalopathy secondary to bacteremia improving Acute Respiratory Failure with hypoxia Improved following HD. Currently saturating on room air. No evidence of pneumonia on Chest imaging ESRD on HD TTHS, last HD 09/27/21 HD cath growing MRSA, permacath removed nephrology following, missed dialysis 09/29/21, no access can place temporary dialysis catheter due to cx remaining positive, then permacath Melanotic stools, suspected lower GI bleed, acute blood loss anemia s/p 1 unit prbc 09/27 IV PPI Seen by GI recommend conservative management for now. saeed liquid diet asa on hold Dementia without behavioral disturbances not on meds at baseline HTN. soft blood pressure hold antihypertensives resume when blood pressures allows DM SSI Chronic combined systolic/diastolic CHF, no acute exacerbation lasix on hold due to low BP DNR/DNI per [facility] form sent from [facility] DVT pptx, Mechanical due to possible GI bleed Called both HCPs listed on [facility] records -- went unanswered Attending:Dr. Freeman Quality Stroke Does the patient have a stroke diagnosis?: No VTE Prior VTE?: No VTE Risk Level:: Medical - moderate - high VTE Device Contraindication: N/A - Device Ordered VTE Drug Contraindication: Treatment Not Indicated
[2021-09-30 16:21] LABS: Glucose, Whole Blood 189 mg/dL (60-115)
[2021-09-30] MEDS: 0.9 % Sodium Chloride Flush 3 ML SYRINGE IVFLUSH (16:43)
[2021-09-30 19:32] VITALS: BP 159/79; PULSE 92; RESP 18; TEMP 37.3; O2SAT 99
[2021-09-30 19:45] LABS: Glucose, Whole Blood 192 mg/dL (60-115)
[2021-10-01] VITALS: BP 133/73; PULSE 99; RESP 18; TEMP 36.3; O2SAT 99
[2021-10-01] MEDS: 0.9 % Sodium Chloride Flush 3 ML SYRINGE IVFLUSH ×4 (00:27→21:45)
[2021-10-01 03:47] VITALS: BP 126/59; PULSE 88; RESP 16; TEMP 36.8; O2SAT 94
[2021-10-01 07:16] VITALS: BP 152/87; PULSE 88; RESP 18; TEMP 36.2; O2SAT 100
[2021-10-01 07:43] LABS: Glucose, Whole Blood 134 mg/dL (60-115)
--- NOTE | 2021-10-01 08:18 | PM.PNNEP ---
Subjective Subjective Date of Service: 10/01/21 Principal diagnosis: no complaints this AM had HAD yesterday Interval history: seen and examined this morning pleasantly confused, offers no complaints denies pain or feeling short of breath case d/w nursing. no fevers and O2 sats fine but last BCx (yesterday) still positive for GPC. Currently on daptomycin IV. Physical Exam Vital Signs: Vital Signs: Last Vital Signs Temp 97.1 F 10/01/21 07:16 Pulse 88 10/01/21 07:16 Resp 18 10/01/21 07:16 BP 152/87 H 10/01/21 07:16 Pulse Ox 100 10/01/21 07:16 Oxygen Flow Rate 2 09/27/21 02:46 BMI result Body Mass Index 19.8 Const: General: comfortable and alert; No in distress Nutritional Appearance: cachectic HENMT: Head: Yes normal to inspection Eyes: EOM: EOMs intact bilaterally Neck: Neck: Yes normal visual inspection and Yes no JVD Chest: Chest palpation & inspection: normal inspection of the chest Resp: Effort & Inspection: normal respiratory effort and no respiratory distress Auscultation: clear to auscultation bilaterally Cardio: Jugular venous distension: no JVD Heart sounds: S1 normal heart sound present, S2 normal heart sound present and no murmurs GI: Inspection: Yes normal to inspection Auscultation: normal bowel sounds Skin: General skin exam: no rashes or lesions noted Objective Data Labs CBC & Chem 7: 09/30/21 10:17 09/30/21 10:17 Labs: Laboratory Results - last 24 hr 09/30/21 09/30/21 09/30/21 10:17 10:17 10:17 WBC 6.7 RBC 2.99 L Hgb 9.5 L Hct 29.7 L MCV 99.3 H MCH 31.8 MCHC 32.0 RDW 17.3 H Plt Count 96 L MPV 13.1 H Absolute Nucleated RBC 0.000 Nucleated RBC % (auto) 0.0 Sodium 129 L Potassium 4.3 Chloride 100 Carbon Dioxide 13 L Anion Gap 20 BUN 75 H D Creatinine 6.40 H* Estim Creat Clear Calc 7.5 Estimated GFR 8 POC Glucose Random Glucose 238 H D Calcium 7.8 L Random Vancomycin 21.0 H 09/30/21 09/30/21 09/30/21 11:31 16:13 19:34 WBC RBC Hgb Hct MCV MCH MCHC RDW Plt Count MPV Absolute Nucleated RBC Nucleated RBC % (auto) Sodium Potassium Chloride Carbon Dioxide Anion Gap BUN Creatinine Estim Creat Clear Calc Estimated GFR POC Glucose 186 H 189 H 192 H Random Glucose Calcium Random Vancomycin 10/01/21 07:19 WBC RBC Hgb Hct MCV MCH MCHC RDW Plt Count MPV Absolute Nucleated RBC Nucleated RBC % (auto) Sodium Potassium Chloride Carbon Dioxide Anion Gap BUN Creatinine Estim Creat Clear Calc Estimated GFR POC Glucose 134 H Random Glucose Calcium Random Vancomycin Microbiology Microbiology Results: Microbiology 09/30/21 15:07 Blood - Venous Blood Culture - Preliminary Prelim: GPC Gram Stain only 09/30/21 15:07 Blood - Venous Blood Culture - Preliminary Prelim: GPC Gram Stain only 09/28/21 13:06 Blood - Venous Blood Culture - Final Methicillin Res Staph Aureus 09/28/21 13:06 Blood - Venous Blood Culture - Final Methicillin Res Staph Aureus 09/27/21 00:00 Urine Catheterized - Giles Catheter Urine Culture - Final 09/27/21 13:02 Blood - Subclavian Blood Culture - Final Methicillin Res Staph Aureus 09/27/21 13:02 Blood - Subclavian Blood Culture - Final Methicillin Res Staph Aureus 09/27/21 03:00 Blood - Venous Blood Culture - Final Methicillin Res Staph Aureus 09/27/21 03:00 Blood - Venous Blood Culture - Final Methicillin Res Staph Aureus Procedures Date of Service Date of Service: 10/01/21 Assessment & Plan Assessment and plan (1) End stage renal disease: Status: Acute Assessment and Plan: Outpatient TTS schedule via permanent left sided tunneled catheter at [facility] - last dialysis 09/26 due to lack of access - metabolic acidosis only major issue right now that makes dialysis necessary in next 24h - consider giving him sodium bicarbonate tablets 1300 mg bid until dialysis completed. Would ask if temporary access could be placed in order for patient to receive dialysis tomorrow. I agree with hospitalist team that I wouldn't place tunneled catheter until bacteremia clears - I will order/arrange for dialysis tomorrow. Appreciate your help in obtaining non-tunneled dialysis access. If any issues or concerns please call my cell phone [phone] (2) Bacteremia: Status: Acute Assessment and Plan: - IV dapto per ID. Redose after dialysis tomorrow - Appears to be high grade bacteremia yet to clear. As above, we should use temporary dialysis access until his bacteremia clears and then we can arrange to have tunneled line placed - Will need echocardiogram for assessment of endocarditis Time Spent With Patient Time: Total time spent is greater than 50% in coordination of care (as documented) at patient's floor/unit and/or counseling patient: Time with patient: 15 - 24 minutes Progress Note: Quality Stroke Does the patient have a stroke diagnosis?: No
[2021-10-01 08:45] LABS: Hematocrit 27.8 % (42.0-52.0); Hemoglobin 9.2 g/dl (14.0-18.0); Mean Corpuscular HGB Conc 33.1 g/dl (31.0-36.0); Mean Corpuscular Hemoglobin 30.9 pg (27.0-33.0); Mean Corpuscular Volume 93.3 fL (80.0-98.0); Red Blood Count 2.98 X10*6/uL (4.60-5.80); White Blood Count 11.2 X10*3/uL (4.8-10.8)
[2021-10-01 08:46] LABS: Platelet Count 78 X10*3/uL (160-400)
[2021-10-01 09:16] LABS: Anion Gap 18 (12-20); Blood Urea Nitrogen 83 mg/dL (9-16); Calcium 8.2 mg/dL (8.4-10.2); Carbon Dioxide 17 mmol/L (22-29); Chloride 98 mmol/L (96-108); Creatinine Clr Calc Pharmacy 6.9; Estimated Glomerular Filt Rate 8; Glucose Random 154 mg/dL (60-115); Potassium 3.9 mmol/L (3.3-5.1); Sodium 129 mmol/L (135-145)
[2021-10-01 09:22] LABS: Mean Corpuscular HGB Conc 33.3 g/dl (31.0-36.0); Mean Corpuscular Hemoglobin 30.7 pg (27.0-33.0); Mean Corpuscular Volume 92.2 fL (80.0-98.0); Mean Platelet Volume 11.2 fL (9.4-12.4); Red Blood Count 2.93 X10*6/uL (4.60-5.80); White Blood Count 10.1 X10*3/uL (4.8-10.8)
[2021-10-01 09:30] LABS: Platelet Count 69 X10*3/uL (160-400)
[2021-10-01 09:47] LABS: Anion Gap 19 (12-20); Blood Urea Nitrogen 86 mg/dL (9-16); Calcium 7.9 mg/dL (8.4-10.2); Carbon Dioxide 17 mmol/L (22-29); Chloride 97 mmol/L (96-108); Creatinine Clr Calc Pharmacy 6.7; Estimated Glomerular Filt Rate 7; Glucose Random 213 mg/dL (60-115); Potassium 3.8 mmol/L (3.3-5.1); Sodium 129 mmol/L (135-145)
[2021-10-01] MEDS: Sevelamer Carbonate Tablet 800 MG TABLET PO ×3 (10:25→21:45)
[2021-10-01] MEDS: Ferrous Sulfate 324 MG TABLET.DR PO ×3 (10:25→21:45)
[2021-10-01] MEDS: Atorvastatin Calcium 10 MG TABLET PO (10:25)
[2021-10-01] MEDS: Sennosides 8.6 MG TABLET PO (10:25)
[2021-10-01 11:09] VITALS: BP 151/70; PULSE 97; RESP 18; TEMP 36.7; O2SAT 100
[2021-10-01 11:33] LABS: Glucose, Whole Blood 253 mg/dL (60-115)
[2021-10-01] MEDS: Insulin Lispro 100 UNIT/ML 3 ML VIAL SUBCUT ×2 (11:46→16:31)
--- NOTE | 2021-10-01 13:53 | P.PNIM_ITS ---
Subjective Subjective Date of Service: 10/01/21 Review of Systems Follow up sepsis, bacteremia pleasantly confused, offers no complaints denies pain or feeling short of breath Physical Exam Vital Signs: Vital Signs: Last Vital Signs Temp 98.0 F 10/01/21 11:09 Pulse 97 10/01/21 11:09 Resp 18 10/01/21 11:09 BP 151/70 H 10/01/21 11:09 Pulse Ox 100 10/01/21 11:09 Oxygen Flow Rate 2 09/27/21 02:46 BMI result Body Mass Index 19.8 Appearing in no acute distress ?lung sounds are clear to auscultation ?heart regular rate rhythm, clear? S1, S2 ?positive bowel sounds, abdomen is soft, nontender ?neuro patient is alert x3, no focal deficits Objective Data Active Medications Acetaminophen (Acetaminophen Supp 650 Mg Supp.Rect) 650 mg MO Q6H PRN PRN Reason: Fever Atorvastatin Calcium (Atorvastatin Calcium 10 Mg Tablet) 10 mg PO DAILY [facility] Last Admin: 10/01/21 10:25 Dose: 10 mg Documented by: SHAWN Dextrose (Dextrose 50 % 25 Gm/50 Ml Syringe) 25 gm IVPUSH Q15M PRN; Protocol PRN Reason: per Hypoglycemia Standing Ord. Ferrous Sulfate (Ferrous Sulfate 324 Mg Tablet.Dr) 324 mg PO TID [facility] Last Admin: 10/01/21 10:25 Dose: 324 mg Documented by: SHAWN Glucose (Glucose Gel 15 Gm Gel..Gram.) 15 gm PO Q15M PRN; Protocol PRN Reason: per Hypoglycemia Standing Ord. Heparin Sodium (Porcine) (Heparin Sodium,Porcine 5,000 Unit/Ml Vial) 5,000 unit INTRACATH TUTHSA@1645 [facility] Sodium Chloride (Ns) 1,000 mls @ 999 mls/hr IV TuThSa@1645 [facility] Daptomycin 350 mg/ Sodium (Chloride) 57 mls @ 100 mls/hr IV TuThSa@1645 [facility] Insulin Human Lispro (Insulin Lispro 100 Unit/Ml 3 Ml Vial) 0 unit SUBCUT QIDACHS [facility]; Protocol Last Admin: 10/01/21 11:46 Dose: 6 unit Documented by: SHAWN Ondansetron HCl (Ondansetron Hcl 4 Mg/2 Ml Vial) 4 mg IVPUSH Q8H PRN PRN Reason: Nausea and Vomiting Pharmacy Consult (Consult Rx Perform Med Rec) 1 each MISCELLANE ONCE PRN PRN Reason: Consult order Pharmacy Consult (Consult Rx Vancomycin Dosing) 1 each MISCELLANE DAILY PRN PRN Reason: Consult order Senna (Sennosides 8.6 Mg Tablet) 8.6 mg PO DAILY [facility] Last Admin: 10/01/21 10:25 Dose: 8.6 mg Documented by: SHAWN Sevelamer Carbonate (Sevelamer Carbonate Tablet 800 Mg Tablet) 800 mg PO TID [facility] Last Admin: 10/01/21 10:25 Dose: 800 mg Documented by: SHAWN Sodium Chloride (0.9 % Sodium Chloride Flush 3 Ml Syringe) 3 ml IVFLUSH QSHIFT [facility] Last Admin: 10/01/21 10:25 Dose: 3 ml Documented by: SHAWN Labs CBC & Chem 7: 10/01/21 09:07 10/01/21 09:07 Labs: Laboratory Results - last 24 hr 09/30/21 09/30/21 10/01/21 16:13 19:34 07:19 MCV MCH MCHC RDW Plt Count MPV Absolute Nucleated RBC Nucleated RBC % (auto) Anion Gap Estim Creat Clear Calc Estimated GFR POC Glucose 189 H 192 H 134 H Random Glucose Calcium 10/01/21 10/01/21 10/01/21 08:14 08:14 09:07 MCV 93.3 D 92.2 MCH 30.9 30.7 MCHC 33.1 33.3 RDW 17.0 H 17.0 H Plt Count 78 L 69 L MPV 12.0 11.2 Absolute Nucleated RBC 0.000 0.000 Nucleated RBC % (auto) 0.0 0.0 Anion Gap 18 Estim Creat Clear Calc 6.9 Estimated GFR 8 POC Glucose Random Glucose 154 H D Calcium 8.2 L 10/01/21 10/01/21 09:07 11:11 MCV MCH MCHC RDW Plt Count MPV Absolute Nucleated RBC Nucleated RBC % (auto) Anion Gap 19 Estim Creat Clear Calc 6.7 Estimated GFR 7 POC Glucose 253 H Random Glucose 213 H D Calcium 7.9 L Microbiology Microbiology Results: Microbiology 09/30/21 15:07 Blood Culture - Preliminary Blood - Venous Prelim: GPC Gram Stain only 09/30/21 15:07 Blood Culture - Preliminary Blood - Venous Prelim: GPC Gram Stain only Assessment and Plan (1) End stage renal disease: Status: Acute (2) Sepsis: Status: Acute (3) Bacteremia: Status: Acute Plan This is an 80 yo M with a PMH of Dementia, ESRD on HD TTHS, Prior MRSA bacteremia secondary to infected dialysis catheter (in Jun 2021), HTN, Anemia of CKD, DM, HLD who is sent from [facility] (LTC resident there) for changes in mental status and low grade fevers. He also is found to have possible GI bleed while in the ED. He will be admitted for Sepsis and suspected Gastrointestinal bleed. ESRD on HD TTHS, last HD 09/27/21 HD cath growing MRSA, permacath removed nephrology following, missed dialysis 09/29/21, no access can place temporary dialysis catheter due to cx remaining positive, then permacath Sepsis secondary to MRSA bacteremia Secondary to infected dialysis catheter, initially treated with vancomycin UA also with pyuria / bacteria - urine culture mixed ID consult rec starting daptomycin 4-6 weeks toxic/metabolic encephalopathy secondary to bacteremia improving Acute Respiratory Failure with hypoxia Improved following HD. Currently saturating on room air. No evidence of pneumonia on Chest imaging Melanotic stools, suspected lower GI bleed, acute blood loss anemia s/p 1 unit prbc 09/27 IV PPI Seen by GI recommend conservative management for now. saeed liquid diet asa on hold Dementia without behavioral disturbances not on meds at baseline HTN. soft blood pressure hold antihypertensives resume when blood pressures allows DM SSI Chronic combined systolic/diastolic CHF, no acute exacerbation lasix on hold due to low BP DNR/DNI per [facility] form sent from [facility] DVT pptx, Mechanical due to possible GI bleed Called both HCPs listed on [facility] records -- went unanswered Attending:Dr. Freeman Quality Stroke Does the patient have a stroke diagnosis?: No VTE Prior VTE?: No VTE Risk Level:: Medical - moderate - high VTE Device Contraindication: N/A - Device Ordered VTE Drug Contraindication: Treatment Not Indicated
[2021-10-01 15:25] VITALS: BP 138/75; PULSE 94; RESP 20; TEMP 36.7; O2SAT 98
[2021-10-01 16:12] LABS: Glucose, Whole Blood 194 mg/dL (60-115)
[2021-10-01 20:00] LABS: Glucose, Whole Blood 146 mg/dL (60-115)
[2021-10-01 23:12] VITALS: BP 122/63; PULSE 80; RESP 20; TEMP 36.3; O2SAT 99
[2021-10-02 03:57] VITALS: PULSE 70; RESP 16; TEMP 36.3; O2SAT 100
[2021-10-02 06:00] VITALS: BMI 21.8
[2021-10-02 07:09] VITALS: BP 132/82; PULSE 82; RESP 19; TEMP 36.1; O2SAT 98
[2021-10-02 07:26] LABS: Glucose, Whole Blood 137 mg/dL (60-115)
--- NOTE | 2021-10-02 08:20 | PM.PNNEP ---
Subjective Subjective Date of Service: 10/02/21 Principal diagnosis: no complaints this AM had HAD yesterday Interval history: seen and examined this morning pleasantly confused, offers no complaints denies pain last dialysis 09/26. No nausea, dyspnea Physical Exam Vital Signs: Vital Signs: Last Vital Signs Temp 97 F 10/02/21 07:09 Pulse 82 10/02/21 07:09 Resp 19 10/02/21 07:09 BP 132/82 10/02/21 07:09 Pulse Ox 98 10/02/21 07:09 Oxygen Flow Rate 2 09/27/21 02:46 BMI result Body Mass Index 21.8 Const: General: cooperative; No no acute distress Eyes: EOM: EOMs intact bilaterally Neck: Neck: No lymphadenopathy and Yes no JVD Resp: Effort & Inspection: normal respiratory effort Auscultation: clear to auscultation bilaterally Cardio: Rate: regular rate GI: Inspection: Yes normal to inspection Extrem: General: Yes normal to inspection and No edema Objective Data Labs CBC & Chem 7: 10/01/21 09:07 10/01/21 09:07 Labs: Laboratory Results - last 24 hr 10/01/21 10/01/21 10/01/21 08:14 08:14 09:07 WBC 11.2 H 10.1 RBC 2.98 L 2.93 L Hgb 9.2 L 9.0 L Hct 27.8 L 27.0 L MCV 93.3 D 92.2 MCH 30.9 30.7 MCHC 33.1 33.3 RDW 17.0 H 17.0 H Plt Count 78 L 69 L MPV 12.0 11.2 Absolute Nucleated RBC 0.000 0.000 Nucleated RBC % (auto) 0.0 0.0 Sodium 129 L Potassium 3.9 Chloride 98 Carbon Dioxide 17 L Anion Gap 18 BUN 83 H Creatinine 6.94 H* Estim Creat Clear Calc 6.9 Estimated GFR 8 POC Glucose Random Glucose 154 H D Calcium 8.2 L 10/01/21 10/01/21 10/01/21 09:07 11:11 16:05 WBC RBC Hgb Hct MCV MCH MCHC RDW Plt Count MPV Absolute Nucleated RBC Nucleated RBC % (auto) Sodium 129 L Potassium 3.8 Chloride 97 Carbon Dioxide 17 L Anion Gap 19 BUN 86 H Creatinine 7.17 H* Estim Creat Clear Calc 6.7 Estimated GFR 7 POC Glucose 253 H 194 H Random Glucose 213 H D Calcium 7.9 L 10/01/21 10/02/21 19:50 07:20 WBC RBC Hgb Hct MCV MCH MCHC RDW Plt Count MPV Absolute Nucleated RBC Nucleated RBC % (auto) Sodium Potassium Chloride Carbon Dioxide Anion Gap BUN Creatinine Estim Creat Clear Calc Estimated GFR POC Glucose 146 H 137 H Random Glucose Calcium Microbiology Microbiology Results: Microbiology 10/01/21 08:52 Blood - Central Line Blood Culture - Preliminary Prelim: GPC Gram Stain only 10/01/21 09:07 Blood - Central Line Blood Culture - Preliminary Prelim: GPC Gram Stain only 09/30/21 15:07 Blood - Venous Blood Culture - Preliminary Prelim: GPC Gram Stain only 09/30/21 15:07 Blood - Venous Blood Culture - Preliminary Prelim: GPC Gram Stain only 09/28/21 13:06 Blood - Venous Blood Culture - Final Methicillin Res Staph Aureus 09/28/21 13:06 Blood - Venous Blood Culture - Final Methicillin Res Staph Aureus 09/27/21 00:00 Urine Catheterized - Giles Catheter Urine Culture - Final 09/27/21 13:02 Blood - Subclavian Blood Culture - Final Methicillin Res Staph Aureus 09/27/21 13:02 Blood - Subclavian Blood Culture - Final Methicillin Res Staph Aureus 09/27/21 03:00 Blood - Venous Blood Culture - Final Methicillin Res Staph Aureus 09/27/21 03:00 Blood - Venous Blood Culture - Final Methicillin Res Staph Aureus Procedures Date of Service Date of Service: 10/02/21 Assessment & Plan Assessment and plan (1) End stage renal disease: Status: Acute Assessment and Plan: TTS outpatient schedule now admitted with infected permcath/tunneled central line - catheter removal on 09/28 - remains persistently bacteremia as of 10/01 with MRSA on daptomycin followed by ID - will need temporary/non-tunneled catheter placed today so we can perform dialysis today and (at least). We unfortunately can't place tunneled line until bacteremia resolves - will need echo to r/o endocarditis - if difficulty getting dialysis access for him (this is a very challenging case) or persistent bactermia, may need transfer to [facility] for further vascular access/dialysis management. My cell is [phone] if any questions or concerns. Thanks (2) Sepsis: Status: Acute Assessment and Plan: as above (3) Bacteremia: Status: Acute Assessment and Plan: MRSA on dapto per ID Time Spent With Patient Time: Total time spent is greater than 50% in coordination of care (as documented) at patient's floor/unit and/or counseling patient: Progress Note: Quality Stroke Does the patient have a stroke diagnosis?: No
--- NOTE | 2021-10-02 09:12 | PC.NURSE ---
Addendum entered by Heather Velez RN 10/02/21 17:59: DIALYSIS CATH TO RIGHT GROIN C/D/I. DENIES PAIN. MARKETING PRODUCER CALLED AND NOTIFIED OF RETURN AND PER MARKETING PRODUCER WILL BE DONE TOMORROW MORNING. NOTIIFED VIA aWhere CONNECT OF MESSAGE FROM MARKETING PRODUCER. VITAL AND POC CHECKED UPON ARRIVAL. NO INSULIN COVERAGE NEEDED. MESSAGED ABOUT DIET ORDER. AWAITING RESPONSE. Addendum entered by Heather Velez RN 10/02/21 17:42: BACK FROM IR NOW. Addendum entered by Heather Velez RN 10/02/21 15:06: OFF UNIT TO IR. Addendum entered by Heather Velez RN 10/02/21 09:53: WOUND NURSE NOTIFIED AND WILL BE BEDSIDE LATER TO ASSESS SKIN. Original Note: MORNING MEDICATIONS HELD PER MD - NPO FOR DIALYSIS CATH PLACEMENT THIS AFTERNOON.
[2021-10-02 11:07] VITALS: BP 132/74; PULSE 82; RESP 19; TEMP 36.6; O2SAT 96
[2021-10-02 11:18] LABS: Glucose, Whole Blood 143 mg/dL (60-115)
--- NOTE | 2021-10-02 13:50 | PC.NURSE ---
Skin/wound assessment completed. Patient has a small laceration to left ear-no drainage TEODORO. Patient also has blanchable pinkness with a small opening too coccyx 0.2 x0.1 x0.1. Hydrocolloid applied to coccyx. Turning and repositioning q 2 h
--- NOTE | 2021-10-02 14:15 | P.PNIM_ITS ---
Subjective Subjective Date of Service: 10/03/21 Review of Systems Follow up sepsis, bacteremia pleasantly confused, offers no complaints denies pain or feeling short of breath Physical Exam Vital Signs: Vital Signs: Last Vital Signs Temp 98 F 10/02/21 11:07 Pulse 82 10/02/21 11:07 Resp 19 10/02/21 11:07 BP 132/74 10/02/21 11:07 Pulse Ox 96 10/02/21 11:07 Oxygen Flow Rate 2 09/27/21 02:46 BMI result Body Mass Index 21.8 Appearing in no acute distress, more lethargic today lung sounds are clear to auscultation heart regular rate rhythm, clear S1, S2 positive bowel sounds, abdomen is soft, nontender neuro patient is alert, confused Objective Data Active Medications Acetaminophen (Acetaminophen Supp 650 Mg Supp.Rect) 650 mg MT Q6H PRN PRN Reason: Fever Atorvastatin Calcium (Atorvastatin Calcium 10 Mg Tablet) 10 mg PO DAILY [facility] Last Admin: 10/02/21 09:11 Dose: Not Given Documented by: ARASH Non-Admin Reason: NPO Dextrose (Dextrose 50 % 25 Gm/50 Ml Syringe) 25 gm IVPUSH Q15M PRN; Protocol PRN Reason: per Hypoglycemia Standing Ord. Ferrous Sulfate (Ferrous Sulfate 324 Mg Tablet.Dr) 324 mg PO TID [facility] Last Admin: 10/02/21 09:11 Dose: Not Given Documented by: ARASH Non-Admin Reason: NPO Glucose (Glucose Gel 15 Gm Gel..Gram.) 15 gm PO Q15M PRN; Protocol PRN Reason: per Hypoglycemia Standing Ord. Heparin Sodium (Porcine) (Heparin Sodium,Porcine 5,000 Unit/Ml Vial) 5,000 unit INTRACATH TUTHSA@1645 [facility] Sodium Chloride (Ns) 1,000 mls @ 999 mls/hr IV TuThSa@1645 [facility] Daptomycin 350 mg/ Sodium (Chloride) 57 mls @ 100 mls/hr IV TuThSa@1645 [facility] Insulin Human Lispro (Insulin Lispro 100 Unit/Ml 3 Ml Vial) 0 unit SUBCUT QIDACHS [facility]; Protocol Last Admin: 10/02/21 11:22 Dose: Not Given Documented by: ARASH Non-Admin Reason: No Insulin Coverage Comments: POC 143 Ondansetron HCl (Ondansetron Hcl 4 Mg/2 Ml Vial) 4 mg IVPUSH Q8H PRN PRN Reason: Nausea and Vomiting Pharmacy Consult (Consult Rx Perform Med Rec) 1 each MISCELLANE ONCE PRN PRN Reason: Consult order Pharmacy Consult (Consult Rx Vancomycin Dosing) 1 each MISCELLANE DAILY PRN PRN Reason: Consult order Senna (Sennosides 8.6 Mg Tablet) 8.6 mg PO DAILY [facility] Last Admin: 10/02/21 09:11 Dose: Not Given Documented by: ARASH Non-Admin Reason: NPO Sevelamer Carbonate (Sevelamer Carbonate Tablet 800 Mg Tablet) 800 mg PO TID [facility] Last Admin: 10/02/21 09:11 Dose: Not Given Documented by: ARASH Non-Admin Reason: NPO Sodium Chloride (0.9 % Sodium Chloride Flush 3 Ml Syringe) 3 ml IVFLUSH QSHIFT [facility] Last Admin: 10/02/21 09:12 Dose: Not Given Documented by: ARASH Non-Admin Reason: See Note Comments: COMABTIVE AT THIS TIME - UNABLE TO FLUSH IV Labs CBC & Chem 7: 10/03/21 11:00 10/03/21 11:00 Labs: Laboratory Results - last 24 hr 10/01/21 10/01/21 10/02/21 16:05 19:50 07:20 POC Glucose 194 H 146 H 137 H 10/02/21 11:07 POC Glucose 143 H Microbiology Microbiology Results: Microbiology 10/01/21 09:07 Blood Culture - Preliminary Blood - Central Line Prelim: GPC Gram Stain only 10/01/21 08:52 Blood Culture - Preliminary Blood - Central Line Prelim: GPC Gram Stain only 09/30/21 15:07 Blood Culture - Preliminary Blood - Venous Methicillin Res Staph Aureus 09/30/21 15:07 Blood Culture - Final Blood - Venous Methicillin Res Staph Aureus Assessment and Plan (1) End stage renal disease: Status: Acute (2) Sepsis: Status: Acute (3) Bacteremia: Status: Acute Plan This is an 80 yo M with a PMH of Dementia, ESRD on HD TTHS, Prior MRSA bacteremia secondary to infected dialysis catheter (in Jun 2021), HTN, Anemia of CKD, DM, HLD who is sent from [facility] (C resident there) for changes in mental status and low grade fevers. He also is found to have possible GI bleed while in the ED. He will be admitted for Sepsis and suspected Gastrointestinal bleed. ESRD on HD TTHS, last HD 09/27/21 HD cath growing MRSA, permacath removed nephrology following, missed dialysis 09/29/21, no access temporary dialysis catheter due to cx remaining positive, then permacath Dialysis today and likely tomorrow Sepsis secondary to MRSA bacteremia Secondary to infected dialysis catheter, initially treated with vancomycin UA also with pyuria / bacteria - urine culture mixed ID consult rec starting daptomycin 4-6 weeks total ECHO toxic/metabolic encephalopathy secondary to bacteremia improving Acute Respiratory Failure with hypoxia Improved following HD. Currently saturating on room air. No evidence of pneumonia on Chest imaging Melanotic stools, suspected lower GI bleed, acute blood loss anemia s/p 1 unit prbc 09/27 IV PPI Seen by GI recommend conservative management for now. saeed liquid diet asa on hold Dementia without behavioral disturbances not on meds at baseline HTN. soft blood pressure hold antihypertensives resume when blood pressures allows DM SSI Chronic combined systolic/diastolic CHF, no acute exacerbation lasix on hold due to low BP DNR/DNI per [facility] form sent from [facility] DVT pptx, Mechanical due to possible GI bleed Called both HCPs listed on [facility] records -- went unanswered Attending:Dr. Back Quality Stroke Does the patient have a stroke diagnosis?: No VTE Prior VTE?: No VTE Risk Level:: Medical - moderate - high VTE Device Contraindication: N/A - Device Ordered VTE Drug Contraindication: Treatment Not Indicated
[2021-10-02] MEDS: Lidocaine HCl 1 % 20 ML VIAL 10 ML INFILTRATI (17:23)
[2021-10-02] MEDS: Heparin Sodium,Porcine 1,000 UNIT/ML VIAL 2800 UNIT IV (17:30)
[2021-10-02 17:50] VITALS: BP 136/72; PULSE 87; RESP 20; TEMP 37.1; O2SAT 99
[2021-10-02 17:58] LABS: Glucose, Whole Blood 135 mg/dL (60-115)
[2021-10-02 19:07] VITALS: BP 153/78; PULSE 80; RESP 20; TEMP 36.2; O2SAT 98
[2021-10-02 19:39] LABS: Glucose, Whole Blood 133 mg/dL (60-115)
[2021-10-02] MEDS: 0.9 % Sodium Chloride Flush 3 ML SYRINGE IVFLUSH (21:04)
[2021-10-02] MEDS: Sevelamer Carbonate Tablet 800 MG TABLET PO (21:04)
[2021-10-02] MEDS: Ferrous Sulfate 324 MG TABLET.DR PO (21:04)
[2021-10-02 23:08] VITALS: BP 139/78; PULSE 80; RESP 20; TEMP 36.3; O2SAT 97
[2021-10-03 04:00] VITALS: BP 143/90; PULSE 76; RESP 17; TEMP 36.1; O2SAT 98
[2021-10-03 05:27] VITALS: BMI 21.0
[2021-10-03 07:13] LABS: Glucose, Whole Blood 95 mg/dL (60-115)
[2021-10-03 07:46] VITALS: BP 160/76; PULSE 80; RESP 18; TEMP 36.4; O2SAT 100
--- NOTE | 2021-10-03 08:23 | PM.PNNEP ---
Subjective Subjective Date of Service: 10/03/21 Principal diagnosis: no complaints this AM had HAD yesterday Interval history: seen and examined this morning. non-tunneled dialysis catheter placed right femoral site late yesterday. pleasantly confused, offers no complaints denies pain. getting echo this am. last dialysis 09/26. No nausea, dyspnea Physical Exam Vital Signs: Vital Signs: Last Vital Signs Temp 97.5 F 10/03/21 07:46 Pulse 80 10/03/21 07:46 Resp 18 10/03/21 07:46 BP 160/76 H 10/03/21 07:46 Pulse Ox 100 10/03/21 07:46 Oxygen Flow Rate 2 09/27/21 02:46 BMI result Body Mass Index 21.0 Const: General: no acute distress Nutritional Appearance: cachectic Eyes: EOM: EOMs intact bilaterally Neck: Neck: Yes normal visual inspection and Yes no JVD Resp: Effort & Inspection: normal respiratory effort Auscultation: clear to auscultation bilaterally Cardio: Jugular venous distension: no JVD Rate: regular rate Rhythm: regular rhythm GI: Inspection: Yes normal to inspection Skin: Other: right femoral non-tunneled dialysis catheter c/d/i General skin exam: no rashes or lesions noted Objective Data Labs CBC & Chem 7: 10/01/21 09:07 10/01/21 09:07 Labs: Laboratory Results - last 24 hr 10/02/21 10/02/21 10/02/21 11:07 17:54 19:35 POC Glucose 143 H 135 H 133 H 10/03/21 07:10 POC Glucose 95 Microbiology Microbiology Results: Microbiology 09/30/21 15:07 Blood - Venous Blood Culture - Final Methicillin Res Staph Aureus 10/02/21 01:17 Blood - Venous Blood Culture - Preliminary Prelim: GPC Gram Stain only 10/02/21 01:09 Blood - Venous Blood Culture - Preliminary Prelim: GPC Gram Stain only 10/01/21 09:07 Blood - Central Line Blood Culture - Preliminary Prelim: GPC Gram Stain only 10/01/21 08:52 Blood - Central Line Blood Culture - Preliminary Prelim: GPC Gram Stain only 09/30/21 15:07 Blood - Venous Blood Culture - Final Methicillin Res Staph Aureus 09/28/21 13:06 Blood - Venous Blood Culture - Final Methicillin Res Staph Aureus 09/28/21 13:06 Blood - Venous Blood Culture - Final Methicillin Res Staph Aureus 09/27/21 00:00 Urine Catheterized - Giles Catheter Urine Culture - Final 09/27/21 13:02 Blood - Subclavian Blood Culture - Final Methicillin Res Staph Aureus 09/27/21 13:02 Blood - Subclavian Blood Culture - Final Methicillin Res Staph Aureus 09/27/21 03:00 Blood - Venous Blood Culture - Final Methicillin Res Staph Aureus 09/27/21 03:00 Blood - Venous Blood Culture - Final Methicillin Res Staph Aureus Procedures Date of Service Date of Service: 10/03/21 Assessment & Plan Assessment and plan (1) End stage renal disease: Status: Acute Assessment and Plan: TTS outpatient schedule now admitted with infected permcath/tunneled central line - catheter removal on 09/28 - remains persistently bacteremia as of 10/02 with MRSA on daptomycin followed by ID - had temporary/non-tunneled catheter placed late 10/02 and will perform dialysis today (10/03), and likely friday followed by line holiday over weekend again to see if we can't clear his bacteremia. We unfortunately can't place tunneled line until bacteremia resolves - getting echo to r/o endocarditis - My cell is [phone] if any questions or concerns. Thanks (2) Bacteremia: Status: Acute Assessment and Plan: as above. would ask ID to follow up given persistent bacteremia > 1 week Time Spent With Patient Time: Total time spent is greater than 50% in coordination of care (as documented) at patient's floor/unit and/or counseling patient: Progress Note: Quality Stroke Does the patient have a stroke diagnosis?: No
--- NOTE | 2021-10-03 10:20 | MHC.CM.PN ---
Male 80 DX Lethargy low grade temp. DP return to [facility] via BLS. Insertion of a Temp HD access and HD 10/02/21.
[2021-10-03] MEDS: Ferrous Sulfate 324 MG TABLET.DR PO ×2 (10:22→22:43)
[2021-10-03] MEDS: 0.9 % Sodium Chloride Flush 3 ML SYRINGE IVFLUSH ×2 (10:22→22:44)
[2021-10-03] MEDS: Sevelamer Carbonate Tablet 800 MG TABLET PO ×2 (10:22→22:43)
[2021-10-03] MEDS: Sennosides 8.6 MG TABLET PO (10:22)
[2021-10-03] MEDS: Atorvastatin Calcium 10 MG TABLET PO (10:22)
[2021-10-03 11:03] LABS: Glucose, Whole Blood 128 mg/dL (60-115)
[2021-10-03 11:12] LABS: Hematocrit 26.6 % (42.0-52.0); Hemoglobin 8.8 g/dl (14.0-18.0); Mean Corpuscular HGB Conc 33.1 g/dl (31.0-36.0); Mean Corpuscular Hemoglobin 30.7 pg (27.0-33.0); Mean Corpuscular Volume 92.7 fL (80.0-98.0); Mean Platelet Volume 11.2 fL (9.4-12.4); Red Blood Count 2.87 X10*6/uL (4.60-5.80); Red Cell Distribution Width 16.9 % (11.0-16.0); White Blood Count 7.5 X10*3/uL (4.8-10.8)
[2021-10-03 11:15] LABS: Platelet Count 87 X10*3/uL (160-400)
[2021-10-03 11:27] LABS: Anion Gap 17 (12-20); Blood Urea Nitrogen 109 mg/dL (9-16); Carbon Dioxide 20 mmol/L (22-29); Chloride 99 mmol/L (96-108); Creatinine Clr Calc Pharmacy 5.9; Estimated Glomerular Filt Rate 6; Glucose Random 123 mg/dL (60-115); Potassium 4.4 mmol/L (3.3-5.1); Sodium 132 mmol/L (135-145)
[2021-10-03 12:00] VITALS: BP 144/77; PULSE 75; RESP 20; TEMP 36.3; O2SAT 100
--- NOTE | 2021-10-03 13:56 | P.PNIM_ITS ---
Subjective Subjective Date of Service: 10/03/21 Review of Systems Follow up sepsis, bacteremia pleasantly confused, offers no complaints denies pain or feeling short of breath Physical Exam Vital Signs: Vital Signs: Last Vital Signs Temp 97.4 F 10/03/21 12:00 Pulse 75 10/03/21 12:00 Resp 20 10/03/21 12:00 BP 144/77 H 10/03/21 12:00 Pulse Ox 100 10/03/21 12:00 Oxygen Flow Rate 2 09/27/21 02:46 BMI result Body Mass Index 21.0 Appearing in no acute distress, sleepy lung sounds are clear to auscultation heart regular rate rhythm, clear S1, S2 positive bowel sounds, abdomen is soft, nontender neuro patient is alert, confused Dialysis cath right groin Objective Data Active Medications Acetaminophen (Acetaminophen Supp 650 Mg Supp.Rect) 650 mg MD Q6H PRN PRN Reason: Fever Atorvastatin Calcium (Atorvastatin Calcium 10 Mg Tablet) 10 mg PO DAILY [facility] Last Admin: 10/03/21 10:22 Dose: 10 mg Documented by: VILMA Dextrose (Dextrose 50 % 25 Gm/50 Ml Syringe) 25 gm IVPUSH Q15M PRN; Protocol PRN Reason: per Hypoglycemia Standing Ord. Ferrous Sulfate (Ferrous Sulfate 324 Mg Tablet.Dr) 324 mg PO TID [facility] Last Admin: 10/03/21 10:22 Dose: 324 mg Documented by: VILMA Glucose (Glucose Gel 15 Gm Gel..Gram.) 15 gm PO Q15M PRN; Protocol PRN Reason: per Hypoglycemia Standing Ord. Heparin Sodium (Porcine) (Heparin Sodium,Porcine 5,000 Unit/Ml Vial) 5,000 unit INTRACATH TUTHSA@1645 [facility] Last Admin: 10/02/21 17:55 Dose: Not Given Documented by: ARASH Non-Admin Reason: See Note Comments: NO DIALYSIS TODAY - TOMORROW MORNING Sodium Chloride (Ns) 1,000 mls @ 999 mls/hr IV TuThSa@1645 [facility] Last Admin: 10/02/21 17:54 Dose: Not Given Documented by: ARASH Non-Admin Reason: See Note Comments: NO DIALYSIS TODAY - WILL BE TOMORROW MORNING Daptomycin 350 mg/ Sodium (Chloride) 57 mls @ 100 mls/hr IV WeThFr@1645 [facility] Insulin Human Lispro (Insulin Lispro 100 Unit/Ml 3 Ml Vial) 0 unit SUBCUT QIDACHS [facility]; Protocol Last Admin: 10/03/21 11:05 Dose: Not Given Documented by: VILMA Non-Admin Reason: No Insulin Coverage Ondansetron HCl (Ondansetron Hcl 4 Mg/2 Ml Vial) 4 mg IVPUSH Q8H PRN PRN Reason: Nausea and Vomiting Pharmacy Consult (Consult Rx Perform Med Rec) 1 each MISCELLANE ONCE PRN PRN Reason: Consult order Pharmacy Consult (Consult Rx Vancomycin Dosing) 1 each MISCELLANE DAILY PRN PRN Reason: Consult order Senna (Sennosides 8.6 Mg Tablet) 8.6 mg PO DAILY [facility] Last Admin: 10/03/21 10:22 Dose: 8.6 mg Documented by: VILMA Sevelamer Carbonate (Sevelamer Carbonate Tablet 800 Mg Tablet) 800 mg PO TID [facility] Last Admin: 10/03/21 10:22 Dose: 800 mg Documented by: VILMA Sodium Chloride (0.9 % Sodium Chloride Flush 3 Ml Syringe) 3 ml IVFLUSH QSHIFT [facility] Last Admin: 10/03/21 10:22 Dose: 3 ml Documented by: VILMA Labs CBC & Chem 7: 10/03/21 11:00 10/03/21 11:00 Labs: Laboratory Results - last 24 hr 10/02/21 10/02/21 10/03/21 17:54 19:35 07:10 MCV MCH MCHC RDW Plt Count MPV Absolute Nucleated RBC Nucleated RBC % (auto) Anion Gap Estim Creat Clear Calc Estimated GFR POC Glucose 135 H 133 H 95 Random Glucose Calcium 10/03/21 10/03/21 10/03/21 10:55 11:00 11:00 MCV 92.7 MCH 30.7 MCHC 33.1 RDW 16.9 H Plt Count 87 L D MPV 11.2 Absolute Nucleated RBC 0.000 Nucleated RBC % (auto) 0.0 Anion Gap Cancelled Estim Creat Clear Calc Cancelled Estimated GFR Cancelled POC Glucose 128 H Random Glucose Cancelled Calcium Cancelled 10/03/21 11:00 MCV MCH MCHC RDW Plt Count MPV Absolute Nucleated RBC Nucleated RBC % (auto) Anion Gap 17 Estim Creat Clear Calc 5.9 Estimated GFR 6 POC Glucose Random Glucose 123 H D Calcium 8.0 L Microbiology Microbiology Results: Microbiology 10/02/21 01:17 Blood Culture - Preliminary Blood - Venous Staphylococcus aureus 10/02/21 01:09 Blood Culture - Preliminary Blood - Venous Staphylococcus aureus 10/01/21 09:07 Blood Culture - Final Blood - Central Line Methicillin Res Staph Aureus 10/01/21 08:52 Blood Culture - Final Blood - Central Line Methicillin Res Staph Aureus 09/30/21 15:07 Blood Culture - Final Blood - Venous Methicillin Res Staph Aureus Assessment and Plan (1) End stage renal disease: Status: Acute (2) Sepsis: Status: Acute (3) Bacteremia: Status: Acute Plan This is an 80 yo M with a PMH of Dementia, ESRD on HD TTHS, Prior MRSA bacteremia secondary to infected dialysis catheter (in Jun 2021), HTN, Anemia of CKD, DM, HLD who is sent from [facility] (LTC resident there) for changes in mental status and low grade fevers. He also is found to have possible GI bleed while in the ED. He will be admitted for Sepsis and suspected Gastrointestinal bleed. ESRD on HD TTHS, last HD 09/27/21 HD cath growing MRSA, permacath removed temporary dialysis catheter placed on 10/02, will have dialysis [facility] this week then line pulled for weekend, If cx are still not cleared will need to get anoth er temp line for the following weeks dialysis Followed by Dr. Rajeev Fang [phone] Sepsis secondary to MRSA bacteremia Secondary to infected dialysis catheter, initially treated with vancomycin UA also with pyuria / bacteria - urine culture mixed ID consult rec starting daptomycin 4-6 weeks total ECHO negative for vegetation Discussed case with ID, rec adding Rocephin, may just take more time for patient to clear toxic/metabolic encephalopathy secondary to bacteremia improving Melanotic stools, suspected lower GI bleed, acute blood loss anemia s/p 1 unit prbc 09/27 IV PPI stopped Seen by GI recommend conservative management for now. Speech evaluation fopr diet rec, now on clears asa on hold Dementia without behavioral disturbances not on meds at baseline HTN. soft blood pressure hold antihypertensives resume when blood pressures allows DM SSI Chronic combined systolic/diastolic CHF, no acute exacerbation lasix on hold due to low BP, BP better may continue if warranted DNR/DNI per [facility] form sent from [facility] DVT pptx, Mechanical due to possible GI bleed, heparin through cath during dialysis Attending:Dr. Pulido Quality Stroke Does the patient have a stroke diagnosis?: No VTE Prior VTE?: No VTE Risk Level:: Medical - moderate - high VTE Device Contraindication: N/A - Device Ordered VTE Drug Contraindication: Treatment Not Indicated
--- NOTE | 2021-10-03 15:00 | CA_ITS ---
Transthoracic Echocardiogram Patient (Last, First, Middle): Osmani Rivera, Gender: Male Date of : 1940 Age: 80 Procedure Date: 10/03/2021 Procedure Type: Transthoracic Echocardiogram Location: [facility] Height: 172.72 cm Weight: 62.6 kg BSA: 1.75 m2 Heart Rate: bpm BP: 143 / 90 mmHg Glass Bulb Silverer: YUKI Referring MD: Sobia Khalil NP Symptoms: MRSA bacteremia Study Quality: Fair Conclusions: - The left ventricular systolic function is severely decreased. The visually estimated ejection fraction is between 20-25%. - Wall motion abnormalities as described below. - There is severe mitral annular calcification. - There is mild calcification of the aortic valve. Findings Left Ventricle Moderately increased left ventricular cavity size. There is mildly increased left ventricular wall thickness. The left ventricular systolic function is severely decreased. The visually estimated ejection fraction is between 20 25%. There is evidence of regional wall motion abnormalities. Evidence suggests grade I (mild) diastolic dysfunction. Wall Motion Rest Echo Findings The anterior wall, inferoseptal wall, and apical septum segment are hypokinetic. The inferior wall and entire lateral wall are akinetic. Right Ventricle Normal right ventricular cavity size and systolic function. Atria The left atrium is moderately dilated. The right atrium is normal in size. Aortic Valve There is mild calcification of the aortic valve. There is no aortic valve stenosis. There is no aortic valve regurgitation. Mitral Valve There is severe mitral annular calcification. There is mild mitral valve regurgitation. There is no mitral valve stenosis. Pulmonic Valve The pulmonic valve was not well visualized. There is trace pulmonic valve regurgitation. Tricuspid Valve There is trace tricuspid valve regurgitation. The pulmonary artery systolic pressure is normal. Great Vessels The asc aorta is normal in size. Venous The inferior vena cava is normal in size and collapses greater than 50% with inspiration. Pericardium/Pleural Likely left-sided pleural effusion. Doubt any significant pericardial effusion. Prior Study Comparison Changes noted compared to prior study dated: 06/18/2021. LVEF is worse. See comments on wall motion. Measurements 2D Linear Measurements IVSd: 1.24 0.6-0.9/0.6-1.0 cm LVIDd: 6.29 3.9-5.3/4.2-5.9 cm LVIDd Index: 3.59 2.4-3.2/2.2-3.1 cm/m2 LVIDs: 5.22 2.0-3.6 cm LVPWd: 1.19 0.7-1.1 cm Ao Root: 3.60 2.1-3.5 cm LA Diam: 4.60 2.7-3.8/3.0-4.0 cm LAIDs Index: 2.63 1.5-2.3 cm/m2 LV Mass: 430.76 67-162/88-224 g LV Mass Index: 246.15 43-95/49-115 g/m2 LVOT Diam: 2.40 3.0+(-)1.3 cm 2D Systolic Function EF 4C: 38.00 >55% EF 2C: 25.20 >55% EF BiP: 33.00 >55% Mitral Valve MV VTI: 0.19 MV Pk Jaquan: 0.95 MV Mn Jaquan: 0.56 MV Pk Grad: 4.00 MV Mn Grad: 1.00 MV Pk E: 0.67 MV PK A: 0.81 MV Decel Time: 203.00 E/A: 0.80 E'Lateral: 3.48 E'Medial: 4.24 E/E' Med: 15.90 E/E' Lat: 19.30 PHT: 69.00 MVA PHT: 3.19 MVA Continuity: 2.18 Decel [place]: 3.08 Aortic Valve AoV Pk Jaquan: 1.16 AoV Mn Jaquan: 0.74 AoV VTI: 0.19 AoV Pk Grad: 5.00 Aov Mn Grad: 3.00 PEYTON Cont.VTI: 2.13 LVOT LVOT Pk Jaquan: 0.56 LVOT Mn Jaquan: 0.32 LVOT VTI: 0.09 LVOT Pk Grad: 1.00 LVOT Mn Grad: 0.00 LVOT Diam: 2.40 LVOT Area: 4.52 Diastolic Function MV Pk E: 0.67 MV Pk A: 0.81 E/A: 0.80 E'Medial: 4.24 E/E' Med: 15.90 E' Laterial: 3.48 E/E' Lat: 19.30 Right Ventricle TAPSE (mm): 19.80 TVS' Jaquan: 7.94 Tricuspid Valve TR Pk Jaquan: 1.91 TR Pk Grad: 15.00 RA Press: 3.00 RVSP: 18.00 Great Vessels Aorta Ao Root-2D: 3.60 2.0-3.7 cm Ao Asc: 3.50 2.1-3.4 cm Pulmonary Valve PV Pk Jaquan: 0.80 Peak PV Grad: 3.00 Updated in Other Vendor System with Status of Final Christopher Hernandez MD electronically signed on 10/03/2021 10:41:40 AM with status of Final
--- NOTE | 2021-10-03 16:05 | MHC.SLORD ---
Speech Language Pathology Order Status: Received order for bedside dysphagia evaluation this afternoon. BAKERY TECHNICIAN corresponded with attending hospitalist Sobia Khalil- Patient is currently on clear liquid diet d/t previous GI bleeding. Order placed for BAKERY TECHNICIAN consult to evaluate patient's tolerance of solids. When BAKERY TECHNICIAN arrived in the unit, patient was away for dialysis. RN reports patient has been tolerating liquids without difficulty. BAKERY TECHNICIAN called and spoke with staff from [facility]- where patient is a LTC resident. At baseline he is reportedly on ground/[facility] altered solids (NDD2), thin liquids, takes pills whole. Patient will be placed on baseline diet textures. Plan to check-in tomorrow morning.
[2021-10-03 18:24] VITALS: BP 101/59; PULSE 74; RESP 16; TEMP 36.6; O2SAT 99
[2021-10-03 19:26] VITALS: BP 137/75; PULSE 78; RESP 16; TEMP 36.6; O2SAT 99
[2021-10-03 20:02] LABS: Glucose, Whole Blood 91 mg/dL (60-115)
--- NOTE | 2021-10-03 22:51 | PM.IDPN ---
Subjective Subjective Date of Service: 10/03/21 Critical Care Time (minutes): 15 Comment: he has no complaints Objective Data Labs CBC & Chem 7: 10/13/21 06:14 10/13/21 06:14 Labs: Laboratory Results - last 24 hr 10/03/21 10/03/21 10/03/21 07:10 10:55 11:00 WBC 7.5 RBC 2.87 L Hgb 8.8 L Hct 26.6 L MCV 92.7 MCH 30.7 MCHC 33.1 RDW 16.9 H Plt Count 87 L D MPV 11.2 Absolute Nucleated RBC 0.000 Nucleated RBC % (auto) 0.0 Sodium Potassium Chloride Carbon Dioxide Anion Gap BUN Creatinine Estim Creat Clear Calc Estimated GFR POC Glucose 95 128 H Random Glucose Calcium 10/03/21 10/03/21 10/03/21 11:00 11:00 19:54 WBC RBC Hgb Hct MCV MCH MCHC RDW Plt Count MPV Absolute Nucleated RBC Nucleated RBC % (auto) Sodium Cancelled 132 L Potassium Cancelled 4.4 Chloride Cancelled 99 Carbon Dioxide Cancelled 20 L Anion Gap Cancelled 17 BUN Cancelled 109 H D Creatinine Cancelled 8.72 H* Estim Creat Clear Calc Cancelled 5.9 Estimated GFR Cancelled 6 POC Glucose 91 Random Glucose Cancelled 123 H D Calcium Cancelled 8.0 L Microbiology Microbiology Results: Microbiology 10/02/21 01:17 Blood - Venous Blood Culture - Preliminary Staphylococcus aureus 10/02/21 01:09 Blood - Venous Blood Culture - Preliminary Staphylococcus aureus 10/01/21 09:07 Blood - Central Line Blood Culture - Final Methicillin Res Staph Aureus 10/01/21 08:52 Blood - Central Line Blood Culture - Final Methicillin Res Staph Aureus 09/30/21 15:07 Blood - Venous Blood Culture - Final Methicillin Res Staph Aureus 09/30/21 15:07 Blood - Venous Blood Culture - Final Methicillin Res Staph Aureus 09/28/21 13:06 Blood - Venous Blood Culture - Final Methicillin Res Staph Aureus 09/28/21 13:06 Blood - Venous Blood Culture - Final Methicillin Res Staph Aureus 09/27/21 00:00 Urine Catheterized - Giles Catheter Urine Culture - Final 09/27/21 13:02 Blood - Subclavian Blood Culture - Final Methicillin Res Staph Aureus 09/27/21 13:02 Blood - Subclavian Blood Culture - Final Methicillin Res Staph Aureus 09/27/21 03:00 Blood - Venous Blood Culture - Final Methicillin Res Staph Aureus 09/27/21 03:00 Blood - Venous Blood Culture - Final Methicillin Res Staph Aureus Physical Exam Vital Signs: Vital Signs: Last Vital Signs Temp 98 F 10/03/21 19:26 Pulse 78 10/03/21 19:26 Resp 16 10/03/21 19:26 BP 137/75 10/03/21 19:26 Pulse Ox 99 10/03/21 19:26 Oxygen Flow Rate 2 09/27/21 02:46 BMI result Body Mass Index 21.0 Const: General: cooperative HENMT: Head: Yes normal to inspection Mouth: Normal oral and palatal mucosa present Resp: Effort & Inspection: normal respiratory effort Cardio: Rate: regular rate GI: Palpation (GI): Soft to palpation and nontender Skin: General skin exam: no rashes or lesions noted Assessment and Plan Assessment and plan (1) Bacteremia: Problem details: He still has MRSA bacteremia with no source obvious and no endocarditis with ESRD It is resolving Status: Acute Assessment and Plan: Would add possible synergistic Ceftriaxone to Daptomycin. Wait another two to three days to check blood cultures. Time Spent With Patient Time: Total time spent is greater than 50% in coordination of care (as documented) at patient's floor/unit and/or counseling patient: Time with patient: 15 - 24 minutes
[2021-10-03 23:39] VITALS: BP 137/73; PULSE 75; RESP 18; TEMP 37; O2SAT 98
[2021-10-04 04:00] VITALS: BP 120/56; PULSE 64; RESP 18; TEMP 36.5; O2SAT 98
[2021-10-04 06:00] VITALS: BMI 19.4
[2021-10-04 07:24] VITALS: BP 121/57; PULSE 75; RESP 18; TEMP 36.4; O2SAT 100
[2021-10-04 07:32] LABS: Glucose, Whole Blood 72 mg/dL (60-115)
--- NOTE | 2021-10-04 09:04 | PM.PNNEP ---
Subjective Subjective Date of Service: 10/04/21 Principal diagnosis: no complaints this AM had HAD yesterday Interval history: seen and examined this morning. non-tunneled dialysis catheter placed right femoral on 10/02/21 had dialysis yesterday, 10/03. pleasantly confused, offers no complaints denies pain. Echo reported noted. last dialysis 10/03. No nausea, dyspnea Physical Exam Vital Signs: Vital Signs: Last Vital Signs Temp 97.5 F 10/04/21 07:24 Pulse 75 10/04/21 07:24 Resp 18 10/04/21 07:24 BP 121/57 L 10/04/21 07:24 Pulse Ox 100 10/04/21 07:24 Oxygen Flow Rate 2 09/27/21 02:46 BMI result Body Mass Index 19.4 Const: General: cooperative and no acute distress Eyes: EOM: EOMs intact bilaterally Neck: Neck: Yes no lymphadenopathy and Yes no JVD Resp: Effort & Inspection: normal respiratory effort Auscultation: clear to auscultation bilaterally Cardio: Heart sounds: S1 normal heart sound present and S2 normal heart sound present GI: Inspection: Yes normal to inspection Objective Data Labs CBC & Chem 7: 10/03/21 11:00 10/03/21 11:00 Labs: Laboratory Results - last 24 hr 10/03/21 10/03/21 10/03/21 10:55 11:00 11:00 WBC 7.5 RBC 2.87 L Hgb 8.8 L Hct 26.6 L MCV 92.7 MCH 30.7 MCHC 33.1 RDW 16.9 H Plt Count 87 L D MPV 11.2 Absolute Nucleated RBC 0.000 Nucleated RBC % (auto) 0.0 Sodium Cancelled Potassium Cancelled Chloride Cancelled Carbon Dioxide Cancelled Anion Gap Cancelled BUN Cancelled Creatinine Cancelled Estim Creat Clear Calc Cancelled Estimated GFR Cancelled POC Glucose 128 H Random Glucose Cancelled Calcium Cancelled 10/03/21 10/03/21 10/04/21 11:00 19:54 07:29 WBC RBC Hgb Hct MCV MCH MCHC RDW Plt Count MPV Absolute Nucleated RBC Nucleated RBC % (auto) Sodium 132 L Potassium 4.4 Chloride 99 Carbon Dioxide 20 L Anion Gap 17 BUN 109 H D Creatinine 8.72 H* Estim Creat Clear Calc 5.9 Estimated GFR 6 POC Glucose 91 72 Random Glucose 123 H D Calcium 8.0 L Microbiology Microbiology Results: Microbiology 10/03/21 15:41 Blood - Venous Blood Culture - Preliminary Prelim: GPC Gram Stain only 10/02/21 01:17 Blood - Venous Blood Culture - Final Methicillin Res Staph Aureus 10/02/21 01:09 Blood - Venous Blood Culture - Final Methicillin Res Staph Aureus 10/01/21 09:07 Blood - Central Line Blood Culture - Final Methicillin Res Staph Aureus 10/01/21 08:52 Blood - Central Line Blood Culture - Final Methicillin Res Staph Aureus 09/30/21 15:07 Blood - Venous Blood Culture - Final Methicillin Res Staph Aureus 09/30/21 15:07 Blood - Venous Blood Culture - Final Methicillin Res Staph Aureus 09/28/21 13:06 Blood - Venous Blood Culture - Final Methicillin Res Staph Aureus 09/28/21 13:06 Blood - Venous Blood Culture - Final Methicillin Res Staph Aureus 09/27/21 00:00 Urine Catheterized - Giles Catheter Urine Culture - Final 09/27/21 13:02 Blood - Subclavian Blood Culture - Final Methicillin Res Staph Aureus 09/27/21 13:02 Blood - Subclavian Blood Culture - Final Methicillin Res Staph Aureus 09/27/21 03:00 Blood - Venous Blood Culture - Final Methicillin Res Staph Aureus 09/27/21 03:00 Blood - Venous Blood Culture - Final Methicillin Res Staph Aureus Procedures Date of Service Date of Service: 10/04/21 Assessment & Plan Assessment and plan (1) End stage renal disease: Status: Acute Assessment and Plan: TTS outpatient schedule now admitted with infected permcath/tunneled central line - catheter removal on 09/28 - remains persistently bacteremia as of 10/03 with MRSA on daptomycin followed by ID. Appreciate their input. Echo without clear evidence of SBE but has significant mitral valvular calcification as a potential risk. Low EF noted as well. Rocephin addition per ID. - had temporary/non-tunneled catheter placed late 10/02 and will perform dialysis on 10/03, today and friday followed by line holiday over weekend again to see if we can't clear his bacteremia.?We unfortunately can't place tunneled line until bacteremia resolves - I would ask to have his temporary femoral line removed after dialysis tomorrow - My cell is [phone] if any questions or concerns. Thanks (2) Bacteremia: ?Assessment and Plan: as above. appreciate ID and IM team input/support (2) Bacteremia: Status: Acute Assessment and Plan: as above Plan as above Time Spent With Patient Time: Total time spent is greater than 50% in coordination of care (as documented) at patient's floor/unit and/or counseling patient: Progress Note: Quality Stroke Does the patient have a stroke diagnosis?: No
[2021-10-04] MEDS: Sevelamer Carbonate Tablet 800 MG TABLET PO ×3 (09:36→21:29)
[2021-10-04] MEDS: 0.9 % Sodium Chloride Flush 3 ML SYRINGE IVFLUSH ×3 (09:36→21:30)
[2021-10-04] MEDS: Atorvastatin Calcium 10 MG TABLET PO (09:37)
[2021-10-04] MEDS: Ferrous Sulfate 324 MG TABLET.DR PO ×3 (09:37→21:29)
[2021-10-04] MEDS: Sennosides 8.6 MG TABLET PO (09:38)
--- NOTE | 2021-10-04 11:23 | MHC.SL.SWA ---
Risk of Aspiration Due to: Neurological Condition History of Pneumonia Reduced Cognition Dysphasia Diet Status: Upgrade Liquid Consistency and Strategies for Safe Swallow: Liquid Intake Recommendation: Thin Liquid Intake Strategies: Small Sips Solid Food Consistency: Dietary Recommendations: Grnd/Mech Altered (NDD2) Additional Modifications to Solid Foods: Patient is currently on clear liquid diet. Once patient is cleared to have solids, recommend GROUND/MECH ALTERED (NDD2) solids and THIN liquids, pills WHOLE with PUREE or LIQUID. Recommend aspiration precautions and 1:[address] intervention is no longer warranted at this level of care as this is patient's baseline as reported by staff at [facility]. Please re-refer if we can be of further assistance. MD, RD, RN notified via [place]. Oral Medication Intake: Whole with Puree Please contact the pharmacy regarding appropriate crushable or liquid drug formulations that are available whenever modified delivery is recommended. Compensatory Strategies and Precautions to be Taken for Safe Swallow: Sitting Upright (90 deg) Small Bites and Sips Alternate Liquids/Solids Rate of Ingestion Change Supervision While Eating and Drinking for Safe Swallow: Total Assistance (1:1) Recommendation for Speech: GUALBERTO Managed Care Nurse Clinican/Clinical Fellow: No Supervisory Statement: I have reviewed and agree with the student/clinical fellow's documentation: N/A Speech Language Pathologist: Adriana Rios M.A., CCC-RESTAURANT B[employer]ENDER
[2021-10-04 11:26] LABS: Glucose, Whole Blood 84 mg/dL (60-115)
[2021-10-04 11:35] LABS: Anion Gap 18 (12-20); Blood Urea Nitrogen 51 mg/dL (9-16); Calcium 8.1 mg/dL (8.4-10.2); Carbon Dioxide 19 mmol/L (22-29); Chloride 99 mmol/L (96-108); Creatinine Clr Calc Pharmacy 9.2; Estimated Glomerular Filt Rate 11; Glucose Random 95 mg/dL (60-115); Potassium 4.1 mmol/L (3.3-5.1); Sodium 132 mmol/L (135-145)
[2021-10-04] MEDS: cefTRIAXone sodium 2 GM in 0.9 % Sodium Chloride 50 ML IV (11:48)
[2021-10-04 11:52] VITALS: BP 122/60; PULSE 58; RESP 17; TEMP 36.4; O2SAT 94
--- NOTE | 2021-10-04 17:11 | P.PNIM_ITS ---
Subjective Subjective Date of Service: 10/04/21 <TOM Alvarado - Last Filed: 10/04/21 17:24> 10/05/21 <Anna Farr MD - Last Filed: 10/05/21 15:54> Interval History: seen and examined this morning patient sleepy but easily arousable no specific complaints at this time, providing short yes or no answers only <TOM Alvarado - Last Filed: 10/04/21 17:24> Review of Systems Review of Systems: Yes all other systems are reviewed and are negative <TOM Alvarado - Last Filed: 10/04/21 17:24> Constitutional Constitutional: Denies chills and Denies fever(s) <TOM Alvarado - Last Filed: 10/04/21 17:24> Cardiovascular Cardiovascular: Denies chest pain, Denies palpitations and Denies dyspnea <TOM Alvarado - Last Filed: 10/04/21 17:24> Respiratory Respiratory: Denies cough and Denies dyspnea <TOM Alvarado - Last Filed: 17:24> Gastrointestinal Gastrointestinal: Denies abdominal pain <TOM Alvarado - Last Filed: 10/04/21 17:24> Neurologic Neurologic: Reports confusion <TOM Alvarado - Last Filed: 10/04/21 17:24> Psychiatric Psychiatric: Reports confusion <TOM Alvarado - Last Filed: 10/04/21 17:24> Endocrine Endocrine: Denies palpitations <TOM Alvarado - Last Filed: 10/04/21 17:24> Physical Exam Vital Signs: Vital Signs: Last Vital Signs Temp 97.6 F 10/04/21 11:52 Pulse 58 10/04/21 11:52 Resp 17 10/04/21 11:52 BP 122/60 10/04/21 11:52 Pulse Ox 94 10/04/21 11:52 Oxygen Flow Rate 2 09/27/21 02:46 BMI result Body Mass Index 19.4 <TOM Alvarado Last Filed: 10/04/21 17:24> Const: Other: easily arousable to verbal stimuli <TOM Alvarado - Last Filed: 10/04/21 17:24> General: confusion and ill appearing <TOM Alvarado - Last Filed: 10/04/21 17:24> Nutritional Appearance: thin <TOM Alvarado - Last Filed: 10/04/21 17:24> Orientation/consciousness: confusion <TOM Alvarado - Last Filed: 10/04/21 17:24> Resp: Effort & Inspection: normal respiratory effort and no respiratory distress <TOM Alvarado - Last Filed: 10/04/21 17:24> Cardio: Rate: regular rate <TOM Alvarado - Last Filed: 10/04/21 17:24> Heart sounds: S1 normal heart sound present and S2 normal heart sound present <TOM Alvarado - Last Filed: 10/04/21 17:24> GI: Inspection: No distended <TOM Alvarado - Last Filed: 10/04/21 17:24> Palpation (GI): Soft to palpation and nontender <TOM Alvarado - Last Filed: 10/04/21 17:24> : Other: siddiqui in place <TOM Alvarado - Last Filed: 10/04/21 17:24> Neuro: General: confusion <TOM Alvarado - Last Filed: 10/04/21 17:24> Extrem: Other: no leg edema <TOM Alvarado - Last Filed: 10/04/21 17:24> Objective Data Active Medications Acetaminophen (Acetaminophen Supp 650 Mg Supp.Rect) 650 mg IN Q6H PRN PRN Reason: Fever Atorvastatin Calcium (Atorvastatin Calcium 10 Mg Tablet) 10 mg PO DAILY [facility] Last Admin: 10/04/21 09:37 Dose: 10 mg Documented by: MARIN Dextrose (Dextrose 50 % 25 Gm/50 Ml Syringe) 25 gm IVPUSH Q15M PRN; Protocol PRN Reason: per Hypoglycemia Standing Ord. Ferrous Sulfate (Ferrous Sulfate 324 Mg Tablet.Dr) 324 mg PO TID [facility] Last Admin: 10/04/21 09:37 Dose: 324 mg Documented by: MARIN Glucose (Glucose Gel 15 Gm Gel..Gram.) 15 gm PO Q15M PRN; Protocol PRN Reason: per Hypoglycemia Standing Ord. Heparin Sodium (Porcine) (Heparin Sodium,Porcine 5,000 Unit/Ml Vial) 5,000 unit INTRACATH [id number]@1645 [facility] Last Admin: 10/02/21 17:55 Dose: Not Given Documented by: ARASH Non-Admin Reason: See Note Comments: NO DIALYSIS TODAY - TOMORROW MORNING Sodium Chloride (Ns) 1,000 mls @ 999 mls/hr IV TuThSa@1645 [facility] Last Admin: 10/02/21 17:54 Dose: Not Given Documented by: ARASH Non-Admin Reason: See Note Comments: NO DIALYSIS TODAY - WILL BE TOMORROW MORNING Daptomycin 350 mg/ Sodium (Chloride) 57 mls @ 100 mls/hr IV WeThFr@1645 [facility] Last Infusion: 10/03/21 19:41 Dose: 0 mls/hr Documented by: YAMIL Ceftriaxone Sodium 2 gm/ (Sodium Chloride) 50 mls @ 100 mls/hr IV Q24H [facility] Last Infusion: 10/04/21 12:19 Dose: 0 mls/hr Documented by: MARIN Insulin Human Lispro (Insulin Lispro 100 Unit/Ml 3 Ml Vial) 0 unit SUBCUT QIDACHS [facility]; Protocol Last Admin: 10/04/21 13:15 Dose: Not Given Documented by: MARIN Non-Admin Reason: No Insulin Coverage Ondansetron HCl (Ondansetron Hcl 4 Mg/2 Ml Vial) 4 mg IVPUSH Q8H PRN PRN Reason: Nausea and Vomiting Pharmacy Consult (Consult Rx Perform Med Rec) 1 each MISCELLANE ONCE PRN PRN Reason: Consult order Senna (Sennosides 8.6 Mg Tablet) 8.6 mg PO DAILY [facility] Last Admin: 10/04/21 09:38 Dose: 8.6 mg Documented by: MARIN Sevelamer Carbonate (Sevelamer Carbonate Tablet 800 Mg Tablet) 800 mg PO TID [facility] Last Admin: 10/04/21 09:36 Dose: 800 mg Documented by: MARIN Sodium Chloride (0.9 % Sodium Chloride Flush 3 Ml Syringe) 3 ml IVFLUSH QSHIFT [facility] Last Admin: 10/04/21 09:36 Dose: 3 ml Documented by: MARIN <TOM Alvarado - Last Filed: 10/04/21 17:24> Labs CBC & Chem 7: : 10/05/21 09:33 10/05/21 09:33 <TOM Alvarado - Last Filed: 10/04/21 17:24> Labs: Laboratory Results - last 24 hr 10/03/21 10/04/21 10/04/21 19:54 07:29 11:04 Anion Gap 18 Estim Creat Clear Calc 9.2 Estimated GFR 11 POC Glucose 91 72 Random Glucose 95 Calcium 8.1 L 10/04/21 11:22 Anion Gap Estim Creat Clear Calc Estimated GFR POC Glucose 84 Random Glucose Calcium <TOM Alvarado - Last Filed: 10/04/21 17:24> Microbiology Microbiology Results: Microbiology 10/03/21 15:41 Blood Culture - Preliminary Blood - Venous Prelim: GPC Gram Stain only 10/02/21 01:17 Blood Culture - Final Blood - Venous Methicillin Res Staph Aureus 10/02/21 01:09 Blood Culture - Final Blood - Venous Methicillin Res Staph Aureus <TOM Alvarado - Last Filed: 10/04/21 17:24> Assessment and Plan (1) Bacteremia: Status: Acute <TOM Alvarado - Last Filed: 10/04/21 17:24> (2) End stage renal disease: Status: Acute <TOM Alvarado - Last Filed: 10/04/21 17:24> Plan This is an 80 yo M with a PMH of Dementia, ESRD on HD TTHS, Prior MRSA kiko teremia secondary to infected dialysis catheter (in Jun 2021), HTN, Anemia of CKD, DM, HLD who is sent from [facility] (LTC resident there) for changes in mental status and low grade fevers. He also is found to have possible GI bleed while in the ED. He will be admitted for Sepsis and suspected Gastrointestinal bleed. ESRD on HD TTHS HD cath growing MRSA, permacath removed temporary dialysis catheter placed on 10/02, will have dialysis [facility] this week then line pulled for weekend, If cx are still not cleared will need to get another temp line for the following weeks dialysis Followed by Dr. Rajeev Fang [phone] Sepsis secondary to MRSA bacteremia Secondary to infected dialysis catheter, initially treated with vancomycin UA also with pyuria / bacteria - urine culture mixed ID consult rec starting daptomycin 4-6 weeks total ECHO negative for vegetation Discussed case with ID, rec adding Rocephin, may just take more time for patient to clear toxic/metabolic encephalopathy secondary to bacteremia improving Melanotic stools, suspected lower GI bleed, acute blood loss anemia s/p 1 unit prbc 09/27 IV PPI stopped Seen by GI recommend conservative management for now. asa on hold seen by speech rec, to increase to ground/mech altered diet with thin liqs when appropriate. will advance to full liquids Dementia without behavioral disturbances not on meds at baseline HTN. soft blood pressure hold antihypertensives resume when blood pressures allows DM SSI Chronic combined systolic/diastolic CHF, no acute exacerbation lasix on hold due to low BP, BP better may continue if warranted DNR/DNI per [facility] form sent from [facility] DVT pptx, Mechanical due to possible GI bleed Attending:Dr. Farr <TOM Alvarado - Last Filed: 10/04/21 17:24> Quality Stroke Does the patient have a stroke diagnosis?: No <TOM Alvarado - Last Filed: 10/04/21 17:24> VTE Prior VTE?: No <TOM Alvarado - Last Filed: 10/04/21 17:24> VTE Risk Level:: Medical - moderate - high <TOM Alvarado - Last Filed: 10/04/21 17:24> VTE Device Contraindication: N/A - Device Ordered <TOM Alvarado - Last Filed: 10/04/21 17:24> VTE Drug Contraindication: Treatment Not Indicated <TOM Alvarado - Last Filed: 10/04/21 17:24>
[2021-10-04] MEDS: 0.9 % Sodium Chloride 1,000 ML 999 ML IV (17:41)
[2021-10-04] MEDS: Heparin Sodium,Porcine 5,000 UNIT/ML VIAL 5000 UNIT INTRACATH (17:51)
[2021-10-04 19:50] VITALS: BP 155/73; PULSE 77; RESP 18; TEMP 37.2; O2SAT 100
[2021-10-04 20:30] LABS: Glucose, Whole Blood 140 mg/dL (60-115)
[2021-10-04 23:28] VITALS: BP 160/70; PULSE 86; RESP 19; TEMP 36.7; O2SAT 99
[2021-10-05 03:28] VITALS: BP 115/70; PULSE 85; RESP 20; TEMP 36.5; O2SAT 100
[2021-10-05 07:43] LABS: Glucose, Whole Blood 94 mg/dL (60-115)
[2021-10-05 07:44] VITALS: BP 169/89; PULSE 73; RESP 19; TEMP 36.6; O2SAT 94
--- NOTE | 2021-10-05 08:22 | PM.PNNEP ---
Subjective Subjective Date of Service: 10/05/21 Principal diagnosis: no complaints this AM had HAD yesterday Interval history: seen and examined this morning. dialysis performed 10/03 and 10/04 so far this week. patient sleepy but arousable, afebrile. Physical Exam Vital Signs: Vital Signs: Last Vital Signs Temp 97.8 F 10/05/21 07:44 Pulse 73 10/05/21 07:44 Resp 19 10/05/21 07:44 BP 169/89 H 10/05/21 07:44 Pulse Ox 94 10/05/21 07:44 Oxygen Flow Rate 2 09/27/21 02:46 BMI result Body Mass Index 20.0 Const: Nutritional Appearance: not well nourished Eyes: EOM: EOMs intact bilaterally Neck: Neck: Yes no JVD Cardio: Rate: regular rate Heart sounds: S1 normal heart sound present and S2 normal heart sound present GI: Inspection: Yes normal to inspection and No distended Skin: Other: right femoral central line c/d/i General skin exam: no rashes or lesions noted Objective Data Labs CBC & Chem 7: 10/03/21 11:00 10/04/21 11:04 Labs: Laboratory Results - last 24 hr 10/04/21 10/04/21 10/04/21 11:04 11:22 20:26 Sodium 132 L Potassium 4.1 Chloride 99 Carbon Dioxide 19 L Anion Gap 18 BUN 51 H D Creatinine 5.03 H* Estim Creat Clear Calc 9.2 Estimated GFR 11 POC Glucose 84 140 H Random Glucose 95 Calcium 8.1 L 10/05/21 07:37 Sodium Potassium Chloride Carbon Dioxide Anion Gap BUN Creatinine Estim Creat Clear Calc Estimated GFR POC Glucose 94 Random Glucose Calcium Microbiology Microbiology Results: Microbiology 10/03/21 15:41 Blood - Venous Blood Culture - Preliminary No growth after 24 hours. 10/03/21 15:41 Blood - Venous Blood Culture - Preliminary Prelim: GPC Gram Stain only 10/02/21 01:17 Blood - Venous Blood Culture - Final Methicillin Res Staph Aureus 10/02/21 01:09 Blood - Venous Blood Culture - Final Methicillin Res Staph Aureus 10/01/21 09:07 Blood - Central Line Blood Culture - Final Methicillin Res Staph Aureus 10/01/21 08:52 Blood - Central Line Blood Culture - Final Methicillin Res Staph Aureus 09/30/21 15:07 Blood - Venous Blood Culture - Final Methicillin Res Staph Aureus 09/30/21 15:07 Blood - Venous Blood Culture - Final Methicillin Res Staph Aureus 09/28/21 13:06 Blood - Venous Blood Culture - Final Methicillin Res Staph Aureus 09/28/21 13:06 Blood - Venous Blood Culture - Final Methicillin Res Staph Aureus 09/27/21 00:00 Urine Catheterized - Giles Catheter Urine Culture - Final 09/27/21 13:02 Blood - Subclavian Blood Culture - Final Methicillin Res Staph Aureus 09/27/21 13:02 Blood - Subclavian Blood Culture - Final Methicillin Res Staph Aureus 09/27/21 03:00 Blood - Venous Blood Culture - Final Methicillin Res Staph Aureus 09/27/21 03:00 Blood - Venous Blood Culture - Final Methicillin Res Staph Aureus Procedures Date of Service Date of Service: 10/05/21 Assessment & Plan Assessment and plan (1) End stage renal disease: Status: Acute Assessment and Plan: TTS outpatient schedule now admitted with infected permcath/tunneled central line - tunneled dialysis catheter removal for MRSA bacteremia on 09/28 but has failed to clear bacteremia to date. last cultures on 10/03 are only growing GPC in 1 of 2 bottles, so that may be the beginnings of improvement. That, and his normal WBC, lack of fever or sepsis, is better news. - Echo without clear evidence of SBE but has significant mitral valvular calcification as a potential risk. Low EF noted as well. Rocephin addition per ID. - had temporary/non-tunneled catheter placed late 10/02 and will perform dialysis on 10/03, today and friday followed by line holiday over weekend again to see if we can't clear his bacteremia.?We unfortunately can't place tunneled line until bacteremia resolves - I would ask to have his temporary femoral line removed after dialysis today, please, so he can have another line holiday over weekend. He can have tunneled line replaced by IR next week once we have 48h of negative culture data - My cell is [phone] if any questions or concerns over weekend. Dr. Melvin will be back next week. Thanks (2) Bacteremia: Status: Acute Assessment and Plan: as above Time Spent With Patient Time: Total time spent is greater than 50% in coordination of care (as documented) at patient's floor/unit and/or counseling patient: Progress Note: Quality Stroke Does the patient have a stroke diagnosis?: No
[2021-10-05 09:43] LABS: Hematocrit 23.1 % (42.0-52.0); Hemoglobin 7.6 g/dl (14.0-18.0); Mean Corpuscular HGB Conc 32.9 g/dl (31.0-36.0); Mean Corpuscular Volume 94.3 fL (80.0-98.0); Platelet Count 108 X10*3/uL (160-400); Red Blood Count 2.45 X10*6/uL (4.60-5.80); Red Cell Distribution Width 16.5 % (11.0-16.0); White Blood Count 6.2 X10*3/uL (4.8-10.8)
[2021-10-05 10:06] LABS: Anion Gap 13 (12-20); Blood Urea Nitrogen 28 mg/dL (9-16); Calcium 7.5 mg/dL (8.4-10.2); Carbon Dioxide 21 mmol/L (22-29); Chloride 102 mmol/L (96-108); Creatinine Clr Calc Pharmacy 13.7; Estimated Glomerular Filt Rate 17; Glucose Random 101 mg/dL (60-115); Potassium 3.4 mmol/L (3.3-5.1); Sodium 133 mmol/L (135-145)
[2021-10-05] MEDS: cefTRIAXone sodium 2 GM in 0.9 % Sodium Chloride 50 ML IV (10:56)
[2021-10-05] MEDS: Sevelamer Carbonate Tablet 800 MG TABLET PO ×3 (10:56→23:13)
[2021-10-05] MEDS: 0.9 % Sodium Chloride Flush 3 ML SYRINGE IVFLUSH ×3 (10:56→23:13)
[2021-10-05] MEDS: Atorvastatin Calcium 10 MG TABLET PO (10:57)
[2021-10-05] MEDS: Ferrous Sulfate 324 MG TABLET.DR PO ×3 (10:57→23:13)
[2021-10-05] MEDS: Sennosides 8.6 MG TABLET PO (10:57)
[2021-10-05 11:25] VITALS: BP 132/80; PULSE 86; RESP 19; TEMP 36.6; O2SAT 94
[2021-10-05 11:30] LABS: Glucose, Whole Blood 101 mg/dL (60-115)
[2021-10-05 11:40] VITALS: O2SAT 94
[2021-10-05 11:56] LABS: ABG Base Excess -1.7 mmol/L; ABG HCO3 20 mmol/L (22-26); ABG pCO2 24 mmHg (32-45); ABG pH 7.51 (7.35-7.45); ABG pO2 98 mmHg (83-108)
[2021-10-05 12:33] LABS: Alanine Aminotransferase 12 U/L (0-40); Albumin Level 2.6 g/dL (3.5-5.0); Alkaline Phosphatase 53 U/L (39-117); Aspartate Amino Transferase 16 U/L (5-37); Bilirubin Direct 0.3 mg/dL (0.0-0.5); Bilirubin Total 0.5 mg/dL (0.0-1.0); Total Protein 5.2 g/dL (6.5-8.0)
[2021-10-05 12:55] LABS: ABG Refer to POC result
[2021-10-05 13:02] LABS: Ammonia 27 umol/L (13-55)
--- NOTE | 2021-10-05 14:37 | P.PNIM_ITS ---
Subjective Subjective Date of Service: 10/05/21 Interval History: seen and examined this morning more sleepy this morning will follow basic commands and answer simple questions with prompting Neurologic Neurologic: Reports confusion Psychiatric Psychiatric: Reports confusion Physical Exam Vital Signs: Vital Signs: Last Vital Signs Temp 97.8 F 10/05/21 11:25 Pulse 86 10/05/21 11:25 Resp 19 10/05/21 11:25 BP 132/80 10/05/21 11:25 Pulse Ox 94 10/05/21 11:25 Oxygen Flow Rate 2 09/27/21 02:46 BMI result Body Mass Index 20.0 Const: Other: more lethargic today, will answer some simple questions if prompted General: no acute distress, confusion and ill appearing Nutritional Appearance: thin Orientation/consciousness: confusion Resp: Effort & Inspection: normal respiratory effort and no respiratory distre ss Cardio: Rate: regular rate Heart sounds: S1 normal heart sound present and S2 normal heart sound present GI: Inspection: No distended Palpation (GI): Soft to palpation and nontender : Other: siddiqui in place Neuro: General: confusion Extrem: Other: no leg edema Objective Data Active Medications Acetaminophen (Acetaminophen Supp 650 Mg Supp.Rect) 650 mg [place] Q6H PRN PRN Reason: Fever Atorvastatin Calcium (Atorvastatin Calcium 10 Mg Tablet) 10 mg PO DAILY [facility] Last Admin: 10/05/21 10:57 Dose: 10 mg Documented by: ADIA Dextrose (Dextrose 50 % 25 Gm/50 Ml Syringe) 25 gm IVPUSH Q15M PRN; Protocol PRN Reason: per Hypoglycemia Standing Ord. Ferrous Sulfate (Ferrous Sulfate 324 Mg Tablet.) 324 mg PO TID [facility] Last Admin: 10/05/21 10:57 Dose: 324 mg Documented by: ADIA Glucose (Glucose Gel 15 Gm Gel..Gram.) 15 gm PO Q15M PRN; Protocol PRN Reason: per Hypoglycemia Standing Ord. Heparin Sodium (Porcine) (Heparin Sodium,Porcine 5,000 Unit/Ml Vial) 5,000 unit INTRACATH TUTHSA@1645 [facility] Last Admin: 10/04/21 17:51 Dose: 5,000 unit Documented by: MARIN Sodium Chloride (Ns) 1,000 mls @ 999 mls/hr IV TuThSa@1645 [facility] Last Infusion: 10/04/21 20:02 Dose: 0 mls/hr Documented by: DONYA Daptomycin 350 mg/ Sodium (Chloride) 57 mls @ 100 mls/hr IV WeThFr@1645 [facility] Last Infusion: 10/04/21 18:37 Dose: 0 mls/hr Documented by: MARIN Ceftriaxone Sodium 2 gm/ (Sodium Chloride) 50 mls @ 100 mls/hr IV Q24H [facility] Last Infusion: 10/05/21 12:06 Dose: 0 mls/hr Documented by: ADIA Insulin Human Lispro (Insulin Lispro 100 Unit/Ml 3 Ml Vial) 0 unit SUBCUT QIDACHS [facility]; Protocol Last Admin: 10/05/21 11:51 Dose: Not Given Documented by: ADIA Non-Admin Reason: No Insulin Coverage Ondansetron HCl (Ondansetron Hcl 4 Mg/2 Ml Vial) 4 mg IVPUSH Q8H PRN PRN Reason: Nausea and Vomiting Pharmacy Consult (Consult Rx Perform Med Rec) 1 each MISCELLANE ONCE PRN PRN Reason: Consult order Senna (Sennosides 8.6 Mg Tablet) 8.6 mg PO DAILY [facility] Last Admin: 10/05/21 10:57 Dose: 8.6 mg Documented by: ADIA Sevelamer Carbonate (Sevelamer Carbonate Tablet 800 Mg Tablet) 800 mg PO TID [facility] Last Admin: 10/05/21 10:56 Dose: 800 mg Documented by: ADIA Sodium Chloride (0.9 % Sodium Chloride Flush 3 Ml Syringe) 3 ml IVFLUSH QSHIFT [facility] Last Admin: 10/05/21 10:56 Dose: 3 ml Documented by: ADIA Labs CBC & Chem 7: 10/05/21 09:33 10/05/21 09:33 Labs: Laboratory Results - last 24 hr 10/04/21 10/05/21 10/05/21 20:26 07:37 09:33 MCV 94.3 MCH 31.0 MCHC 32.9 RDW 16.5 H Plt Count 108 L MPV 11.0 Absolute Nucleated RBC 0.000 Nucleated RBC % (auto) 0.0 O2 Saturation ABG pH at Pt Temp ABG pCO2 at Pt Temp ABG pO2 at Pt Temp ABG HCO3 ABG Base Excess (Actual) Anion Gap Estim Creat Clear Calc Estimated GFR POC Glucose 140 H 94 Random Glucose Calcium Total Bilirubin Direct Bilirubin AST ALT Alkaline Phosphatase Ammonia Total Protein Albumin 10/05/21 10/05/21 10/05/21 09:33 11:25 11:49 MCV MCH MCHC RDW Plt Count MPV Absolute Nucleated RBC Nucleated RBC % (auto) O2 Saturation 98.0 ABG pH at Pt Temp 7.51 H ABG pCO2 at Pt Temp 24 L ABG pO2 at Pt Temp 98 ABG HCO3 20 L ABG Base Excess (Actual) -1.7 Anion Gap 13 Estim Creat Clear Calc 13.7 Estimated GFR 17 POC Glucose 101 Random Glucose 101 Calcium 7.5 L D Total Bilirubin 0.5 Direct Bilirubin 0.3 AST 16 ALT 12 Alkaline Phosphatase 53 Ammonia Total Protein 5.2 L D Albumin 2.6 L D 10/05/21 12:39 MCV MCH MCHC RDW Plt Count MPV Absolute Nucleated RBC Nucleated RBC % (auto) O2 Saturation ABG pH at Pt Temp ABG pCO2 at Pt Temp ABG pO2 at Pt Temp ABG HCO3 ABG Base Excess (Actual) Anion Gap Estim Creat Clear Calc Estimated GFR POC Glucose Random Glucose Calcium Total Bilirubin Direct Bilirubin AST ALT Alkaline Phosphatase Ammonia 27 Total Protein Albumin Microbiology Microbiology Results: Microbiology 10/03/21 15:41 Blood Culture - Final Blood - Venous Methicillin Res Staph Aureus 10/03/21 15:41 Blood Culture - Preliminary Blood - Venous No growth after 24 hours. Assessment and Plan (1) Bacteremia: Status: Acute (2) End stage renal disease: Status: Acute (3) Toxic metabolic encephalopathy: Status: Acute Plan This is an 80 yo M with a PMH of Dementia, ESRD on HD TTHS, Prior MRSA bacteremia secondary to infected dialysis catheter (in Jun 2021), HTN, Anemia of CKD, DM, HLD who is sent from [facility] ([facility] resident there) for changes in mental status and low grade fevers. He also is found to have possible GI bleed while in the ED. He will be admitted for Sepsis and suspected Gastrointestinal bleed. ESRD on HD TTHS HD cath growing MRSA, permacath removed temporary dialysis catheter placed on 10/02, will have dialysis [facility] this week then line pulled for weekend, If cx are still not cleared will need to get another temp line for the following weeks dialysis Followed by Dr. Rajeev Fang [phone] Sepsis secondary to MRSA bacteremia Secondary to infected dialysis catheter UA also with pyuria / bacteria - urine culture mixed ECHO negative for vegetation Initially treated with IV vanco, changed to damptomycin for persistent bacteremia synergistic ceftriaxone added 10/04 per ID rec most recent BCx from 10/03 08/12 growing MRSA plan to recheck Blood cultures Saturday 10/07 ID following toxic/metabolic encephalopathy on a background of dementia probably secondary to bacteremia more lethargic today has received HD two days in a row, no uremia LFTs, ammonia wnl ABG with no CO2 retention no focal neuro deficits appreciated Melanotic stools, suspected lower GI bleed, acute blood loss anemia. Resolved s/p 1 unit prbc 09/27 IV PPI stopped Seen by GI recommend conservative management for now. asa on hold dysphagia seen by speech rec, to increase to ground/mech altered diet with thin liqs when appropriate. will advance to full liquids Dementia without behavioral disturbances not on meds at baseline HTN. soft blood pressure hold antihypertensives resume when blood pressures allows HLD continue statin DM SSI Chronic combined systolic/diastolic CHF, no acute exacerbation lasix on hold due to low BP, BP better may continue if warranted DNR/DNI per [facility] form sent from [facility] DVT pptx, Mechanical due to possible GI bleed Attending:Dr. Freeman Quality Stroke Does the patient have a stroke diagnosis?: No VTE Prior VTE?: No VTE Risk Level:: Medical - moderate - high VTE Device Contraindication: N/A - Device Ordered VTE Drug Contraindication: Treatment Not Indicated
[2021-10-05 16:00] VITALS: BP 131/55; PULSE 67; RESP 16; TEMP 35.7; O2SAT 100
[2021-10-05 16:11] LABS: Glucose, Whole Blood 82 mg/dL (60-115)
[2021-10-05 20:00] VITALS: BP 144/80; PULSE 78; RESP 18; TEMP 36.8; O2SAT 98
[2021-10-05 20:38] LABS: Glucose, Whole Blood 96 mg/dL (60-115)
[2021-10-06] VITALS (7 sets, daily range): BP systolic 107–146; BP diastolic 62–82; PULSE 66–93; RESP 18–20; TEMP 36.4–37.3; O2SAT 95–100; BMI 18.8
[2021-10-06 07:54] LABS: Glucose, Whole Blood 86 mg/dL (60-115)
[2021-10-06] MEDS: Sennosides 8.6 MG TABLET PO (08:52)
[2021-10-06] MEDS: Sevelamer Carbonate Tablet 800 MG TABLET PO ×3 (08:52→22:26)
[2021-10-06] MEDS: Atorvastatin Calcium 10 MG TABLET PO (08:52)
[2021-10-06] MEDS: Ferrous Sulfate 324 MG TABLET.DR PO ×3 (08:52→22:26)
[2021-10-06] MEDS: 0.9 % Sodium Chloride Flush 3 ML SYRINGE IVFLUSH ×3 (08:52→22:26)
--- NOTE | 2021-10-06 11:11 | PC.NURSE ---
Dr. Fernandez from radiology spoke to Dr. Fang and they both confirmed and gave approval for the temporary dialysis catheter to be removed. It was removed at 10:30 am.
[2021-10-06 11:25] LABS: Glucose, Whole Blood 87 mg/dL (60-115)
--- NOTE | 2021-10-06 12:13 | P.PNIM_ITS ---
Subjective Subjective Date of Service: 10/06/21 <TOM Alvarado - Last Filed: 10/06/21 12:22> 10/06/21 <Neptali Aguilar DO - Last Filed: 10/06/21 18:36> Interval History: seen and examined this morning more awake today answering basic questions, denies pain, difficulty breathing refused am labs <TOM Alvarado - Last Filed: 10/06/21 12:22> Review of Systems Review of Systems: Yes all other systems are reviewed and are negative <TOM Alvarado - Last Filed: 10/06/21 12:22> Cardiovascular Cardiovascular: Denies chest pain and Denies dyspnea <TOM Alvarado - Last Filed: 10/06/21 12:22> Respiratory Respiratory: Denies dyspnea <TOM Alvarado - Last Filed: 10/06/21 12:22> Gastrointestinal Gastrointestinal: Denies abdominal pain <TOM Alvarado - Last Filed: 10/06/21 12:22> Neurologic Neurologic: Reports confusion <TOM Alvarado - Last Filed: 10/06/21 12:22> Psychiatric Psychiatric: Reports confusion <TOM Alvarado - Last Filed: 10/06/21 12:22> Physical Exam Vital Signs: Vital Signs: Last Vital Signs Temp 98.4 F 10/06/21 11:50 Pulse 72 10/06/21 11:50 Resp 20 10/06/21 11:50 BP 124/62 10/06/21 11:50 Pulse Ox 98 10/06/21 11:50 Oxygen Flow Rate 2 09/27/21 02:46 BMI result Body Mass Index 18.8 <TOM Alvarado - Last Filed: 10/06/21 12:22> Const: General: comfortable, no acute distress, awake, confusion and ill appearing <TOM Alvarado - Last Filed: 10/06/21 12:22> Nutritional Appearance: thin <TOM Alvarado - Last Filed: 10/06/21 12:22> Orientation/consciousness: confusion <TOM Alvarado - Last Filed: 10/06/21 12:22> Resp: Effort & Inspection: normal respiratory effort and no respiratory distress <TOM Alvarado - Last Filed: 10/06/21 12:22> Cardio: Rate: regular rate <TOM Alvarado - Last Filed: 10/06/21 12:22> Heart sounds: S1 normal heart sound present and S2 normal heart sound present <TOM Alvarado - Last Filed: 10/06/21 12:22> GI: Inspection: No distended <TOM Alvarado - Last Filed: 10/06/21 12:22> Palpation (GI): Soft to palpation and nontender <TOM Alvarado - Last Filed: 10/06/21 12:22> : Other: siddiqui in place <TOM Alvarado - Last Filed: 10/06/21 12:22> Skin: Other: HD permcath present right groin <TOM Alvarado - Last Filed: 10/06/21 12:22> Neuro: General: confusion <TOM Alvarado - Last Filed: 10/06/21 12:22> Extrem: Other: no leg edema <TOM Alvarado - Last Filed: 10/06/21 12:22> Objective Data Active Medications Acetaminophen (Acetaminophen Supp 650 Mg Supp.Rect) 650 mg [place] Q6H PRN PRN Reason: Fever Atorvastatin Calcium (Atorvastatin Calcium 10 Mg Tablet) 10 mg PO DAILY [facility] Last Admin: 10/06/21 08:52 Dose: 10 mg Documented by: SOWMYA Dextrose (Dextrose 50 % 25 Gm/50 Ml Syringe) 25 gm IVPUSH Q15M PRN; Protocol PRN Reason: per Hypoglycemia Standing Ord. Ferrous Sulfate (Ferrous Sulfate 324 Mg Tablet.Dr) 324 mg PO TID [facility] Last Admin: 10/06/21 08:52 Dose: 324 mg Documented by: SOWMYA Glucose (Glucose Gel 15 Gm Gel..Gram.) 15 gm PO Q15M PRN; Protocol PRN Reason: per Hypoglycemia Standing Ord. Heparin Sodium (Porcine) (Heparin Sodium,Porcine 5,000 Unit/Ml Vial) 5,000 unit INTRACATH TUTHSA@1645 [facility] Last Admin: 10/04/21 17:51 Dose: 5,000 unit Documented by: MARIN Daptomycin 350 mg/ Sodium (Chloride) 57 mls @ 100 mls/hr IV WeThFr@1645 [facility] Last Infusion: 10/05/21 19:51 Dose: 0 mls/hr Documented by: YAMIL Ceftriaxone Sodium 2 gm/ (Sodium Chloride) 50 mls @ 100 mls/hr IV Q24H [facility] Insulin Human Lispro (Insulin Lispro 100 Unit/Ml 3 Ml Vial) 0 unit SUBCUT QIDACHS [facility]; Protocol Last Admin: 10/06/21 08:52 Dose: Not Given Documented by: SOWMYA Non-Admin Reason: No Insulin Coverage Ondansetron HCl (Ondansetron Hcl 4 Mg/2 Ml Vial) 4 mg IVPUSH Q8H PRN PRN Reason: Nausea and Vomiting Pharmacy Consult (Consult Rx Perform Med Rec) 1 each MISCELLANE ONCE PRN PRN Reason: Consult order Senna (Sennosides 8.6 Mg Tablet) 8.6 mg PO DAILY [facility] Last Admin: 10/06/21 08:52 Dose: 8.6 mg Documented by: SOWMYA Sevelamer Carbonate (Sevelamer Carbonate Tablet 800 Mg Tablet) 800 mg PO TID [facility] Last Admin: 10/06/21 08:52 Dose: 800 mg Documented by: SOWMYA Sodium Chloride (0.9 % Sodium Chloride Flush 3 Ml Syringe) 3 ml IVFLUSH QSHIFT [facility] Last Admin: 10/06/21 08:52 Dose: 3 ml Documented by: SOWMYA <TOM Alvarado - Last Filed: 10/06/21 12:22> Labs CBC & Chem 7: : 10/06/21 14:49 10/06/21 14:49 <TOM Alvarado - Last Filed: 10/06/21 12:22> Labs: Laboratory Results - last 24 hr 10/05/21 10/05/21 10/05/21 09:33 12:39 16:07 POC Glucose 82 Total Bilirubin 0.5 Direct Bilirubin 0.3 AST 16 ALT 12 Alkaline Phosphatase 53 Ammonia 27 Total Protein 5.2 L D Albumin 2.6 L D 10/05/21 10/06/21 10/06/21 20:35 07:43 11:16 POC Glucose 96 86 87 Total Bilirubin Direct Bilirubin AST ALT Alkaline Phosphatase Ammonia Total Protein Albumin <TOM Alvarado - Last Filed: 10/06/21 12:22> Microbiology Microbiology Results: Microbiology 10/03/21 15:41 Blood Culture - Preliminary Blood - Venous No growth after 48 hours. 10/03/21 15:41 Blood Culture - Final Blood - Venous Methicillin Res Staph Aureus <TOM Alvarado - Last Filed: 10/06/21 12:22> Assessment and Plan (1) Bacteremia: Status: Acute <TOM Alvarado - Last Filed: 10/06/21 12:22> (2) End stage renal disease: Status: Acute <TOM Alvarado - Last Filed: 10/06/21 12:22> (3) Anemia: Status: Acute <TOM Alvarado - Last Filed: 10/06/21 12:22> Plan This is an 80 yo M with a PMH of Dementia, ESRD on HD TTHS, Prior MRSA bacteremia secondary to infected dialysis catheter (in Jun 2021), HTN, Anemia of CKD, DM, HLD who is sent from [facility] ([facility] resident there) for changes in mental status and low grade fevers. He also is found to have possible GI bleed while in the ED. He will be admitted for Sepsis and suspected Gastrointestinal bleed. ESRD on HD TTHS HD cath growing MRSA, permacath removed temporary dialysis catheter placed on 10/02, s/p HD [facility]; HD catheter will be removed today (delayed from yesterday since pt didn't finish HD until late afternoon) temporary HD cather will need to be placed Friday if BCx haven't cleared Followed by Dr. Rajeev Fang [phone] Sepsis secondary to MRSA bacteremia Secondary to infected dialysis catheter UA also with pyuria / bacteria - urine culture mixed ECHO negative for vegetation Initially treated with IV vanco, changed to damptomycin for persistent bacteremia synergistic ceftriaxone added 10/04 per ID rec most recent BCx from 10/03 08/12 growing MRSA plan to recheck Blood cultures Saturday 10/07 ID following toxic/metabolic encephalopathy on a background of dementia. more alert today probably secondary to bacteremia has received HD two days in a row, no uremia LFTs, ammonia wnl ABG with no CO2 retention no focal neuro deficits appreciated Melanotic stools, suspected lower GI bleed, acute blood loss anemia. Resolved s/p 1 unit prbc 09/27 s/p IV PPI stopped Seen by GI recommend conservative management for now. asa on hold dysphagia seen by speech rec, to increase to ground/mech altered diet with thin liqs Dementia without behavioral disturbances not on meds at baseline HTN. soft blood pressure hold antihypertensives resume when blood pressures allows HLD continue statin DM SSI Chronic combined systolic/diastolic CHF, no acute exacerbation lasix on hold due to low BP, BP better may continue if warranted DNR/DNI per [facility] form sent from [facility] DVT pptx, Mechanical due to possible GI bleed Attending:Dr. Aguilar <TOM Alvarado - Last Filed: 10/06/21 12:22> This is an 80 yo M with a PMH of Dementia, ESRD on HD TTHS, Prior MRSA bactere rachel secondary to infected dialysis catheter (in Jun 2021), HTN, Anemia of CKD, DM, HLD who is sent from [facility] (LTC resident there) for changes in mental status and low grade fevers. He also is found to have possible GI bleed while in the ED. He will be admitted for Sepsis and suspected Gastrointestinal bleed. ESRD on HD TTHS HD cath growing MRSA, permacath removed temporary dialysis catheter placed on 10/02, s/p HD [facility]; HD catheter will be removed today (delayed from yesterday since pt didn't finish HD until late afternoon) temporary HD cather will need to be placed Friday if BCx haven't cleared Followed by Dr. Rajeev Fang [phone] Sepsis secondary to MRSA bacteremia Secondary to infected dialysis catheter UA also with pyuria / bacteria - urine culture mixed ECHO negative for vegetation Initially treated with IV vanco, changed to damptomycin for persistent bacteremia synergistic ceftriaxone added 10/04 per ID rec most recent BCx from 10/03 08/12 growing MRSA plan to recheck Blood cultures Saturday 10/07 ID following toxic/metabolic encephalopathy on a background of dementia. more alert today probably secondary to bacteremia has received HD two days in a row, no uremia LFTs, ammonia wnl ABG with no CO2 retention no focal neuro deficits appreciated Melanotic stools, suspected lower GI bleed, acute blood loss anemia. Resolved s/p 1 unit prbc 09/27 s/p IV PPI stopped Seen by GI recommend conservative management for now. asa on hold dysphagia seen by speech rec, to increase to ground/mech altered diet with thin liqs Dementia without behavioral disturbances not on meds at baseline HTN. soft blood pressure hold antihypertensives resume when blood pressures allows HLD continue statin DM SSI Chronic combined systolic/diastolic CHF, no acute exacerbation lasix on hold due to low BP, BP better may continue if warranted DNR/DNI per [facility] form sent from [facility] DVT pptx, Mechanical due to possible GI bleed Attending:Dr. Aguilar Chart reviewed. Pt examined. Agree with H+P/assesment and plan as outlined by Ms Angelique SANTOS <Neptali Aguilar, DO - Last Filed: 10/06/21 18:36> Quality Stroke Does the patient have a stroke diagnosis?: No <TOM Alvarado - Last Filed: 10/06/21 12:22> VTE Prior VTE?: No <TOM Alvarado - Last Filed: 10/06/21 12:22> VTE Risk Level:: Medical - moderate - high <TOM Alvarado - Last Filed: 10/06/21 12:22> VTE Device Contraindication: N/A - Device Ordered <TOM Alvarado - Last Filed: 10/06/21 12:22> VTE Drug Contraindication: Treatment Not Indicated <TOM Alvarado - Last Filed: 10/06/21 12:22>
[2021-10-06] MEDS: cefTRIAXone sodium 2 GM in 0.9 % Sodium Chloride 50 ML IV (12:50)
[2021-10-06 15:30] LABS: Hematocrit 24.6 % (42.0-52.0); Hemoglobin 8.1 g/dl (14.0-18.0); Mean Corpuscular HGB Conc 32.9 g/dl (31.0-36.0); Mean Corpuscular Hemoglobin 30.7 pg (27.0-33.0); Mean Corpuscular Volume 93.2 fL (80.0-98.0); Mean Platelet Volume 10.4 fL (9.4-12.4); Platelet Count 142 X10*3/uL (160-400); Red Blood Count 2.64 X10*6/uL (4.60-5.80); Red Cell Distribution Width 16.4 % (11.0-16.0)
[2021-10-06 15:46] LABS: Anion Gap 15 (12-20); Blood Urea Nitrogen 23 mg/dL (9-16); Calcium 7.5 mg/dL (8.4-10.2); Carbon Dioxide 21 mmol/L (22-29); Chloride 101 mmol/L (96-108); Estimated Glomerular Filt Rate 18; Glucose Random 163 mg/dL (60-115); Potassium 3.6 mmol/L (3.3-5.1); Sodium 133 mmol/L (135-145)
[2021-10-06 16:07] LABS: Glucose, Whole Blood 160 mg/dL (60-115)
[2021-10-06 21:00] LABS: Glucose, Whole Blood 172 mg/dL (60-115)
[2021-10-07 03:47] VITALS: BP 135/63; PULSE 78; RESP 18; TEMP 36.9; O2SAT 97
[2021-10-07 06:00] VITALS: BMI 18.9
[2021-10-07 07:40] VITALS: BP 109/69; PULSE 72; RESP 19; TEMP 36.7; O2SAT 94
[2021-10-07 07:42] LABS: Glucose, Whole Blood 107 mg/dL (60-115)
[2021-10-07] MEDS: 0.9 % Sodium Chloride Flush 3 ML SYRINGE IVFLUSH ×3 (09:03→21:57)
[2021-10-07] MEDS: Sennosides 8.6 MG TABLET PO (09:04)
[2021-10-07] MEDS: Ferrous Sulfate 324 MG TABLET.DR PO ×3 (09:04→21:56)
[2021-10-07] MEDS: Sevelamer Carbonate Tablet 800 MG TABLET PO ×3 (09:04→21:56)
[2021-10-07] MEDS: Atorvastatin Calcium 10 MG TABLET PO (09:04)
[2021-10-07 10:57] VITALS: BP 160/75; PULSE 78; RESP 18; TEMP 36.9; O2SAT 96
[2021-10-07 11:19] LABS: Glucose, Whole Blood 137 mg/dL (60-115)
--- NOTE | 2021-10-07 11:19 | HO.PM.IMPN ---
Subjective Subjective Date of Service: 10/07/21 <TOM Alvarado - Last Filed: 10/07/21 11:59> 10/18/21 <Neptali Aguilar DO - Last Filed: 10/18/21 15:48> Interval History: seen and examined this morning awake and alert; confused denies pain or difficulty breathing <TOM Alvarado - Last Filed: 10/07/21 11:59> Review of Systems Review of Systems: Yes all other systems are reviewed and are negative <TOM Alvarado - Last Filed: 10/07/21 11:59> Constitutional Constitutional: Denies body ache(s) and Denies chills <TOM Alvarado - Last Filed: 10/07/21 11:59> Cardiovascular Cardiovascular: Denies chest pain and Denies dyspnea <TOM Alvarado - Last Filed: 10/07/21 11:59> Respiratory Respiratory: Denies dyspnea <TOM Alvarado - Last Filed: 10/07/21 11:59> Gastrointestinal Gastrointestinal: Denies abdominal pain <TOM Alvarado - Last Filed: 10/07/21 11:59> Neurologic Neurologic: Reports confusion <TOM Alvarado - Last Filed: 10/07/21 11:59> Psychiatric Psychiatric: Reports confusion <TOM Alvarado - Last Filed: 10/07/21 11:59> Physical Exam Vital Signs: Vital Signs: Last Vital Signs Temp 98.5 F 10/07/21 10:57 Pulse 78 10/07/21 10:57 Resp 18 10/07/21 10:57 BP 160/75 H 10/07/21 10:57 Pulse Ox 96 10/07/21 10:57 Oxygen Flow Rate 2 09/27/21 02:46 BMI result Body Mass Index 18.9 <TOM Alvarado - Last Filed: 10/07/21 11:59> Const: Other: more lethargic today, will answer some simple questions if prompted <TOM Alvarado - Last Filed: 10/07/21 11:59> General: cooperative, comfortable, no acute distress, awake, confusion and ill appearing <TOM Alvarado - Last Filed: 10/07/21 11:59> Nutritional Appearance: thin <TOM Alvarado - Last Filed: 10/07/21 11:59> Orientation/consciousness: confusion <TOM Alvarado - Last Filed: 10/07/21 11:59> Resp: Effort & Inspection: normal respiratory effort, decreased respiratory effort and no respiratory distress <TOM Alvarado - Last Filed: 10/07/21 11:59> Auscultation: diminished lung sounds <TOM Alvarado - Last Filed: 10/07/21 11:59> Cardio: Rate: regular rate <TOM Alvarado - Last Filed: 10/07/21 11:59> Heart sounds: S1 normal heart sound present and S2 normal heart sound present <TOM Alvarado - Last Filed: 10/07/21 11:59> GI: Inspection: No distended <TOM Alvarado - Last Filed: 10/07/21 11:59> Palpation (GI): Soft to palpation and nontender <TOM Alvarado - Last Filed: 10/07/21 11:59> : Other: siddiqui in place <TOM Alvarado - Last Filed: 10/07/21 11:59> Neuro: General: confusion <TOM Alvarado - Last Filed: 10/07/21 11:59> Extrem: Other: no leg edema <TOM Alvarado - Last Filed: 10/07/21 11:59> Objective Data Active Medications Acetaminophen (Acetaminophen Supp 650 Mg Supp.Rect) 650 mg DE Q6H PRN PRN Reason: Fever Atorvastatin Calcium (Atorvastatin Calcium 10 Mg Tablet) 10 mg PO DAILY [facility] Last Admin: 10/07/21 09:04 Dose: 10 mg Documented by: SOWMYA Dextrose (Dextrose 50 % 25 Gm/50 Ml Syringe) 25 gm IVPUSH Q15M PRN; Protocol PRN Reason: per Hypoglycemia Standing Ord. Ferrous Sulfate (Ferrous Sulfate 324 Mg Tablet.Dr) 324 mg PO TID [facility] Last Admin: 10/07/21 09:04 Dose: 324 mg Documented by: SOWMYA Glucose (Glucose Gel 15 Gm Gel..Gram.) 15 gm PO Q15M PRN; Protocol PRN Reason: per Hypoglycemia Standing Ord. Heparin Sodium (Porcine) (Heparin Sodium,Porcine 5,000 Unit/Ml Vial) 5,000 unit INTRACATH TUTHSA@1645 [facility] Last Admin: 10/06/21 16:54 Dose: Not Given Documented by: SOWMYA Non-Admin Reason: No Access Daptomycin 350 mg/ Sodium (Chloride) 57 mls @ 100 mls/hr IV WeThFr@1645 [facility] Last Infusion: 10/05/21 19:51 Dose: 0 mls/hr Documented by: YAMIL Ceftriaxone Sodium 2 gm/ (Sodium Chloride) 50 mls @ 100 mls/hr IV Q24H [facility] Last Infusion: 10/06/21 13:37 Dose: 0 mls/hr Documented by: SOWMYA Insulin Human Lispro (Insulin Lispro 100 Unit/Ml 3 Ml Vial) 0 unit SUBCUT QIDACHS [facility]; Protocol Last Admin: 10/07/21 09:04 Dose: Not Given Documented by: SOWMYA Non-Admin Reason: No Insulin Coverage Ondansetron HCl (Ondansetron Hcl 4 Mg/2 Ml Vial) 4 mg IVPUSH Q8H PRN PRN Reason: Nausea and Vomiting Pharmacy Consult (Consult Rx Perform Med Rec) 1 each MISCELLANE ONCE PRN PRN Reason: Consult order Senna (Sennosides 8.6 Mg Tablet) 8.6 mg PO DAILY [facility] Last Admin: 10/07/21 09:04 Dose: 8.6 mg Documented by: SOWMYA Sevelamer Carbonate (Sevelamer Carbonate Tablet 800 Mg Tablet) 800 mg PO TID [facility] Last Admin: 10/07/21 09:04 Dose: 800 mg Documented by: SOWMYA Sodium Chloride (0.9 % Sodium Chloride Flush 3 Ml Syringe) 3 ml IVFLUSH QSHIFT [facility] Last Admin: 10/07/21 09:03 Dose: 3 ml Documented by: SOWMYA <TOM Alvarado - Last Filed: 10/07/21 11:59> Labs CBC & Chem 7: : 10/13/21 06:14 10/13/21 06:14 <TOM Alvarado - Last Filed: 10/07/21 11:59> Labs: Laboratory Results - last 24 hr 10/06/21 10/06/21 10/06/21 11:16 14:49 14:49 MCV 93.2 MCH 30.7 MCHC 32.9 RDW 16.4 H Plt Count 142 L D MPV 10.4 Absolute Nucleated RBC 0.000 Nucleated RBC % (auto) 0.0 Anion Gap 15 Estim Creat Clear Calc 14.0 Estimated GFR 18 POC Glucose 87 Random Glucose 163 H D Calcium 7.5 L 10/06/21 10/06/21 10/07/21 16:03 20:55 07:38 MCV MCH MCHC RDW Plt Count MPV Absolute Nucleated RBC Nucleated RBC % (auto) Anion Gap Estim Creat Clear Calc Estimated GFR POC Glucose 160 H 172 H 107 Random Glucose Calcium 10/07/21 11:00 MCV MCH MCHC RDW Plt Count MPV Absolute Nucleated RBC Nucleated RBC % (auto) Anion Gap Estim Creat Clear Calc Estimated GFR POC Glucose 137 H Random Glucose Calcium <TOM Alvarado - Last Filed: 10/07/21 11:59> Assessment and Plan (1) Bacteremia: Status: Acute <TOM Alvarado - Last Filed: 10/07/21 11:59> (2) End stage renal disease: Status: Acute <TOM Alvarado - Last Filed: 10/07/21 11:59> Plan This is an 80 yo M with a PMH of Dementia, ESRD on HD TTHS, Prior MRSA bacteremia secondary to infected dialysis catheter (in Jun 2021), HTN, Anemia of CKD, DM, HLD who is sent from [facility] ([facility] [place] resident there) for changes in mental status and low grade fevers. He also is found to have possible GI bleed while in the ED. He will be admitted for Sepsis and suspected Gastrointestinal bleed. ESRD on HD TThS HD cath growing MRSA, permacath removed temporary dialysis catheter placed on 10/02, s/p HD [facility]; HD catheter removed 10/06 (delayed from Friday since pt didn't finish HD until late afternoon) temporary HD catheter to be placed Friday Followed by Dr. Rajeev Fang [phone] Sepsis secondary to MRSA bacteremia Secondary to infected dialysis catheter UA also with pyuria / bacteria - urine culture mixed ECHO negative for vegetation Initially treated with IV vanco, changed to damptomycin for persistent bacteremia synergistic ceftriaxone added 10/04 per ID rec most recent BCx from 10/03 08/12 growing MRSA Follow repeat blood cultures ID following toxic/metabolic encephalopathy on a background of dementia. more alert today probably secondary to bacteremia LFTs, ammonia wnl ABG with no CO2 retention no focal neuro deficits appreciated Melanotic stools, suspected lower GI bleed, acute blood loss anemia. No further bleeding noted s/p 1 unit prbc 09/27 s/p IV PPI stopped Seen by GI recommend conservative management for now. asa on hold dysphagia seen by speech rec, to increase to ground/mech altered diet with thin liqs Dementia without behavioral disturbances not on meds at baseline HTN. BP variable home hydralazine on hold since admission due to soft BP may need to resume if BP is persistently elevated HLD continue statin DM SSI Chronic combined systolic/diastolic CHF, no acute exacerbation lasix on hold due to low BP, BP better may continue if warranted DNR/DNI per [facility] form sent from SNF DVT pptx, Mechanical due to possible GI bleed Attending:Dr. Aguilar <TOM Alvarado - Last Filed: 10/07/21 11:59> This is an 80 yo M with a PMH of Dementia, ESRD on HD TTHS, Prior MRSA bacteremia secondary to infected dialysis catheter (in Jun 2021), HTN, Anemia of CKD, DM, HLD who is sent from [facility] (LTC resident there) for changes in mental status and low grade fevers. He also is found to have possible GI bleed while in the ED. He will be admitted for Sepsis and suspected Gastrointestinal bleed. ESRD on HD TThS HD cath growing MRSA, permacath removed temporary dialysis catheter placed on 10/02, s/p HD [facility]; HD catheter removed 10/06 (delayed from Friday since pt didn't finish HD until late afternoon) temporary HD catheter to be placed Friday Followed by Dr. Rajeev Fang [phone] Sepsis secondary to MRSA bacteremia Secondary to infected dialysis catheter UA also with pyuria / bacteria - urine culture mixed ECHO negative for vegetation Initially treated with IV vanco, changed to damptomycin for persistent bacteremia synergistic ceftriaxone added 10/04 per ID rec most recent BCx from 2/23 1/2 growing MRSA Follow repeat blood cultures ID following toxic/metabolic encephalopathy on a background of dementia. more alert today probably secondary to bacteremia LFTs, ammonia wnl ABG with no CO2 retention no focal neuro deficits appreciated Melanotic stools, suspected lower GI bleed, acute blood loss anemia. No further bleeding noted s/p 1 unit prbc 09/27 s/p IV PPI stopped Seen by GI recommend conservative management for now. asa on hold dysphagia seen by speech rec, to increase to ground/mech altered diet with thin liqs Dementia without behavioral disturbances not on meds at baseline HTN. BP variable home hydralazine on hold since admission due to soft BP may need to resume if BP is persistently elevated HLD continue statin DM SSI Chronic combined systolic/diastolic CHF, no acute exacerbation lasix on hold due to low BP, BP better may continue if warranted DNR/DNI per [facility] form sent from SNF DVT pptx, Mechanical due to possible GI bleed Attending:Dr. Aguilar Agree with history and physical and physical exam as outlined by Ms. Angelique SANTOS <Neptali Aguilar, - Last Filed: 10/18/21 15:48> Quality Stroke Does the patient have a stroke diagnosis?: No <TOM Alvarado - Last Filed: 10/07/21 11:59> VTE Prior VTE?: No <TOM Alvarado - Last Filed: 10/07/21 11:59> VTE Risk Level:: Medical - moderate - high <TOM Alvarado - Last Filed: 10/07/21 11:59> VTE Device Contraindication: N/A - Device Ordered <TOM Alvarado - Last Filed: 10/07/21 11:59> VTE Drug Contraindication: Treatment Not Indicated <TOM Alvarado - Last Filed: 10/07/21 11:59>
[2021-10-07] MEDS: cefTRIAXone sodium 2 GM in 0.9 % Sodium Chloride 50 ML IV (11:49)
[2021-10-07 15:41] VITALS: BP 159/74; PULSE 74; RESP 18; TEMP 36.9; O2SAT 98
[2021-10-07 16:16] LABS: Glucose, Whole Blood 129 mg/dL (60-115)
[2021-10-07 20:00] VITALS: BP 150/70; PULSE 85; RESP 16; TEMP 37.2; O2SAT 100
[2021-10-07 20:40] LABS: Glucose, Whole Blood 186 mg/dL (60-115)
[2021-10-07] MEDS: Insulin Lispro 100 UNIT/ML 3 ML VIAL SUBCUT (21:56)
[2021-10-07 23:45] VITALS: BP 137/63; PULSE 79; RESP 19; TEMP 36.9; O2SAT 100
[2021-10-08 04:00] VITALS: BP 164/74; PULSE 77; RESP 20; TEMP 37.1; O2SAT 99
[2021-10-08 07:35] LABS: Glucose, Whole Blood 86 mg/dL (60-115)
[2021-10-08 08:00] VITALS: BP 173/98; PULSE 81; RESP 12; TEMP 36.1; O2SAT 100
[2021-10-08] MEDS: Sennosides 8.6 MG TABLET PO (08:42)
[2021-10-08] MEDS: Ferrous Sulfate 324 MG TABLET.DR PO ×3 (08:43→21:12)
[2021-10-08] MEDS: Atorvastatin Calcium 10 MG TABLET PO (08:43)
[2021-10-08] MEDS: 0.9 % Sodium Chloride Flush 3 ML SYRINGE IVFLUSH ×2 (08:43→15:28)
[2021-10-08] MEDS: Sevelamer Carbonate Tablet 800 MG TABLET PO ×3 (08:43→21:12)
--- NOTE | 2021-10-08 10:05 | P.PNIM_ITS ---
Subjective Subjective Date of Service: 10/08/21 Review of Systems Follow up awake and alert; confused denies pain or difficulty breathing Physical Exam Vital Signs: Vital Signs: Last Vital Signs Temp 97.0 F 10/08/21 08:00 Pulse 81 10/08/21 08:00 Resp 12 10/08/21 08:00 BP 173/98 H 10/08/21 08:00 Pulse Ox 100 10/08/21 08:00 Oxygen Flow Rate 2 09/27/21 02:46 BMI result Body Mass Index 20.0 Appearing in no acute distress, thin and frail appearing lung sounds are clear to auscultation heart regular rate rhythm, clear S1, S2 positive bowel sounds, abdomen is soft, nontender neuro patient is alert, confused at baseline Objective Data Active Medications Acetaminophen (Acetaminophen Supp 650 Mg Supp.Rect) 650 mg VT Q6H PRN PRN Reason: Fever Atorvastatin Calcium (Atorvastatin Calcium 10 Mg Tablet) 10 mg PO DAILY [facility] Last Admin: 10/08/21 08:43 Dose: 10 mg Documented by: FORTINO Dextrose (Dextrose 50 % 25 Gm/50 Ml Syringe) 25 gm IVPUSH Q15M PRN; Protocol PRN Reason: per Hypoglycemia Standing Ord. Ferrous Sulfate (Ferrous Sulfate 324 Mg Tablet.Dr) 324 mg PO TID [facility] Last Admin: 10/08/21 08:43 Dose: 324 mg Documented by: FORTINO Glucose (Glucose Gel 15 Gm Gel..Gram.) 15 gm PO Q15M PRN; Protocol PRN Reason: per Hypoglycemia Standing Ord. Heparin Sodium (Porcine) (Heparin Sodium,Porcine 5,000 Unit/Ml Vial) 5,000 unit INTRACATH TUTHSA@1645 [facility] Last Admin: 10/06/21 16:54 Dose: Not Given Documented by: SOWMYA Non-Admin Reason: No Access Daptomycin 350 mg/ Sodium (Chloride) 57 mls @ 100 mls/hr IV WeThFr@1645 [facility] Last Infusion: 10/05/21 19:51 Dose: 0 mls/hr Documented by: YAMIL Ceftriaxone Sodium 2 gm/ (Sodium Chloride) 50 mls @ 100 mls/hr IV Q24H [facility] Last Infusion: 10/07/21 12:35 Dose: 0 mls/hr Documented by: SOWMYA Insulin Human Lispro (Insulin Lispro 100 Unit/Ml 3 Ml Vial) 0 unit SUBCUT QIDACHS [facility]; Protocol Last Admin: 10/08/21 08:43 Dose: Not Given Documented by: FORTINO Non-Admin Reason: No Insulin Coverage Ondansetron HCl (Ondansetron Hcl 4 Mg/2 Ml Vial) 4 mg IVPUSH Q8H PRN PRN Reason: Nausea and Vomiting Pharmacy Consult (Consult Rx Perform Med Rec) 1 each MISCELLANE ONCE PRN PRN Reason: Consult order Senna (Sennosides 8.6 Mg Tablet) 8.6 mg PO DAILY [facility] Last Admin: 10/08/21 08:42 Dose: 8.6 mg Documented by: FORTINO Sevelamer Carbonate (Sevelamer Carbonate Tablet 800 Mg Tablet) 800 mg PO TID [facility] Last Admin: 10/08/21 08:43 Dose: 800 mg Documented by: FORTINO Sodium Chloride (0.9 % Sodium Chloride Flush 3 Ml Syringe) 3 ml IVFLUSH QSHIFT [facility] Last Admin: 10/08/21 08:43 Dose: 3 ml Documented by: FORTINO Labs CBC & Chem 7: 10/06/21 14:49 10/06/21 14:49 Labs: Laboratory Results - last 24 hr 10/07/21 10/07/21 10/07/21 11:00 16:13 20:37 POC Glucose 137 H 129 H 186 H 10/08/21 07:29 POC Glucose 86 Assessment and Plan (1) Bacteremia: Status: Acute (2) End stage renal disease: Status: Acute Plan This is an 80 yo M with a PMH of Dementia, ESRD on HD TTHS, Prior MRSA bacteremia secondary to infected dialysis catheter (in Jun 2021), HTN, Anemia of CKD, DM, HLD who is sent from [facility] ([facility] resident there) for changes in mental status and low grade fevers. He also is found to have possible GI bleed while in the ED. He will be admitted for Sepsis and suspected Gastrointestinal bleed. ESRD on HD TThS HD cath growing MRSA, permacath removed temporary dialysis catheter placed on 10/02, removed 10/06 temporary HD catheter to be placed today 10/08, plan will be to continue this until blood cx are neg and he can have a permacath placed Followed by Dr. Rajeev Fang [phone] Sepsis secondary to MRSA bacteremia Secondary to infected dialysis catheter ECHO negative for vegetation Initially treated with IV vanco, changed to damptomycin for persistent bacteremia synergistic ceftriaxone added 10/04 per ID rec Follow repeat blood cultures ID following toxic/metabolic encephalopathy on a background of dementia. more alert today probably secondary to bacteremia LFTs, ammonia wnl ABG with no CO2 retention no focal neuro deficits appreciated HTN. Elevated Resume hydralazine today Chronic issues Melanotic stools, suspected lower GI bleed, acute blood loss anemia. No further bleeding noted s/p 1 unit prbc 09/27 s/p IV PPI stopped Seen by GI recommend conservative management for now. asa on hold dysphagia seen by speech rec, to increase to ground/mech altered diet with thin liqs Dementia without behavioral disturbances not on meds at baseline HLD continue statin DM SSI Chronic combined systolic/diastolic CHF, no acute exacerbation lasix on hold due to low BP, BP better may continue if warranted DNR/DNI per [facility] form sent from SNF DVT pptx, Mechanical due to possible GI bleed Attending:Dr. Alexander Quality Stroke Does the patient have a stroke diagnosis?: No VTE Prior VTE?: No VTE Risk Level:: Medical - moderate - high VTE Device Contraindication: N/A - Device Ordered VTE Drug Contraindication: Treatment Not Indicated
[2021-10-08 11:10] LABS: Glucose, Whole Blood 108 mg/dL (60-115)
[2021-10-08 11:30] LABS: Hematocrit 24.3 % (42.0-52.0); Hemoglobin 7.9 g/dl (14.0-18.0); Mean Corpuscular HGB Conc 32.5 g/dl (31.0-36.0); Mean Corpuscular Hemoglobin 30.6 pg (27.0-33.0); Mean Corpuscular Volume 94.2 fL (80.0-98.0); Mean Platelet Volume 10.2 fL (9.4-12.4); Platelet Count 155 X10*3/uL (160-400); Red Blood Count 2.58 X10*6/uL (4.60-5.80); Red Cell Distribution Width 16.4 % (11.0-16.0); White Blood Count 8.3 X10*3/uL (4.8-10.8)
[2021-10-08 11:51] LABS: Anion Gap 15 (12-20); Blood Urea Nitrogen 40 mg/dL (9-16); Calcium 7.7 mg/dL (8.4-10.2); Carbon Dioxide 24 mmol/L (22-29); Chloride 100 mmol/L (96-108); Glucose Random 119 mg/dL (60-115); Potassium 3.6 mmol/L (3.3-5.1); Sodium 135 mmol/L (135-145)
[2021-10-08 11:55] VITALS: BP 158/73; PULSE 74; RESP 12; TEMP 35.8; O2SAT 100
[2021-10-08 11:55] LABS: Estimated Glomerular Filt Rate 10
[2021-10-08] MEDS: cefTRIAXone sodium 2 GM in 0.9 % Sodium Chloride 50 ML IV (12:27)
--- NOTE | 2021-10-08 13:30 | MHC.CLN ---
PT IS MODERATELY MALNOURISHED PT WITH 5% NONSIGNIFICANT WT LOSS X 90DAYS, MILD DEPLETED MUSCLE MASS, VARIABLE PO INTAKE X 7 DAYS AND INCREASED NUTRITION NEEDS R/T HD AND PRESSURE INJURY PO INTAKE REMAINS VARIABLE DIET RX: 2000DM GRD M/S-APPROPRIATE R/T ADVANCED AGE RECOMMEND ADDING GLUCERNA TID TO INCREASE KCALS AND PROMOTE WOUND HEALING SUPP TO PROVIDE 711KCALS, 30G PROTEIN MONITOR PO INTAKE CLOSELY SEE ALSO FULL CLINICAL NUTRITION ASSESSMENT
--- NOTE | 2021-10-08 14:30 | MHC.CM.PN ---
Male 81 DX ESRD Sepsis DP return to LTC @ [facility]. Blood cultures are still +. Permanent HD access insertion is on hold until Blood cultures clear. He will return to [facility] via S.
[2021-10-08 15:12] VITALS: BP 125/64; PULSE 69; RESP 20; TEMP 36.8; O2SAT 99
[2021-10-08] MEDS: hydrALAZINE HCl 25 MG TABLET 75 MG PO ×2 (15:28→21:12)
[2021-10-08 16:08] LABS: Glucose, Whole Blood 141 mg/dL (60-115)
--- NOTE | 2021-10-08 18:58 | PM.PNNEP ---
Subjective Subjective Date of Service: 10/08/21 Principal diagnosis: no complaints this AM had HAD yesterday Interval history: seen and examined this afternoon awake and alert; pleasantly confused denies pain or difficulty breathing Physical Exam Vital Signs: Vital Signs: Last Vital Signs Temp 98.3 F 10/08/21 15:12 Pulse 69 10/08/21 15:12 Resp 20 10/08/21 15:12 BP 125/64 10/08/21 15:12 Pulse Ox 99 10/08/21 15:12 Oxygen Flow Rate 2 09/27/21 02:46 BMI result Body Mass Index 20.0 oral dry mucosa lungs decreased BSs on both bases s1s2 abd soft ext no edema neuro confused moves 4 extremities Objective Data Labs CBC & Chem 7: 10/08/21 11:03 10/08/21 11:03 Labs: Laboratory Results - last 24 hr 10/07/21 10/08/21 10/08/21 20:37 07:29 11:03 WBC 8.3 RBC 2.58 L Hgb 7.9 L Hct 24.3 L MCV 94.2 MCH 30.6 MCHC 32.5 RDW 16.4 H Plt Count 155 L MPV 10.2 Absolute Nucleated RBC 0.000 Nucleated RBC % (auto) 0.0 Sodium Potassium Chloride Carbon Dioxide Anion Gap BUN Creatinine Estim Creat Clear Calc Estimated GFR POC Glucose 186 H 86 Random Glucose Calcium 10/08/21 10/08/21 10/08/21 11:03 11:06 16:05 WBC RBC Hgb Hct MCV MCH MCHC RDW Plt Count MPV Absolute Nucleated RBC Nucleated RBC % (auto) Sodium 135 Potassium 3.6 Chloride 100 Carbon Dioxide 24 Anion Gap 15 BUN 40 H D Creatinine 5.32 H* Estim Creat Clear Calc 9.0 Estimated GFR 10 POC Glucose 108 141 H Random Glucose 119 H Calcium 7.7 L Microbiology Microbiology Results: Microbiology 10/03/21 15:41 Blood - Venous Blood Culture - Final No growth after 5 days. 10/07/21 08:02 Blood - Venous Blood Culture - Preliminary No growth after 24 hours. 10/07/21 08:03 Blood - Venous Blood Culture - Preliminary No growth after 24 hours. 10/03/21 15:41 Blood - Venous Blood Culture - Final Methicillin Res Staph Aureus 10/02/21 01:17 Blood - Venous Blood Culture - Final Methicillin Res Staph Aureus 10/02/21 01:09 Blood - Venous Blood Culture - Final Methicillin Res Staph Aureus 10/01/21 09:07 Blood - Central Line Blood Culture - Final Methicillin Res Staph Aureus 10/01/21 08:52 Blood - Central Line Blood Culture - Final Methicillin Res Staph Aureus 09/30/21 15:07 Blood - Venous Blood Culture - Final Methicillin Res Staph Aureus 09/30/21 15:07 Blood - Venous Blood Culture - Final Methicillin Res Staph Aureus 09/28/21 13:06 Blood - Venous Blood Culture - Final Methicillin Res Staph Aureus 09/28/21 13:06 Blood - Venous Blood Culture - Final Methicillin Res Staph Aureus 09/27/21 00:00 Urine Catheterized - Giles Catheter Urine Culture - Final 09/27/21 13:02 Blood - Subclavian Blood Culture - Final Methicillin Res Staph Aureus 09/27/21 13:02 Blood - Subclavian Blood Culture - Final Methicillin Res Staph Aureus 09/27/21 03:00 Blood - Venous Blood Culture - Final Methicillin Res Staph Aureus 09/27/21 03:00 Blood - Venous Blood Culture - Final Methicillin Res Staph Aureus Procedures Date of Service Date of Service: 10/08/21 Assessment & Plan Assessment and plan (1) End stage renal disease: Status: Acute Assessment and Plan: (1) End stage renal disease: ?Status:?Acute ?Assessment and Plan: TTS outpatient schedule now admitted with infected permcath/tunneled central line - tunneled dialysis catheter removal for MRSA bacteremia on 09/28 but has failed to clear bacteremia to date. last cultures on 10/03 are only growing GPC in 1 of 2 bottles, so that may be the beginnings of improvement. That, and his normal WBC, lack of fever or sepsis, is better news. - Echo without clear evidence of SBE but has significant mitral valvular calcification as a potential risk. Low EF noted as well. Rocephin addition per ID. - had temporary/non-tunneled catheter placed late 10/02 and will perform dialysis on 10/03, today and friday removed Friday. (2) Bacteremia: Status: Acute Assessment and Plan: latest BCXs from 10/07 remain neg at 24h if BCx remain NEG by 10/09, please arrange IR to place HD Permcath on 10/10 and followed by dialysis same day. continue to monitor labs (3) Anemia: Status: Acute Assessment and Plan: stable post RBCs (4) Adult failure to thrive: Status: Acute Assessment and Plan: needs nutritional evaluation (5) Anemia in ESRD (end-stage renal disease): Status: Acute Plan will re start procrit 21988 units SQ to maintain Hb stable Time Spent With Patient Time: Total time spent is greater than 50% in coordination of care (as documented) at patient's floor/unit and/or counseling patient: Time with patient: 25 - 35 minutes Progress Note: Quality Stroke Does the patient have a stroke diagnosis?: No
[2021-10-08 19:03] VITALS: BP 167/78; PULSE 80; RESP 20; TEMP 36.4; O2SAT 99
[2021-10-08 20:19] LABS: Glucose, Whole Blood 129 mg/dL (60-115)
[2021-10-08 23:31] VITALS: BP 127/75; PULSE 88; RESP 17; TEMP 36.3; O2SAT 98
[2021-10-09] VITALS (7 sets, daily range): BP systolic 98–156; BP diastolic 54–74; PULSE 71–99; RESP 16–20; TEMP 36.3–37.6; O2SAT 97–100; BMI 20.2
[2021-10-09] MEDS: 0.9 % Sodium Chloride Flush 3 ML SYRINGE IVFLUSH ×2 (00:19→08:15)
[2021-10-09 07:11] LABS: Glucose, Whole Blood 106 mg/dL (60-115)
[2021-10-09] MEDS: hydrALAZINE HCl 25 MG TABLET 75 MG PO ×3 (08:14→21:47)
[2021-10-09] MEDS: Ferrous Sulfate 324 MG TABLET.DR PO ×3 (08:15→21:47)
[2021-10-09] MEDS: Atorvastatin Calcium 10 MG TABLET PO (08:15)
[2021-10-09] MEDS: Sennosides 8.6 MG TABLET PO (08:15)
--- NOTE | 2021-10-09 09:26 | P.CDIC_ITS ---
CDI Concurrent Query Documentation Clarification: PHYSICIAN'S DOCUMENTATION REQUEST Date of Query: 10/09/21926 Patient Name: Osmani Rivera Admit Date: 09/27/21 Dear Doctor, A review of the medical record indicates additional documentation may be needed. Please review below and update the documentation accordingly. Clinical Indicators: Risk Factors/Clinical Indicators/Treatments Nutrition notes 10/08 - moderately malnourished with BMI 18.9 frail, thin. Moderately malnourished w 5% nonsignificant wt loss x 90 days. Mildly depleted muscles mass. Glucerna ASPEN Criteria* Acute Illness Chronic Illness Clinical Characteristic Non-Severe (2 or more criteria present) Severe (2 or more criteria present) Non-Severe (2 or more criteria present) Severe (2 or more criteria present) Energy Intake <75% for >7 days <=50% for >=5 days <75% for >=1 month <=75% for >=1 month Weight Loss 1 week 1 ? 2% >2% N/A N/A 1 month 5% >5% 5% >5% 3 months 7.5 % >7.5% 7.5% >7.5% 6 months N/A N/A 10% >10% 1 year N/A N/A 20% >20% Body Fat Mild Moderate Mild Severe Muscle Mass Mild Moderate Mild Severe Fluid Accumulation Mild Moderate to Severe Mild Severe Reduced [employer]use [employer]er Strength N/A Measurably Reduced N/A Measurably Reduced *[facility] Hospitalist, 2017 If possible, please provide in your progress notes, additional specificity regarding the severity of the malnutrition using the above information: * Mild * Moderate * Severe * Other (please specify) * Unable to determine Use of terms such as suspected, likely, concern for, or probable (associated with a specific diagnosis that is being evaluated, monitored, or treated as if it exists) are acceptable and can be coded in the inpatient setting, when documented at the time of discharge. Thank you, Keesha Foster [facility], CDIS Extension: [phone] Please use your independent medical judgment in providing your response. THIS QUERY IS PART OF THE PERMANENT MEDICAL RECORD Other Diagnosis: See note
[2021-10-09] MEDS: Sevelamer Carbonate Powder 800 MG POWD.PACK PO ×3 (09:49→21:47)
--- NOTE | 2021-10-09 10:23 | MHC.CDI.CONC ---
CDI Concurrent Query Documentation Clarification: PHYSICIAN'S DOCUMENTATION REQUEST Date of Query: 10/09/21 1023 Patient Name: Osmani Rivera Admit Date: 09/27/21 Dear Doctor, A review of the medical record indicates additional documentation may be indicated. Please review below and update the documentation accordingly. Clinical Indicators: Risk Factors/Clinical Indicators/Treatments Wound care asssessment - 10/05 - Pressure Injury Stage II coccyx. Hydrocolloid dressing, CDI Based on the above, could you please provide, in the Progress Notes, further information regarding the ulcer/wound: Location of the ulcer/wound, including laterality If a pressure ulcer, please also include the stage* of the ulcer: Stage 1 - Skin intact, non-blanchable redness Stage 2 - Partial thickness loss of dermis, includes intact or open blister Stage 3 - Full thickness tissue not including bone, tendon, or muscle Unable to determine *Source: National Pressure Ulcer Advisory Panel (NPUAP) Use of terms such as suspected, likely, concern for, or probable (associated with a specific diagnosis that is being evaluated, monitored, or treated as if it exists) are acceptable and can be coded in the inpatient setting, when documented at the time of discharge. Thank you, Keesha Foster [facility], [place], CDIS Extension: [phone] Please use your independent medical judgment in providing your response. THIS QUERY IS PART OF THE PERMANENT MEDICAL RECORD Provider Response: Other (Pressure Injury Stage II coccyx.) Other Diagnosis: Pressure Injury Stage II coccyx.
[2021-10-09 10:54] LABS: Glucose, Whole Blood 159 mg/dL (60-115)
--- NOTE | 2021-10-09 11:09 | PC.NURSE ---
Attempted to get patient OOB to recliner. Patient resistant to movement, fighting staff. Patient remains in bed at this time.
--- NOTE | 2021-10-09 11:35 | P.PNIM_ITS ---
Subjective Subjective Date of Service: 10/09/21 Review of Systems Follow up awake and alert; confused denies pain or difficulty breathing Physical Exam Vital Signs: Vital Signs: Last Vital Signs Temp 99.0 F 10/09/21 11:00 Pulse 85 10/09/21 11:00 Resp 18 10/09/21 11:00 BP 98/54 L 10/09/21 11:00 Pulse Ox 97 10/09/21 11:00 Oxygen Flow Rate 2 09/27/21 02:46 BMI result Body Mass Index 20.2 Appearing in no acute distress, thin and frail lung sounds are clear to auscultation heart regular rate rhythm, clear S1, S2 positive bowel sounds, abdomen is soft, nontender neuro patient is alert, confused at baseline Dry skin Coccyx stage II pressure Objective Data Active Medications Acetaminophen (Acetaminophen Supp 650 Mg Supp.Rect) 650 mg RI Q6H PRN PRN Reason: Fever Atorvastatin Calcium (Atorvastatin Calcium 10 Mg Tablet) 10 mg PO DAILY [facility] Last Admin: 10/09/21 08:15 Dose: 10 mg Documented by: SIMONE Dextrose (Dextrose 50 % 25 Gm/50 Ml Syringe) 25 gm IVPUSH Q15M PRN; Protocol PRN Reason: per Hypoglycemia Standing Ord. Ferrous Sulfate (Ferrous Sulfate 324 Mg Tablet.Dr) 324 mg PO TID [facility] Last Admin: 10/09/21 08:15 Dose: 324 mg Documented by: SIMONE Glucose (Glucose Gel 15 Gm Gel..Gram.) 15 gm PO Q15M PRN; Protocol PRN Reason: per Hypoglycemia Standing Ord. Heparin Sodium (Porcine) (Heparin Sodium,Porcine 5,000 Unit/Ml Vial) 5,000 unit INTRACATH TUTA@1645 [facility] Last Admin: 10/06/21 16:54 Dose: Not Given Documented by: SOWMYA Non-Admin Reason: No Access Heparin Sodium (Porcine) (Heparin Sodium,Porcine 5,000 Unit/Ml Vial) 2,400 unit 40 unit/kg (2400 unit) IVPUSH PROTOCOL BOLUS PRN; Protocol PRN Reason: 40 unit/kg - Heparin Protocol Heparin Sodium (Porcine) (Heparin Sodium,Porcine 5,000 Unit/Ml Vial) 4,800 unit 80 unit/kg (4800 unit) IVPUSH PROTOCOL BOLUS PRN; Protocol PRN Reason: 80 unit/kg - Heparin Protocol Hydralazine HCl (Hydralazine Hcl 25 Mg Tablet) 75 mg PO TID [facility]; Protocol Last Admin: 10/09/21 08:14 Dose: 75 mg Documented by: SIMONE Daptomycin 350 mg/ Sodium (Chloride) 57 mls @ 100 mls/hr IV WeThFr@1645 [facility] Last Infusion: 10/05/21 19:51 Dose: 0 mls/hr Documented by: YAMIL Ceftriaxone Sodium 2 gm/ (Sodium Chloride) 50 mls @ 100 mls/hr IV Q24H [facility] Last Infusion: 10/08/21 13:33 Dose: 0 mls/hr Documented by: FORTINO Heparin Sodium/Sodium Chloride () 25,000 unit in 250 mls @ 0 mls/hr IVCONT .Q0M [facility]; Protocol Insulin Human Lispro (Insulin Lispro 100 Unit/Ml 3 Ml Vial) 0 unit SUBCUT QIDACHS [facility]; Protocol Last Admin: 10/09/21 07:29 Dose: Not Given Documented by: SIMONE Non-Admin Reason: No Insulin Coverage Ondansetron HCl (Ondansetron Hcl 4 Mg/2 Ml Vial) 4 mg IVPUSH Q8H PRN PRN Reason: Nausea and Vomiting Pharmacy Consult (Consult Rx Perform Med Rec) 1 each MISCELLANE ONCE PRN PRN Reason: Consult order Senna (Sennosides 8.6 Mg Tablet) 8.6 mg PO DAILY [facility] Last Admin: 10/09/21 08:15 Dose: 8.6 mg Documented by: SIMONE Sevelamer Carbonate (Sevelamer Carbonate Powder 800 Mg Powd.Pack) 800 mg PO TID [facility] Last Admin: 10/09/21 09:49 Dose: 800 mg Documented by: SIMONE Sodium Chloride (0.9 % Sodium Chloride Flush 3 Ml Syringe) 3 ml IVFLUSH QSHIFT [facility] Last Admin: 10/09/21 08:15 Dose: 3 ml Documented by: SIMONE Labs CBC & Chem 7: 10/09/21 12:30 10/08/21 11:03 Labs: Laboratory Results - last 24 hr 10/08/21 10/08/21 10/08/21 11:03 16:05 20:15 Anion Gap 15 Estim Creat Clear Calc 9.0 Estimated GFR 10 POC Glucose 141 H 129 H Random Glucose 119 H Calcium 7.7 L 10/09/21 10/09/21 07:01 10:50 Anion Gap Estim Creat Clear Calc Estimated GFR POC Glucose 106 159 H Random Glucose Calcium Microbiology Microbiology Results: Microbiology 10/07/21 08:02 Blood Culture - Preliminary Blood - Venous No growth after 48 hours. 10/07/21 08:03 Blood Culture - Preliminary Blood - Venous No growth after 48 hours. 10/03/21 15:41 Blood Culture - Final Blood - Venous No growth after 5 days. Assessment and Plan (1) Bacteremia: Status: Acute (2) End stage renal disease: Status: Acute Plan This is an 80 yo M with a PMH of Dementia, ESRD on HD TTHS, Prior MRSA bacteremia secondary to infected dialysis catheter (in Jun 2021), HTN, Anemia of CKD, DM, HLD who is sent from [facility] ([facility] resident [facility]) for changes in mental status and low grade fevers. He also is found to have possible GI bleed while in the ED. He will be admitted for Sepsis and suspected Gastrointestinal bleed. 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 Discussed with Nephrology, Hold off on IV heparin due to patients hx of GI bleeding, obtain CTA prior to insertion of permacath to assess for clot extending into the SVC PPI ESRD on HD TThS HD cath growing MRSA, permacath removed temporary dialysis catheter placed on 10/02, removed 10/06 temporary HD catheter to be placed today 10/08, plan will be to continue this until blood cx are neg and he can have a permacath placed Blood cx neg after 24 hours hopefully if neg after 48hrs will plan for permacath on 10/11/21 Sepsis secondary to MRSA bacteremia Secondary to infected dialysis catheter ECHO negative for vegetation Initially treated with IV vanco, changed to damptomycin for persistent bacteremia synergistic ceftriaxone added 10/04 per ID rec Follow repeat blood cultures ID following toxic/metabolic encephalopathy on a background of dementia. more alert today probably secondary to bacteremia LFTs, ammonia wnl ABG with no CO2 retention no focal neuro deficits appreciated HTN. Elevated Resume hydralazine today Moderate protein calorie malnutrition add supplements followed by licensing worker Chronic issues Melanotic stools, suspected lower GI bleed, acute blood loss anemia. No further bleeding noted s/p 1 unit prbc 09/27 s/p IV PPI stopped Seen by GI recommend conservative management for now. asa on hold dysphagia seen by speech rec, to increase to ground/mech altered diet with thin liqs Dementia without behavioral disturbances not on meds at baseline HLD continue statin DM SSI Chronic combined systolic/diastolic CHF, no acute exacerbation lasix on hold due to low BP, BP better may continue if warranted DNR/DNI per [facility] form sent from SNF DVT pptx, Mechanical due to possible GI bleed Attending:Dr. Alexander Quality Stroke Does the patient have a stroke diagnosis?: No VTE Prior VTE?: No VTE Risk Level:: Medical - moderate - high VTE Device Contraindication: N/A - Device Ordered VTE Drug Contraindication: Treatment Not Indicated
[2021-10-09] MEDS: Insulin Lispro 100 UNIT/ML 3 ML VIAL SUBCUT (12:00)
[2021-10-09] MEDS: cefTRIAXone sodium 2 GM in 0.9 % Sodium Chloride 50 ML IV (12:00)
--- NOTE | 2021-10-09 12:24 | PC.NURSE ---
Skin/wound assessment completed. Patient has a stage 2 to coccyx/sacrum-Triad applied covered with foam. Stage 1 to left buttock. Triad applied to buttocks and anal area for protection against incontinence. Patient refuses to get out of bed. He is rotated q 2 h.
--- NOTE | 2021-10-09 12:35 | PM.PNNEP ---
Subjective Subjective Date of Service: 10/09/21 Principal diagnosis: no complaints this AM had HAD yesterday Interval history: seen and examined this morning awake and alert; pleasantly confused denies pain or difficulty breathing Physical Exam Vital Signs: Vital Signs: Last Vital Signs Temp 99.0 F 10/09/21 11:00 Pulse 85 10/09/21 11:00 Resp 18 10/09/21 11:00 BP 98/54 L 10/09/21 11:00 Pulse Ox 97 10/09/21 11:00 Oxygen Flow Rate 2 09/27/21 02:46 BMI result Body Mass Index 20.2 oral moist mucosa s1s2 decreased BSs bilaterally abd soft +BSs ext no edema Objective Data Labs CBC & Chem 7: 10/08/21 11:03 10/08/21 11:03 Labs: Laboratory Results - last 24 hr 10/08/21 10/08/21 10/09/21 16:05 20:15 07:01 POC Glucose 141 H 129 H 106 10/09/21 10:50 POC Glucose 159 H Microbiology Microbiology Results: Microbiology 10/07/21 08:02 Blood - Venous Blood Culture - Preliminary No growth after 48 hours. 10/07/21 08:03 Blood - Venous Blood Culture - Preliminary No growth after 48 hours. 10/03/21 15:41 Blood - Venous Blood Culture - Final No growth after 5 days. 10/03/21 15:41 Blood - Venous Blood Culture - Final Methicillin Res Staph Aureus 10/02/21 01:17 Blood - Venous Blood Culture - Final Methicillin Res Staph Aureus 10/02/21 01:09 Blood - Venous Blood Culture - Final Methicillin Res Staph Aureus 10/01/21 09:07 Blood - Central Line Blood Culture - Final Methicillin Res Staph Aureus 10/01/21 08:52 Blood - Central Line Blood Culture - Final Methicillin Res Staph Aureus 09/30/21 15:07 Blood - Venous Blood Culture - Final Methicillin Res Staph Aureus 09/30/21 15:07 Blood - Venous Blood Culture - Final Methicillin Res Staph Aureus 09/28/21 13:06 Blood - Venous Blood Culture - Final Methicillin Res Staph Aureus 09/28/21 13:06 Blood - Venous Blood Culture - Final Methicillin Res Staph Aureus 09/27/21 00:00 Urine Catheterized - Giles Catheter Urine Culture - Final 09/27/21 13:02 Blood - Subclavian Blood Culture - Final Methicillin Res Staph Aureus 09/27/21 13:02 Blood - Subclavian Blood Culture - Final Methicillin Res Staph Aureus 09/27/21 03:00 Blood - Venous Blood Culture - Final Methicillin Res Staph Aureus 09/27/21 03:00 Blood - Venous Blood Culture - Final Methicillin Res Staph Aureus Procedures Date of Service Date of Service: 10/09/21 Assessment & Plan Assessment and plan (1) End stage renal disease: Status: Acute Assessment and Plan: Fortunately no urgency for HD today (2) Bacteremia: Status: Acute Assessment and Plan: BCXs from 10/07 neg 48 h, could consider place Permcath tomorrow (10/10), if able to do so via IR, will plan for dialysis tomorrow or day after on 10/11 pls let renal team length of Antibiotic therapy expected as outpt to coordinate with outpt dialysis unit at [facility] (3) Anemia in ESRD (end-stage renal disease): Status: Acute Plan Procrit 67751 units SQ today X1 Time Spent With Patient Time: Total time spent is greater than 50% in coordination of care (as documented) at patient's floor/unit and/or counseling patient: Progress Note: Quality Stroke Does the patient have a stroke diagnosis?: No
--- NOTE | 2021-10-09 12:43 | P.CNHO_ITS ---
Subjective - Subjective Chief complaint: None Patient: new to practice Consult date: 10/09/21 Requesting Physician: Sobia Khalil NP Primary Care Provider: Unknown Physician HPI - Consult Narrative Reason for consult: left internal jugular vein thrombus Narrative: Osmani Rivera is a 81 year old male with multiple medical problems including end-stage renal disease, dialysis, MRSA bacteremia secondary to infected di alysis catheter, GI bleeding who has been diagnosed with clot in the left distal jugular vein. Ultrasound neck was performed 10/08/[address] central line for dialysis. Patient had no symptoms of neck swelling or pain. Because of his dementia patient is unable to provide any history. 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 Essential (primary) hypertension Left lower lobe pulmonary infiltrate Metabolic encephalopathy Pneumonia Family history: reviewed and not pertinent Social History: Social History (Last Reviewed 09/29/21 @ 12:07 by Liliam Kuo MD) Living Situation History: Household Members: Other Housing: Shelter Alcohol History: Unable to assess alcohol history related to: Unable to respond Tobacco History: Patient Tobacco Use Status: Former Tobacco user Tobacco use type: Cigarette Advance Directives: Advance Directives Date on File: 06/16/21 Occupation Assessmet: Current occupational status: disabled Home Medications and Allergies Current Medications: Current Medications Acetaminophen (Acetaminophen Supp 650 Mg Supp.Rect) 650 mg [place] Q6H PRN PRN Reason: Fever Atorvastatin Calcium (Atorvastatin Calcium 10 Mg Tablet) 10 mg PO DAILY [facility] Last Admin: 10/09/21 08:15 Dose: 10 mg Documented by: Dextrose (Dextrose 50 % 25 Gm/50 Ml Syringe) 25 gm IVPUSH Q15M PRN; Protocol PRN Reason: per Hypoglycemia Standing Ord. Ferrous Sulfate (Ferrous Sulfate 324 Mg Tablet.Dr) 324 mg PO TID [facility] Last Admin: 10/09/21 08:15 Dose: 324 mg Documented by: Glucose (Glucose Gel 15 Gm Gel..Gram.) 15 gm PO Q15M PRN; Protocol PRN Reason: per Hypoglycemia Standing Ord. Heparin Sodium (Porcine) (Heparin Sodium,Porcine 5,000 Unit/Ml Vial) 5,000 unit INTRACATH TUTHSA@1645 [facility] Last Admin: 10/06/21 16:54 Dose: Not Given Documented by: Heparin Sodium (Porcine) (Heparin Sodium,Porcine 5,000 Unit/Ml Vial) 2,400 unit 40 unit/kg (2400 unit) IVPUSH PROTOCOL BOLUS PRN; Protocol PRN Reason: 40 unit/kg - Heparin Protocol Heparin Sodium (Porcine) (Heparin Sodium,Porcine 5,000 Unit/Ml Vial) 4,800 unit 80 unit/kg (4800 unit) IVPUSH PROTOCOL BOLUS PRN; Protocol PRN Reason: 80 unit/kg - Heparin Protocol Hydralazine HCl (Hydralazine Hcl 25 Mg Tablet) 75 mg PO TID [facility]; Protocol Last Admin: 10/09/21 08:14 Dose: 75 mg Documented by: Daptomycin 350 mg/ Sodium (Chloride) 57 mls @ 100 mls/hr IV WeThFr@1645 [facility] Last Infusion: 10/05/21 19:51 Dose: Infused Documented by: Ceftriaxone Sodium 2 gm/ (Sodium Chloride) 50 mls @ 100 mls/hr IV Q24H [facility] Last Admin: 10/09/21 12:00 Dose: 100 mls/hr Documented by: Heparin Sodium/Sodium Chloride () 25,000 unit in 250 mls @ 0 mls/hr IVCONT .Q0M [facility]; Protocol Insulin Human Lispro (Insulin Lispro 100 Unit/Ml 3 Ml Vial) 0 unit SUBCUT QIDACHS [facility]; Protocol Last Admin: 10/09/21 12:00 Dose: 2 unit Documented by: Ondansetron HCl (Ondansetron Hcl 4 Mg/2 Ml Vial) 4 mg IVPUSH Q8H PRN PRN Reason: Nausea and Vomiting Pharmacy Consult (Consult Rx Perform Med Rec) 1 each MISCELLANE ONCE PRN PRN Reason: Consult order Senna (Sennosides 8.6 Mg Tablet) 8.6 mg PO DAILY [facility] Last Admin: 10/09/21 08:15 Dose: 8.6 mg Documented by: Sevelamer Carbonate (Sevelamer Carbonate Powder 800 Mg Powd.Pack) 800 mg PO TID [facility] Last Admin: 10/09/21 09:49 Dose: 800 mg Documented by: Sodium Chloride (0.9 % Sodium Chloride Flush 3 Ml Syringe) [facility] Last Admin: 10/09/21 08:15 Dose: 3 ml Documented by: Home Medications Medication Instructions Recorded Confirmed Type aspirin 81 mg chewable tablet 81 mg PO DAILY 06/16/21 09/27/21 History atorvastatin 10 mg tablet 1 tab PO DAILY 06/16/21 09/27/21 History cholecalciferol (vitamin D3) 25 50 mcg PO DAILY 06/16/21 09/27/21 History mcg (1,000 unit) tablet ferrous sulfate 325 mg (65 mg 325 mg PO TID 06/16/21 09/27/21 History iron) tablet furosemide 80 mg tablet 1 tab PO BID 06/16/21 09/27/21 History insulin lispro 100 unit/mL See Rx Instructions .ROUTE .COMPLEX 06/16/21 09/27/21 History subcutaneous pen (Admelog SoloStar U-100 Insulin lispro) sennosides 8.6 mg tablet (senna) 8.6 mg PO DAILY 06/16/21 09/27/21 History sevelamer carbonate 800 mg tablet 1 tab PO TID 06/16/21 09/27/21 History tamsulosin 0.4 mg capsule 1 cap PO DAILY@1730 06/16/21 09/27/21 History vitamin B complex and vitamin C 1 cap PO DAILY 06/16/21 09/27/21 History no.20-folic acid 1 mg capsule acetaminophen 325 mg tablet 650 mg PO Q6H PRN 09/27/21 09/27/21 History bisacodyl 10 mg rectal suppository 10 mg [place] DAILY PRN 09/27/21 09/27/21 History d-mannose 500 mg capsule 1,000 mg PO DAILY 09/27/21 09/27/21 History docusate sodium 100 mg capsule 100 mg PO BID PRN 09/27/21 09/27/21 History Allergies Allergy/AdvReac Type Severity Reaction Status Date / Time No Known Allergies Allergy Verified 06/22/21 14:22 [No Known Allergies*] Physical Exam Vital signs: Vital Signs Temp 99.0 F 10/09/21 11:00 Pulse 85 10/09/21 11:00 Resp 18 10/09/21 11:00 BP 98/54 L 10/09/21 11:00 Pulse Ox 97 10/09/21 11:00 Intake & Output 10/08/21 10/09/21 10/09/21 18:59 06:59 18:59 Intake Total 380 / 455 75 / 455 Output Total Balance 355 / 420 65 / 420 Urine Output (Average ml/kg/hr) 0.03 0.01 Intake: Intake, Oral Amount 330 / 405 75 / 405 Intake, IV Amount 50 / 50 cefTRIAXone sodium 2 gm In 0.9 50 / 50 % Sodium Chloride 50 ml @ 100 mls/hr IV Q24H [facility] Rx#: [id number] Output: Output, Urine Amount Output, Urine Amount (Catheter) 0 Urethral 0 Other: Breakfast % Eaten 100% Lunch % Eaten 100% Urine siddiqui Urine Color Concentrated Tea Last Bowel Movement 10/09/21 Stool Incontinent Stool Amount Scant Stool Color Charcoal Stool Consistency Mushy Weight 59.9 kg 60.6 kg Weight in Grams [id number] Weight 60.6 kg - Constitutional Present: no acute distress - Routine Respiratory Exam Absent: respiratory distress - Routine Cardiovascular Exam Cardiovascular: Present: S1, S2 Hem/Onc Consult Result - Labs CBC & Chem 7: 10/08/21 11:03 10/08/21 11:03 Assessment and Plan Patient Active problem list reviewed?: Yes (1) DVT (deep venous thrombosis) Status: Acute Assessment and plan: 1. This is a 81-year-old male with dementia, end-stage renal disease, sepsis secondary to MRSA bacteremia, toxic metabolic encephalopathy who has been diagnosed with left internal jugular vein thrombus. I discussed findings with radiologist. He has a small clot in the distal jugular vein, SVC could not be assessed with ultrasound. He has been started on heparin for anticoagulation, however, he is at high risk for bleeding. He has end-stage renal disease, anemia and has ongoing GI bleeding. I recommend discussing goals of care with his healthcare proxy as well as his tax staff accountant who performs his dialysis to see if he is a candidate for anticoagulation. Thank you. - Time Spent With Patient Time Spent with Patient (in minutes): 10
[2021-10-09 13:05] LABS: Hematocrit 27.5 % (42.0-52.0); Hemoglobin 8.9 g/dl (14.0-18.0); Mean Corpuscular HGB Conc 32.4 g/dl (31.0-36.0); Mean Corpuscular Volume 95.8 fL (80.0-98.0); Mean Platelet Volume 11.3 fL (9.4-12.4); Platelet Count 110 X10*3/uL (160-400); Red Blood Count 2.87 X10*6/uL (4.60-5.80); Red Cell Distribution Width 16.3 % (11.0-16.0)
[2021-10-09 15:26] LABS: INTERNATIONAL NORM RATIO 1.1 (0.9-1.1)
[2021-10-09 15:29] LABS: PTT Heparin Drip 30.6 SEC (53-77.9)
[2021-10-09 16:04] LABS: Glucose, Whole Blood 117 mg/dL (60-115)
[2021-10-09 20:20] LABS: Glucose, Whole Blood 120 mg/dL (60-115)
[2021-10-10] VITALS (15 sets, daily range): BP systolic 103–172; BP diastolic 51–86; PULSE 50–97; RESP 17–20; TEMP 36.3–37.1; O2SAT 96–100; BMI 20.1
[2021-10-10 07:01] LABS: Glucose, Whole Blood 80 mg/dL (60-115)
[2021-10-10 07:14] LABS: Hematocrit 25.2 % (42.0-52.0); Hemoglobin 8.2 g/dl (14.0-18.0); Mean Corpuscular HGB Conc 32.5 g/dl (31.0-36.0); Mean Corpuscular Hemoglobin 31.1 pg (27.0-33.0); Mean Corpuscular Volume 95.5 fL (80.0-98.0); Mean Platelet Volume 9.4 fL (9.4-12.4); Platelet Count 165 X10*3/uL (160-400); Red Blood Count 2.64 X10*6/uL (4.60-5.80); Red Cell Distribution Width 16.3 % (11.0-16.0)
[2021-10-10] MEDS: Ferrous Sulfate 324 MG TABLET.DR PO ×3 (09:36→21:42)
[2021-10-10] MEDS: hydrALAZINE HCl 25 MG TABLET 75 MG PO ×3 (09:36→21:42)
[2021-10-10] MEDS: Sennosides 8.6 MG TABLET PO (09:36)
[2021-10-10] MEDS: Atorvastatin Calcium 10 MG TABLET PO (09:36)
[2021-10-10] MEDS: Sevelamer Carbonate Powder 800 MG POWD.PACK PO ×2 (09:36→21:43)
--- NOTE | 2021-10-10 09:40 | P.PNIM_ITS ---
Subjective Subjective Date of Service: 10/10/21 <Sobia Khalil NP - Last Filed: 10/10/21 16:14> 10/11/21 <Carlos Alexander MD - Last Filed: 10/11/21 08:42> Review of Systems Follow up awake and alert; confused denies pain or difficulty breathing <Sobia Khalil NP - Last Filed: 10/10/21 16:14> Physical Exam Vital Signs: Vital Signs: Last Vital Signs Temp 98.4 F 10/10/21 07:21 Pulse 76 10/10/21 07:21 Resp 20 10/10/21 07:21 BP 136/52 L 10/10/21 07:21 Pulse Ox 100 10/10/21 07:21 Oxygen Flow Rate 2 09/27/21 02:46 BMI result Body Mass Index 20.1 <Sobia hKalil NP - Last Filed: 10/10/21 16:14> Appearing in no acute distress lung sounds are clear to auscultation heart regular rate rhythm, clear S1, S2 positive bowel sounds, abdomen is soft, nontender neuro patient is alert x3, no focal deficits Coccyx stage II pressure ulcer <Sobia Khalil NP - Last Filed: 10/10/21 16:14> Objective Data Active Medications Acetaminophen (Acetaminophen Supp 650 Mg Supp.Rect) 650 mg IN Q6H PRN PRN Reason: Fever Atorvastatin Calcium (Atorvastatin Calcium 10 Mg Tablet) 10 mg PO DAILY [facility] Last Admin: 10/09/21 08:15 Dose: 10 mg Documented by: SIMONE Dextrose (Dextrose 50 % 25 Gm/50 Ml Syringe) 25 gm IVPUSH Q15M PRN; Protocol PRN Reason: per Hypoglycemia Standing Ord. Ferrous Sulfate (Ferrous Sulfate 324 Mg Tablet.Dr) 324 mg PO TID [facility] Last Admin: 10/09/21 21:47 Dose: 324 mg Documented by: EDWARDO Glucose (Glucose Gel 15 Gm Gel..Gram.) 15 gm PO Q15M PRN; Protocol PRN Reason: per Hypoglycemia Standing Ord. Heparin Sodium (Porcine) (Heparin Sodium,Porcine 5,000 Unit/Ml Vial) 5,000 unit INTRACATH TUTHSA@2025 [facility] Last Admin: 10/09/21 16:02 Dose: Not Given Documented by: JAYSHREE Non-Admin Reason: there is no perma cath, pending 48hr blood c. Heparin Sodium (Porcine) (Heparin Sodium,Porcine 5,000 Unit/Ml Vial) 2,400 unit 40 unit/kg (2400 unit) IVPUSH PROTOCOL BOLUS PRN; Protocol PRN Reason: 40 unit/kg - Heparin Protocol Heparin Sodium (Porcine) (Heparin Sodium,Porcine 5,000 Unit/Ml Vial) 4,800 unit 80 unit/kg (4800 unit) IVPUSH PROTOCOL BOLUS PRN; Protocol PRN Reason: 80 unit/kg - Heparin Protocol Hydralazine HCl (Hydralazine Hcl 25 Mg Tablet) 75 mg PO TID [facility]; Protocol Last Admin: 10/09/21 21:47 Dose: 75 mg Documented by: EDWARDO Daptomycin 350 mg/ Sodium (Chloride) 57 mls @ 100 mls/hr IV WeThFr@1645 [facility] Last Infusion: 10/05/21 19:51 Dose: 0 mls/hr Documented by: YAMIL Ceftriaxone Sodium 2 gm/ (Sodium Chloride) 50 mls @ 100 mls/hr IV Q24H [facility] Last Infusion: 10/09/21 12:55 Dose: 0 mls/hr Documented by: SIMONE Insulin Human Lispro (Insulin Lispro 100 Unit/Ml 3 Ml Vial) 0 unit SUBCUT QIDACHS [facility]; Protocol Last Admin: 10/10/21 07:13 Dose: Not Given Documented by: ARASH Non-Admin Reason: No Insulin Coverage Comments: poc 80 Ondansetron HCl (Ondansetron Hcl 4 Mg/2 Ml Vial) 4 mg IVPUSH Q8H PRN PRN Reason: Nausea and Vomiting Pharmacy Consult (Consult Rx Perform Med Rec) 1 each MISCELLANE ONCE PRN PRN Reason: Consult order Senna (Sennosides 8.6 Mg Tablet) 8.6 mg PO DAILY [facility] Last Admin: 10/09/21 08:15 Dose: 8.6 mg Documented by: SIMONE Sevelamer Carbonate (Sevelamer Carbonate Powder 800 Mg Powd.Pack) 800 mg PO TID [facility] Last Admin: 10/09/21 21:47 Dose: 800 mg Documented by: EDWARDO Sodium Chloride (0.9 % Sodium Chloride Flush 3 Ml Syringe) 3 ml IVFLUSH QSHIFT [facility] Last Admin: 10/10/21 09:31 Dose: Not Given Documented by: ARASH Non-Admin Reason: No Access <Sobia Khalil NP - Last Filed: 10/10/21 16:14> Labs CBC & Chem 7: : 10/10/21 07:05 10/08/21 11:03 <Sobia Khalil NP - Last Filed: 10/10/21 16:14> Labs: Laboratory Results - last 24 hr 10/09/21 10/09/21 10/09/21 10:50 12:30 15:13 MCV 95.8 MCH 31.0 MCHC 32.4 RDW 16.3 H Plt Count 110 L D MPV 11.3 Absolute Nucleated RBC 0.000 Nucleated RBC % (auto) 0.0 PT 12.0 INR 1.1 aPTT Heparin Protocol 30.6 L POC Glucose 159 H 10/09/21 10/09/21 10/10/21 15:57 20:16 06:53 MCV MCH MCHC RDW Plt Count MPV Absolute Nucleated RBC Nucleated RBC % (auto) PT INR aPTT Heparin Protocol POC Glucose 117 H 120 H 80 10/10/21 07:05 MCV 95.5 MCH 31.1 MCHC 32.5 RDW 16.3 H Plt Count 165 D MPV 9.4 Absolute Nucleated RBC 0.000 Nucleated RBC % (auto) 0.0 PT INR aPTT Heparin Protocol POC Glucose <Sobia Khalil NP - Last Filed: 10/10/21 16:14> Microbiology Microbiology Results: Microbiology 10/07/21 08:02 Blood Culture - Preliminary Blood - Venous No growth after 48 hours. 10/07/21 08:03 Blood Culture - Preliminary Blood - Venous No growth after 48 hours. <Sobia Khalil NP - Last Filed: 10/10/21 16:14> Assessment and Plan (1) Bacteremia: Status: Acute <Sobia Khalil NP - Last Filed: 10/10/21 16:14> (2) End stage renal disease: Status: Acute <Sobia Khalil NP - Last Filed: 10/10/21 16:14> Plan This is an 80 yo M with a PMH of Dementia, ESRD on HD TTHS, Prior MRSA bacteremia secondary to infected dialysis catheter (in Jun 2021), HTN, Anemia of CKD, DM, HLD who is sent from [facility] (LTC resident there) for changes in mental status and low grade fevers. He also is found to have possible GI bleed while in the ED. He will be admitted for Sepsis and suspected Gastrointestinal bleed. 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 Discussed with Nephrology, Hold off on IV heparin due to patients hx of GI bleeding, obtain CTA prior to insertion of permacath to assess for clot extending into the SVC PPI ESRD on HD TThS HD cath growing MRSA, permacath removed temporary dialysis catheter placed on 10/02, removed 10/06 Plan for permacath today, Blood cx neg after 48hrs Sepsis secondary to MRSA bacteremia Secondary to infected dialysis catheter ECHO negative for vegetation Initially treated with IV vanco, changed to damptomycin for persistent bacteremia synergistic ceftriaxone added 10/04 per ID rec Follow repeat blood cultures ID following Plan for midline placement toxic/metabolic encephalopathy on a background of dementia. more alert today probably secondary to bacteremia LFTs, ammonia wnl ABG with no CO2 retention no focal neuro deficits appreciated HTN. Elevated Resume hydralazine today Moderate protein calorie malnutrition add supplements followed by hand finisher Stage II coccyx pressure ulcer Wound care daily frequent repositioning add protein to diet Chronic issues Melanotic stools, suspected lower GI bleed, acute blood loss anemia. No further bleeding noted s/p 1 unit prbc 09/27 s/p IV PPI stopped Seen by GI recommend conservative management for now. asa on hold dysphagia seen by speech rec, to increase to ground/mech altered diet with thin liqs Dementia without behavioral disturbances not on meds at baseline HLD continue statin DM SSI Chronic combined systolic/diastolic CHF, no acute exacerbation lasix on hold due to low BP, BP better may continue if warranted 10/10/21 Called Ryan Wong ([phone]) to update, no answer and voicemail stated that it was full DNR/DNI per [facility] form sent from [facility] DVT pptx, Mechanical due to possible GI bleed Attending:Dr. Alexander Patient requires continued hospitalization due to Requiring insertion of PermCath, midline and CTA for assessment of blood clot. <Sobia Khalil NP - Last Filed: 10/10/21 16:14> Quality Stroke Does the patient have a stroke diagnosis?: No <Sobia Khalil NP - Last Filed: 10/10/21 16:14> VTE Prior VTE?: No <Sobia Khalil NP - Last Filed: 10/10/21 16:14> VTE Risk Level:: Medical - moderate - high <Sobia Khalil NP - Last Filed: 10/10/21 16:14> VTE Device Contraindication: N/A - Device Ordered <Sobia Khalil NP - Last Filed: 10/10/21 16:14> VTE Drug Contraindication: Treatment Not Indicated <Sobia Khalil NP - Last Filed: 10/10/21 16:14 >
[2021-10-10 11:39] LABS: Glucose, Whole Blood 82 mg/dL (60-115)
--- NOTE | 2021-10-10 12:32 | PC.NURSE ---
Addendum entered by Heather Velez RN 10/10/21 12:48: BACK IN ROOM. NOTIFIED ABOUT DELAY IN IMAGINING AND PROCEDURE. Original Note: OFF UNIT FOR IMAGINING AND PROCEDURE.
--- NOTE | 2021-10-10 13:27 | P.PNNP_ITS ---
Subjective Subjective Date of Service: 10/10/21 Principal diagnosis: no complaints this AM had HAD yesterday Interval history: seen and examined this morning pleasantly confused this morning denies pain or difficulty breathing Physical Exam Vital Signs: Vital Signs: Last Vital Signs Temp 97.8 F 10/10/21 11:07 Pulse 97 10/10/21 11:07 Resp 19 10/10/21 11:07 BP 172/57 H 10/10/21 11:07 Pulse Ox 100 10/10/21 11:07 Oxygen Flow Rate 2 09/27/21 02:46 BMI result Body Mass Index 20.1 oral moist mucosa s1s2 lungs clear abd soft +BSs ext no edema neuro awake moves 4 extremities anwswers questions Objective Data Labs CBC & Chem 7: 10/10/21 07:05 10/08/21 11:03 Labs: Laboratory Results - last 24 hr 10/09/21 10/09/21 10/09/21 15:13 15:57 20:16 WBC RBC Hgb Hct MCV MCH MCHC RDW Plt Count MPV Absolute Nucleated RBC Nucleated RBC % (auto) PT 12.0 INR 1.1 aPTT Heparin Protocol 30.6 L POC Glucose 117 H 120 H 10/10/21 10/10/21 10/10/21 06:53 07:05 11:35 WBC 8.0 RBC 2.64 L Hgb 8.2 L Hct 25.2 L MCV 95.5 MCH 31.1 MCHC 32.5 RDW 16.3 H Plt Count 165 D MPV 9.4 Absolute Nucleated RBC 0.000 Nucleated RBC % (auto) 0.0 PT INR aPTT Heparin Protocol POC Glucose 80 82 Microbiology Microbiology Results: Microbiology 10/07/21 08:02 Blood - Venous Blood Culture - Preliminary No growth after 48 hours. 10/07/21 08:03 Blood - Venous Blood Culture - Preliminary No growth after 48 hours. 10/03/21 15:41 Blood - Venous Blood Culture - Final No growth after 5 days. 10/03/21 15:41 Blood - Venous Blood Culture - Final Methicillin Res Staph Aureus 10/02/21 01:17 Blood - Venous Blood Culture - Final Methicillin Res Staph Aureus 10/02/21 01:09 Blood - Venous Blood Culture - Final Methicillin Res Staph Aureus 10/01/21 09:07 Blood - Central Line Blood Culture - Final Methicillin Res Staph Aureus 10/01/21 08:52 Blood - Central Line Blood Culture - Final Methicillin Res Staph Aureus 09/30/21 15:07 Blood - Venous Blood Culture - Final Methicillin Res Staph Aureus 09/30/21 15:07 Blood - Venous Blood Culture - Final Methicillin Res Staph Aureus 09/28/21 13:06 Blood - Venous Blood Culture - Final Methicillin Res Staph Aureus 09/28/21 13:06 Blood - Venous Blood Culture - Final Methicillin Res Staph Aureus 09/27/21 00:00 Urine Catheterized - Giles Catheter Urine Culture - Final 09/27/21 13:02 Blood - Subclavian Blood Culture - Final Methicillin Res Staph Aureus 09/27/21 13:02 Blood - Subclavian Blood Culture - Final Methicillin Res Staph Aureus 09/27/21 03:00 Blood - Venous Blood Culture - Final Methicillin Res Staph Aureus 09/27/21 03:00 Blood - Venous Blood Culture - Final Methicillin Res Staph Aureus Procedures Date of Service Date of Service: 10/10/21 Assessment & Plan Assessment and plan (1) End stage renal disease: Status: Acute Assessment and Plan: stable volume and electrolytes, no need for urgent dialysis today, will plan to assess clot in IJ, followed by permcath placement, temptatively will be dialyzed tomorrow once permcath in place (2) Anemia in ESRD (end-stage renal disease): Status: Acute Assessment and Plan: s/p EPO dose yesterday Hb stable will monitor (3) Staphylococcus aureus bacteremia: Status: Acute Assessment and Plan: BCXs now longer than 48h neg, which is quite reassuring, will need intermediate manager antibiotics, as patient not a candidate for AVF I agree with midline placement if need to provide course of IV antibx to clear bacteremia. WIll follow Medicine and ID recs. Time Spent With Patient Time: Total time spent is greater than 50% in coordination of care (as documented) at patient's floor/unit and/or counseling patient: Progress Note: Quality Stroke Does the patient have a stroke diagnosis?: No
--- NOTE | 2021-10-10 13:42 | MHC.CLN ---
F/U PT IS MODERATELY MALNOURISHED SEE ALSO FULL CLINICAL NUTRITION ASSESSMENT PO INTAKE REMAINS VARIABLE RANGING FROM 0-100% DIET RX: 2000DM GRD M/S-APPROPRIATE R/T ADVANCED AGE PT RECEIVING GLUCERNA TID TO INCREASE KCALS AND PROMOTE WOUND HEALING PROVIDES 711KCALS, 30G PROTEIN CONTINUE TO MONITOR PO INTAKE CLOSELY
[2021-10-10 15:54] LABS: Glucose, Whole Blood 72 mg/dL (60-115)
[2021-10-10] MEDS: Haloperidol Lactate 5 MG/ML VIAL 2 MG IM (15:58)
--- NOTE | 2021-10-10 16:42 | HO.MIDLINE_ITS ---
PICC Line Insertion MIDLINE INSERTION Diagnosis: BACTEREMIA Indication: INTERMEDIATE IV ANTIBIOTICS Pertinent Labs: REVIEWED Technique: Using sterile technique including cap and mask, glove and drape, the RIGHT arm was prepped and draped in the usual sterile fashion of full barrier technique with CHG. Using ultrasound guidance, BASILIC vein access was obtained IN SINGLE ATTEMPT BY THIS RN. A SINGLE LUMEN, NON-PASV, (18G X 8CM) MIDLINE was positioned. The procedure was performed in S-272. Ultrasound was used to document vein patency and for needle entry. A formal ultrasound picture was recorded. Vascular Solder Deposit Operator has released the line for use and it is currently dressed with a StatLock, Tegaderm, and CHG disc. Verification has been performed for blood return and line patency. Arm Circumference: 23 CM Equipment: [employer] POWERGLIDE PRO Catheter Type: SINGLE LUMEN, NONPASV, (18G X 8CM) Lot #: [id number]
[2021-10-10] MEDS: iohexoL 350 MG/ML 100 ML INFUS..BTL IV (17:03)
[2021-10-10] MEDS: Lidocaine HCl 1 % MPF 5 ML VIAL 10 ML INFILTRATI (18:35)
[2021-10-10] MEDS: Heparin Sodium,Porcine 1,000 UNIT/ML VIAL 3800 UNIT IV (19:06)
[2021-10-10 19:31] LABS: Glucose, Whole Blood 68 mg/dL (60-115)
[2021-10-10 21:03] LABS: Glucose, Whole Blood 90 mg/dL (60-115)
--- NOTE | 2021-10-10 23:11 | PC.NURSE ---
Patient retuned to floor at 7:20pm. He had a midline placed in his right upper arm . He also as came back with a permacath in his right groin, dressing is CDI. Pharmacy called regarding Daptomycin ordered. Pharmacy states to give medication. Daptomycin given per pharmacy instruction.
--- NOTE | 2021-10-10 23:25 | PC.NURSE ---
pt is on an airloss bed, repositioned every two hours. He has redness to left buttocks covered with foam dsg CDI, open area on sacrum covered with foam dsg CDI, left knee abrasion covered with foam dsg CDI . Skin would/ostomy nurse consult in place.
[2021-10-11] VITALS (7 sets, daily range): BP systolic 134–170; BP diastolic 62–96; PULSE 76–96; RESP 15–20; TEMP 36.4–37.1; O2SAT 98–100; BMI 19.8
[2021-10-11] MEDS: Heparin Sodium,Porcine Flush 50 UNITS/5 ML SYRINGE IVFLUSH (00:27)
[2021-10-11] MEDS: 0.9 % Sodium Chloride Flush 3 ML SYRINGE IVFLUSH ×2 (00:27→20:44)
--- NOTE | 2021-10-11 00:35 | PC.NURSE ---
0000; patient has been on q30 min vitals since 720pm when patient came back after midline placement and permacath to right groin, dressing c/d/i. Verified with babak Guerra to change q30 min vitals to q4hr vs.
[2021-10-11 07:45] LABS: Glucose, Whole Blood 73 mg/dL (60-115)
[2021-10-11] MEDS: Atorvastatin Calcium 10 MG TABLET PO (09:23)
[2021-10-11] MEDS: Sennosides 8.6 MG TABLET PO (09:23)
[2021-10-11] MEDS: Ferrous Sulfate 324 MG TABLET.DR PO ×3 (09:23→20:43)
[2021-10-11] MEDS: hydrALAZINE HCl 25 MG TABLET 75 MG PO ×3 (09:23→20:43)
[2021-10-11] MEDS: Sevelamer Carbonate Powder 800 MG POWD.PACK PO ×3 (09:23→20:43)
--- NOTE | 2021-10-11 09:54 | P.PNNP_ITS ---
Subjective Subjective Date of Service: 10/11/21 Principal diagnosis: no complaints this AM had HAD yesterday Interval history: seen and examined this morning pleasantly confused denies pain or difficulty breathing Physical Exam Vital Signs: Vital Signs: Last Vital Signs Temp 98.5 F 10/11/21 07:41 Pulse 89 10/11/21 07:41 Resp 20 10/11/21 07:41 BP 147/96 H 10/11/21 07:41 Pulse Ox 98 10/11/21 07:41 Oxygen Flow Rate 2 09/27/21 02:46 BMI result Body Mass Index 19.8 oral moist mucosa lungs decreased BSs on bases s1s2 abd soft nt ext no edema Objective Data Labs CBC & Chem 7: 10/10/21 07:05 10/08/21 11:03 Labs: Laboratory Results - last 24 hr 10/10/21 10/10/21 10/10/21 11:35 15:24 19:26 POC Glucose 82 72 68 10/10/21 10/11/21 20:55 07:38 POC Glucose 90 73 Microbiology Microbiology Results: Microbiology 10/07/21 08:02 Blood - Venous Blood Culture - Preliminary No growth after 48 hours. 10/07/21 08:03 Blood - Venous Blood Culture - Preliminary No growth after 48 hours. 10/03/21 15:41 Blood - Venous Blood Culture - Final No growth after 5 days. 10/03/21 15:41 Blood - Venous Blood Culture - Final Methicillin Res Staph Aureus 10/02/21 01:17 Blood - Venous Blood Culture - Final Methicillin Res Staph Aureus 10/02/21 01:09 Blood - Venous Blood Culture - Final Methicillin Res Staph Aureus 10/01/21 09:07 Blood - Central Line Blood Culture - Final Methicillin Res Staph Aureus 10/01/21 08:52 Blood - Central Line Blood Culture - Final Methicillin Res Staph Aureus 09/30/21 15:07 Blood - Venous Blood Culture - Final Methicillin Res Staph Aureus 09/30/21 15:07 Blood - Venous Blood Culture - Final Methicillin Res Staph Aureus 09/28/21 13:06 Blood - Venous Blood Culture - Final Methicillin Res Staph Aureus 09/28/21 13:06 Blood - Venous Blood Culture - Final Methicillin Res Staph Aureus 09/27/21 00:00 Urine Catheterized - Giles Catheter Urine Culture - Final 09/27/21 13:02 Blood - Subclavian Blood Culture - Final Methicillin Res Staph Aureus 09/27/21 13:02 Blood - Subclavian Blood Culture - Final Methicillin Res Staph Aureus 09/27/21 03:00 Blood - Venous Blood Culture - Final Methicillin Res Staph Aureus 09/27/21 03:00 Blood - Venous Blood Culture - Final Methicillin Res Staph Aureus Procedures Date of Service Date of Service: 10/11/21 Assessment & Plan Assessment and plan (1) End stage renal disease: Status: Acute Assessment and Plan: will plan for IHD once Permcath is in place. (2) Staphylococcus aureus bacteremia: Status: Acute Assessment and Plan: BCXs neg awaiting new PErmcath in place and antibiotc regimen, as mentioned yesterday OK to place Mildline if need for correctional therapy director antibx, awaiting further results from CT scan risk of AC may be higher due to h/o severe anemia (3) Anemia in ESRD (end-stage renal disease): Status: Acute Assessment and Plan: stable post EPO will follow Time Spent With Patient Time: Total time spent is greater than 50% in coordination of care (as documented) at patient's floor/unit and/or counseling patient: Progress Note: Quality Stroke Does the patient have a stroke diagnosis?: No
--- NOTE | 2021-10-11 10:10 | PC.NURSE ---
Skin/wound assessment completed. Patient has a stage 2 to coccyx-Triad applied covered with foam dressing. A skin tear to left knee-woundres gel applied covered with foam. Blanchable redness to left hip-Tegaderm applied. Blanchable redness to buttocks-triad applied. Large bruise to posterior left thigh. Laceration to left ear-andrea.
[2021-10-11 11:15] LABS: Glucose, Whole Blood 70 mg/dL (60-115)
--- NOTE | 2021-10-11 12:59 | P.PNIM_ITS ---
Subjective Subjective Date of Service: 10/11/21 Interval History: seen and examined this morning awake and alert, confused no overnight events difficult to get full ROS Review of Systems Review of Systems: Yes Unobtainable due to mental condition Neurologic Neurologic: Reports confusion Psychiatric Psychiatric: Reports confusion Physical Exam Vital Signs: Vital Signs: Last Vital Signs Temp 98.1 F 10/11/21 11:55 Pulse 78 10/11/21 11:55 Resp 20 10/11/21 11:55 BP 134/62 10/11/21 11:55 Pulse Ox 98 10/11/21 11:55 Oxygen Flow Rate 2 09/27/21 02:46 BMI result Body Mass Index 19.8 Const: Other: more lethargic today, will answer some simple questions if prompted General: cooperative, comfortable, no acute distress, awake, confusion and ill appearing Nutritional Appearance: thin Orientation/consciousness: confusion Resp: Effort & Inspection: normal respiratory effort, decreased respiratory effort and no respiratory distress Auscultation: diminished lung sounds Cardio: Rate: regular rate Heart sounds: S1 normal heart sound present and S2 normal heart sound present GI: Inspection: No distended Palpation (GI): Soft to palpation and nontender : Other: siddiqui in place Skin: Other: HD permcath present right groin Neuro: General: confusion Extrem: Other: no leg edema Objective Data Active Medications Acetaminophen (Acetaminophen Supp 650 Mg Supp.Rect) 650 mg [place] Q6H PRN PRN Reason: Fever Atorvastatin Calcium (Atorvastatin Calcium 10 Mg Tablet) 10 mg PO DAILY [facility] Last Admin: 10/11/21 09:23 Dose: 10 mg Documented by: SOWMYA Dextrose (Dextrose 50 % 25 Gm/50 Ml Syringe) 25 gm IVPUSH Q15M PRN; Protocol PRN Reason: per Hypoglycemia Standing Ord. Ferrous Sulfate (Ferrous Sulfate 324 Mg Tablet.Dr) 324 mg PO TID [facility] Last Admin: 10/11/21 09:23 Dose: 324 mg Documented by: SOWMYA Glucose (Glucose Gel 15 Gm Gel..Gram.) 15 gm PO Q15M PRN; Protocol PRN Reason: per Hypoglycemia Standing Ord. Heparin Sodium (Porcine) (Heparin Sodium,Porcine 5,000 Unit/Ml Vial) 5,000 unit INTRACATH [id number]@[id number] [facility] Last Admin: 10/09/21 16:02 Dose: Not Given Documented by: JAYSHREE Non-Admin Reason: there is no perma cath, pending 48hr blood c. Heparin Sodium (Porcine) (Heparin Sodium,Porcine 5,000 Unit/Ml Vial) 2,400 unit 40 unit/kg (2400 unit) IVPUSH PROTOCOL BOLUS PRN; Protocol PRN Reason: 40 unit/kg - Heparin Protocol Heparin Sodium (Porcine) (Heparin Sodium,Porcine 5,000 Unit/Ml Vial) 4,800 unit 80 unit/kg (4800 unit) IVPUSH PROTOCOL BOLUS PRN; Protocol PRN Reason: 80 unit/kg - Heparin Protocol Heparin Sodium (Porcine) (Heparin Sodium,Porcine Flush 50 Units/5 Ml Syringe) 50 units IVFLUSH QSHIFT [facility] Last Admin: 10/11/21 09:24 Dose: 50 units Documented by: SOWMYA Hydralazine HCl (Hydralazine Hcl 25 Mg Tablet) 75 mg PO TID [facility]; Protocol Last Admin: 10/11/21 09:23 Dose: 75 mg Documented by: SOWMYA Daptomycin 350 mg/ Sodium (Chloride) 57 mls @ 100 mls/hr IV [id number]@1645 [facility] Last Infusion: 10/10/21 20:10 Dose: 0 mls/hr Documented by: SISSY Ceftriaxone Sodium 2 gm/ (Sodium Chloride) 50 mls @ 100 mls/hr IV Q24H [facility] Last Admin: 10/10/21 12:36 Dose: Not Given Documented by: ARASH Non-Admin Reason: No Access Comments: NO ACCESS AT THIS TIME, OFF UNIT NOW FOR ACCESS PLACEMENT Insulin Human Lispro (Insulin Lispro 100 Unit/Ml 3 Ml Vial) 0 unit SUBCUT QIDACHS [facility]; Protocol Last Admin: 10/11/21 12:08 Dose: Not Given Documented by: SOWMYA Non-Admin Reason: No Insulin Coverage Ondansetron HCl (Ondansetron Hcl 4 Mg/2 Ml Vial) 4 mg IVPUSH Q8H PRN PRN Reason: Nausea and Vomiting Pharmacy Consult (Consult Rx Perform Med Rec) 1 each MISCELLANE ONCE PRN PRN Reason: Consult order Senna (Sennosides 8.6 Mg Tablet) 8.6 mg PO DAILY [facility] Last Admin: 10/11/21 09:23 Dose: 8.6 mg Documented by: SOWMYA Sevelamer Carbonate (Sevelamer Carbonate Powder 800 Mg Powd.Pack) 800 mg PO TID [facility] Last Admin: 10/11/21 09:23 Dose: 800 mg Documented by: SOWMYA Sodium Chloride (0.9 % Sodium Chloride Flush 3 Ml Syringe) 3 ml IVFLUSH QSHIFT [facility] Last Admin: 10/11/21 09:24 Dose: Not Given Documented by: SOWMYA Non-Admin Reason: No Access Labs CBC & Chem 7: 10/10/21 07:05 10/08/21 11:03 Labs: Laboratory Results - last 24 hr 10/10/21 10/10/21 10/10/21 15:24 19:26 20:55 POC Glucose 72 68 90 10/11/21 10/11/21 07:38 11:11 POC Glucose 73 70 Assessment and Plan (1) Bacteremia: Status: Acute (2) End stage renal disease: Status: Acute Plan This is an 80 yo M with a PMH of Dementia, ESRD on HD TTHS, Prior MRSA bacteremia secondary to infected dialysis catheter (in Jun 2021), HTN, Anemia of CKD, DM, HLD who is sent from [facility] ([facility] resident [facility]) for changes in mental status and low grade fevers. He also is found to have possible GI bleed while in the ED. He will be admitted for Sepsis and suspected Gastrointestinal bleed. 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 Discussed with Nephrology, Hold off on IV heparin due to patients hx of GI bleeding, obtain CTA prior to insertion of permacath to assess for clot extending into the SVC CT report pending ESRD on HD TThS HD cath growing MRSA, permacath removed temporary dialysis catheter placed on 10/02, removed 10/06 Permcath placed 3/ Sepsis secondary to MRSA bacteremia Secondary to infected dialysis catheter ECHO negative for vegetation Initially treated with IV vanco, changed to damptomycin for persistent bacteremia synergistic ceftriaxone added 10/04 per ID rec Repeat blood cultures from 10/07 negative, will need 4 weeks IV daptomycin ID following midline placed 3/2 toxic/metabolic encephalopathy on a background of dementia. more alert today probably secondary to bacteremia LFTs, ammonia wnl ABG with no CO2 retention no focal neuro deficits appreciated HTN. 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 No further bleeding noted s/p 1 unit prbc 09/27 s/p IV PPI stopped Seen by GI recommend conservative management for now. asa on hold dysphagia seen by speech rec, to increase to ground/mech altered diet with thin liqs Dementia without behavioral disturbances not on meds at baseline HLD continue statin DM SSI Chronic combined systolic/diastolic CHF, no acute exacerbation lasix on hold due to low BP, BP better may continue if warranted 10/10/21 Called Ryan Wong ([phone]) to update, no answer and voicemail stated that it was full DNR/DNI per [facility] form [facility] from [facility] DVT pptx, Mechanical due to possible GI bleed Attending:Dr. Alexander Patient requires continued hospitalization due to Requiring CT for assessment of blood clot, HD Quality Stroke Does the patient have a stroke diagnosis?: No VTE Prior VTE?: No VTE Risk Level:: Medical - moderate - high VTE Device Contraindication: N/A - Device Ordered VTE Drug Contraindication: Treatment Not Indicated
[2021-10-11] MEDS: cefTRIAXone sodium 2 GM in 0.9 % Sodium Chloride 50 ML IV (14:21)
[2021-10-11 16:18] LABS: Glucose, Whole Blood 74 mg/dL (60-115)
--- NOTE | 2021-10-11 17:48 | PC.NURSE ---
Heparin Flush pt had bleeding at puncture site in groin yesterday, discussed with provider re: holding heparin as he was also going to be getting dialysis along with order of heparin. Dialysis nurse made aware as well and she also agreed on holding heparin . Later pt had orders fo alteplase via his permacath, which was given in dialysis.
[2021-10-11 20:13] LABS: Glucose, Whole Blood 88 mg/dL (60-115)
--- NOTE | 2021-10-12 | ECG_ITS ---
Test Reason : CP Blood Pressure : / mmHG Vent. Rate : 090 BPM Atrial Rate : 090 BPM P-R Int : 204 ms QRS Dur : 152 ms QT Int : 434 ms P-R-T Axes : 106 022 -20 degrees QTc Int : 530 ms Sinus rhythm with Premature atrial complexes with Aberrant conduction Right bundle branch block Abnormal ECG When compared with ECG of 27-SEP-2021 02:44, Previous ECG has undetermined rhythm, needs review Referred By: Hui Merino Electronically Signed By:Tonio Aldana
[2021-10-12 03:49] VITALS: BP 132/73; PULSE 81; RESP 18; TEMP 36.6; O2SAT 99
[2021-10-12 06:00] VITALS: BMI 18.8
[2021-10-12 06:52] LABS: Hematocrit 25.4 % (42.0-52.0); Hemoglobin 7.9 g/dl (14.0-18.0); Mean Corpuscular HGB Conc 31.1 g/dl (31.0-36.0); Mean Corpuscular Hemoglobin 30.6 pg (27.0-33.0); Mean Corpuscular Volume 98.4 fL (80.0-98.0); Mean Platelet Volume 10.1 fL (9.4-12.4); Platelet Count 203 X10*3/uL (160-400); Red Blood Count 2.58 X10*6/uL (4.60-5.80); Red Cell Distribution Width 16.1 % (11.0-16.0); White Blood Count 6.3 X10*3/uL (4.8-10.8)
[2021-10-12 07:23] LABS: Alanine Aminotransferase 9 U/L (0-40); Albumin Level 2.7 g/dL (3.5-5.0); Alkaline Phosphatase 59 U/L (39-117); Anion Gap 22 (12-20); Aspartate Amino Transferase 17 U/L (5-37); Bilirubin Direct 0.2 mg/dL (0.0-0.5); Bilirubin Total 0.5 mg/dL (0.0-1.0); Blood Urea Nitrogen 64 mg/dL (9-16); Carbon Dioxide 17 mmol/L (22-29); Chloride 101 mmol/L (96-108); Creatinine Clr Calc Pharmacy 6.4; Estimated Glomerular Filt Rate 8; Glucose Random 83 mg/dL (60-115); Potassium 4.6 mmol/L (3.3-5.1); Sodium 133 mmol/L (135-145); Total Protein 5.8 g/dL (6.5-8.0)
[2021-10-12 07:25] LABS: Glucose, Whole Blood 86 mg/dL (60-115)
--- NOTE | 2021-10-12 07:46 | PM.PNNEP ---
Subjective Subjective Date of Service: 10/12/21 Principal diagnosis: no complaints this AM had HAD yesterday Interval history: seen and examined this morning,last night unable to be dialyzed due to no flows through permcath despite use of Cathflo. per reroport from HD nurse significant discomfort when manipulating the catheter. this morning he is alert and confused Physical Exam Vital Signs: Vital Signs: Last Vital Signs Temp 97.9 F 10/12/21 03:49 Pulse 81 10/12/21 03:49 Resp 18 10/12/21 03:49 BP 132/73 10/12/21 03:49 Pulse Ox 99 10/12/21 03:49 Oxygen Flow Rate 2 09/27/21 02:46 BMI result Body Mass Index 18.8 oral dry mucosa lungs decreased BSs on bases s1s2 abd soft nt ext no edema Rt groin permcath neuro non focal Objective Data Labs CBC & Chem 7: 10/12/21 05:59 10/12/21 05:59 Labs: Laboratory Results - last 24 hr 10/11/21 10/11/21 10/11/21 11:11 16:15 20:09 WBC RBC Hgb Hct MCV MCH MCHC RDW Plt Count MPV Absolute Nucleated RBC Nucleated RBC % (auto) Sodium Potassium Chloride Carbon Dioxide Anion Gap BUN Creatinine Estim Creat Clear Calc Estimated GFR POC Glucose 70 74 88 Random Glucose Calcium Total Bilirubin Direct Bilirubin AST ALT Alkaline Phosphatase Total Protein Albumin 10/12/21 10/12/21 10/12/21 05:59 05:59 07:21 WBC 6.3 RBC 2.58 L Hgb 7.9 L Hct 25.4 L MCV 98.4 H MCH 30.6 MCHC 31.1 RDW 16.1 H Plt Count 203 MPV 10.1 Absolute Nucleated RBC 0.000 Nucleated RBC % (auto) 0.0 Sodium 133 L Potassium 4.6 D Chloride 101 Carbon Dioxide 17 L Anion Gap 22 H BUN 64 H D Creatinine 7.00 H* Estim Creat Clear Calc 6.4 Estimated GFR 8 POC Glucose 86 Random Glucose 83 Calcium 8.0 L Total Bilirubin 0.5 Direct Bilirubin 0.2 AST 17 ALT 9 Alkaline Phosphatase 59 Total Protein 5.8 L Albumin 2.[address] scan - chest: My impression: Limited venous evaluation demonstrates occlusion of the left jugular vein with question narrowing of the left subclavian vein which is not well opacified. The left innominate vein is narrowed over a long segment including at its junction with the superior vena cava. There appears to be a segmental occlusion of the right internal jugular vein which drains by small collateral veins. The more inferior internal jugular vein is patent however the right innominate vein is narrowed. The right subclavian vein is patent but again drains into the region of narrowing of the right innominate vein. The superior vena cava is patent. Microbiology Microbiology Results: Microbiology 10/07/21 08:02 Blood - Venous Blood Culture - Preliminary No growth after 48 hours. 10/07/21 08:03 Blood - Venous Blood Culture - Preliminary No growth after 48 hours. 10/03/21 15:41 Blood - Venous Blood Culture - Final No growth after 5 days. 10/03/21 15:41 Blood - Venous Blood Culture - Final Methicillin Res Staph Aureus 10/02/21 01:17 Blood - Venous Blood Culture - Final Methicillin Res Staph Aureus 10/02/21 01:09 Blood - Venous Blood Culture - Final Methicillin Res Staph Aureus 10/01/21 09:07 Blood - Central Line Blood Culture - Final Methicillin Res Staph Aureus 10/01/21 08:52 Blood - Central Line Blood Culture - Final Methicillin Res Staph Aureus 09/30/21 15:07 Blood - Venous Blood Culture - Final Methicillin Res Staph Aureus 09/30/21 15:07 Blood - Venous Blood Culture - Final Methicillin Res Staph Aureus 09/28/21 13:06 Blood - Venous Blood Culture - Final Methicillin Res Staph Aureus 09/28/21 13:06 Blood - Venous Blood Culture - Final Methicillin Res Staph Aureus 09/27/21 00:00 Urine Catheterized - Giles Catheter Urine Culture - Final 09/27/21 13:02 Blood - Subclavian Blood Culture - Final Methicillin Res Staph Aureus 09/27/21 13:02 Blood - Subclavian Blood Culture - Final Methicillin Res Staph Aureus 09/27/21 03:00 Blood - Venous Blood Culture - Final Methicillin Res Staph Aureus 09/27/21 03:00 Blood - Venous Blood Culture - Final Methicillin Res Staph Aureus Procedures Date of Service Date of Service: 10/12/21 Assessment & Plan Assessment and plan (1) End stage renal disease: Status: Acute Assessment and Plan: Nonfunctional permcath, would kindly ask IR to revise or exchange. will plan for dialysis afterwards. (2) Staphylococcus aureus bacteremia: Status: Acute Assessment and Plan: Antibx plan as per medicine and ID (3) Anemia in ESRD (end-stage renal disease): Status: Acute Assessment and Plan: on EPO stable Plan CT reviewed clotted and narrowed neck veins unable to place accesses, no need for AC, only option i see is will need permcath in femoral vessels.or consider vascular consultation, or referral to [facility] to see his access surgical team. Time Spent With Patient Time: Total time spent is greater than 50% in coordination of care (as documented) at patient's floor/unit and/or counseling patient: Progress Note: Quality Stroke Does the patient have a stroke diagnosis?: No
[2021-10-12 07:55] VITALS: BP 151/75; PULSE 81; RESP 18; TEMP 36.8; O2SAT 99
[2021-10-12] MEDS: hydrALAZINE HCl 25 MG TABLET 75 MG PO ×2 (08:49→21:07)
[2021-10-12] MEDS: Ferrous Sulfate 324 MG TABLET.DR PO ×2 (08:49→21:07)
[2021-10-12] MEDS: Sennosides 8.6 MG TABLET PO (08:49)
[2021-10-12] MEDS: Atorvastatin Calcium 10 MG TABLET PO (08:50)
[2021-10-12] MEDS: 0.9 % Sodium Chloride Flush 3 ML SYRINGE IVFLUSH ×2 (08:50→21:08)
[2021-10-12] MEDS: Sevelamer Carbonate Powder 800 MG POWD.PACK PO ×2 (08:50→21:07)
--- NOTE | 2021-10-12 10:54 | HO.PM.IMPN ---
Subjective Subjective Date of Service: 10/12/21 Interval History: seen and examined this morning appears comfortable; awake and alert answers simple yes and no questions Review of Systems Review of Systems: Yes Unobtainable due to mental condition Neurologic Neurologic: Reports confusion Psychiatric Psychiatric: Reports confusion Physical Exam Vital Signs: Vital Signs: Last Vital Signs Temp 98.2 F 10/12/21 07:55 Pulse 81 10/12/21 07:55 Resp 18 10/12/21 07:55 BP 151/75 H 10/12/21 07:55 Pulse Ox 99 10/12/21 07:55 Oxygen Flow Rate 2 09/27/21 02:46 BMI result Body Mass Index 18.8 Const: General: cooperative, comfortable, no acute distress, awake, confusion and ill appearing Nutritional Appearance: thin Orientation/consciousness: confusion Resp: Effort & Inspection: normal respiratory effort, decreased respiratory effort and no respiratory distress Auscultation: diminished lung sounds Cardio: Rate: regular rate Heart sounds: S1 normal heart sound present and S2 normal heart sound present GI: Inspection: No distended Palpation (GI): Soft to palpation and nontender : Other: siddiqui in place Skin: Other: HD permcath present right groin bruising right left lateral thigh; left knee with c/d/i bandage Neuro: General: confusion Extrem: Other: no leg edema Objective Data Active Medications Acetaminophen (Acetaminophen Supp 650 Mg Supp.Rect) 650 mg [place] Q6H PRN PRN Reason: Fever Atorvastatin Calcium (Atorvastatin Calcium 10 Mg Tablet) 10 mg PO DAILY [facility] Last Admin: 10/12/21 08:50 Dose: 10 mg Documented by: SOWMYA Dextrose (Dextrose 50 % 25 Gm/50 Ml Syringe) 25 gm IVPUSH Q15M PRN; Protocol PRN Reason: per Hypoglycemia Standing Ord. Ferrous Sulfate (Ferrous Sulfate 324 Mg Tablet.) 324 mg PO TID [facility] Last Admin: 10/12/21 08:49 Dose: 324 mg Documented by: SOWMYA Glucose (Glucose Gel 15 Gm Gel..Gram.) 15 gm PO Q15M PRN; Protocol PRN Reason: per Hypoglycemia Standing Ord. Heparin Sodium (Porcine) (Heparin Sodium,Porcine 5,000 Unit/Ml Vial) 5,000 unit INTRACATH [id number]@[id number] [facility] Last Admin: 10/11/21 19:49 Dose: Not Given Documented by: VIVIEN Non-Admin Reason: Given in Dialysis Heparin Sodium (Porcine) (Heparin Sodium,Porcine Flush 50 Units/5 Ml Syringe) [facility] Last Admin: 10/12/21 09:10 Dose: Not Given Documented by: SOWMYA Non-Admin Reason: Pt going to IR Hydralazine HCl (Hydralazine Hcl 25 Mg Tablet) 75 mg PO TID [facility]; Protocol Last Admin: 10/12/21 08:49 Dose: 75 mg Documented by: SOWMYA Daptomycin 350 mg/ Sodium (Chloride) 57 mls @ 100 mls/hr IV [id number]@1645 [facility] Last Infusion: 10/11/21 21:42 Dose: 0 mls/hr Documented by: YAMIL Ceftriaxone Sodium 2 gm/ (Sodium Chloride) 50 mls @ 100 mls/hr IV Q24H [facility] Last Infusion: 10/11/21 14:55 Dose: 0 mls/hr Documented by: SOWMYA Insulin Human Lispro (Insulin Lispro 100 Unit/Ml 3 Ml Vial) 0 unit SUBCUT QIDACHS [facility]; Protocol Last Admin: 10/12/21 07:38 Dose: Not Given Documented by: VIVIEN Non-Admin Reason: No Insulin Coverage Ondansetron HCl (Ondansetron Hcl 4 Mg/2 Ml Vial) 4 mg IVPUSH Q8H PRN PRN Reason: Nausea and Vomiting Pharmacy Consult (Consult Rx Perform Med Rec) 1 each MISCELLANE ONCE PRN PRN Reason: Consult order Senna (Sennosides 8.6 Mg Tablet) 8.6 mg PO DAILY [facility] Last Admin: 10/12/21 08:49 Dose: 8.6 mg Documented by: SOWMYA Sevelamer Carbonate (Sevelamer Carbonate Powder 800 Mg Powd.Pack) 800 mg PO TID [facility] Last Admin: 10/12/21 08:50 Dose: 800 mg Documented by: SOWMYA Sodium Chloride (0.9 % Sodium Chloride Flush 3 Ml Syringe) 3 ml IVFLUSH [facility] Last Admin: 10/12/21 08:50 Dose: 3 ml Documented by: SOWMYA Labs CBC & Chem 7: 10/12/21 05:59 10/12/21 05:59 Labs: Laboratory Results - last 24 hr 03/10/3010/11/21 10/11/21 11:11 16:15 20:09 MCV MCH MCHC RDW Plt Count MPV Absolute Nucleated RBC Nucleated RBC % (auto) Anion Gap Estim Creat Clear Calc Estimated GFR POC Glucose 70 74 88 Random Glucose Calcium Total Bilirubin Direct Bilirubin AST ALT Alkaline Phosphatase Total Protein Albumin 10/12/21 10/12/21 10/12/21 05:59 05:59 07:21 MCV 98.4 H MCH 30.6 MCHC 31.1 RDW 16.1 H Plt Count 203 MPV 10.1 Absolute Nucleated RBC 0.000 Nucleated RBC % (auto) 0.0 Anion Gap 22 H Estim Creat Clear Calc 6.4 Estimated GFR 8 POC Glucose 86 Random Glucose 83 Calcium 8.0 L Total Bilirubin 0.5 Direct Bilirubin 0.2 AST 17 ALT 9 Alkaline Phosphatase 59 Total Protein 5.8 L Albumin 2.7 L Microbiology Microbiology Results: Microbiology 10/07/21 08:02 Blood Culture - Final Blood - Venous No growth after 5 days. 10/07/21 08:03 Blood Culture - Final Blood - Venous No growth after 5 days. Assessment and Plan (1) DVT (deep venous thrombosis): Status: Acute (2) Bacteremia: Status: Acute (3) End stage renal disease: Status: Acute Plan This is an 80 yo M with a PMH of Dementia, ESRD on HD TTHS, Prior MRSA bacteremia secondary to infected dialysis catheter (in Jun 2021), HTN, Anemia of CKD, DM, HLD who is sent from [facility] ([facility] resident there) for changes in mental status and low grade fevers. He also is found to have possible GI bleed while in the ED. He will be admitted for Sepsis and suspected Gastrointestinal bleed. 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 pt NPO for procedure Sepsis secondary to MRSA bacteremia Secondary to infected dialysis catheter ECHO negative for vegetation Initially treated with IV vanco, changed to damptomycin for persistent bacteremia synergistic ceftriaxone added 10/04 per ID rec Repeat blood cultures from 10/07 negative, will need 4 weeks IV daptomycin ID following midline placed 10/10 toxic/metabolic encephalopathy on a background of dementia. seems to be at baseline probably secondary to bacteremia LFTs, ammonia wnl ABG with no CO2 retention no focal neuro deficits appreciated HTN. 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 No further bleeding noted s/p 1 unit prbc 09/27 s/p IV PPI Seen by GI recommend conservative management for now. asa on hold dysphagia seen by speech rec, to increase to ground/mech altered diet with thin liqs Dementia without behavioral disturbances not on meds at baseline HLD continue statin DM SSI Chronic combined systolic/diastolic CHF, no acute exacerbation lasix on hold due to low BP, BP better may continue if warranted Ryan Wong ([phone]) DNR/DNI per [facility] form sent from [facility] DVT pptx, Mechanical due to possible GI bleed Attending:Dr. Alexander Patient requires continued hospitalization due to Requiring HD catheter placement for HD Quality Stroke Does the patient have a stroke diagnosis?: No VTE Prior VTE?: No VTE Risk Level:: Medical - moderate - high VTE Device Contraindication: N/A - Device Ordered VTE Drug Contraindication: Treatment Not Indicated
--- NOTE | 2021-10-12 11:18 | MHC.CM.PN ---
Male 81 DX ESRD New HD access is not functional. A procedure is planned for new line placement. He will have HD prior to discharge. [facility] via [facility].
[2021-10-12 11:22] LABS: Glucose, Whole Blood 98 mg/dL (60-115)
[2021-10-12 11:38] VITALS: BP 153/70; PULSE 89; RESP 20; TEMP 37.1; O2SAT 99
--- NOTE | 2021-10-12 13:15 | MHC.CLN ---
F/U PT IS MODERATELY MALNOURISHED SEE ALSO FULL CLINICAL NUTRITION ASSESSMENT PT IS CURRENTLY NPO FOR SCHEDULED PROCEDURE WHEN DIET TO ADVANCED RECOMMEND RESTARTING 2000DM GRD M/S DIET AND ADD 8OZ GLUCERNA TID SUPP PROVIDES 711KCALS, 30G PROTEIN MONITOR PO INTAKE CLOSELY
[2021-10-12 18:14] VITALS: BP 180/86; PULSE 91; RESP 19; TEMP 36; O2SAT 100
[2021-10-12 18:25] LABS: Glucose, Whole Blood 86 mg/dL (60-115)
[2021-10-12 18:58] VITALS: BP 154/68; PULSE 89; RESP 18; TEMP 36.9; O2SAT 98
[2021-10-12 19:50] LABS: Glucose, Whole Blood 107 mg/dL (60-115)
[2021-10-12 23:27] VITALS: BP 168/62; PULSE 89; RESP 19; TEMP 36.5; O2SAT 98
[2021-10-13 03:56] VITALS: BP 152/72; PULSE 90; RESP 20; TEMP 36.7; O2SAT 96
[2021-10-13 06:00] VITALS: BMI 17.9
[2021-10-13 06:27] LABS: Hematocrit 25.3 % (42.0-52.0); Hemoglobin 7.7 g/dl (14.0-18.0); Mean Corpuscular HGB Conc 30.4 g/dl (31.0-36.0); Mean Corpuscular Hemoglobin 30.9 pg (27.0-33.0); Mean Corpuscular Volume 101.6 fL (80.0-98.0); Mean Platelet Volume 9.5 fL (9.4-12.4); Platelet Count 178 X10*3/uL (160-400); Red Blood Count 2.49 X10*6/uL (4.60-5.80); Red Cell Distribution Width 15.9 % (11.0-16.0); White Blood Count 5.2 X10*3/uL (4.8-10.8)
[2021-10-13 06:44] LABS: Anion Gap 14 (12-20); Blood Urea Nitrogen 30 mg/dL (9-16); Calcium 8.1 mg/dL (8.4-10.2); Carbon Dioxide 19 mmol/L (22-29); Chloride 105 mmol/L (96-108); Creatinine Clr Calc Pharmacy 10.1; Estimated Glomerular Filt Rate 14; Glucose Random 78 mg/dL (60-115); Sodium 134 mmol/L (135-145)
[2021-10-13 07:19] LABS: Glucose, Whole Blood 78 mg/dL (60-115)
[2021-10-13 08:00] VITALS: BP 134/62; PULSE 110; RESP 17; TEMP 36.2; O2SAT 97
[2021-10-13] MEDS: hydrALAZINE HCl 25 MG TABLET 75 MG PO ×2 (09:12→15:39)
[2021-10-13] MEDS: Ferrous Sulfate 324 MG TABLET.DR PO ×2 (09:13→15:39)
[2021-10-13] MEDS: 0.9 % Sodium Chloride Flush 3 ML SYRINGE IVFLUSH ×2 (09:13→15:40)
[2021-10-13] MEDS: Heparin Sodium,Porcine Flush 50 UNITS/5 ML SYRINGE IVFLUSH ×2 (09:13→15:39)
[2021-10-13] MEDS: Sevelamer Carbonate Powder 800 MG POWD.PACK PO ×2 (09:13→15:39)
[2021-10-13] MEDS: Sennosides 8.6 MG TABLET PO (09:13)
[2021-10-13] MEDS: Atorvastatin Calcium 10 MG TABLET PO (09:13)
[2021-10-13 11:15] VITALS: BP 117/45; PULSE 75; RESP 18; TEMP 36.4; O2SAT 100
[2021-10-13 11:28] LABS: Glucose, Whole Blood 120 mg/dL (60-115)
--- NOTE | 2021-10-13 13:44 | MHC.CM.PN ---
PT CLEARED TO DC TODAY BACK TO [facility] CM CONTACTED PTS [facility] ([phone]) AND INFORMED HIM OF PENDING DC AND PTS MEDICARE RIGHTS E[facility] IS AGREEABLE TO DC AND COPY OF IMM BEING MAILED TO HIM. PT WILL BE TRANSPORTED VIA [facility] AT 1600 HOURS
--- NOTE | 2021-10-13 14:01 | W.PM.DNNEP ---
Subjective Subjective Principal diagnosis: no complaints this AM had HD yesterday and on HD today This patient was seen during dialysis. Interval history: seen and examined this morning appears comfortable; awake and alert answers simple yes and no questions Physical Exam Vital Signs: Vital Signs: Last Vital Signs Temp 97.5 F 10/13/21 11:15 Pulse 75 10/13/21 11:15 Resp 18 10/13/21 11:15 BP 117/45 L 10/13/21 11:15 Pulse Ox 100 10/13/21 11:15 Oxygen Flow Rate 2 09/27/21 02:46 BMI result Body Mass Index 17.9 oral moist mucosa lungs decreased BSs on bases s1s2 abd soft nt +BSs ext no edema, Rt femoral permcath OK while patient flat Assessment & Plan Assessment and plan (1) End stage renal disease: Status: Acute Assessment and Plan: pt on HD tolerating Rx well today, HD via Right side Femoral Permcath placed on 10/10, needs to stay SUPINE for catheter to work during dialysis. Hold off on systemic anticoagulation. (2) Staphylococcus aureus bacteremia: Status: Acute Assessment and Plan: Continue IV ANtibx as per medicine and ID, if DC back to [facility], please make sure IV Antibiotics available for length of time prescribed and suggest follow up with PCP and ID. Time Spent With Patient Time: Total time spent is greater than 50% in coordination of care (as documented) at patient's floor/unit and/or counseling patient: Procedures Date of Service Date of Service: 10/13/21
[2021-10-13 14:15] LABS: COVID-19 Test Negative (Negative); IDNOW Serial# 16C4AD1C
--- NOTE | 2021-10-13 15:07 | P.PNID_ITS ---
Subjective Subjective Date of Service: 10/13/21 Interval History: he has no change blood cultures negative Critical Care Time (minutes): 15 Objective Data Labs CBC & Chem 7: 10/13/21 06:14 10/13/21 06:14 Labs: Laboratory Results - last 24 hr 10/12/21 10/12/21 10/13/21 18:20 19:00 06:14 WBC 5.2 RBC 2.49 L Hgb 7.7 L Hct 25.3 L MCV 101.6 H MCH 30.9 MCHC 30.4 L RDW 15.9 Plt Count 178 MPV 9.5 Absolute Nucleated RBC 0.000 Nucleated RBC % (auto) 0.0 Sodium Potassium Chloride Carbon Dioxide Anion Gap BUN Creatinine Estim Creat Clear Calc Estimated GFR POC Glucose 86 107 Random Glucose Calcium COVID-19 (SALTY) COVID-19 [employer] 10/13/21 10/13/21 10/13/21 06:14 07:15 11:21 WBC RBC Hgb Hct MCV MCH MCHC RDW Plt Count MPV Absolute Nucleated RBC Nucleated RBC % (auto) Sodium 134 L Potassium 4.0 Chloride 105 Carbon Dioxide 19 L Anion Gap 14 BUN 30 H D Creatinine 4.24 H* Estim Creat Clear Calc 10.1 Estimated GFR 14 POC Glucose 78 120 H Random Glucose 78 Calcium 8.1 L COVID-19 (SALTY) COVID-19 [employer] 10/13/21 13:44 WBC RBC Hgb Hct MCV MCH MCHC RDW Plt Count MPV Absolute Nucleated RBC Nucleated RBC % (auto) Sodium Potassium Chloride Carbon Dioxide Anion Gap BUN Creatinine Estim Creat Clear Calc Estimated GFR POC Glucose Random Glucose Calcium COVID-19 (SALTY) Negative COVID-19 Clin Com See Note Microbiology Microbiology Results: Microbiology 10/07/21 08:02 Blood - Venous Blood Culture - Final No growth after 5 days. 10/07/21 08:03 Blood - Venous Blood Culture - Final No growth after 5 days. 10/03/21 15:41 Blood - Venous Blood Culture - Final No growth after 5 days. 10/03/21 15:41 Blood - Venous Blood Culture - Final Methicillin Res Staph Aureus 10/02/21 01:17 Blood - Venous Blood Culture - Final Methicillin Res Staph Aureus 10/02/21 01:09 Blood - Venous Blood Culture - Final Methicillin Res Staph Aureus 10/01/21 09:07 Blood - Central Line Blood Culture - Final Methicillin Res Staph Aureus 10/01/21 08:52 Blood - Central Line Blood Culture - Final Methicillin Res Staph Aureus 09/30/21 15:07 Blood - Venous Blood Culture - Final Methicillin Res Staph Aureus 09/30/21 15:07 Blood - Venous Blood Culture - Final Methicillin Res Staph Aureus 09/28/21 13:06 Blood - Venous Blood Culture - Final Methicillin Res Staph Aureus 09/28/21 13:06 Blood - Venous Blood Culture - Final Methicillin Res Staph Aureus 09/27/21 00:00 Urine Catheterized - Giles Catheter Urine Culture - Final 09/27/21 13:02 Blood - Subclavian Blood Culture - Final Methicillin Res Staph Aureus 09/27/21 13:02 Blood - Subclavian Blood Culture - Final Methicillin Res Staph Aureus 09/27/21 03:00 Blood - Venous Blood Culture - Final Methicillin Res Staph Aureus 09/27/21 03:00 Blood - Venous Blood Culture - Final Methicillin Res Staph Aureus Physical Exam 2 Vital Signs: Vital Signs: Last Vital Signs Temp 97.5 F 10/13/21 11:15 Pulse 75 10/13/21 11:15 Resp 18 10/13/21 11:15 BP 117/45 L 10/13/21 11:15 Pulse Ox 100 10/13/21 11:15 Oxygen Flow Rate 2 09/27/21 02:46 BMI result Body Mass Index 17.9 Const: General: cooperative Eyes: General: appearance normal, both eyes and all related structures Resp: Effort & Inspection: normal respiratory effort Cardio: Rate: regular rate Rhythm: regular rhythm GI: Palpation (GI): Soft to palpation and nontender Assessment and Plan Assessment and plan (1) Bacteremia: Problem details: He still has MRSA bacteremia with no source obvious and no endocarditis with ESRD It is resolving Status: Acute Assessment and Plan: Continue Daptomycin (no Ceftriaxone needed now) until 11/03 and can pull line and stop antibiotics then Time Spent With Patient Time: Total time spent is greater than 50% in coordination of care (as documented) at patient's floor/unit and/or counseling patient: Time with patient: 15 - 24 minutes
--- NOTE | 2021-10-13 15:07 | PM.DS ---
DS: Providers Provider Date of Service: 10/13/21 Date of admission: 09/27/21 10:47 Primary care physician: Unknown Physician Consults: 09/27/21 10:46 Consult to Gastroenterology Routine Consulting Provider: Matthew Carvajal Reason for consultation: Melena 09/27/21 10:56 Consult to Nephrology Routine Consulting Provider: Bashir Melvin Reason for consultation: ESRD on HD T, TH, S -- Due today 09/28/21 08:11 Consult to Infectious Diseases Routine Consulting Provider: Liliam Kuo Reason for consultation: bacteremia Has provider been notified: No 10/09/21 11:44 Consult to Hematology / Oncology Routine Consulting Provider: Aniya Wright Reason for consultation: new jugular vein thrombosis, hx gi bleed Has provider been notified: No Attending physician on discharge: Zach Freeman Discharging clinician: Sobia Khalil DS: Diagnosis Discharge Diagnosis (1) End stage renal disease: Status: Acute (2) Staphylococcus aureus bacteremia: Status: Acute DS: Summary Hospital Course Hospital Course: HP as per admitting provider This is an 80 yo M with a PMH of Dementia, 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 The patient, who is typically alert, but disoriented able to follow basic commands, appears to have becoming increasingly lethargic at the SNF. A Chest XR was checked which showed a plueral effusion and he had a low grade temp of 99.6. For these reasons, he was brought to [facility] ED. Currently, the patient is minimally alert and not able to provide any history. Upon arrival to the ED, he was noted to have multiple fevers, with a TMax of 103.3. His CBC did not show any leukocytosis and his Chest/Abd/Pelvis CT was negative for any acute findings. He has been tachypenic, tachycardic and hypoxic with oxygen saturation dropping to 90% while on 2L. He has been given 1L IVF, IV Rocephin, Multiple rounds of [place] tylenol. Cultures have been drawn and now he will be admitted for further treatment. While in the ED, the patient had an episode of black tarry stools. He has vomitus, which per the RN, was yellowish in color without any coffee grounds or blood. He was subsequently given IV PPI and started on octreotide infusion. There are no reports of any variceal disease in his chart . ? 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 Discussed with Nephrology, chest CT shows patency of SVC, did not require anticoagulation ESRD on HD TThS HD cath growing MRSA, permacath removed temporary dialysis catheter placed on 10/02, removed 10/06 Dialysis catheter placed to right groin, may have to be evaluated by surgery at [facility] for vascular access as patient has very minimal access Sepsis secondary to MRSA bacteremia Secondary to infected dialysis catheter ECHO negative for vegetation Initially treated with IV vanco, changed to damptomycin for persistent bacteremia synergistic ceftriaxone added 10/04 per ID rec Repeat blood cultures from 10/07 negative, will need 4 weeks IV daptomycin [id number] schedule, end date December 11 midline placed 10/10, remove after last dose of daptomycin toxic/metabolic encephalopathy on a background of dementia. seems to be at baseline probably secondary to bacteremia LFTs, ammonia wnl ABG with no CO2 retention no focal neuro deficits appreciated HTN. Elevated Continue hydralazine? 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 No further bleeding noted s/p 1 unit prbc 09/27 s/p IV PPI Seen by GI recommend conservative management for now. asa was on hold dysphagia seen by speech rec, to increase to ground/mech altered diet with thin liqs Dementia without behavioral disturbances not on meds at baseline HLD continue statin DM SSI Chronic combined systolic/diastolic CHF, no acute exacerbation Lasix was on hold due to low blood pressure however can continue on discharge follow blood pressure closely Time Spent with Patient Time attestation: Total time spent providing and/or coordinating discharge services: Discharge coordination time: Greater than 30 minutes Quality: Stroke Does the patient have a stroke diagnosis?: No Physical Exam Vital Signs: Vital Signs: Last Vital Signs Temp 97.5 F 10/13/21 11:15 Pulse 75 10/13/21 11:15 Resp 18 10/13/21 11:15 BP 117/45 L 10/13/21 11:15 Pulse Ox 100 10/13/21 11:15 Oxygen Flow Rate 2 09/27/21 02:46 BMI result Body Mass Index 17.9 Appearing in no acute distress head is normocephalic atraumatic eyes pupils are PERRLA sclera is anicteric mouth throat mucous membranes are intact and moist neck is supple no lymphadenopathy, no JVD noted lung sounds are clear to auscultation heart regular rate rhythm, clear S1, S2 positive bowel sounds, abdomen is soft, nontender neuro patient is alert x3, no focal deficits Right groin dialysis catheter Left arm midline DS: Data Data Completed and Pending Completed studies during hospitalization [Text1]: Procedures Insertion of Infusion Device into Superior Vena Cava, Percutaneous Approach (06/16/21) Insertion of Tunneled Vascular Access Device into Chest Subcutaneous Tissue and Fascia, Percutaneous Approach (06/16/21) Performance of Urinary Filtration, Intermittent, Less than 6 Hours Per Day (06/16/21) Removal of Infusion Device from Upper Vein, Open Approach (06/16/21) Labs on day of discharge: Laboratory Results - last 24 hr 10/12/21 10/12/21 10/13/21 18:20 19:00 06:14 WBC 5.2 RBC 2.49 L Hgb 7.7 L Hct 25.3 L MCV 101.6 H MCH 30.9 MCHC 30.4 L RDW 15.9 Plt Count 178 MPV 9.5 Absolute Nucleated RBC 0.000 Nucleated RBC % (auto) 0.0 Sodium Potassium Chloride Carbon Dioxide Anion Gap BUN Creatinine Estim Creat Clear Calc Estimated GFR POC Glucose 86 107 Random Glucose Calcium COVID-19 (SALTY) COVID-[employer] 10/13/21 10/13/21 10/13/21 06:14 07:15 11:21 WBC RBC Hgb Hct MCV MCH MCHC RDW Plt Count MPV Absolute Nucleated RBC Nucleated RBC % (auto) Sodium 134 L Potassium 4.0 Chloride 105 Carbon Dioxide 19 L Anion Gap 14 BUN 30 H D Creatinine 4.24 H* Estim Creat Clear Calc 10.1 Estimated GFR 14 POC Glucose 78 120 H Random Glucose 78 Calcium 8.1 L COVID-19 (SALTY) COVID-19 [employer] 10/13/21 13:44 WBC RBC Hgb Hct MCV MCH MCHC RDW Plt Count MPV Absolute Nucleated RBC Nucleated RBC % (auto) Sodium Potassium Chloride Carbon Dioxide Anion Gap BUN Creatinine Estim Creat Clear Calc Estimated GFR POC Glucose Random Glucose Calcium COVID-19 (SALTY) Negative COVID-19 Clin Com See Note Discharge Plan Discharge Anticipated Discharge Date/Time: 10/13/21 13:50 Patient Disposition: Xfer [facility] Discharge Diagnosis: Sepsis secondary to MRSA bacteremia Toxic metabolic encephalopathy Jugular vein DVT Moderate protein calorie malnutrition Referrals: Tejas Cutler [Outside] - 1 Week Bashir Melvin MD [Physician] - 1 Week Discharge Medications: New heparin (porcine) 5,000 unit/mL Solution 5,000 unit intra-catheter TUTHSA@1645 Qty: 10 0RF daptomycin 350 mg recon soln 350 mg IV Q24H 28 Days 0RF Rx Instructions: administer over 30 mins Continued atorvastatin 10 mg tablet 1 tab PO DAILY 0RF tamsulosin 0.4 mg capsule 1 cap PO DAILY@1730 0RF furosemide 80 mg tablet 1 tab PO BID 0RF insulin lispro [Admelog SoloStar U-100 Insulin] 100 unit/mL insulin pen See Rx Instructions .ROUTE .COMPLEX 0RF Rx Instructions: 0-299: 0 UNITS 300-350: 2 UNITS 351-400: 4 UNITS BEFORE MEALS ON mowefr bid ON TUTHSA sevelamer carbonate 800 mg tablet 1 tab PO TID 0RF sennosides [senna] 8.6 mg Tablet 8.6 mg PO DAILY 0RF ferrous sulfate 325 mg (65 mg iron) Tablet 325 mg PO TID 0RF aspirin 81 mg Tablet,Chewable 81 mg PO DAILY 0RF B complex with C 20-folic acid 1 mg Capsule 1 cap PO DAILY 0RF cholecalciferol (vitamin D3) 25 mcg (1,000 unit) Tablet 50 mcg PO DAILY 0RF hydralazine 25 mg Tablet 75 mg PO TID Qty: 135 0RF Protocol: Hold for SBP< HOLD for SBP < : 90 d-mannose 500 mg Capsule 1,000 mg PO DAILY 0RF acetaminophen 325 mg Tablet 650 mg PO Q6H PRN (Reason: GENERAL DISCOMFORT) 0RF bisacodyl 10 mg Suppository 10 mg [place] DAILY PRN (Reason: Constipation) 0RF Rx Instructions: EVERY 3 DAYS IF NO EFFECT FROM DOCUSATE docusate sodium 100 mg Capsule 100 mg PO BID PRN (Reason: Constipation) 0RF Discharge Orders: Discharge Order (Routine); Ordered 10/13/21 Ordered By: Sobia Khalil Diet: advance to usual diet Activity on Discharge: As tolerated Stand Alone Forms: Patient Portal Discharge page Care Plan Goals: Continue diaylsis as scheduled Health Concerns: Sepsis secondary to MRSA bacteremia Toxic metabolic encephalopathy Jugular vein DVT Moderate protein calorie malnutrition Plan of Treatment: DAPTOMYCIN DOSING: FRIDAY, FRIDAY AND FRIDAY DOSING. END DATE IS December ( TOTAL OF 28 DAYS OR 4 WEEKS) Remove Midline after last dose of Daptomycin Continue dialysis Friday, and friday. Last dialysis was today 10/13/21 Follow up with Nephrology, may need to follow up at [facility] for further evaluation of vascular access Currently with right groin dialysis catheter Assessment: see discharge summary
== END 2021-10-13 17:15 | DRG 263 ==
LOC: HO.ED 05:42 → HO.EDOVER 10:55 → HO.IMC 13:59
PROVIDERS: Internal Medicine Nephrology; Physician Assistant Medical; Radiology Diagnostic Radiology; Admitting Provider Family Medicine; Emergency Provider Student in an Organized Health Care Education/Training Program; Visit Provider Nurse Practitioner Acute Care
PROC: 0JHL3XZ Insertion of Tunneled Vascular Access Device into Right Upper Leg Subcutaneous Tissue and Fascia, Percutaneous Approach (ICD-10-PCS; principal; 2021-10-10 16:30)
DX: T80.211A Bloodstream infection due to central venous catheter, initial encounter (principal); G92.8 Other toxic encephalopathy; J96.01 Acute respiratory failure with hypoxia; N18.6 End stage renal disease; A41.02 Sepsis due to Methicillin resistant Staphylococcus aureus; K92.1 Melena; D62 Acute posthemorrhagic anemia; E44.0 Moderate protein-calorie malnutrition; Z68.1 Body mass index [BMI] 19.9 or less, adult; I13.2 Hypertensive heart and chronic kidney disease with heart failure and with stage 5 chronic kidney disease, or end stage renal disease; I50.42 Chronic combined systolic (congestive) and diastolic (congestive) heart failure; I82.C12 Acute embolism and thrombosis of left internal jugular vein; Z66 Do not resuscitate; F03.90 Unspecified dementia, unspecified severity, without behavioral disturbance, psychotic disturbance, mood disturbance, and anxiety; D63.1 Anemia in chronic kidney disease; E11.22 Type 2 diabetes mellitus with diabetic chronic kidney disease; E78.5 Hyperlipidemia, unspecified; R13.10 Dysphagia, unspecified; Z99.2 Dependence on renal dialysis; L89.152 Pressure ulcer of sacral region, stage 2; Z86.14 Personal history of Methicillin resistant Staphylococcus aureus infection; Z20.822 Contact with and (suspected) exposure to COVID-19; Z87.891 Personal history of nicotine dependence; Z79.4 Long term (current) use of insulin; Z79.82 Long term (current) use of aspirin; Z79.899 Other long term (current) drug therapy
CPT/HCPCS: 0241U; 36410; 36415; 36556; 36558; 36589; 36590; 36598; 36600; 71045; 71250; 71260; 74176; 80048; 80053; 80076; 80202; 81001; 82140; 82272; 82803; 82947; 83605; 85014; 85018; 85025; 85027; 85610; 85730; 86850; 86900; 86901; 86923; 87040; 87077; 87086; 87147; 87186; 87205; 87635; 90999; 92610; 93005; 93306; 93990; 96361; 96365; 96366; 96367; 96375; 99225; 99226; 99285; C1750; C1752; C1769; J0696; J0878; J0885; J1642; J2354; J2405; J3370; P9016; Q9967

== ENCOUNTER 2021-10-15 06:24 | Outpatient (REF) | payer MEDICARE, SELFPAY ==
[2021-10-15 06:56] LABS: Hematocrit 23.7 % (42.0-52.0); Hemoglobin 7.6 g/dl (14.0-18.0); Mean Corpuscular HGB Conc 32.1 g/dl (31.0-36.0); Mean Corpuscular Volume 96.7 fL (80.0-98.0); Mean Platelet Volume 9.6 fL (9.4-12.4); Platelet Count 207 X10*3/uL (160-400); Red Blood Count 2.45 X10*6/uL (4.60-5.80); Red Cell Distribution Width 15.8 % (11.0-16.0); White Blood Count 5.1 X10*3/uL (4.8-10.8)
[2021-10-15 07:39] LABS: Alanine Aminotransferase 7 U/L (0-40); Albumin Level 2.7 g/dL (3.5-5.0); Alkaline Phosphatase 69 U/L (39-117); Anion Gap 13 (12-20); Aspartate Amino Transferase 17 U/L (5-37); Bilirubin Total 0.3 mg/dL (0.0-1.0); Blood Urea Nitrogen 32 mg/dL (9-16); Calcium 8.2 mg/dL (8.4-10.2); Carbon Dioxide 19 mmol/L (22-29); Chloride 107 mmol/L (96-108); Estimated Glomerular Filt Rate 12; Glucose Random 113 mg/dL (60-115); Potassium 4.1 mmol/L (3.3-5.1); Sodium 135 mmol/L (135-145); Total Protein 5.7 g/dL (6.5-8.0)
== END 2021-10-15 06:25 | disposition home or self-care (01) ==
LOC: HO.MMNH3L 06:24
PROVIDERS: Visit Provider Family Medicine
DX: A41.9 Sepsis, unspecified organism (principal); N18.6 End stage renal disease
CPT/HCPCS: 36415; 80053; 85027

== ENCOUNTER 2021-10-20 09:45 | Emergency (ER) | payer MEDICARE, SELFPAY ==
--- NOTE | ~2021-10-20 | XR_ITS ---
EXAMINATION: XR CHEST CLINICAL INFORMATION: Hypotension. COMPARISON: CT chest 10/10/2021. Chest radiograph 09/27/2021. TECHNIQUE: Frontal view of the chest was obtained. FINDINGS: 2 oblique frontal views are submitted. Moderate blunting of left costophrenic sulcus is present along with left base airspace opacification. No pneumothoraces visualized. Density artery calcific atherosclerosis noted. The heart size is grossly normal. The visualized right lung is clear. Prominent mitral annulus calcifications and splenic artery calcific atherosclerotic plaques are noted. XR/XR chest 1V IMPRESSION: *Moderate left pleural effusion and left base atelectasis and/or consolidation grossly unchanged in degree compared with CT of the thorax 10/10/2021.
[2021-10-20 09:49] VITALS: BP 158/74; PULSE 70; O2SAT 98
[2021-10-20 09:54] VITALS: BP 144/69; PULSE 80; RESP 19; TEMP 36.6; O2SAT 96; BMI 19.5
--- NOTE | 2021-10-20 09:57 | ECG_ITS ---
Test Reason : CONFUSED Blood Pressure : / mmHG Vent. Rate : 076 BPM Atrial Rate : 076 BPM P-R Int : 168 ms QRS Dur : 146 ms QT Int : 450 ms P-R-T Axes : 071 000 066 degrees QTc Int : 506 ms Normal sinus rhythm Indeterminate axis Right bundle branch block Abnormal ECG When compared with ECG of 12-OCT-2021 11:24, Aberrant conduction is no longer Present T wave inversion no longer evident in Inferior leads Referred By: Jm Negrete Electronically Signed By:SOLIS SILVA MD
--- NOTE | 2021-10-20 10:18 | ED.GENADULT ---
HPI - General Adult General Chief complaint: General Medical Stated complaint: ABN BP, FROM DIALYSIS PER EMS Time Seen by Provider: 10/20/21 09:56 Source: EMS and RN notes reviewed Mode of arrival: ambulatory Limitations: no limitations History of Present Illness HPI narrative: 81 years old male came in from dialysis for evaluation of low blood pressure while was on dialysis. Patient with history of end-stage renal disease on dialysis almost finished his dialysis session today (was taken 10 minutes earlier than his time) (patient also with baseline dementia, patient while was getting his dialysis the dialysis nurse noticed that he had low blood pressure reading, but no documentation of change mental status or fever then, patient was sent to the hospital for further evaluation, EMS reported that the 1st blood pressure they talk for this patient was within normal limits, patient in the emergency department appears stable with initial blood pressure 144/69 otherwise rest of his vital signs on remarkable, patient with documented history of dementia but able to carry conversation with me and the staff, patient declined any symptoms no headache, no chest pain, no shortness of breath, no fever, no chills. Of note patient has a dialysis catheter in the right femoral groin area, patient also has a Giles catheter contain turbid urine. Related Data Home Medications Medication Instructions Recorded Confirmed aspirin 81 mg chewable tablet 81 mg PO DAILY 06/16/21 09/27/21 atorvastatin 10 mg tablet 1 tab PO DAILY 06/16/21 09/27/21 cholecalciferol (vitamin D3) 25 50 mcg PO DAILY 06/16/21 09/27/21 mcg (1,000 unit) tablet ferrous sulfate 325 mg (65 mg 325 mg PO TID 06/16/21 09/27/21 iron) tablet furosemide 80 mg tablet 1 tab PO BID 06/16/21 09/27/21 insulin lispro 100 unit/mL See Rx Instructions .ROUTE .COMPLEX 06/16/21 09/27/21 subcutaneous pen (Admelog SoloStar U-100 Insulin lispro) sennosides 8.6 mg tablet (senna) 8.6 mg PO DAILY 06/16/21 09/27/21 sevelamer carbonate 800 mg tablet 1 tab PO TID 06/16/21 09/27/21 tamsulosin 0.4 mg capsule 1 cap PO DAILY@1730 06/16/21 09/27/21 vitamin B complex and vitamin C 1 cap PO DAILY 06/16/21 09/27/21 no.20-folic acid 1 mg capsule acetaminophen 325 mg tablet 650 mg PO Q6H PRN 09/27/21 09/27/21 bisacodyl 10 mg rectal suppository 10 mg GA DAILY PRN 09/27/21 09/27/21 d-mannose 500 mg capsule 1,000 mg PO DAILY 09/27/21 09/27/21 docusate sodium 100 mg capsule 100 mg PO BID PRN 09/27/21 09/27/21 Previous Rx's Medication Instructions Recorded hydralazine 25 mg tablet 75 mg PO TID #135 tab 06/23/21 daptomycin 350 mg intravenous 350 mg IV Q24H 28 Days ea 10/13/21 solution heparin (porcine) 5,000 unit/mL 5,000 unit INTRA-CATHETER 10/13/21 injection solution TUTA@1645 #10 ml Allergies Allergy/AdvReac Type Severity Reaction Status Date / Time No Known Allergies Allergy Verified 06/22/21 14:22 [No Known Allergies*] Review of Systems Review of Systems: All other systems are reviewed and are negative Constitutional: Reports as per HPI and Reports no additional constitutional complaints Eyes: Reports as per HPI and Reports no additional eye complaints Reports system reviewed and no additional complaints, except as documented Cardiovascular: Reports as per HPI and Reports no additional cardiovascular complaints Respiratory: Reports as per HPI and Reports no additional respiratory complaints Gastrointestinal: Reports as per HPI and Reports no additional gastrointestinal complaints Genitourinary: Reports no additional female genitourinary complaints Musculoskeletal: Reports no additional musculoskeletal complaints Skin/Breast: Reports system reviewed and no additional complaints, except as docu Psychiatric: Reports no additional psychiatric complaints Endocrine: Reports no additional endocrine complaints Hematologic/Lymphatic: Reports no additional hematologic/lymphatic complaints Allergic/Immunologic: Reports no additional allergic/immunologic complaints Reports system reviewed and no additional complaints, except as documented and Reports Abnormal speech present [facility] [place] Past Medical History Medical History Anemia in chronic kidney disease (CKD) Benign prostatic hyperplasia 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 Dementia without behavioral disturbance Diabetes End stage renal disease 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 Essential (primary) hypertension Left lower lobe pulmonary infiltrate Metabolic encephalopathy Pneumonia Social History Social History Household Members: Other Housing: Prison Unable to assess alcohol history related to: Unable to respond Alcohol intake: unknown Patient Tobacco Use Status: Former Tobacco user Tobacco use type: Cigarette Advance Directives: Yes Advance Directives on File: Yes Advance Directives Date on File: 06/16/21 Current occupational status: disabled Physical Exam ED Vital Signs: Vital Signs - 24 hr 10/20/21 09:54 Temperature 98 F Pulse Rate 80 Respiratory Rate 19 Blood Pressure 144/69 H Pulse Oximetry 96 BMI result Body Mass Index 19.5 Vital signs have been reviewed as appeared to be correct. Blood pressure normal. Heart rate normal. Respiration rate normal. Temperature normal. Oxygen saturation normal. Appearance: Alert. Oriented to place. No acute distress. Head: Normal external exam. Normocephalic. Atraumatic. No [place] signs noted. No raccoon eyes noted Eyes: PERRLA. EOMI. Conjunctiva and sclera normal. Eyelids normal. ENT: TM's Normal. Pharynx normal. Uvula midline. Moist mucous membranes. No trismus noted. No drooling noted. No muffled voice noted. Neck: Normal inspection. Neck supple. FROM. No adenopathy. Thyroid Normal. No meningeal signs. No neck mass noted. CVS: Normal heart rate and rhythm. Heart sound normal. No murmurs noted. Pulses normal throughout. Respiratory: No respiratory distress. Painless inspiration. Breath sounds normal. No wheezes/rales/rhonchi noted. Chest nontender. No accessory muscle usage noted or decreased air movement noted. Abdomen: Soft and nontender. Bowel sounds normal in all 4 quadrants. No distention noted. No organomegaly noted. No visible injury noted. Back: No CVA tenderness. Full range of motion noted. Skin: Skin warm and dry. Normal skin color. Normal skin turgor. No rashes/lesions/lacerations noted. Extremities: No lower extremity edema. Extremities exhibit normal range of motion. Extremities nontender. Neuro: Cranial nerve exam: II-XII are grossly intact No motor deficit. No sensory deficit. Reflexes normal. Course Course Course Narrative: Assessment and plan. 81-year-old male end-stage renal disease on dialysis was sent from dialysis for hypotension, patient at his baseline dementia, patient's vital signs were monitored while he is in the ED did not have hypotension, vital signs otherwise stable, no sign of infection or sepsis, electrolytes and BUN/creatinine at baseline normal for the patient, elevated troponin without delta changes and unremarkable EKG (patient with chronic troponin elevation) patient overall is stable to be discharged from the hospital. Medical Decision Making Lab Data Lab results reviewed: Yes I reviewed the patient's lab results. Result diagrams: 10/20/21 11:54 10/20/21 11:54 Labs: Lab Results 10/20/21 10/20/21 10/20/21 Range/Units 11:39 11:54 11:54 WBC 4.3 L (4.8-10.8) X10*3/uL RBC 2.66 L (4.60-5.80) X10*6/uL Hgb 8.1 L (14.0-18.0) g/dl Hct 27.5 L (42.0-52.0) % MCV 103.4 H D (80.0-98.0) fL MCH 30.5 (27.0-33.0) pg MCHC 29.5 L (31.0-36.0) g/dl RDW 16.8 H (11.0-16.0) % Plt Count 197 (160-400) X10*3/uL MPV 9.8 (9.4-12.4) fL Immature Gran % (Auto) 0.7 H (0.0-0.4) % Neut % (Auto) 72.3 (45-73) % Lymph % (Auto) 13.4 L (20-40) % [place] % (Auto) 11.3 H (2-11) % Eos % (Auto) 1.6 (0-4) % Baso % (Auto) 0.7 (0-2) % Lymph # (Auto) 0.6 L (1.2-4.9) X10*3/uL [place] # (Auto) 0.5 (0.1-1.2) X10*3/uL Eos # (Auto) 0.1 (0.0-0.4) X10*3/uL Baso # (Auto) 0.0 (0.0-0.2) X10*3/uL Abs Immat Gran (auto) 0.03 (0.00-0.03) X10*3/uL Absolute Neuts (auto) 3.1 (2.0-8.3) x10*3/uL Absolute Nucleated RBC 0.000 (0.0-0.012) X10*3/uL Nucleated RBC % (auto) 0.0 (0.0-0.2) /100WBC Sodium 139 (135-145) mmol/L Potassium 3.7 (3.3-5.1) mmol/L Chloride 101 (96-108) mmol/L Carbon Dioxide 31 H (22-29) mmol/L Anion Gap 11 L (12-20) BUN 25 H (9-16) mg/dL Creatinine 3.04 H (0.5-1.4) mg/dL Estim Creat Clear Calc 14.5 Estimated GFR 20 Random Glucose 115 (60-115) mg/dL Calcium 8.3 L (8.4-10.2) mg/dL Total Bilirubin 0.5 (0.0-1.0) mg/dL Direct Bilirubin 0.2 (0.0-0.5) mg/dL AST 23 (5-37) U/L ALT 19 (0-40) U/L Alkaline Phosphatase 64 (39-117) U/L Troponin I High Sens (<3.5-35.0) ng/L B-Natriuretic Peptide (<100) pg/mL Total Protein 6.1 L (6.5-8.0) g/dL Albumin 2.8 L (3.5-5.0) g/dL Lipase 106 H (8-78) U/L COVID-19 (SALTY) Negative (Negative) COVID-19 Clin Com See Note 10/20/21 10/20/21 Range/Units 11:54 14:43 WBC (4.8-10.8) X10*3/uL RBC (4.60-5.80) X10*6/uL Hgb (14.0-18.0) g/dl Hct (42.0-52.0) % MCV (80.0-98.0) fL MCH (27.0-33.0) pg MCHC (31.0-36.0) g/dl RDW (11.0-16.0) % Plt Count (160-400) X10*3/uL MPV (9.4-12.4) fL Immature Gran % (Auto) (0.0-0.4) % Neut % (Auto) (45-73) % Lymph % (Auto) (20-40) % [place] % (Auto) (2-11) % Eos % (Auto) (0-4) % Baso % (Auto) (0-2) % Lymph # (Auto) (1.2-4.9) X10*3/uL [place] # (Auto) (0.1-1.2) X10*3/uL Eos # (Auto) (0.0-0.4) X10*3/uL Baso # (Auto) (0.0-0.2) X10*3/uL Abs Immat Gran (auto) (0.00-0.03) X10*3/uL Absolute Neuts (auto) (2.0-8.3) x10*3/uL Absolute Nucleated RBC (0.0-0.012) X10*3/uL Nucleated RBC % (auto) (0.0-0.2) /100WBC Sodium (135-145) mmol/L Potassium (3.3-5.1) mmol/L Chloride (96-108) mmol/L Carbon Dioxide (22-29) mmol/L Anion Gap (12-20) BUN (9-16) mg/dL Creatinine (0.5-1.4) mg/dL Estim Creat Clear Calc Estimated GFR Random Glucose (60-115) mg/dL Calcium (8.4-10.2) mg/dL Total Bilirubin (0.0-1.0) mg/dL Direct Bilirubin (0.0-0.5) mg/dL AST (5-37) U/L ALT (0-40) U/L Alkaline Phosphatase (39-117) U/L Troponin I High Sens 68.6 H 79.2 H (<3.5-35.0) ng/L B-Natriuretic Peptide 1622 H (<100) pg/mL Total Protein (6.5-8.0) g/dL Albumin (3.5-5.0) g/dL Lipase (8-78) U/L COVID-19 (SALTY) (Negative) COVID-19 Clin Com Imaging Data Chest x-ray: Attestation: I personally reviewed and interpreted this imaging study as follows: Radiologist's impression: Moderate left pleural effusion and left base atelectasis and/or consolidation grossly unchanged in degree compared with CT of the thorax 10/10/2021. Discharge Plan Discharge Clinical Impression: End stage renal disease, Dementia Patient Disposition: Home, Self-Care Instructions: End Stage Kidney Disease (ED) Prescriptions: No Action atorvastatin 10 mg tablet 1 tab PO DAILY 0RF tamsulosin 0.4 mg capsule 1 cap PO DAILY@1730 0RF furosemide 80 mg tablet 1 tab PO BID 0RF insulin lispro [Admelog SoloStar U-100 Insulin] 100 unit/mL insulin pen See Rx Instructions .ROUTE .COMPLEX 0RF Rx Instructions: 0-299: 0 UNITS 300-350: 2 UNITS 351-400: 4 UNITS BEFORE MEALS ON mowefr bid ON TUTHSA sevelamer carbonate 800 mg tablet 1 tab PO TID 0RF sennosides [senna] 8.6 mg Tablet 8.6 mg PO DAILY 0RF ferrous sulfate 325 mg (65 mg iron) Tablet 325 mg PO TID 0RF aspirin 81 mg Tablet,Chewable 81 mg PO DAILY 0RF B complex with C 20-folic acid 1 mg Capsule 1 cap PO DAILY 0RF cholecalciferol (vitamin D3) 25 mcg (1,000 unit) Tablet 50 mcg PO DAILY 0RF hydralazine 25 mg Tablet 75 mg PO TID Qty: 135 0RF Protocol: Hold for SBP< HOLD for SBP < : 90 d-mannose 500 mg Capsule 1,000 mg PO DAILY 0RF acetaminophen 325 mg Tablet 650 mg PO Q6H PRN (Reason: GENERAL DISCOMFORT) 0RF bisacodyl 10 mg Suppository 10 mg GA DAILY PRN (Reason: Constipation) 0RF Rx Instructions: EVERY 3 DAYS IF NO EFFECT FROM DOCUSATE docusate sodium 100 mg Capsule 100 mg PO BID PRN (Reason: Constipation) 0RF heparin (porcine) 5,000 unit/mL Solution 5,000 unit intra-catheter TUTHSA@1645 Qty: 10 0RF daptomycin 350 mg recon soln 350 mg IV Q24H 28 Days 0RF Rx Instructions: administer over 30 mins Referrals: Physician,Unknown J [Primary Care Provider] - 2 days
--- NOTE | 2021-10-20 11:38 | PC.NURSE ---
PHLEBOTOMY CALLS @ THIS TIME DUE TO PAGE OVER HEAD FOR THIS PT BEING A TOUGH STICK FANNIE STATES IT WILL BE AWHILE
[2021-10-20 11:59] LABS: MANUAL DIFF FLAG NO
[2021-10-20 12:05] LABS: COVID-19 Test Negative (Negative); IDNOW Serial# 55D5AD1C
[2021-10-20 12:17] LABS: Alanine Aminotransferase 19 U/L (0-40); Albumin Level 2.8 g/dL (3.5-5.0); Alkaline Phosphatase 64 U/L (39-117); Anion Gap 11 (12-20); Aspartate Amino Transferase 23 U/L (5-37); Bilirubin Direct 0.2 mg/dL (0.0-0.5); Bilirubin Total 0.5 mg/dL (0.0-1.0); Blood Urea Nitrogen 25 mg/dL (9-16); Calcium 8.3 mg/dL (8.4-10.2); Carbon Dioxide 31 mmol/L (22-29); Chloride 101 mmol/L (96-108); Creatinine Clr Calc Pharmacy 14.5; Estimated Glomerular Filt Rate 20; Glucose Random 115 mg/dL (60-115); Lipase 106 U/L (8-78); Potassium 3.7 mmol/L (3.3-5.1); Sodium 139 mmol/L (135-145); Total Protein 6.1 g/dL (6.5-8.0)
[2021-10-20 12:19] LABS: B Type Natriuretic Peptide 1622 pg/mL (<100); Troponin-I High Sensitivity 68.6 ng/L (<3.5-35.0)
[2021-10-20 12:27] LABS: Basophils Percent Auto 0.7 % (0-2); Eosinophils Absolute Auto 0.1 X10*3/uL (0.0-0.4); Eosinophils Percent Auto 1.6 % (0-4); Hematocrit 27.5 % (42.0-52.0); Hemoglobin 8.1 g/dl (14.0-18.0); Imm Gran Abs Auto 0.03 X10*3/uL (0.00-0.03); Imm Gran Pct Auto 0.7 % (0.0-0.4); Lymphocytes Absolute Auto 0.6 X10*3/uL (1.2-4.9); Lymphocytes Percent Auto 13.4 % (20-40); Mean Corpuscular HGB Conc 29.5 g/dl (31.0-36.0); Mean Corpuscular Hemoglobin 30.5 pg (27.0-33.0); Mean Platelet Volume 9.8 fL (9.4-12.4); Monocytes Absolute Auto 0.5 X10*3/uL (0.1-1.2); Monocytes Percent Auto 11.3 % (2-11); Neutrophils Absolute Auto 3.1 x10*3/uL (2.0-8.3); Neutrophils Percent Auto 72.3 % (45-73); Platelet Count 197 X10*3/uL (160-400); Red Blood Count 2.66 X10*6/uL (4.60-5.80); Red Cell Distribution Width 16.8 % (11.0-16.0); White Blood Count 4.3 X10*3/uL (4.8-10.8)
[2021-10-20 12:49] LABS: Mean Corpuscular Volume 103.4 fL (80.0-98.0)
[2021-10-20 15:10] LABS: Troponin-I High Sensitivity 79.2 ng/L (<3.5-35.0)
[2021-10-20 15:33] VITALS: BP 145/70; PULSE 75; RESP 16; TEMP 36.6; O2SAT 98
--- NOTE | 2021-10-20 15:55 | PC.NURSE ---
patient found to be incontinent of stool at this time. skin cleansed and patient provided cushioning under left side and inbetween legs. skin breakdown noted to patient's sacral area. patient, light bleeding noted, stage 2 pressure noted. awaiting transport to nursing facility, no obvious distress
[2021-10-20 18:00] VITALS: BP 142/64; PULSE 74; RESP 16; TEMP 36.5; O2SAT 97
--- NOTE | 2021-10-20 18:14 | PC.NURSE ---
patient transfered at this time, no apparent distress. patient found to be incontinent of stool again prior to departure, skin cleansed prior to departure. patient awake and alert on departure
== END 2021-10-20 18:15 | disposition home or self-care (01) ==
PROVIDERS: Emergency Provider Emergency Medicine
DX: E11.22 Type 2 diabetes mellitus with diabetic chronic kidney disease (principal); I13.2 Hypertensive heart and chronic kidney disease with heart failure and with stage 5 chronic kidney disease, or end stage renal disease; N18.6 End stage renal disease; I50.40 Unspecified combined systolic (congestive) and diastolic (congestive) heart failure; D63.1 Anemia in chronic kidney disease; Z99.2 Dependence on renal dialysis; F03.90 Unspecified dementia, unspecified severity, without behavioral disturbance, psychotic disturbance, mood disturbance, and anxiety; Z20.822 Contact with and (suspected) exposure to COVID-19; Z79.82 Long term (current) use of aspirin; Z79.4 Long term (current) use of insulin; Z79.02 Long term (current) use of antithrombotics/antiplatelets
CPT/HCPCS: 36415; 71045; 80048; 80076; 83690; 83880; 84484; 85025; 87635; 93005; 96360; 99284